=== PATIENT | female | born 1940 | race Caucasian/White ===

== ENCOUNTER 2016-10-31 13:48 | Observation (INO) | payer OTHER ==
--- NOTE | 2016-10-31 14:40 | CPEKG ---
Heart Rate: 101 RR Interval: 594 P-R Interval: 160 QRSD Interval: 84 QT Interval: 296 QTC Interval: 384 P [place]: 60 QRS [place]: 11 T Wave [place]: 106 EKG Severity - OTHERWISE NORMAL ECG - EKG Impression: SINUS TACHYCARDIA Electronically Signed By: Tarsha Tabares 31-Oct-2016 21:37:07
[2016-10-31 14:42] LABS: % IMMATURE GRANULYOCYTES 0.6 % (0.0-1.1); ABSOLUTE IMMATURE GRANULOCYTES 0.09 10^3/uL (0.00-0.10); ADD DIFF? NO; ADD MORPH? NO; ADD SCAN? NO; ATYPICAL LYMPHOCYTE FLAG 0 (0-99); FRAGMENT RBC FLAG 0 (0-99); HEMATOCRIT 33.7 % (38.0-47.0); HEMOGLOBIN 11.8 g/dL (12.6-16.3); LEFT SHIFT FLG 40 (0-99); LIPEMIA HEMOLYSIS FLAG 90 (0-99); MEAN CELL HEMOGLOBIN 32.3 pg (27.9-34.1); MEAN CELL VOLUME 92.3 fL (81.5-99.8); MEAN PLATELET VOLUME 9.8 fL (8.7-11.7); PLATELET CLUMPS FLAG 10 (0-99); PLATELET COUNT 260 10^3/uL (150-400); RED BLOOD CELL COUNT 3.65 10^6/uL (4.18-5.33); RED CELL DISTRIBUTION WIDTH 12.7 % (11.5-15.2)
--- NOTE | 2016-10-31 14:42 | EDPHY ---
H & P Stated Complaint: sob/tachycardic pain at bilat scapular area Time Seen by Provider: 10/31/16 14:16 HPI/ROS: CHIEF COMPLAINT: Shortness of breath, tachycardia, back pain between her scapula HISTORY OF PRESENT ILLNESS: this is a 76-year-old female who presents reporting that yesterday she felt fatigued and achy all over. She denies a fever. She slept quite a bit yesterday and noticed that she was short of breath when she was moving about the house. She woke this morning developed a headache. She also reports developing back pain between the scapula. Patient denies a cough. Denies fever. Denies abdominal pain. Denies rash. Primary complaint at this time is just feeling fatigued pain in her back, shortness of breath, and noticed that her heart rate is elevated. She denies anterior chest pain. No vomiting, or diarrhea. Patient does state that she felt she urinary tract infection last week and was drinking plenty of fluids as well as taking cranberry juice. No dizziness, palpitations , or lightheadedness. REVIEW OF SYSTEMS: Aside from elements discussed in the HPI, a comprehensive 10-point review of systems was reviewed and is negative. PAST MEDICAL HISTORY: Arthritis, chronic back pain. SOCIAL HISTORY: Here with her . Nonsmoker. Does use marijuana occasionally. VITAL SIGNS Reviewed by me. GENERAL: Well-developed, well-nourished, Slightly tachypneic. Pulse ox is noted to be 100% on room air. HEENT: Atraumatic. Eyes: No icterus, no injection. Mouth: moist mucous membranes. No erythema or lesions. Neck: supple with no adenopathy. LUNGS: Clear to auscultation bilaterally, no wheezes, rhonchi or rales. CARDIAC: Mild tachycardia, regular rhythm, no rubs, murmurs or gallops. Patient indicates that area of tenderness is along the infrascapular region on both sides. ABDOMEN: Soft, nontender, nondistended, bowel sounds normal. BACK: No CVA tenderness. EXTREMITIES: No trauma. No edema. Range of motion is normal throughout. NEURO: Alert and oriented, grossly nonfocal. SKIN: Warm and dry, no rash. PSYCHIATRIC: Normal mentation, no agitation. Portions of this note were transcribed by a regional medical director. I, Dr Tarsha Feldhaus , personally performed a history, physical exam, medical decision making, and confirmed the accuracy of the information in the transcribed note. - Personal History Current Tetanus/Diphtheria Vaccine: Yes - Medical/Surgical History Hx Asthma: No Hx Chronic Respiratory Disease: No Hx Diabetes: No Hx Cardiac Disease: No Hx Renal Disease: No Hx Cirrhosis: No Hx Alcoholism: No Hx HIV/AIDS: No Hx Splenectomy or Spleen Trauma: No Other PMH: HTN, herpes, cervial/lumbar spine stenosis - Social History Smoking Status: Never smoked Constitutional: Initial Vital Signs Temperature (C) 37.2 C 10/31/16 13:56 Heart Rate 113 H 10/31/16 13:56 Respiratory Rate 26 H 10/31/16 13:56 Blood Pressure 114/78 10/31/16 13:56 O2 Sat (%) 97 10/31/16 13:56 O2 Delivery Mode Room Air Allergies/Adverse Reactions: diclofenac [From Voltaren] Allergy (Intermediate, Verified 10/31/16 18:47) Other-Enter Comments Home Medications: Medication Instructions Recorded Duloxetine HCl [Cymbalta] 60 mg PO HS 08/02/15 Gabapentin [Neurontin 400 MG (*)] 400 mg PO HS 08/02/15 Losartan Potassium [Cozaar] 100 mg PO DAILY 08/02/15 Multivitamins [Multivitamin (*)] 1 each PO DAILY 08/02/15 Ranitidine HCl [Acid Nursery Laborer] 150 mg PO HS 08/02/15 Valacyclovir HCl [Valtrex] 1,000 mg PO DAILY 08/02/15 Chlorthalidone [Chlorthalidone 25 25 mg PO DAILY 10/31/16 mg (*)] Cyclobenzaprine [Flexeril 10 MG 10 mg PO HS PRN 10/31/16 (*)] LORazepam [Lorazepam] 0.5 mg PO HS PRN 10/31/16 Loratadine [Claritin 10 mg] 10 mg PO HS 10/31/16 Sennosides/Docusate Sodium 1 tab PO HS 10/31/16 [Senna-S Tablet] Triamcinolone Acetonide [Nasacort] 2 sprays EACHNARE HS PRN 10/31/16 amLODIPine BESYLATE [Norvasc 5 mg 5 mg PO DAILY 10/31/16 (*)] Naproxen Sodium [Aleve 220 MG (*)] 220 mg PO HS #30 tab 11/01/16 Sulfamethox/Tmp 800/160 mg 1 tab PO BID #2 tab 11/01/16 [Bactrim Ds] oxyCODONE IR [Oxycodone Ir (*)] 5 - 10 mg PO Q3HRS PRN #20 tab 11/01/16 Medical Decision Making - Diagnostics EKG Interpretation: 12-LEAD EKG: Please see the full report in Trace Master. My interpretation: Sinus tachycardia, borderline ST depression laterally Imaging Results: Xray: Chest x-ray was obtained. I viewed the images myself on the PACS system. My interpretation of the images is: No acute findings. The radiology interpretation is: Pending. I discussed the results with the patient. ED Course/Re-evaluation: The 12 lead EKG was interpreted by myself. See hard copy and/or "tracemaster" electronic copy for interpretation. Sinus tachycardia, rate 101 Chest x-ray normal. D Dimer elevated at 1.79 16:30 Reassessed patient. Discussed lab results. CT scan ordered. 16:[address] Martinez, radiologist. PE study negative. Reported this result to the patient. Plan to admit. - Data Points Laboratory Results: Laboratory Results 10/31/16 14:10 10/31/16 14:10 Medications Given: Discontinued Medications Amlodipine Besylate (Norvasc) 5 mg PO DAILY BUZZ Stop: 04/30/17 08:59 Last Admin: 11/01/16 08:11 Dose: 5 mg Cetirizine HCl (Zyrtec) 10 mg PO HS BUZZ Stop: 04/29/17 20:59 Last Admin: 10/31/16 20:52 Dose: 10 mg Cyclobenzaprine HCl (Flexeril) 10 mg PO HS PRN PRN Reason: muscle spasms Stop: 04/29/17 19:19 Last Admin: 11/01/16 06:01 Dose: 10 mg Duloxetine HCl (Cymbalta) 60 mg PO HS BUZZ Stop: 04/29/17 20:59 Last Admin: 10/31/16 20:51 Dose: 60 mg Enoxaparin Sodium (Lovenox) 40 mg SC DAILY BUZZ Stop: 04/30/17 08:59 Last Admin: 11/01/16 08:14 Dose: 40 mg Famotidine (Pepcid) 20 mg PO HS BUZZ Stop: 04/29/17 20:59 Last Admin: 10/31/16 20:51 Dose: 20 mg Gabapentin (Neurontin) 400 mg PO HS BUZZ Stop: 04/29/17 20:59 Last Admin: 10/31/16 20:51 Dose: 400 mg Sodium Chloride (Ns) 1,000 mls @ 0 mls/hr IV ONCE ONE; Wide Open PRN Reason: Protocol Stop: 10/31/16 16:37 Last Admin: 10/31/16 16:38 Dose: 1,000 mls Sodium Chloride (Ns) 1,000 mls @ 100 mls/hr IV CONT BUZZ Stop: 04/29/17 19:29 Last Admin: 11/01/16 06:55 Dose: 1,000 mls Ceftriaxone Sodium/Dextrose (Rocephin 1 Gm (Premix)) 50 mls @ 100 mls/hr IV DAILY BUZZ PRN Reason: Protocol Stop: 11/30/16 19:59 Last Admin: 11/01/16 08:12 Dose: 50 mls Losartan Potassium (Cozaar) 100 mg PO DAILY BUZZ Stop: 04/30/17 08:59 Last Admin: 11/01/16 11:53 Dose: 100 mg Multivitamins (Tab-A-[place]) 1 each PO DAILY BUZZ Stop: 04/30/17 08:59 Last Admin: 11/01/16 08:11 Dose: 1 each Oxycodone HCl (Oxycodone Ir) 5 - 10 mg PO Q3HRS PRN PRN Reason: Pain, Severe Able to Take PO Stop: 11/10/16 19:17 Last Admin: 11/01/16 11:48 Dose: 5 mg Senna/Docusate Sodium (Senokot-S) 1 tab PO HS BUZZ Stop: 04/29/17 20:59 Last Admin: 10/31/16 20:51 Dose: 1 tab Valacyclovir HCl (Valtrex) 1,000 mg PO DAILY BUZZ Stop: 12/01/16 08:59 Last Admin: 11/01/16 08:10 Dose: 1,000 mg Departure - Departure Disposition: [facility] Acute Condition: Good Report Scribed for: Tarsha Tabares Report Scribed by: Kylee Whiteside Date of Report: 10/31/16 Time of Report: 16:30
[2016-10-31 14:50] LABS: ALANINE AMINOTRANSFERASE 104 IU/L (9-52); ALBUMIN 4.1 g/dL (3.5-5.0); ALKALINE PHOSPHATASE 163 IU/L (38-126); ANION GAP 11 mEq/L (8-16); ASPARTATE AMINOTRANSFERASE 113 IU/L (14-46); BILIRUBIN,TOTAL 1.2 mg/dL (0.1-1.4); BILIRUBIN-CONJUGATED 0.5 mg/dL (0.0-0.5); BILIRUBIN-UNCONJUGATED 0.7 mg/dL (0.0-1.1); CALCIUM 9.9 mg/dL (8.5-10.4); CARBON DIOXIDE 21 mEq/l (22-31); CHLORIDE 91 mEq/L (97-110); CREATININE 1.3 mg/dL (0.6-1.0); GLOMERULAR FILTRATION RATE 40; GLUCOSE 88 mg/dL (70-100); POTASSIUM 3.8 mEq/L (3.5-5.2); SODIUM 123 mEq/L (134-144); TOTAL PROTEIN 7.3 g/dL (6.3-8.2)
[2016-10-31 15:01] LABS: TROPONIN I < 0.012 ng/mL (0-0.034)
[2016-10-31] MEDS ORDERED: IOPAMIDOL (ISOVUE 370) 100 ML BTL IV ONE (15:34)
[2016-10-31] MEDS ORDERED: NS 1,000 ML IV ONE (16:36)
[2016-10-31 17:36] LABS: COLOR YELLOW; LEUKOCYTE ESTERASE,URINE TRACE (NEGATIVE); NITRITE,URINE POSITIVE (NEGATIVE)
[2016-10-31] MEDS ORDERED: ONDANSETRON 4 MG/2 ML VIAL IVP PRN (19:18)
[2016-10-31] MEDS ORDERED: ACETAMINOPHEN 325 MG TAB PO PRN (19:18)
[2016-10-31] MEDS ORDERED: ZOLPIDEM TARTRATE 5 MG TAB PO PRN (19:18)
[2016-10-31] MEDS ORDERED: ONDANSETRON DISINTEGRATING 4 MG TAB PO PRN (19:18)
[2016-10-31] MEDS ORDERED: PROMETHAZINE HCL 25 MG/ML INJ IVP PRN (19:18)
[2016-10-31] MEDS ORDERED: CYCLOBENZAPRINE 10 MG TAB PO PRN (19:20)
[2016-10-31] MEDS ORDERED: NON-FORMULARY NEW DRUG (Acetaminophen [Acetaminophen Er] 1,300 MG) PO PRN (19:20)
[2016-10-31] MEDS ORDERED: TRIAMCINOLONE ACETONIDE EACHNARE PRN (19:20)
[2016-10-31] MEDS ORDERED: LORazepam 1 MG TAB PO PRN (19:20)
--- NOTE | 2016-10-31 19:28 | PDGENHP ---
History and Physical - Chief Complaint fatigue - History of Present Illness 76 yo F with PMH of HTN, chronic pain presenting with several days of generalized fatigue and malaise as well as diffuse aches and pains and touch sensitivity. She note she has felt as if she had a fever, though she has not when she has checked it. She has also had about a week of s/s of urinary infection that have been improving with pushing fluids and time. She has had some mid back pain that has improved since getting IVF in the ER. She has not noted any blood in her urine. She has not had any shortness of breath outside of her usual congestion related to seasonal allergies. She has not had cough, chest pain, palpitations. She has chronic constipation and this is unchanged. She has had no nausea or vomiting. She has not had any abdominal pain. She has had no swelling or pain in her legs. She felt so poorly that yesterday she essentially slept all day and ate and drink very little. Today she has had very little po intake as well. She does note that she has had some increased stress recently around her partner going for back surgery next week. She has some chronic paresthesias related to cervical stenosis but these have not changed. History Information - Allergies/Home Medication List Allergies/Adverse Reactions: diclofenac [From Voltaren] Allergy (Intermediate, Verified 10/31/16 18:47) Other-Enter Comments Home Medications: Duloxetine HCl [Cymbalta] 60 mg PO HS 08/02/15 [Last Taken 10/30/16] Gabapentin [Neurontin 400 MG (*)] 400 mg PO HS 08/02/15 [Last Taken 10/30/16] Losartan Potassium [Cozaar] 100 mg PO DAILY 08/02/15 [Last Taken 10/31/16] Multivitamins [Multivitamin (*)] 1 each PO DAILY 08/02/15 [Last Taken 10/31/16] Naproxen [Naprosyn] 500 mg PO HS 08/02/15 [Last Taken 10/30/16] Ranitidine HCl [Acid Data Lead] 150 mg PO HS 08/02/15 [Last Taken 10/30/16] Valacyclovir HCl [Valtrex] 1,000 mg PO DAILY 08/02/15 [Last Taken 10/31/16] Acetaminophen [Acetaminophen ER] 1,300 mg PO Q8 PRN 10/31/16 [Last Taken ] Chlorthalidone [Chlorthalidone 25 mg (*)] 25 mg PO DAILY 10/31/16 [Last Taken ] Cyclobenzaprine [Flexeril 10 MG (*)] 10 mg PO HS PRN 10/31/16 [Last Taken ] Hydrochlorothiazide Dose Unknown mg PO DAILY 10/31/16 [Last Taken 10/31/16] LORazepam [Lorazepam] 0.5 mg PO HS PRN 10/31/16 [Last Taken 10/30/16] Loratadine [Claritin 10 mg] 10 mg PO HS 10/31/16 [Last Taken 10/30/16] Sennosides/Docusate Sodium [Senna-S Tablet] 1 tab PO HS 10/31/16 [Last Taken ] Triamcinolone Acetonide [Nasacort] 2 sprays EACHNARE HS PRN 10/31/16 [Last Taken 10/30/16] amLODIPine BESYLATE [Norvasc 5 mg (*)] 5 mg PO DAILY 10/31/16 [Last Taken ] oxyCODONE/APAP 5/325 [Percocet 5/325] 1 tab PO Q6 PRN 10/31/16 [Last Taken 10/30 20:00] I have personally reviewed and updated: family history, medical history, social history, surgical history - Past Medical History GERD, hypertension Additional medical history: chronic back and ankle pain. 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 hsv. continuous narcotic use and dependency - Surgical History Reports: hysterectomy (for fibroids) - Family History Positive for: non-pertinent - Social History Smoking Status: Never smoked Alcohol Use: Rarely Drug Use: Marijuana Additional social history: lives with her partner, she was previously and Review of Systems ROS: 10pt was reviewed & negative except for what was stated in HPI & below Physical Exam Temp Pulse Resp BP Pulse Ox 37.6 C 97 20 115/75 100 10/31/16 18:49 10/31/16 18:49 10/31/16 18:49 10/31/16 18:49 10/31/16 18:49 Constitutional: no apparent distress, appears nourished Eyes: PERRL, anicteric sclera Ears, Nose, Mouth, Throat: moist mucous membranes, hearing normal, no oral mucosal ulcers Cardiovascular: regular rate and rhythym, no murmur, rub, or gallop, No edema Respiratory: no respiratory distress, no rales or rhonchi, clear to auscultation Gastrointestinal: normoactive bowel sounds, soft, non-tender abdomen, No tenderness Genitourinary: no bladder tenderness, other (no cva tenderness) Skin: warm, normal color Musculoskeletal: full muscle strength, no muscle tenderness, No asymmetric calves Neurologic: AAOx3 Psychiatric: interacting appropriately, not anxious, not encephalopathic Lab Data & Imaging Review 10/31/16 14:10 10/31/16 14:10 WBC 15.24 10^3/uL (3.80-9.50) H 10/31/16 14:10 RBC 3.65 10^6/uL (4.18-5.33) L 10/31/16 14:10 Hgb 11.8 g/dL (12.6-16.3) L 10/31/16 14:10 Hct 33.7 % (38.0-47.0) L 10/31/16 14:10 MCV 92.3 fL (81.5-99.8) 10/31/16 14:10 MCH 32.3 pg (27.9-34.1) 10/31/16 14:10 MCHC 35.0 g/dL (32.4-36.7) 10/31/16 14:10 RDW 12.7 % (11.5-15.2) 10/31/16 14:10 Plt Count 260 10^3/uL (150-400) 10/31/16 14:10 MPV 9.8 fL (8.7-11.7) 10/31/16 14:10 Neut % (Auto) 81.7 % (39.3-74.2) H 10/31/16 14:10 Lymph % (Auto) 8.3 % (15.0-45.0) L 10/31/16 14:10 [place] % (Auto) 9.2 % (4.5-13.0) 10/31/16 14:10 Eos % (Auto) 0.1 % (0.6-7.6) L 10/31/16 14:10 Baso % (Auto) 0.1 % (0.3-1.7) L 10/31/16 14:10 Nucleat RBC Rel Count 0.0 % (0.0-0.2) 10/31/16 14:10 Absolute Neuts (auto) 12.45 10^3/uL (1.70-6.50) H 10/31/16 14:10 Absolute Lymphs (auto) 1.26 10^3/uL (1.00-3.00) 10/31/16 14:10 Absolute Monos (auto) 1.40 10^3/uL (0.30-0.80) H 10/31/16 14:10 Absolute Eos (auto) 0.02 10^3/uL (0.03-0.40) L 10/31/16 14:10 Absolute Basos (auto) 0.02 10^3/uL (0.02-0.10) 10/31/16 14:10 Absolute Nucleated RBC 0.00 10^3/uL (0-0.01) 10/31/16 14:10 Immature Gran % 0.6 % (0.0-1.1) 10/31/16 14:10 Immature Gran # 0.09 10^3/uL (0.00-0.10) 10/31/16 14:10 D-Dimer 1.79 ug/mLFEU (0.00-0.50) H 10/31/16 14:10 VBG Lactic Acid 1.6 mmol/L (0.7-2.1) 10/31/16 18:35 Sodium 123 mEq/L (134-144) L 10/31/16 14:10 Potassium 3.8 mEq/L (3.5-5.2) 10/31/16 14:10 Chloride 91 mEq/L (97-110) L 10/31/16 14:10 Carbon Dioxide 21 mEq/l (22-31) L 10/31/16 14:10 Anion Gap 11 mEq/L (8-16) 10/31/16 14:10 BUN 23 mg/dL (7-23) 10/31/16 14:10 Creatinine 1.3 mg/dL (0.6-1.0) H 10/31/16 14:10 Estimated GFR 40 10/31/16 14:10 Glucose 88 mg/dL (70-100) 10/31/16 14:10 Calcium 9.9 mg/dL (8.5-10.4) 10/31/16 14:10 Total Bilirubin 1.2 mg/dL (0.1-1.4) 10/31/16 14:10 Conjugated Bilirubin 0.5 mg/dL (0.0-0.5) 10/31/16 14:10 Unconjugated Bilirubin 0.7 mg/dL (0.0-1.1) 10/31/16 14:10 AST 113 IU/L (14-46) H 10/31/16 14:10 ALT 104 IU/L (9-52) H 10/31/16 14:10 Alkaline Phosphatase 163 IU/L (38-126) H 10/31/16 14:10 Creatine Kinase 73 IU/L (0-156) 10/31/16 14:10 Troponin I < 0.012 ng/mL (0-0.034) 10/31/16 14:10 Total Protein 7.3 g/dL (6.3-8.2) 10/31/16 14:10 Albumin 4.1 g/dL (3.5-5.0) 10/31/16 14:10 Lipase 45.0 IU/L (23-300) 10/31/16 14:10 Urine Color YELLOW 10/31/16 17:20 Urine Appearance CLEAR 10/31/16 17:20 Urine pH 7.0 (5.0-7.5) 10/31/16 17:20 Ur Specific [place] 1.025 (1.002-1.030) 10/31/16 17:20 Urine Protein NEGATIVE (NEGATIVE) 10/31/16 17:20 Urine Ketones TRACE (NEGATIVE) H 10/31/16 17:20 Urine Blood NEGATIVE (NEGATIVE) 10/31/16 17:20 Urine Nitrate POSITIVE (NEGATIVE) H 10/31/16 17:20 Urine Bilirubin NEGATIVE (NEGATIVE) 10/31/16 17:20 Urine Urobilinogen NEGATIVE EU (0.2-1.0) 10/31/16 17:20 Ur Leukocyte Esterase TRACE (NEGATIVE) H 10/31/16 17:20 Urine RBC 1-3 /hpf (0-3) 10/31/16 17:20 Urine WBC 5-10 /hpf (0-3) H 10/31/16 17:20 Ur Epithelial Cells TRACE /lpf (NONE-1+) 10/31/16 17:20 Urine Glucose NEGATIVE (NEGATIVE) 10/31/16 17:20 Visualized and Interpreted Chest x-ray results: Yes Chest X-Ray results: normal Visualized and Interpreted imaging results: Yes Interpretation: CTA: no PE, 4mm pulmonary nodule Visualized and Interpreted EKG results: Yes EKG additional interpertation: sinus tachycardia Assessment & Plan Assessment: 76 yo F with PMH of htn, chronic back/ankle pain pw generalized malaise and fatigue, hyponatremia, sunil, transaminitis. # generalized malaise/fatigue: with very few localizing sxs but concerning for occult infectious process ,possibly viral illness vs uti, cholecystitis. Will also check TSH and r/o for ACS with serial trops and ecgs. Non focal neuro exam and does not give hx of focal neuro changes. No med changes. # hyponatremia: in the setting of several days of feeling poorly as above with limited po intake and suspect hypovolemic hyponatremia. Will check urine na/ osms. Will repeat s/p IVF and likely continue gentle IVF overnight. Hold diuretics. # pyuria: with trace leuk esterase and trace nitrates and urinary sxs for several days, will start ctx and obtain urine culture # sunil: in setting of above and again suspect pre renal. Will calculate fena/ feurea. Holding hctz and chlorthalidone and monitoring with fluid resuscitation. # transaminitis: uncertain significance but does have mild ttp on exam in RUQ and will obtain RUQ US to r/o cholecystitis # sirs: patient initially tachycardic (resolved with IVF), tachypneic and with elevated wbc and as above concern for possible infection. HD stable, starting abx for presumed uti and monitoring. # pulmonary nodule: given size and low risk patient without hx of cancer or smoking, no further f/u needed # htn: holding diuretics and losartan given sunil, continue amlodipine, can resume losartan in am if creatinine improving. BP currently on low end # seasonal allergies: continue loratadine # chronic pain/continuous opiate use and dependency: continue her usual op regimen, not an acute issue currently # observation status, will likely need < 48 hours stay for eval/mgmt of above Patient new to my care. old records reviewed and summarized as above. Care plan reviewed with ER doctor including plans for abx.
[2016-10-31] MEDS ORDERED: FLUTICASONE NASAL 120 SPRAYS/16 GM MDI EACHNARE PRN (19:53)
[2016-10-31] MEDS ORDERED: ACETAMINOPHEN 500 MG TAB PO PRN (19:59)
[2016-10-31] MEDS: NS 1,000 ML IV SCH (20:42)
[2016-10-31] MEDS ORDERED: NON-FORMULARY NEW DRUG (Ranitidine Hcl [Acid Reducer] 150 MG) PO SCH (21:00)
[2016-10-31] MEDS ORDERED: NON-FORMULARY NEW DRUG (Loratadine [Claritin 10 Mg] 10 MG) PO SCH (21:00)
[2016-10-31] MEDS ORDERED: FAMOTIDINE 20 MG TAB PO SCH (21:00)
[2016-10-31] MEDS ORDERED: CETIRIZINE 10 MG TAB PO SCH (21:00)
[2016-10-31] MEDS ORDERED: SENNOSIDES/DOCUSATE SODIUM TAB PO SCH (21:00)
[2016-10-31] MEDS ORDERED: DULoxetine 60 MG CAP PO SCH (21:00)
[2016-10-31] MEDS ORDERED: GABAPENTIN 400 MG CAP PO SCH (21:00)
[2016-11-01 04:50] LABS: % IMMATURE GRANULYOCYTES 0.7 % (0.0-1.1); ABSOLUTE IMMATURE GRANULOCYTES 0.13 10^3/uL (0.00-0.10); ADD DIFF? NO; ADD MORPH? NO; ADD SCAN? NO; ATYPICAL LYMPHOCYTE FLAG 0 (0-99); FRAGMENT RBC FLAG 0 (0-99); HEMATOCRIT 29.6 % (38.0-47.0); HEMOGLOBIN 10.2 g/dL (12.6-16.3); LEFT SHIFT FLG 60 (0-99); LIPEMIA HEMOLYSIS FLAG 90 (0-99); MEAN CELL HEMOGLOBIN CONCENTR. 34.5 g/dL (32.4-36.7); MEAN CELL VOLUME 95.8 fL (81.5-99.8); MEAN PLATELET VOLUME 9.4 fL (8.7-11.7); PLATELET CLUMPS FLAG 0 (0-99); PLATELET COUNT 234 10^3/uL (150-400); RED BLOOD CELL COUNT 3.09 10^6/uL (4.18-5.33); RED CELL DISTRIBUTION WIDTH 13.5 % (11.5-15.2)
[2016-11-01 05:00] LABS: ALANINE AMINOTRANSFERASE 81 IU/L (9-52); ALKALINE PHOSPHATASE 138 IU/L (38-126); ANION GAP 9 mEq/L (8-16); ASPARTATE AMINOTRANSFERASE 64 IU/L (14-46); BILIRUBIN,TOTAL 0.7 mg/dL (0.1-1.4); CALCIUM 8.9 mg/dL (8.5-10.4); CARBON DIOXIDE 23 mEq/l (22-31); CHLORIDE 98 mEq/L (97-110); CREATININE 1.3 mg/dL (0.6-1.0); GLOMERULAR FILTRATION RATE 40; GLUCOSE 91 mg/dL (70-100); POTASSIUM 3.7 mEq/L (3.5-5.2); SODIUM 130 mEq/L (134-144); TOTAL PROTEIN 5.9 g/dL (6.3-8.2)
[2016-11-01 05:10] LABS: TROPONIN I < 0.012 ng/mL (0-0.034)
[2016-11-01] MEDS: oxyCODONE IR 5 MG TAB PO PRN ×2 (05:36→11:48)
[2016-11-01] MEDS: NS 1,000 ML IV SCH (06:55)
[2016-11-01 07:33] LABS: SODIUM 128 mEq/L (134-144)
[2016-11-01 07:49] LABS: TROPONIN I < 0.012 ng/mL (0-0.034)
--- NOTE | 2016-11-01 08:39 | CPEKG ---
Heart Rate: 92 RR Interval: 652 P-R Interval: 164 QRSD Interval: 90 QT Interval: 344 QTC Interval: 426 P [place]: 64 QRS [place]: 5 T Wave [place]: 107 EKG Severity - ABNORMAL ECG - EKG Impression: SINUS RHYTHM EKG Impression: NONSPECIFIC T ABNORMALITIES, ANT-LAT LEADS Electronically Signed By: Juan Moore 01-Nov-2016 09:07:08
[2016-11-01] MEDS ORDERED: ENOXAPARIN 40 MG/0.4 ML SYR SC SCH (09:00)
[2016-11-01] MEDS ORDERED: NON-FORMULARY NEW DRUG (Losartan Potassium [Cozaar] 100 MG) PO SCH (09:00)
[2016-11-01] MEDS ORDERED: NON-FORMULARY NEW DRUG (Valacyclovir Hcl [Valtrex] 1,000 MG) PO SCH (09:00)
[2016-11-01] MEDS ORDERED: LOSARTAN POTASSIUM 50 MG TAB PO SCH (09:00)
[2016-11-01] MEDS ORDERED: amLODIPine BESYLATE 5 MG TAB PO SCH (09:00)
[2016-11-01] MEDS ORDERED: valACYclovir 500 MG TAB PO SCH (09:00)
[2016-11-01] MEDS ORDERED: MULTIVITAMINS 1 EACH TAB PO SCH (09:00)
--- NOTE | 2016-11-01 13:50 | HOSPPROG ---
Hospitalist Progress Note Assessment/Plan: 76 yo F admitted w nonspecific sx probable UTI: has sx and weakly pos UA treat as uncomplicated uti 3 days abx liver injury: suspect viral syndrome although may be some chronic tylenol toxicity outpt follow up advised to decrease tylenol ltd script for oxycodone dispo: home see dc summary Subjective: describes urinary symptoms Objective: Vital Signs Temp Pulse Resp BP Pulse Ox 37.0 C 90 18 90/53 L 91 L 11/01/16 12:27 11/01/16 12:27 11/01/16 12:27 11/01/16 12:27 11/01/16 12:27 Laboratory Results 11/01/16 04:25 11/01/16 04:25 10/31/16 11/01/16 11/02/16 05:59 05:59 05:59 Intake Total 2675 120 Output Total 475 Balance 2200 120 - Physical Exam Constitutional: no apparent distress, appears nourished Eyes: PERRL, anicteric sclera Ears, Nose, Mouth, Throat: moist mucous membranes, hearing normal Cardiovascular: regular rate and rhythym, no murmur, rub, or gallop Respiratory: no respiratory distress, no rales or rhonchi Gastrointestinal: normoactive bowel sounds, soft, non-tender abdomen Genitourinary: no bladder fullness, claire in urethra Skin: warm, normal color Musculoskeletal: full muscle strength, no muscle tenderness Neurologic: AAOx3
[2016-11-01 16:01] VITALS: BP 122/59; PULSE 98; RESP 20; TEMP 97.5; O2SAT 89
--- NOTE | 2016-11-01 21:59 | GDS ---
[f rep st] DISCHARGE SUMMARY DISCHARGE DIAGNOSES: 1. Elevated liver function tests trending down. 2. Suspect urinary tract infection. 3. Likely viral syndrome. 4. Hyponatremia, now resolved. 5. Elevated creatinine. 6. Chronic pain, with continuous narcotic use. 7. Leukocytosis. HOSPITAL COURSE: Please see admission history and physical by Dr. Greg Garner. The patient pre sented with complaints yesterday of urinary urgency, as well as new pain that she describes like a m eteor shower over her body, as well as poor p.o. intake. It is a little bit hard to pin down on her Tylenol use, but she does take Percocet and extended-release Tylenol; these per her medication list . Her sodium came up with some IV fluids. Other signs of volume depletion arose. She had transami nases in the low 100s itself. She had an ultrasound showing no fatty infiltration. She denies heav y alcohol use. She has not had the elevated AST to ALT ratio consistent with alcoholic hepatitis. She had negative troponins. No events on telemetry, other than 4 beats of supraventricular tachycar tiff. The patient is discharged home with a prescription for oxycodone, in lieu of Percocet, as well as sh e is advised to take a lower dose of naproxen at night, in addition of antibiotics for card spected UTI. She had pyuria and symptoms, although this is somewhat on the low level of pyuria. Ur ine culture is pending at the time of this dictation. She is advised to follow up with her primary care physician, Dr. Sanjeev Norton, for repeat LFT and cr eatinine check. The patient is euvolemic on exam. /[id number]/MODL
== END 2016-11-01 16:20 | disposition home or self-care (01) ==
LOC: F2W 18:40
PROVIDERS: ADMIT Internal Medicine; ATTEND Internal Medicine
DX: N39.0 Urinary tract infection, site not specified (principal); B34.9 Viral infection, unspecified; R94.5 Abnormal results of liver function studies; G89.29 Other chronic pain; F11.20 Opioid dependence, uncomplicated; K59.00 Constipation, unspecified; I10 Essential (primary) hypertension; K21.9 Gastro-esophageal reflux disease without esophagitis; M48.06 Spinal stenosis, lumbar region
CPT/HCPCS: 71020; 71275; 76705; 93005; 97161; 97165; G0378; G8978; G8979; G8980; G8987; G8988; J0696; J1650; Q9967

== ENCOUNTER → 2017-04-12 | Outpatient (CLI) | payer OTHER | LOC: FIMAGING 10:00 | PROVIDERS: ATTEND Internal Medicine | DX: Z13.820 Encounter for screening for osteoporosis (principal); M85.80 Other specified disorders of bone density and structure, unspecified site ==

== ENCOUNTER 2017-04-18 01:06 | Inpatient (IN) | payer OTHER ==
[2017-04-18] MEDS ORDERED: NS 500 ML IV ONE (01:59)
--- NOTE | 2017-04-18 02:11 | EDPHY ---
H & P Time Seen by Provider: 04/18/17 01:45 HPI/ROS: HPI Neck pain. 76-year-old female by private vehicle with her significant other. This patient has a history of chronic pain involving her neck and her back. She is narcotic dependent. She takes oxycodone. She reports that for the last week her chronic neck and back pain have been worse. She was seen by her physician at [facility]. She had cortisone injections and felt better for a couple of days. She also had MRIs of her lumbar spine and cervical spine this week. She states that her pain started bothering her more tonight. She reports the neck pain is a jolting pain with movement of her head. She also reports that her knees gave out on her twice during the last 6-8 hours when she was going to the bathroom and she collapsed to the ground. Currently she denies any focal loss of sensation or weakness in her extremities. She has not had a fever. When she fell she did not hit her head. There was no loss of consciousness. ROS: Constitutional: No fever, no chills. As above. Eyes: No discharge. No changes in vision. ENT: No sore throat. No nasal congestion or rhinorrhea. Respiratory: No cough. No shortness of breath. Cardiac: No chest pain, no palpitations. Gastrointestinal: No abdominal pain, no vomiting, no diarrhea. Genitourinary: No hematuria. No dysuria or increased frequency with urination. Musculoskeletal: As above. No myalgias or arthralgias. Skin: No rashes. Neurological: No headache. No focal weakness or altered sensation. Past medical history: Hypertension, herpes, chronic lumbar and cervical spinal pain secondary to spinal stenosis. Narcotic dependent for pain control, hysterectomy, uterine fibroids, uses marijuana and takes acid occasionally. Social history: Smokes marijuana and uses acid, drinks alcohol occasionally, here with her boyfriend. Denies alcohol tonight. Nonsmoker. Physical Exam: General Appearance: Alert but her eyes are shut, she opens them spontaneously intermittently. Her eye lids are fluttering. She is shaking but this is not seizure activity. This patient is responding to questions appropriately and in full sentences. This patient appears well-hydrated and well-nourished. Eyes: Pupils equal and round no pallor or injection. No lid edema, erythema or injection. ENT, Mouth: Mucous membranes are moist. The pharyngeal tissues are unremarkable. No edema or swelling. No asymmetry suggestive of abscess. No erythema or exudates. No tongue lacerations or abrasions. Respiratory: There are no retractions, lungs are clear to auscultation with good air movement bilaterally. Cardiovascular: Regular rate and rhythm. No murmur. Gastrointestinal: Abdomen is soft and nontender, no masses, bowel sounds normal. No focal tenderness at McBurney's point. No Lee sign. Neurological: Motor sensory function is grossly intact in all myotomes in dermatomes of the bilateral upper and bilateral lower extremities. Cranial nerves are normal. Cerebellar function is normal. Skin: Warm and dry, no rashes. Musculoskeletal: Neck is supple with vague paraspinal tenderness bilaterally from C2 through C5. No midline cervical, thoracic, lumbar tenderness on palpation. Extremities are symmetrical. All joints range without pain or impingement. Psychiatric: No agitation. No depression. Database: EKG: EKG time is 2:21 a.m.; EKG shows a narrow complex normal sinus rhythm with a ventricular rate of 78. The KS, QRS, QT intervals are within normal limits. There are no ST-T wave changes indicative of ischemic or injury pattern. No evidence of right heart strain. No evidence of Brugada syndrome, WPW, hypertrophic cardiomyopathy. Interpreted by me. Imaging: MRI of the cervical spine: Procedures: Emergency department course: IV was placed. She was placed on a ekg monitor tech. EKG obtained and reviewed by myself. Vital signs reviewed. She is moderately hypertensive. Vital signs otherwise normal. She has CD ROM of her previous MRIs from earlier this week but no reports on them. Plan will be to repeat her MRI of her cervical spine as well as her brain to assess for increased cord compression versus acute disc herniation versus possible TIA. I discussed this patient's case with Dr. Tam House of the Radiology Service. 3:00 a.m., patient given 0.5 mg of IV Ativan. She was sent for her MRIs. 3:45 a.m., the patient was returned to her room. Despite 1 mg of Ativan she would not cooperate see in the MRI suite. She is now talking about elephants since seems to be hallucinating. She does have a history of taking acid. I feel that she is under the influence of a psychotropic drug. Plan at this time will be to admit her to the hospitalist service and then have her reassessed when she is sober. 3:50 a.m., spoke with hospitalist. This patient's case was discussed in detail. Patient accepted for admission to the hospitalist service. She will be reassessed for MR imaging in the morning. I do not feel at this time that this is a emergently needed. However, given her complaint and her past medical history MR imaging of her cervical spine at minimal be obtained later this morning. Differential Diagnosis: The differential diagnosis on this patient includes but is not limited to exacerbation of chronic pain, psychotropic street drug abuse. Epidural compression syndrome, acute cervical spine disc herniation, TIA, cardiac etiology of syncope unlikely. This represents a partial list of diagnoses considered. These considerations are based on history, physical exam, past history, reassessment and diagnostic testing. Smoking Status: Current some day smoker Constitutional: Initial Vital Signs Temperature (C) 36.7 C 04/18/17 01:21 Heart Rate 76 04/18/17 01:21 Respiratory Rate 16 04/18/17 01:21 Blood Pressure 145/76 H 04/18/17 01:21 O2 Sat (%) 97 04/18/17 01:21 O2 Delivery Mode Room Air Allergies/Adverse Reactions: diclofenac [From Voltaren] Allergy (Intermediate, Verified 04/18/17 01:25) Other-Enter Comments Home Medications: Medication Instructions Recorded Duloxetine HCl [Cymbalta] 60 mg PO HS 08/02/15 Gabapentin [Neurontin 400 MG (*)] 400 mg PO HS 08/02/15 Losartan Potassium [Cozaar] 100 mg PO DAILY 08/02/15 Multivitamins [Multivitamin (*)] 1 each PO DAILY 08/02/15 Valacyclovir HCl [Valtrex] 1,000 mg PO DAILY 08/02/15 Chlorthalidone [Chlorthalidone 25 25 mg PO DAILY 10/31/16 mg (*)] Cyclobenzaprine [Flexeril 10 MG 10 mg PO HS PRN 10/31/16 (*)] LORazepam [Lorazepam] 0.5 mg PO HS PRN 10/31/16 Sennosides/Docusate Sodium 1 tab PO HS 10/31/16 [Senna-S Tablet] Naproxen Sodium [Aleve 220 MG (*)] 220 mg PO HS #30 tab 11/01/16 oxyCODONE IR [Oxycodone Ir (*)] 5 - 10 mg PO Q3HRS PRN #20 tab 11/01/16 Amlodipine Besylate 04/18/17 Prednisone 04/18/17 Medical Decision Making - Data Points Laboratory Results: Laboratory Results 04/18/17 02:11 04/18/17 02:11 04/18/17 04/18/17 04/18/17 02:11 02:11 01:01 WBC 17.52 10^3/uL H 10^3/uL (3.80-9.50) RBC 3.70 10^6/uL L 10^6/uL (4.18-5.33) Hgb 12.2 g/dL L g/dL (12.6-16.3) Hct 33.5 % L % (38.0-47.0) MCV 90.5 fL fL (81.5-99.8) MCH 33.0 pg pg (27.9-34.1) MCHC 36.4 g/dL g/dL (32.4-36.7) RDW 13.3 % % (11.5-15.2) Plt Count 361 10^3/uL 10^3/uL (150-400) MPV 8.8 fL fL (8.7-11.7) Neut % (Auto) 86.0 % H % (39.3-74.2) Lymph % (Auto) 8.3 % L % (15.0-45.0) Webb % (Auto) 5.0 % % (4.5-13.0) Eos % (Auto) 0.1 % L % (0.6-7.6) Baso % (Auto) 0.2 % L % (0.3-1.7) Nucleat RBC Rel Count 0.0 % % (0.0-0.2) Absolute Neuts (auto) 15.07 10^3/uL H 10^3/uL (1.70-6.50) Absolute Lymphs (auto) 1.46 10^3/uL 10^3/uL (1.00-3.00) Absolute Monos (auto) 0.87 10^3/uL H 10^3/uL (0.30-0.80) Absolute Eos (auto) 0.02 10^3/uL L 10^3/uL (0.03-0.40) Absolute Basos (auto) 0.03 10^3/uL 10^3/uL (0.02-0.10) Absolute Nucleated RBC 0.00 10^3/uL 10^3/uL (0-0.01) Immature Gran % 0.4 % % (0.0-1.1) Immature Gran # 0.07 10^3/uL 10^3/uL (0.00-0.10) ESR PT 13.6 SEC SEC (12.0-15.0) INR 1.02 (0.83-1.16) APTT 34.6 SEC SEC (23.0-38.0) Sodium 132 mEq/L L mEq/L (134-144) Potassium 4.1 mEq/L mEq/L (3.5-5.2) Chloride 92 mEq/L L mEq/L (97-110) Carbon Dioxide 24 mEq/l mEq/l (22-31) Anion Gap 16 mEq/L mEq/L (8-16) BUN 32 mg/dL H mg/dL (7-23) Creatinine 1.0 mg/dL mg/dL (0.6-1.0) Estimated GFR 54 Glucose 96 mg/dL mg/dL (70-100) Calcium 9.5 mg/dL mg/dL (8.5-10.4) Total Bilirubin Conjugated Bilirubin Unconjugated Bilirubin AST ALT Alkaline Phosphatase Creatine Kinase C-Reactive Protein Total Protein Albumin Procalcitonin Ethyl Alcohol 04/18/17 04/18/17 01:00 01:00 WBC RBC Hgb Hct 33.9 % L % (38.0-47.0) MCV MCH MCHC RDW Plt Count MPV Neut % (Auto) Lymph % (Auto) Webb % (Auto) Eos % (Auto) Baso % (Auto) Nucleat RBC Rel Count Absolute Neuts (auto) Absolute Lymphs (auto) Absolute Monos (auto) Absolute Eos (auto) Absolute Basos (auto) Absolute Nucleated RBC Immature Gran % Immature Gran # ESR 48 MM/HR H MM/HR (0-30) PT INR APTT Sodium Potassium Chloride Carbon Dioxide Anion Gap BUN Creatinine Estimated GFR Glucose Calcium Total Bilirubin 0.8 mg/dL mg/dL (0.1-1.4) Conjugated Bilirubin 0.3 mg/dL mg/dL (0.0-0.5) Unconjugated Bilirubin 0.5 mg/dL mg/dL (0.0-1.1) AST 102 IU/L H IU/L (14-46) ALT 183 IU/L H IU/L (9-52) Alkaline Phosphatase 258 IU/L H IU/L (38-126) Creatine Kinase < 20 IU/L IU/L (0-156) C-Reactive Protein 146.2 mg/L H mg/L (<10.0) Total Protein 7.1 g/dL g/dL (6.3-8.2) Albumin 3.7 g/dL g/dL (3.5-5.0) Procalcitonin 0.24 ng/mL H ng/mL (0.02-0.10) Ethyl Alcohol < 10 mg/dL mg/dL (0-10) Medications Given: Discontinued Medications Sodium Chloride (Ns) 500 mls @ 1,000 mls/hr IV EDNOW ONE PRN Reason: Protocol Stop: 04/18/17 02:28 Last Admin: 04/18/17 02:33 Dose: 500 mls Lorazepam (Ativan Injection) 0.5 mg IVP EDNOW ONE Stop: 04/18/17 03:07 Last Admin: 04/18/17 03:07 Dose: 0.5 mg Departure - Departure Disposition: [facility] Inpatient Acute Clinical Impression: Chronic cervical pain, Altered mental status
--- NOTE | 2017-04-18 02:23 | CPEKG ---
Heart Rate: 78 RR Interval: 769 P-R Interval: 156 QRSD Interval: 84 QT Interval: 360 QTC Interval: 411 P Watson: 70 QRS Watson: 33 T Wave Watson: 84 EKG Severity - BORDERLINE ECG - EKG Impression: SINUS RHYTHM EKG Impression: PROBABLE LEFT ATRIAL ABNORMALITY Electronically Signed By: Kareen Mccrary 20-Apr-2017 23:08:40
[2017-04-18 02:29] LABS: PLATELET COUNT 361 10^3/uL (150-400)
[2017-04-18] MEDS ORDERED: LORazepam 2 MG/ML INJ ONE (02:48)
[2017-04-18] MEDS ORDERED: LORazepam 2 MG/ML INJ IVP ONE (03:06)
[2017-04-18] MEDS ORDERED: oxyCODONE IR 5 MG TAB PO PRN (04:07)
[2017-04-18] MEDS ORDERED: LACTULOSE 20 GM/30 ML UDCUP PO PRN (04:07)
[2017-04-18] MEDS ORDERED: LORazepam 0.5 MG TAB PO PRN (04:07)
[2017-04-18] MEDS ORDERED: SENNOSIDES/DOCUSATE SODIUM TAB PO PRN (04:07)
[2017-04-18] MEDS ORDERED: POLYETHYLENE GLYCOL 3350 17 GM PKT PO PRN (04:07)
[2017-04-18] MEDS ORDERED: ONDANSETRON 4 MG/2 ML VIAL IVP PRN (04:07)
[2017-04-18] MEDS ORDERED: ACETAMINOPHEN 325 MG TAB PO PRN (04:07)
[2017-04-18] MEDS ORDERED: diphenhydrAMINE 25 MG CAP PO PRN (04:07)
[2017-04-18 04:34] LABS: INR 1.02 (0.83-1.16); PROTIME(PATIENT) 13.6 SEC (12.0-15.0)
[2017-04-18 04:42] LABS: CREATINE KINASE < 20 IU/L (0-156)
[2017-04-18] MEDS ORDERED: NS 1,000 ML IV SCH (06:15)
--- NOTE | 2017-04-18 06:17 | PDGENHP ---
History and Physical - Chief Complaint neck and back pain - History of Present Illness Source - patient currently somnolent and confused and question of likely intoxication as she reported use of marijuana and acid to ED provider. history from patient is limited. EMR reviewed and case discussed with ED provider. HPI - This is a 76 yo F with pmhx significant for cervical and lumbar spinal stenosis with chronic pain and chronic narcotic dependency who presents to the ED today with complaints of acute on chronic neck pain. Patient is able to tell me her pain is worse only with movement and has sharp pain. She denies any numnbess/tingling. denies any focal weakness. Patient came to ED after second fall in the last several hours feeling like her knees were giving out. Patient denies any fevers/chills/cough/chest pain/rhinorrhea/diarrhea. she had some notations of dysuria to RN and reported sx resovled several days ago. Patient without reported head injury or LOC. Patient did undergo steroid injection to lumbosacral spine area last week. she had reported some improvement for a few days following but subsequently was having increase in her neck pain. History Information - Allergies/Home Medication List Allergies/Adverse Reactions: diclofenac [From Voltaren] Allergy (Intermediate, Verified 04/18/17 01:25) Other-Enter Comments Home Medications: Duloxetine HCl [Cymbalta] 60 mg PO HS 08/02/15 [Last Taken 10/30/16] Gabapentin [Neurontin 400 MG (*)] 400 mg PO HS 08/02/15 [Last Taken 10/30/16] Losartan Potassium [Cozaar] 100 mg PO DAILY 08/02/15 [Last Taken 10/31/16] Multivitamins [Multivitamin (*)] 1 each PO DAILY 08/02/15 [Last Taken 10/31/16] Valacyclovir HCl [Valtrex] 1,000 mg PO DAILY 08/02/15 [Last Taken 10/31/16] Chlorthalidone [Chlorthalidone 25 mg (*)] 25 mg PO DAILY 10/31/16 [Last Taken ] Cyclobenzaprine [Flexeril 10 MG (*)] 10 mg PO HS PRN 10/31/16 [Last Taken ] LORazepam [Lorazepam] 0.5 mg PO HS PRN 10/31/16 [Last Taken 10/30/16] Sennosides/Docusate Sodium [Senna-S Tablet] 1 tab PO HS 10/31/16 [Last Taken ] Amlodipine Besylate 04/18/17 [Last Taken Unknown] Prednisone 04/18/17 [Last Taken Unknown] I have personally reviewed and updated: family history, medical history, social history, surgical history - Past Medical History GERD, hypertension Additional medical history: chronic back, neck and ankle pain. 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 hsv. continuous narcotic use and dependency. marijuana use and reported acid use. shingles. benign essential HTN - Surgical History Reports: hysterectomy (for fibroids) Additional surgical history: hysterectomy for fibroids. bilateral cataract extraction with lens placement. - Family History Additional family history: unable to obtain 2/2 patient somnolence and confusion - Social History Smoking Status: Current some day smoker Tobacco Use: Cigarettes Alcohol Use: Occasionally (few times weekly) Drug Use: Marijuana, Other (acid/lsd) Additional social history: lives with her partner, she was previously and Review of Systems Review of Systems: Limited 2/2 patient somnolence and confusion. ROS: 10pt was reviewed & negative except for what was stated in HPI & below Physical Exam Physical Exam: Selected Entries 04/18/17 01:21 Blood Pressure Automatic Method Heart Rate 76 Respiratory 16 Rate O2 Sat (%) 97 Temperature (C) 36.7 C Blood Pressure 145/76 H Mean Arterial 99 Pressure (MAP) O2 Delivery Room Air Mode Temperature Oral Source Temp Pulse Resp BP Pulse Ox 36.6 C 90 19 99/77 L 98 04/18/17 05:12 04/18/17 05:12 04/18/17 05:12 04/18/17 05:12 04/18/17 05:12 O2 (L/minute) 2 Constitutional: no apparent distress, chronically ill appearing, other (patient lays quietly in bed. intermittently moves extremities. when awoken she is confused and restless, falls back asleep. ) Eyes: PERRL (slight decresed reactivity to light bilaterally but symmetric. ), anicteric sclera, EOMI, other (bilateral lens reflex appreciated. ) Ears, Nose, Mouth, Throat: no oral mucosal ulcers, dry mucous membranes, other ( no nasal discharge. ), No poor dentition Cardiovascular: regular rate and rhythym, pulses symmetric bilaterally, No systolic murmur, No edema Peripheral Pulses: 1+: dorsalis-pedis (R), dorsalis-pedis (L) Respiratory: no respiratory distress, no rales or rhonchi, clear to auscultation Gastrointestinal: normoactive bowel sounds, soft, non-tender abdomen, no palpable masses, No ascites, No distension Genitourinary: no bladder tenderness, No claire in urethra Skin: warm, normal color, other (patient with two small circular bandages lower lumbar, SI area. healed puncture site without surrounding erythem, edema or drainage. ), No rash Neurologic: CN II-XII Intact, other (moves all extremities. strength 5/5 upper and lower extremities. no facial droop. cranial nerve exam is limited 2/2 patient ability to follow comands but grossly nonfocal. ), No AAOx3, No weakness Psychiatric: other (confused. unable to maintain coherent sentences. ), No thought process linear, No poor insight, No poor judgement, No poor memory Lab Data & Imaging Review 04/18/17 02:11 04/18/17 02:11 WBC 17.52 10^3/uL (3.80-9.50) H 04/18/17 02:11 RBC 3.70 10^6/uL (4.18-5.33) L 04/18/17 02:11 Hgb 12.2 g/dL (12.6-16.3) L 04/18/17 02:11 Hct 33.5 % (38.0-47.0) L 04/18/17 02:11 MCV 90.5 fL (81.5-99.8) 04/18/17 02:11 MCH 33.0 pg (27.9-34.1) 04/18/17 02:11 MCHC 36.4 g/dL (32.4-36.7) 04/18/17 02:11 RDW 13.3 % (11.5-15.2) 04/18/17 02:11 Plt Count 361 10^3/uL (150-400) 04/18/17 02:11 MPV 8.8 fL (8.7-11.7) 04/18/17 02:11 Neut % (Auto) 86.0 % (39.3-74.2) H 04/18/17 02:11 Lymph % (Auto) 8.3 % (15.0-45.0) L 04/18/17 02:11 Amador % (Auto) 5.0 % (4.5-13.0) 04/18/17 02:11 Eos % (Auto) 0.1 % (0.6-7.6) L 04/18/17 02:11 Baso % (Auto) 0.2 % (0.3-1.7) L 04/18/17 02:11 Nucleat RBC Rel Count 0.0 % (0.0-0.2) 04/18/17 02:11 Absolute Neuts (auto) 15.07 10^3/uL (1.70-6.50) H 04/18/17 02:11 Absolute Lymphs (auto) 1.46 10^3/uL (1.00-3.00) 04/18/17 02:11 Absolute Monos (auto) 0.87 10^3/uL (0.30-0.80) H 04/18/17 02:11 Absolute Eos (auto) 0.02 10^3/uL (0.03-0.40) L 04/18/17 02:11 Absolute Basos (auto) 0.03 10^3/uL (0.02-0.10) 04/18/17 02:11 Absolute Nucleated RBC 0.00 10^3/uL (0-0.01) 04/18/17 02:11 Immature Gran % 0.4 % (0.0-1.1) 04/18/17 02:11 Immature Gran # 0.07 10^3/uL (0.00-0.10) 04/18/17 02:11 ESR 48 MM/HR (0-30) H 04/18/17 01:00 PT 13.6 SEC (12.0-15.0) 04/18/17 01:01 INR 1.02 (0.83-1.16) 04/18/17 01:01 APTT 34.6 SEC (23.0-38.0) 04/18/17 01:01 Sodium 132 mEq/L (134-144) L 04/18/17 02:11 Potassium 4.1 mEq/L (3.5-5.2) 04/18/17 02:11 Chloride 92 mEq/L (97-110) L 04/18/17 02:11 Carbon Dioxide 24 mEq/l (22-31) 04/18/17 02:11 Anion Gap 16 mEq/L (8-16) 04/18/17 02:11 BUN 32 mg/dL (7-23) H 04/18/17 02:11 Creatinine 1.0 mg/dL (0.6-1.0) 04/18/17 02:11 Estimated GFR 54 04/18/17 02:11 Glucose 96 mg/dL (70-100) 04/18/17 02:11 Calcium 9.5 mg/dL (8.5-10.4) 04/18/17 02:11 Total Bilirubin 0.8 mg/dL (0.1-1.4) 04/18/17 01:00 Conjugated Bilirubin 0.3 mg/dL (0.0-0.5) 04/18/17 01:00 Unconjugated Bilirubin 0.5 mg/dL (0.0-1.1) 04/18/17 01:00 AST 102 IU/L (14-46) H 04/18/17 01:00 ALT 183 IU/L (9-52) H 04/18/17 01:00 Alkaline Phosphatase 258 IU/L (38-126) H 04/18/17 01:00 Creatine Kinase < 20 IU/L (0-156) 04/18/17 01:00 C-Reactive Protein 146.2 mg/L (<10.0) H 04/18/17 01:00 Total Protein 7.1 g/dL (6.3-8.2) 04/18/17 01:00 Albumin 3.7 g/dL (3.5-5.0) 04/18/17 01:00 Procalcitonin 0.24 ng/mL (0.02-0.10) H 04/18/17 01:00 Urine Color YELLOW 04/18/17 04:30 Urine Appearance HAZY 04/18/17 04:30 Urine pH 6.0 (5.0-7.5) 04/18/17 04:30 Ur Specific Russell 1.017 (1.002-1.030) 04/18/17 04:30 Urine Protein NEGATIVE (NEGATIVE) 04/18/17 04:30 Urine Ketones NEGATIVE (NEGATIVE) 04/18/17 04:30 Urine Blood NEGATIVE (NEGATIVE) 04/18/17 04:30 Urine Nitrate NEGATIVE (NEGATIVE) 04/18/17 04:30 Urine Bilirubin NEGATIVE (NEGATIVE) 04/18/17 04:30 Urine Urobilinogen NEGATIVE EU (0.2-1.0) 04/18/17 04:30 Ur Leukocyte Esterase NEGATIVE (NEGATIVE) 04/18/17 04:30 Urine Glucose NEGATIVE (NEGATIVE) 04/18/17 04:30 Urine Opiates Screen NEGATIVE ng/mL (NEGATIVE) 04/18/17 04:30 Urine Barbiturates NEGATIVE ng/mL (NEGATIVE) 04/18/17 04:30 Ur Phencyclidine Scrn NEGATIVE ng/mL (NEGATIVE) 04/18/17 04:30 Ur Amphetamines Screen NEGATIVE ng/mL (NEGATIVE) 04/18/17 04:30 U Benzodiazepines Scrn NEGATIVE ng/mL (NEGATIVE) 04/18/17 04:30 Urine Cocaine Screen NEGATIVE ng/mL (NEGATIVE) 04/18/17 04:30 U Marijuana (THC) Screen 138 ng/mL (NEGATIVE) 04/18/17 04:30 Ethyl Alcohol < 10 mg/dL (0-10) 04/18/17 01:00 Assessment & Plan Assessment: 76 yo F with hx cervical and lumbar spinal stenosis with hx chronic pain on chronic narcotic therapy who presents to ED following multiple falls and c/o worsened neck pain. 1. intractable neck pain - patient chronically on gabapentin, oxycontin. She received only 0.5mg ativan for MRI and currently somnolent but still restless. She reports that as long as neck is immobilized she has no pain. exam nonfocal and patient denies any paresthesias at this time. pt with leukocytosis and elevated ESR and CRP. she is currently afebrile without any other complaints for infectious source. had some dysuria a few days ago but UA negative however. Patient with previous hx of leukocytosis and normalization on labs from last few months. Will plan to obtain MRI and monitor for any fevers, lower suspicion for epidural abscess but will monitor closely. hold off on antibiotics for now. 2. acute on Chronic cervical pain (Acute) - supportive care. no narcotics at this time in setting of altered mental status. 3. Altered mental status (Acute) - suspicious for intoxication related to drug use. less likely metabolic. lower suspicion for infectious but work up as noted above. 4. fall - per history patient complained of her knees giving out without c/o focal weakness. bed alarm/fall precautions. 5. leukocytosis - etiology unclear. pt also with elevated esr/crp but no comparison studies. patient was admitted 10/2016 for weakness thought 2/2 viral syndrome. since that time repeat cbcs have noted normalized WBC count. planning for MRI as above. cultures if patient develops fever. could be reactive in setting of drug use, dehydration or related to recent steroid injection although less likely. 6. transaminitis - increased from previous labs. not on a statin. will check Hepatitis profile. 7. polysubstance abuse - Utox positive for marijuana with patient report use of acid to ED provider. cessation will be recommended before discharge. 8. hyponatremia - likely multifactorial including dehydration and medications. hold patient chlorthalidone at this time. 9. CKD III - appears baseline based on previous lab studies. patient will be receiving some IVF as she does appear dry. 10. anemia - chronic. o/p iron studies available for review appears to be iron deficiency with low normal iron level, low normal ferritin and low iron sats. pt with normal folic acid level. no evidence of active bleeding. continue to monitor cbc. 11. benign essential HTN - BPs mildly elevated upon arrival in the ED and likely 2/2 pain vs drugs. BPs now improved and will monitor. resume home medications if needed. FEN - IVF to complete 1 liter bag from ED. hopefully patient mentation will improve and can obtain MRI after which will encourage oral hydration. electrolyte replacement prn. diet NPO until after MRI. PPX - SCDs. holding lovenox pending MRI studies. COR - FULL at this time as patient too somnolent for coherence conversation. Dispo - Admit to observation on medical floor pending MRI findings and patient mental status improvement.
[2017-04-18 09:22] LABS: PLATELET COUNT 287 10^3/uL (150-400)
--- NOTE | 2017-04-18 10:42 | ASMTCASEMG ---
Living Arrangements What is your living Answers: With Partner arrangement? Who do you live with? Type Of Residence What kind of residence do Answers: House you live in? Discharge Plan Comments Coordination Status Comments Notes: Pt is a 76 y/o female admitted for neck and back pain. Pt has a hx of marijuana and acid use. Pt has a hx of chronic pain and chronic narcotic dependency. DIRECTOR OF PATIENT CARE, PT, OT have been ordered and awaiting recommendations. Needs are TBD at this time. CM avilable for d/c needs. Plan: TBD Date Signed: 04/18/2017 10:41 AM Electronically Signed By:MULU Hankins
[2017-04-18] MEDS ORDERED: predniSONE 20 MG TAB PO SCH (10:45)
[2017-04-18] MEDS ORDERED: valACYclovir 500 MG TAB PO SCH (10:45)
[2017-04-18] MEDS ORDERED: POTASSIUM Cl (KCl) 20 MEQ in D5W NS 1,000 ML IV SCH (11:00)
[2017-04-18 11:08] LABS: HEPATITIS B SURFACE ANTIGEN NEGATIVE (NEGATIVE)
[2017-04-18 11:14] LABS: HEPATITIS A ANTIBODY IGM (BCH) NEGATIVE (NEGATIVE); HEPATITIS B CORE AB IGM NEGATIVE (NEGATIVE)
[2017-04-18 11:26] LABS: HEPATITIS C ANTIBODY TOTAL NEGATIVE (NEGATIVE)
[2017-04-18] MEDS ORDERED: HALOPERIDOL LACT 5 MG/ML INJ IVP ONE (11:30)
[2017-04-18] MEDS ORDERED: LIDOCAINE 1% 300 MG/30 ML SDV ONE (11:40)
[2017-04-18] MEDS ORDERED: VANCOMYCIN HCL/NORMAL SALINE 250 ML IV SCH (15:00)
[2017-04-18] MEDS: GABAPENTIN 300 MG CAP PO SCH (15:09)
[2017-04-18] MEDS: HYDROmorphONE/DILAUDID 1 MG/ML INJ IVP PRN ×3 (15:47→23:24)
[2017-04-18] MEDS: AMPICILLIN SODIUM 2 GM in NS 100 ML IV SCH ×3 (15:58→23:24)
[2017-04-18] MEDS: ACYCLOVIR 700 MG in D5W 100 ML IV SCH ×2 (16:16→21:54)
--- NOTE | 2017-04-18 18:32 | HOSPPROG ---
Hospitalist Progress Note Assessment/Plan: Prolonged service in addition to the time originally spent on the history and physical conducted by Dr. Linda Cooney on 04/18/2017, direct patient care, face- to-face with patient, at bedside, for 35 min, from 10:15 a.m. until 10:50 a.m., addressing the following: -patient's physical exam demonstrates that she is alert awake oriented x3, concentration 7/7, very scattered speech but directable, with what appeared to be either hallucinations or active delusions comma motor strength 5/5 bilateral upper and lower extremities, has stool symmetry -lungs are clear to auscultation bilaterally without any crackles or wheezes -abdomen is soft nontender nondistended -she has nuchal rigidity on flexion, pain with rotational movement and tenderness in the posterior aspect of the neck -chest x-ray demonstrating no infiltrate, head CT demonstrating no mass -repeat white blood cell count [id number], procalcitonin level elevated, lumbar puncture ordered and is suggestive of either viral or bacterial meningitis -initiated on combination of vancomycin, ceftriaxone, ampicillin, acyclovir while we await Gram stain culture HSV PCR West Nile PCR -get Infectious Disease consultation tomorrow a.m. once further data is available -acute hyponatremia with ongoing IV normal saline -treat acute encephalopathy with direction -treat headache with IV pain medications and IV Toradol Subjective: significant headache, everywhere pain Objective: Vital Signs Temp Pulse Resp BP Pulse Ox 37 C 93 18 148/90 H 97 04/18/17 15:44 04/18/17 15:44 04/18/17 15:44 04/18/17 15:44 04/18/17 15:44 Microbiology 04/18/17 08:28 Gram Stain - Final Cerebral Spinal Fluid 04/18/17 08:50 Respiratory Panel (PCR) - Final Nasal, Sinus - Swab No Organism Detected Laboratory Results 04/18/17 08:50 04/18/17 08:50 04/17/17 04/18/17 04/19/17 05:59 05:59 05:59 Intake Total 760 Output Total 500 Balance 260 PT 13.6 SEC (12.0-15.0) 04/18/17 01:01 INR 1.02 (0.83-1.16) 04/18/17 01:01 ICD10 Worksheet Patient Problems: Problems Problem Status Onset Chronic cervical pain Acute Altered mental status Acute Neuropathy Acute
[2017-04-18] MEDS: HYDROmorphONE/DILAUDID 2 MG TAB PO PRN (20:01)
[2017-04-18] MEDS: DULoxetine 60 MG CAP PO SCH (20:01)
[2017-04-18] MEDS: amLODIPine BESYLATE 5 MG TAB PO SCH (20:02)
[2017-04-18] MEDS ORDERED: NAPROXEN SODIUM 220 MG TAB PO PRN (21:00)
[2017-04-18] MEDS ORDERED: GABAPENTIN 300 MG CAP PO SCH (21:00)
[2017-04-19] MEDS: AMPICILLIN SODIUM 2 GM in NS 100 ML IV SCH ×6 (03:04→23:32)
[2017-04-19] MEDS: HYDROmorphONE/DILAUDID 2 MG TAB PO PRN ×4 (03:05→19:43)
[2017-04-19] MEDS: VANCOMYCIN HCL/NORMAL SALINE 250 ML IV SCH ×2 (04:49→18:38)
[2017-04-19 05:26] LABS: PLATELET COUNT 322 10^3/uL (150-400)
[2017-04-19] MEDS: HYDROmorphONE/DILAUDID 1 MG/ML INJ IVP PRN (05:39)
[2017-04-19] MEDS: ACYCLOVIR 700 MG in D5W 100 ML IV SCH ×3 (05:40→22:15)
[2017-04-19] MEDS: MULTIVITAMINS 1 EACH TAB PO SCH (08:22)
[2017-04-19] MEDS: KETOROLAC 15 MG/1 ML SDV IVP PRN ×3 (08:22→23:32)
[2017-04-19] MEDS: CHLORTHALIDONE 25 MG TAB PO SCH (08:22)
[2017-04-19] MEDS: GABAPENTIN 400 MG CAP PO SCH (08:23)
--- NOTE | 2017-04-19 09:37 | PDMN ---
Medical Necessity Medical necessity: Change to IP, as of 04/18/17, per MD; los >2 mn for ongoing management/tx of viral vs bacterial meningitis w/significant headache, nuchal rigidity, pain & acute encephalopathy; admit for further workup, ID consult & IV abx/pain medications; per progress note & order 04/18/17
[2017-04-19] MEDS: GABAPENTIN 300 MG CAP PO SCH ×2 (12:29→21:21)
[2017-04-19] MEDS ORDERED: ALTEPLASE 2 MG VIAL IVP PRN (14:34)
--- NOTE | 2017-04-19 17:59 | GCON ---
[f rep st] CONSULTATION INFECTIOUS DISEASE CONSULTATION DATE OF CONSULTATION: 04/19/2017 REFERRING PHYSICIAN: Eric Fuentes MD REASON FOR CONSULTATION: Meningitis. HISTORY OF PRESENTING ILLNESS: This is a 76-year-old female with a past medical history significant for chronic pain involving the cervical and lumbar spine/stenosis, HSV, shingles, hypertension, chronic narcotic use, who was admitted yesterday with complaints of acute cervical neck pain and stiffness. She denies any fevers or shaking chills recently. She had been having increasing pain in her neck, shoulders, and low back late last week. She saw her doctor, Dr. Perez, who ordered an MRI of the lumbar and cervical spine on the . She has worsening degenerative disc disease noted. She underwent a lumbar steroid injection on Tuesday and was starting to feel better. She was she was also advised to increase her gabapentin dose from 400 mg a day to 900 mg 3 times a day. She apparently had started that dose Tuesday night , and by Tuesday morning she woke up with acute severe cervical neck pain. She felt weak and intermittently disoriented. She denies any recent sick contacts. She came in yesterday for further workup due to persistent symptoms. She has been afebrile. Her white blood cell count has been elevated. She was attempted to have a brain MRI but was unable to stay still enough for that. She underwent a cervical spine study MRI with limited results due to the patient being unable to stay still. No acute new changes compared to her spine MRI from the . She then underwent a lumbar puncture yesterday, which showed 73 whites in the first tube and 47 in the fourth tube, with elevated RBCs and a neutrophilic predominance. She also had a low glucose and elevated protein. Gram stain has not showed any organisms. She was placed empirically on ampicillin, ceftriaxone , vancomycin, and acyclovir yesterday. She underwent a CT head yesterday to further evaluate, which did not show any ring-enhancing lesions or any acute intracranial abnormality. Her significant other does report tremors that she had over the past couple days. He says that it started after she put an ice pack by head or neck. She is a little bit more oriented today. Infectious Disease is now consulted for further evaluation and opinion. REVIEW OF SYSTEMS: GENERAL: No fevers or shaking chills. HEAD: No real headaches. EYES: No change in vision or photophobia. ENT: Some mild sore throat midweek last week, but none now. No ear pain or drainage. CARDIOVASCULAR: No chest pain or rapid heart beat. RESPIRATORY: No shortness of breath, cough, or sputum production. ABDOMEN: No nausea, vomiting, abdominal pain, diarrhea. : No dysuria or hematuria. MUSCULOSKELETAL: Denies any muscle aches or other joint pains other than listed above. SKIN: No rashes. Rest of 10-point review of systems was negative except for above. 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 SURGICAL HISTORY: Significant for hysterectomy and cataract surgery. SOCIAL HISTORY: She does not smoke tobacco, but uses marijuana. She has also used acid in the past. She drinks alcohol 2-3 times a week. She lives with a partner. She traveled to [place] 1 month ago and a [employer] cruise over the summer. She has 2 cats, both of which have had decreased appetite recently. They are very old, apparently. She has taken them to the vet recently and the etiology of not eating has been deemed to just old age. She does change the cat litter box. She does not drink raw milk, but she has eaten unpasteurized cheeses in the past, but she says the last time she had that was 1 month ago. FAMILY HISTORY: Significant for coronary artery disease. PHYSICAL EXAMINATION: VITAL SIGNS: Temperature current 36.5, pulse is 84, blood pressure 116/62, respiratory rate is 18, saturation of 96% on 2 L O2 via nasal cannula. GENERAL: She is resting in bed. Intermittently confused or disoriented. EYES: Without conjunctival injection or petechiae noted. OROPHARYNX: Clear. There is no posterior pharynx erythema or thrush. NECK: Some neck stiffness noted. CARDIOVASCULAR: S1, S2. Regular rate and rhythm. No murmurs appreciated. RESPIRATORY: Clear to auscultate bilaterally. No rhonchi or rales appreciated. ABDOMEN: Positive bowel sounds in all 4 quadrants. Soft, nontender, nondistended. No obvious organomegaly appreciated. EXTREMITIES: No lower extremity edema. MUSCULOSKELETAL: No obvious joint pain or joint effusions on palpation of the joints. SKIN: No obvious rashes. NEURO: Intermittently disoriented. Cranial nerves intact 2 through 12. Motor strength is 5/5 in the lower extremity and mostly in the upper extremities, as well, except for in the deltoid region where she has some pain with that type of range of motion. Sensation is intact all over. LABS: White blood cell count is 13.0 down from 17.5, hemoglobin 10.4, platelets of 322. Neutrophil count is 85%. ESR 48. Sodium 131, potassium ____ .4, chloride 95, bicarb is 25, BUN is 17, creatinine 0.8. AST 36, ALT 182 , alkaline phosphatase 216. 146, albumin 2.8. Procalcitonin 0.24. Urinalysis is unremarkable. CSF as stated above. Drug screen unremarkable except for positive THC. Hepatitis panel negative. HSV DNA PCR and West Nile antibodies are pending in the spinal fluid. Imaging results have all been reviewed by me and are stated above. Respiratory viral panel was negative. Gram stain with 2+ mononuclear cells, 4+ polys, no organisms. Culture is pending. ASSESSMENT: 1. Meningoencephalitis. 2. Leukocytosis: Plan: Differential diagnosis includes bacterial or viral. Early in viral infection, the CSF profile can appear more neutraphilic. At present, the patient is currently on acyclovir, ceftriaxone, ampicillin, and vancomycin, which we will continue for now. We will check a vancomycin trough prior to the fourth dose. [facility]bro[facility], and hope to get those results soon. Imaging from [facility] from the was reviewed, with primarily degenerative joint disease, no fluid collection or epidural collection noted. Recent Ct Brain without brain lesions noted. We will continue with current therapy for now. Will add enterovirus if not added to the panel and to the cerebrospinal fluid, as well, for further evaluation. Blood cultures were not done on admission; will order them now, given shaking chills, although results may be limited, given she has already received multiple antibiotics. Time spent, 70 min, > 50% of time spent in counseling/education regarding above, discussion with patient, care coordination with nursing staff. Thank you very much for the opportunity to care for your patient in consultation. /[id number]/MODL MTDD
--- NOTE | 2017-04-19 18:19 | HOSPPROG ---
Hospitalist Progress Note Assessment/Plan: Assessment: 76-year-old female presents with acute encephalopathy in the setting of meningoencephalitis Plan: 1. Meningoencephalitis. Acute, new problem this provider, further workup indicated. Evidenced by CSF demonstrating low glucose, high protein, pleocytosis, nuchal rigidity and neck pain plus encephalopathy, unclear whether this is a viral or bacterial precipitant -head CT without any intracranial mass -discussed with Dr. Juana Murphy from Infectious Disease, consultation appreciated , she recommends continuing with current antibiotic therapy including ceftriaxone, vancomycin, ampicillin, acyclovir for antiviral coverage -get blood cultures -send enterovirus PCR -HSV PCR currently pending at [facility], West Nile virus PCR currently pending -Gram stain culture currently pending -Headache to be treated with nonsteroidal anti-inflammatories, as needed Dilaudid 2. Acute encephalopathy. Evidenced by global brain dysfunction characterized as disorganized thought process, hallucinations, confusion, all of which are an acute change from her baseline, most likely secondary to the toxic effects of infection -treat infection as outlined above -condition is improving with infection treatment -continue to redirect, continue cog therapy 3. Acute hyponatremia. Most likely secondary to hypovolemia in the setting of infection, continue IV normal saline and monitor 4. Transaminitis. Acute, potentially secondary to infection, ultrasound demonstrating steatosis 5. Hypokalemia. Replete as needed, monitor daily Diet. Regular as tolerated Prophylaxis. High risk patient, Lovenox 40 Code. Full Disposition. Anticipated discharge uncertain this time, she remains clinically on resolved, high-level medical complexity, high risk of worsening morbidity and /or mortality secondary conditions outlined above. Subjective: Patient reports ongoing photophobia, bilateral shoulder pain Objective: Vital Signs Temp Pulse Resp BP Pulse Ox 36.4 C 79 16 115/72 94 04/19/17 17:06 04/19/17 17:06 04/19/17 17:06 04/19/17 17:06 04/19/17 17:06 Laboratory Results 04/19/17 04:54 04/19/17 04:54 04/18/17 04/19/17 04/20/17 05:59 05:59 05:59 Intake Total 1260 Balance 1260 PT 13.6 SEC (12.0-15.0) 04/18/17 01:01 INR 1.02 (0.83-1.16) 04/18/17 01:01 - Physical Exam Constitutional: no apparent distress, appears nourished, uncomfortable, No not in pain (Moderate in shoulder) Eyes: PERRL, anicteric sclera, EOMI Cardiovascular: regular rate and rhythym, no murmur, rub, or gallop, No edema Respiratory: no respiratory distress, no rales or rhonchi, clear to auscultation Gastrointestinal: normoactive bowel sounds, soft, non-tender abdomen, no palpable masses Musculoskeletal: other (Pain with range of motion of neck, right greater than left, less pain provoked by anterior flexion of neck) Neurologic: AAOx3, sensation intact bilaterally, CN II-XII Intact, No weakness, No facial droop Psychiatric: interacting appropriately, not anxious, thought process linear ( With some ongoing tangential speech, redirectable), other (Cooperative and follows commands), No agitated ICD10 Worksheet Patient Problems: Problems Problem Status Onset Altered mental status Acute Chronic cervical pain Acute Neuropathy Acute
[2017-04-19] MEDS ORDERED: POTASSIUM CL 20 MEQ TAB PO ONE (18:25)
[2017-04-19] MEDS: BISACODYL 10 MG SUPP PR PRN (18:44)
[2017-04-19] MEDS: MAGNESIUM HYDROXIDE 30 ML UDCUP PO PRN (19:43)
[2017-04-19] MEDS: amLODIPine BESYLATE 5 MG TAB PO SCH (21:20)
[2017-04-19] MEDS: DULoxetine 60 MG CAP PO SCH (21:20)
[2017-04-19] MEDS: CYCLOBENZAPRINE 10 MG TAB PO PRN (21:20)
[2017-04-20] MEDS: AMPICILLIN SODIUM 2 GM in NS 100 ML IV SCH ×6 (03:15→23:24)
[2017-04-20 04:11] LABS: PLATELET COUNT 255 10^3/uL (150-400)
[2017-04-20] MEDS: ACYCLOVIR 700 MG in D5W 100 ML IV SCH ×3 (05:08→21:49)
[2017-04-20] MEDS: HYDROmorphONE/DILAUDID 2 MG TAB PO PRN ×3 (05:41→16:00)
[2017-04-20] MEDS: KETOROLAC 15 MG/1 ML SDV IVP PRN ×4 (05:41→22:35)
[2017-04-20] MEDS: VANCOMYCIN HCL/NORMAL SALINE 250 ML IV SCH ×2 (05:42→18:09)
[2017-04-20] MEDS: GABAPENTIN 400 MG CAP PO SCH (09:06)
[2017-04-20] MEDS: CHLORTHALIDONE 25 MG TAB PO SCH (09:06)
[2017-04-20] MEDS: MULTIVITAMINS 1 EACH TAB PO SCH (09:06)
[2017-04-20] MEDS: GABAPENTIN 300 MG CAP PO SCH ×2 (10:56→21:49)
[2017-04-20] MEDS: HYDROmorphONE/DILAUDID 1 MG/ML INJ IVP PRN ×2 (13:47→22:29)
--- NOTE | 2017-04-20 15:15 | ASMTCMCOM ---
CM Note CM Note Notes: Pt. now diagnosed with Meningoencephalitis. On numerous IV antibiotic therapies. Today SWer learned that OT recommending Inpt. Rehab and SALES PERFORMANCE MANAGER recommending HC vs Home. SWer contacted Winifred Fields in Inpatient Rehab [phone] to let her know about OT's recommendations. Winifred asked SWer to ask MD for Inpatient Rehab eval consultation. SWer let hospitalist know today. He planned to comply with request. Pt. appears to have straight Medicare with a supplement should she need SNF care. Pt. lives with her partner, Yogesh who is her MDPOA. [facility] to follow Pt. for d/c plan of care. Date Signed: 04/20/2017 03:15 PM Electronically Signed By:Gabriela Hunt LCSW
--- NOTE | 2017-04-20 15:20 | PCMIDPN ---
Assessment/Plan: Assessment: MSSA bacteremia. Presented with encephalopathy and has abnormal pleocytosis in the CSF. This all transpired approximately 1 week after receiving injections in the cervical and lumbar spine for chronic back pain. Patient did have a non contrasted MRI of her cervical spine that was limited secondary to motion artifact but upon review shows a possible collection in the epidural space around the C7 area. This would correspond to the patient's complaints of bilateral medial forearm discomfort. Will repeat a cervical MRI with and without contrast to better delineate. Patient is much more improved from mental status standpoint today so would likely be able to deliver higher quality test. In the meantime we will continue all empiric antibiotics and antivirals until this is further delineated. Plan: 1. Continue current antibiotic regimen. 2. Repeat MRI of cervical spine with and without contrast. 04/20/17 16:46 Subjective: Patient is alert and oriented and resting in her hospital bed. She states she is under good pain control. She does not recall much of what transpired yesterday. No new complaints. Objective: Vancomycin # 2 Ceftriaxone # 3 Ampicillin # 2 Acyclovir # 2 Vital Signs Temp Pulse Resp BP Pulse Ox 36.6 C 78 16 144/85 H 93 04/20/17 15:09 04/20/17 15:09 04/20/17 15:09 04/20/17 15:09 04/20/17 15:09 Microbiology 04/19/17 17:15 Blood Panel (PCR) - Final Blood S.aureus Methicillin Suscept. Laboratory Results 04/20/17 04:00 04/20/17 04:00 04/19/17 04/20/17 04/21/17 05:59 05:59 05:59 Intake Total 1260 2000 Balance 1260 2000 ESR 48 MM/HR (0-30) H 04/18/17 01:00 C-Reactive Protein 146.2 mg/L (<10.0) H 04/18/17 01:00 - Physical Exam General Appearance: WD/WN, alert, no apparent distress, non-toxic Respiratory: lungs clear, normal breath sounds, No respiratory distress Cardiac/Chest: regular rate, rhythm, No tachycardia Skin: normal color, warm/dry, No rash Neuro/Psych: alert, normal mood/affect, oriented x 3 ICD10 Worksheet Patient Problems: Problems Problem Status Onset Altered mental status Acute Chronic cervical pain Acute Neuropathy Acute
[2017-04-20] MEDS ORDERED: LORazepam 2 MG/ML INJ IVP ONE (16:12)
--- NOTE | 2017-04-20 16:17 | HOSPPROG ---
Hospitalist Progress Note Assessment/Plan: Assessment: 76-year-old female presents with acute encephalopathy in the setting of meningoencephalitis Plan: 1. Meningoencephalitis. POA, Evidenced by CSF demonstrating low glucose, high protein, pleocytosis, nuchal rigidity and neck pain plus encephalopathy, suspect this is 2/2 staph aureus from recent C-spine steroid injection -discussed with Dr. Braydon De Santiago, he recommends stat C-spine MRI w/ contrast to eval for epidural abscess given dermotomal symptoms, possible area of fluid collection on original non-con MRI -reviewed outside records, MRI C-spine from 04/13/17 w/ stenosis and disc bulge , but no fluid collection at that time -continuing with current antibiotic therapy including ceftriaxone, vancomycin, ampicillin, acyclovir for antiviral coverage -HSV Enterovirus and WNV PCR currently pending -Gram stain culture currently w/o growth -Headache to be treated with nonsteroidal anti-inflammatories, as needed Dilaudid 2. Acute encephalopathy. Evidenced by global brain dysfunction characterized as disorganized thought process, hallucinations, confusion, all of which are an acute change from her baseline, most likely secondary to the toxic effects of infection -treat infection as outlined above -condition is improving with infection treatment -appears to be at baseline mentation today, w/ ongoing photophobia 3. Acute hyponatremia. Most likely secondary to hypovolemia in the setting of infection, continue IV normal saline and monitor 4. Transaminitis. Acute, potentially secondary to infection, ultrasound demonstrating steatosis 5. Hypokalemia. Replete as needed, monitor daily Diet. Regular as tolerated Prophylaxis. High risk patient, Lovenox 40 Code. Full Disposition. Anticipated discharge uncertain this time, she remains clinically on resolved, high-level medical complexity, high risk of worsening morbidity and /or mortality secondary conditions outlined above. Subjective: patient w/ bilat inferior arm/shoulder pain Objective: Vital Signs Temp Pulse Resp BP Pulse Ox 36.6 C 78 16 144/85 H 93 04/20/17 15:09 04/20/17 15:09 04/20/17 15:09 04/20/17 15:09 04/20/17 15:09 Microbiology 04/19/17 17:15 Blood Panel (PCR) - Final Blood S.aureus Methicillin Suscept. Laboratory Results 04/20/17 04:00 04/20/17 04:00 04/19/17 04/20/17 04/21/17 05:59 05:59 05:59 Intake Total 1260 1999 Balance 1260 1999 PT 13.6 SEC (12.0-15.0) 04/18/17 01:01 INR 1.02 (0.83-1.16) 04/18/17 01:01 - Physical Exam Constitutional: no apparent distress, appears nourished, uncomfortable, No not in pain (moderate) Cardiovascular: regular rate and rhythym, no murmur, rub, or gallop, No edema Respiratory: no respiratory distress, no rales or rhonchi, clear to auscultation Gastrointestinal: normoactive bowel sounds, soft, non-tender abdomen, no palpable masses, No distension Skin: other (no abrasions bilat arms, no rash) Neurologic: AAOx3, sensation intact bilaterally, No weakness (motor 5/5 bilat UE ), No facial droop Psychiatric: interacting appropriately, not anxious, not encephalopathic, thought process linear Lymph, Heme, Immunologic: other (no axillary LAD) ICD10 Worksheet Patient Problems: Problems Problem Status Onset Altered mental status Acute Chronic cervical pain Acute Neuropathy Acute
[2017-04-20] MEDS: amLODIPine BESYLATE 5 MG TAB PO SCH (21:49)
[2017-04-20] MEDS: DULoxetine 60 MG CAP PO SCH (21:49)
[2017-04-20] MEDS: CYCLOBENZAPRINE 10 MG TAB PO PRN (22:29)
[2017-04-21] MEDS: AMPICILLIN SODIUM 2 GM in NS 100 ML IV SCH ×2 (03:00→07:51)
[2017-04-21] MEDS: HYDROmorphONE/DILAUDID 2 MG TAB PO PRN ×3 (03:00→21:21)
[2017-04-21 03:32] LABS: PLATELET COUNT 274 10^3/uL (150-400)
[2017-04-21 03:43] LABS: CREATINE KINASE 26 IU/L (0-156)
[2017-04-21] MEDS: ACYCLOVIR 700 MG in D5W 100 ML IV SCH (05:51)
[2017-04-21] MEDS: VANCOMYCIN HCL/NORMAL SALINE 250 ML IV SCH (05:51)
[2017-04-21] MEDS: KETOROLAC 15 MG/1 ML SDV IVP PRN ×3 (05:51→22:48)
[2017-04-21] MEDS: HYDROmorphONE/DILAUDID 1 MG/ML INJ IVP PRN ×2 (06:24→13:34)
[2017-04-21] MEDS: CHLORTHALIDONE 25 MG TAB PO SCH (07:51)
[2017-04-21] MEDS: GABAPENTIN 400 MG CAP PO SCH (07:51)
[2017-04-21] MEDS: MULTIVITAMINS 1 EACH TAB PO SCH (07:51)
[2017-04-21] MEDS ORDERED: OLANZapine DISINTEGR 5 MG TAB PO ONE (09:46)
--- NOTE | 2017-04-21 10:54 | PCMIDPN ---
Assessment/Plan: # MSSA bacteremia associated Severe neck pain, UE weakness, AMS (now resolved) and CSF pleocytosis w/ markedly elevated CSF protein highly suggestive of parameningeal focus of the c spine (based on neck pain and UE symptoms). Mental status seems some improved, leukocytosis improved. Interestingly, never had high fever. Persistent intermittent neck pain and UE clumsiness continues --repeat blood cx --dc acyclovir, ceftriaxone, vancomycin, ampicillin --start nafcillin 2gm IV q4h for coverage of MSSA with needed CSF penetration --will need to eventually exchange PICC --another attempt at C spine MRI today # Elevated LFT with fatty liver on US, suspect related to infection. LFTs slowing improving --daily monitoring while initiate nafcillin # Delirium, likely related to infection, based on h/o slowly improving. meds acyclovir ceftriaxone vancomycin ampicillin Micro CSF cx 04/18 : negative blood cx 1 set 04/19: MSSA Subjective: describes having dreams about people, and feeling trapped intermittent neck pain and UE clumsiness abdominal distension Objective: Vital Signs Temp Pulse Resp BP Pulse Ox 36.3 C 78 12 124/69 H 91 L 04/21/17 08:55 04/21/17 08:55 04/21/17 08:55 04/21/17 08:55 04/21/17 08:55 Microbiology 04/19/17 17:15 Blood Panel (PCR) - Final Blood S.aureus Methicillin Suscept. Laboratory Results 04/21/17 03:00 04/21/17 03:00 04/20/17 04/21/17 04/22/17 05:59 05:59 05:59 Intake Total 1999 2642 Output Total 1000 450 Balance 2000 1642 -450 ESR 48 MM/HR (0-30) H 04/18/17 01:00 C-Reactive Protein 146.2 mg/L (<10.0) H 04/18/17 01:00 Laboratory Tests 04/18/17 08:28 CSF Supernatant COLORLESS CSF WBC 47 H CSF RBC 1004 H CSF Neutrophils % 76 H CSF Lymphocytes % 17 CSF Monos/Macrophage % 7 CSF Glucose 36 L CSF Total Protein 572 H - Physical Exam General Appearance: alert, no apparent distress EENT: pale conjunctiva Respiratory: lungs clear, No accessory muscle use Neck: supple Cardiac/Chest: regular rate, rhythm Extremities: No pedal edema Abdomen: non-tender, soft, distended (Mild) Skin: No rash, No embolic lesions Neuro/Psych: alert, cognition abnormalities, other (UE clumsy), No aphasia, No facial droop, No motor weakness - Line/s RUE PICC Lines: other (Some associated ecchymosis), No drainage, No erythema - Time Spent With Patient Time Spent with Patient: greater than 35 minutes Time Spent with Patient: Greater than 35 minutes spent on this patients care, greater than 50% of time spent counseling, educating, and coordinating care regarding the above mentioned plan. ICD10 Worksheet Patient Problems: Problems Problem Status Onset Altered mental status Acute Chronic cervical pain Acute Neuropathy Acute
[2017-04-21] MEDS: GABAPENTIN 300 MG CAP PO SCH ×2 (13:34→21:21)
[2017-04-21] MEDS ORDERED: GADOBUTROL 10 ML VIAL IVP ONE (14:13)
[2017-04-21] MEDS: BISACODYL 10 MG SUPP PR PRN (14:42)
[2017-04-21] MEDS: MAGNESIUM HYDROXIDE 30 ML UDCUP PO PRN (14:50)
[2017-04-21] MEDS: NAFCILLIN SODIUM 2 GM in D5W 100 ML IV SCH ×3 (16:24→21:20)
--- NOTE | 2017-04-21 18:26 | HOSPPROG ---
Hospitalist Progress Note Assessment/Plan: Assessment: 76-year-old female presents with acute encephalopathy in the setting of meningoencephalitis and epidural abscess Plan: 1. Meningoencephalitis. POA, 2/2 MSSA from recent C-spine steroid injection w/ resultant epidural abscess -d/w Dr. Stout, she recommends adjusting to single agent Naficillin, viral studies negative 2. Acute encephalopathy. Worsening today, likely 2/2 combination of benzo plus ongoing infxn -cont to redirect -use PRN zyprexa, given that her symptoms are mostly hallucinations 3. Acute hyponatremia. Most likely secondary to hypovolemia in the setting of infection, stop IVF and place on free water restriction, appears euvolemic now 4. Transaminitis. Acute, potentially secondary to infection, ultrasound demonstrating steatosis 5. Hypokalemia. Replete as needed, monitor daily 6. Epidural abscess w/ C5-C6 diskitis. Acute, new problem, further w/u required. Highly suspicious initial MRI w/o contrast -patient required additional sedation today w/ zyprexa/dilaudid to safely get MRI w/ contrast -d/w Dr. Amaya, MRI reveals small abscess and diskitis, recommends IV Abx mgmt at this time and not proceeding w/ surgery unless neuro compromise becomes evident -q2h neuro checks and transfer to 7. Cervical spinal stenosis. Chronic, MRI revealed 3 levels of tight chord, possibly resulting in patient's dermatomal pain and exacerbated by current infxn -cont gabapentin, uptitrate dose tomorrow if mental status returns to normal Diet. Regular as tolerated Prophylaxis. High risk patient, Lovenox 40 Code. Full Disposition. Anticipated discharge uncertain this time, she remains clinically on resolved, high-level medical complexity, high risk of worsening morbidity and /or mortality secondary conditions outlined above. Subjective: patient speech scattered, reports pain in bilateral palms Objective: Vital Signs Temp Pulse Resp BP Pulse Ox 37.2 C 89 16 136/87 H 94 04/21/17 17:23 04/21/17 17:23 04/21/17 17:23 04/21/17 17:23 04/21/17 17:23 Microbiology 04/19/17 17:15 Blood Panel (PCR) - Final Blood S.aureus Methicillin Suscept. Laboratory Results 04/21/17 03:00 04/21/17 03:00 04/20/17 04/21/17 04/22/17 05:59 05:59 05:59 Intake Total 1999 2642 820 Output Total 1000 2100 Balance 1999 1642 -1280 PT 13.6 SEC (12.0-15.0) 04/18/17 01:01 INR 1.02 (0.83-1.16) 04/18/17 01:01 - Physical Exam Constitutional: no apparent distress, appears nourished, uncomfortable, No not in pain (mild) Cardiovascular: regular rate and rhythym, no murmur, rub, or gallop, No edema Respiratory: no respiratory distress, no rales or rhonchi, clear to auscultation Gastrointestinal: normoactive bowel sounds, soft, non-tender abdomen, no palpable masses, No distension Musculoskeletal: other (mild pain w/ flexion of neck, improved rotational movement) Neurologic: AAOx3, sensation intact bilaterally (mo), weakness (motor 5/5 bilat UE/LE), CN II-XII Intact, No facial droop Psychiatric: other (hallucinating, scattered speech, redirectible, follows commands), No anxious, No agitated ICD10 Worksheet Patient Problems: Problems Problem Status Onset Chronic cervical pain Acute Altered mental status Acute Neuropathy Acute
[2017-04-21] MEDS: amLODIPine BESYLATE 5 MG TAB PO SCH (21:20)
[2017-04-21] MEDS: DULoxetine 60 MG CAP PO SCH (21:22)
--- NOTE | 2017-04-21 21:41 | GCON ---
[f rep st] CONSULTATION NEUROSURGICAL CONSULTATION CHIEF COMPLAINT: Neck pain. HISTORY OF PRESENT ILLNESS: The patient is a 76-year-old female who was admitted to [facility] on 04/18/2017 with confusion and encephalopathy. She has a history of chronic pain with known cervical lumbar stenosis. She apparently had an epidural steroid injection a week prior to her admission. She was found to have a Staph aureus bacteremia. An MRI of the cervical spine was obtained, which shows an epidural abscess, and neurosurgical consultation was requested. She currently complains of neck pain. This is associated with intermittent pain. It is in her arms and hands. She feels like her arms are generally weak, and they have been that way over the last year. She has paresthesias in her arms as well. 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 Her balance has been okay, and she has not had any new bowel and bladder problems. PAST MEDICAL HISTORY: 1. Hypertension. 2. Chronic pain. 3. GERD. MEDICATIONS: Prior to admission: Cymbalta, Neurontin, Cozaar, multivitamin, Valtrex, chlorthalidone, Flexeril, lorazepam, senna, amlodipine, and prednisone. PAST SURGICAL HISTORY: Hysterectomy for fibroids. ALLERGIES: Voltaren, which causes a rash. FAMILY HISTORY: The patient has no family history of spine problems. SOCIAL HISTORY: The patient lives with her current partner. She has grown children. She admits to smoking marijuana and drinking socially, but denies tobacco use. REVIEW OF SYSTEMS: Negative. PHYSICAL EXAM: GENERAL: The patient is a 76-year-old female lying in bed, in no apparent distress. HEAD, EYES, EARS, NOSE, AND THROAT: Negative to drainage. EXTREMITIES: [place], warm and dry. NEUROLOGICAL: The patient is awake , alert, oriented x4. Pupils equal, round, reactive to light. Extraocular motions are intact. There is no evidence of facial droop. Tongue and uvula are midline. Her motor strength is 5/5 in her arms and legs. Her sensation is grossly intact to light touch in arms and legs. Deep tendon reflexes are 2+/4 in the bilateral biceps, triceps, brachioradialis, 3+/4 in the right patellar, 2 +/4 in the left patellar, 2+/4 in the bilateral Achilles. There is a negative Cavanaugh's. No clonus. LABORATORY DATA: MRI of the cervical spine from [facility] PACS 04/21/2017 shows a straight sagittal alignment with multiple severe degenerative joint disease. There is an epidural abscess that extends from approximately C4-C7 anteriorly and causes moderate to severe spinal stenosis. IMPRESSION: This is a 76-year-old female with a methicillin sensitive Staph aureus bacteremia in a medium-sized epidural abscess. She is neurologically stable. PLAN: All the above discussed in detail with the patient. This patient was seen and examined with Dr. Jose Luis jansen. He spoke directly with Dr. Dawson. At this point in time, she is neurologically intact, and she is currently on IV nafcillin. We will continue to follow her on a conservative basis. We will, however, transfer her to the surgical floor with q.4 hour neuro checks. If she experiences neurological decline or persistent bacteremia, then we could consider surgical intervention. At this point in time, we will continue to follow this patient. Please call with any neurological changes. /[id number]/MODL MTDD
[2017-04-21] MEDS: LORazepam 1 MG TAB PO PRN (22:50)
[2017-04-22] MEDS: NAFCILLIN SODIUM 2 GM in D5W 100 ML IV SCH ×5 (02:43→23:23)
[2017-04-22 05:08] LABS: PLATELET COUNT 295 10^3/uL (150-400)
[2017-04-22] MEDS: HYDROmorphONE/DILAUDID 2 MG TAB PO PRN ×3 (07:50→20:01)
[2017-04-22] MEDS: GABAPENTIN 400 MG CAP PO SCH (08:02)
[2017-04-22] MEDS: MULTIVITAMINS 1 EACH TAB PO SCH (08:02)
[2017-04-22] MEDS: CHLORTHALIDONE 25 MG TAB PO SCH (08:02)
--- NOTE | 2017-04-22 10:03 | PCMIDPN ---
Assessment/Plan: 1. Cervical epidural abscess secondary to MSSA with concomitant bacteremia/ probable cerebritis, and CSF mild neutrophilic pleocytosis consistent with parameningeal focus: Repeat blood cultures are pending. Will attempt to place peripheral IV; would prefer this for now, versus PICC line. Continue nafcillin with a close eye on liver function tests as outlined by Dr. Stout. Neurosurgery prefers medical management; she will need 8 weeks of antibiotics, with consideration for oral antibiotics thereafter. She will need ultimately need hardware in the setting of significant stenosis. Continue neuro checks as you are. She also has a sitter, which is appropriate. 2. Abnormal liver function tests: Ultrasound with ? Non alcoholic fatty liver disease versus other. Abnormalities are too precipitous in nature to be caused by Ceftriaxone. Will need to follow closely for now. Acute hepatitis panel negative. 04/22/17 10:06 Subjective: Pulled out her PICC line at 2:30 a.m. in the morning and tells me "apparently I had a tantrum and wanted PICC out." Constipated. No rash, no other complaints. Tells me that she occasionally gets "electric shocks "on her arms bilaterally, lower abdomen and legs. She is not confused presently. Nurse tells me she missed 6:00 a.m. dose of nafcillin, and will also missed her 10:00 a.m. dose as she has not yet had a peripheral IV replaced. Objective: Nafcillin 2 Q 4 day 1 (antibiotics day 3) Afebrile Vital Signs Temp Pulse Resp BP Pulse Ox 36.6 C 92 16 140/82 H 94 04/22/17 07:10 04/22/17 07:10 04/22/17 07:10 04/22/17 08:02 04/22/17 07:10 Microbiology 04/19/17 17:15 Blood Panel (PCR) - Final Blood S.aureus Methicillin Suscept. Laboratory Results 04/22/17 04:40 04/22/17 04:40 04/21/17 04/22/17 04/23/17 05:59 05:59 05:59 Intake Total 2642 820 Output Total 1000 4200 800 Balance 1642 -3380 -800 ESR 48 MM/HR (0-30) H 04/18/17 01:00 C-Reactive Protein 146.2 mg/L (<10.0) H 04/18/17 01:00 Blood cultures April 21 pending Blood cultures April 19 MSSA CSF cultures negative - Physical Exam General Appearance: alert, no apparent distress EENT: pharynx normal, No scleral icterus, No thrush Respiratory: lungs clear Cardiac/Chest: regular rate, rhythm, No systolic murmur Extremities: No pedal edema Abdomen: non-tender, soft Skin: No rash, No embolic lesions Neuro/Psych: oriented x 3, other (she is moving all 4 extremities) ICD10 Worksheet Patient Problems: Problems Problem Status Onset Altered mental status Acute Chronic cervical pain Acute Neuropathy Acute
[2017-04-22] MEDS ORDERED: ALTEPLASE 2 MG VIAL IVP PRN (10:35)
--- NOTE | 2017-04-22 11:30 | NEUSURGPN ---
Assessment/Plan: 76 y/o female with cervical epidural abscess and spinal stenosis -PT/OT -Optimize pain management while minimizing confusion/sedation -Appreciate ID/medcial management. Discussed with patient that would like to maximize antibiotics and medical treatment for now as surgery would entail hardware placement want decompression. -Will continue to follow -Discussed with Dr. Amaya -Please notify NS with any change in neuro/motor exam Subjective: posterior neck pain, hands do not feel as strong as normal, still able to move, grasp and butter toast this am Objective: NAD A&Ox3 MAEx4 5/5 and equal in BUE and BLE, except bilateral asphalt patcher 5-/5 - Physician Discussed Patient with : Jose Luis Neurosurgery Physical Exam - Vitals, I&O, Labs I and O 04/21/17 04/22/17 04/23/17 05:59 05:59 05:59 Intake Total 2642 820 Output Total 1000 4200 800 Balance 1642 -3380 -800 Weight 75.9 kg 73.164 kg Intake: Oral (ml) 400 820 IV Intake (ml) 2242 Output: Urine (ml) 1000 3650 800 Bedside Commode 600 3650 800 Toilet 400 Urine/Stool Mix (ml) 550 Bedside Commode 550 Other: Intake Quantity Yes Yes Sufficient Number of Voids Bedside Commode 1 5 1 Incontinence 1 Toilet 2 1 Number of Stools Bedside Commode 1 Incontinence 1 Microbiology 04/19/17 17:15 Blood Panel (PCR) - Final Blood S.aureus Methicillin Suscept. Vital Signs Temp Pulse Resp BP Pulse Ox 36.6 C 92 16 140/82 H 94 04/22/17 07:10 04/22/17 07:10 04/22/17 07:10 04/22/17 08:02 04/22/17 07:10 Laboratory Results 04/22/17 04:40 04/22/17 04:40 ICD10 Worksheet Patient Problems: Problems Problem Status Onset Altered mental status Acute Chronic cervical pain Acute Neuropathy Acute
--- NOTE | 2017-04-22 12:04 | ASMTCMCOM ---
CM Note CM Note Notes: 04/22/2017 Case Management Note PT note recommending inpatient rehab today. Per note, Inpatient rehab is following but waiting to make decision until pt is closer to d/c. Case Management d/c poc: TBD. Possibly inpatient rehab pending acceptance. Case Management to follow. Date Signed: 04/22/2017 12:03 PM Electronically Signed By:Josephine Russo RN
[2017-04-22] MEDS ORDERED: MAGNESIUM CITRATE 300 ML BOTTLE PO ONE (15:08)
[2017-04-22] MEDS: GABAPENTIN 300 MG CAP PO SCH ×2 (15:13→19:54)
--- NOTE | 2017-04-22 17:52 | HOSPPROG ---
Hospitalist Progress Note Assessment/Plan: Assessment: 76-year-old female presents with acute encephalopathy in the setting of meningoencephalitis and epidural abscess Plan: 1. Meningoencephalitis. POA, 2/2 MSSA from recent C-spine steroid injection w/ resultant epidural abscess -d/w Dr. Sosa, she recommends continuing single agent Naficillin 2. Acute encephalopathy. Intermittent, validated on prior note, likely 2/2 combination of benzo plus ongoing infxn -cont to redirect -use PRN zyprexa, given that her symptoms are mostly hallucinations 3. Acute hyponatremia. Most likely secondary to hypovolemia in the setting of infection, stop IVF and place on free water restriction, appears euvolemic now 4. Transaminitis. Acute, potentially secondary to infection, ultrasound demonstrating steatosis 5. Hypokalemia. Replete as needed, monitor daily 6. Epidural abscess w/ C5-C6 diskitis. POA, on MRI w/ contrast -ongoing neuro checks, if worsening, call NSGY for emergent surg -d/w Dr. Amaya and Dr. Sosa, because the patient also has severe spinal stenosis that will eventually require surgery, and the abscess is small, will attempt to stabilize w/ IV abx and hold on surgery for stenosis for 6-8 weeks 7. Cervical spinal stenosis. Chronic, MRI revealed 3 levels of tight chord, possibly resulting in patient's dermatomal pain and exacerbated by current infxn -cont gabapentin, uptitrate dose tomorrow if mental status returns to normal 8. Constipation. More aggressive bowel regimen today Diet. Regular as tolerated Prophylaxis. High risk patient, Lovenox 40 Code. Full Disposition. Anticipated discharge uncertain this time, she remains clinically on resolved, high-level medical complexity, high risk of worsening morbidity and /or mortality secondary conditions outlined above. Subjective: patient reports poor short term memory of recent events Objective: Vital Signs Temp Pulse Resp BP Pulse Ox 37.2 C 120 H 18 141/93 H 97 04/22/17 15:47 04/22/17 15:47 04/22/17 15:47 04/22/17 15:47 04/22/17 15:47 Microbiology 04/19/17 17:15 Blood Panel (PCR) - Final Blood S.aureus Methicillin Suscept. Laboratory Results 04/22/17 04:40 04/22/17 04:40 1204/22/17 04/23/17 05:59 05:59 05:59 Intake Total 2642 820 500 Output Total 1000 4200 800 Balance 1642 -3380 -300 PT 13.6 SEC (12.0-15.0) 04/18/17 01:01 INR 1.02 (0.83-1.16) 04/18/17 01:01 - Physical Exam Constitutional: no apparent distress, appears nourished, not in pain, uncomfortable Cardiovascular: regular rate and rhythym, no murmur, rub, or gallop, No edema Respiratory: no respiratory distress, no rales or rhonchi, clear to auscultation Gastrointestinal: normoactive bowel sounds, soft, non-tender abdomen, no palpable masses, distension (mild) Neurologic: AAOx3, sensation intact bilaterally, CN II-XII Intact, No weakness ( motor 5/5 bilat), No facial droop Psychiatric: interacting appropriately, not anxious, not encephalopathic, thought process linear, poor memory ICD10 Worksheet Patient Problems: Problems Problem Status Onset Chronic cervical pain Acute Altered mental status Acute Neuropathy Acute
[2017-04-22] MEDS: amLODIPine BESYLATE 5 MG TAB PO SCH (19:55)
[2017-04-22] MEDS: KETOROLAC 15 MG/1 ML SDV IVP PRN (19:58)
[2017-04-22] MEDS: DULoxetine 60 MG CAP PO SCH (20:00)
[2017-04-23] MEDS: NAFCILLIN SODIUM 2 GM in D5W 100 ML IV SCH ×6 (02:34→21:16)
[2017-04-23 04:06] LABS: PLATELET COUNT 266 10^3/uL (150-400)
[2017-04-23] MEDS: KETOROLAC 15 MG/1 ML SDV IVP PRN (06:04)
--- NOTE | 2017-04-23 07:29 | NEUSURGPN ---
Assessment/Plan: Assessment: 76 y/o female with cervical epidural abscess and spinal stenosis Plan: -PT/OT-CPM -neuro stable -Optimize pain management while minimizing confusion/sedation-pt states that she is better this am -pt is weak in BUE and we will continue to watch for now -Appreciate ID/medcial management. Discussed with patient that would like to maximize antibiotics and medical treatment for now as surgery would entail hardware placement with decompression -will continue to follow for now and no surgery recommended at this time -Discussed with Dr. Amaya -Please notify NS with any change in neuro/motor exam Subjective: Awake and alert. Pt states that she is better overall. No naranjo/cp/sob/abd or gu complaints. No f/c/n//d. Objective: NAD A&Ox3 CRANDALL x 4 5/5 and equal in BUE and BLE, except bilateral wireline supervisor 5-/5 as well as WE and triceps at 4+/5 PERRLA/EOMI no droop CN 2-12 grossly intact +lt touch Neuro Check Frequency: per routine Urinary Catheter in Place: No - Physician Discussed Patient with : Jose Luis Neurosurgery Physical Exam - Vitals, I&O, Labs I and O 04/22/17 04/23/17 04/24/17 05:59 05:59 05:59 Intake Total 820 1520 Output Total 4200 800 Balance -3380 720 Weight 71.9 kg Intake: Oral (ml) 820 1320 IV Infused (ml) 200 Nafcillin Sodium 2 gm In 200 D5w 100 ml @ 100 mls/hr IV Q4HRS [facility] Rx#: [id number] Output: Urine (ml) 3650 800 Bedside Commode 3650 800 Urine/Stool Mix (ml) 550 Bedside Commode 550 Other: Intake Quantity Yes Yes Sufficient Number of Voids Bedside Commode 5 1 1 Incontinence 1 Toilet 1 Number of Stools Bedside Commode 1 Incontinence 1 Microbiology 04/19/17 17:15 Blood Panel (PCR) - Final Blood S.aureus Methicillin Suscept. Vital Signs Temp Pulse Resp BP Pulse Ox 36.6 C 71 17 136/79 H 95 04/23/17 04:00 04/23/17 04:00 04/22/17 22:17 04/23/17 04:00 04/23/17 04:00 Laboratory Results 04/23/17 03:55 04/23/17 03:55 ICD10 Worksheet Patient Problems: Problems Problem Status Onset Altered mental status Acute Chronic cervical pain Acute Neuropathy Acute
[2017-04-23] MEDS: CHLORTHALIDONE 25 MG TAB PO SCH (10:13)
[2017-04-23] MEDS: GABAPENTIN 400 MG CAP PO SCH (10:13)
[2017-04-23] MEDS: MULTIVITAMINS 1 EACH TAB PO SCH (10:13)
[2017-04-23] MEDS ORDERED: POTASSIUM CL 20 MEQ TAB PO ONE ×2 (10:20→13:30)
--- NOTE | 2017-04-23 10:23 | HOSPPROG ---
Hospitalist Progress Note Assessment/Plan: # epidural abscess with associated meningitis and saray-meningeal focus s/p recent cervical OSBALDO - cont nafcillin per ID - needs minimum 8 week course - needs hardware for cervical stenosis, nsg would like to complete IV abx prior to surgery - cont neuro checks # MSSA bacteremia - nafcillin # elevated LFTs - US without clear etiology though likely hepatic steatosis - follow on abx # encephalopathy - much improved; likely d/t infection, worse with bzd # hypoK - replete # hypoNa - follow # anemia - slightly lower, follow # start lovenox Subjective: ongoing BUE weakness Objective: Vital Signs Temp Pulse Resp BP Pulse Ox 36.8 C 79 2 L 129/88 H 96 04/23/17 07:43 04/23/17 07:43 04/23/17 07:43 04/23/17 07:43 04/23/17 07:43 Microbiology 04/19/17 17:15 Blood Panel (PCR) - Final Blood S.aureus Methicillin Suscept. Laboratory Results 04/23/17 03:55 04/23/17 03:55 04/22/17 04/23/17 04/24/17 05:59 05:59 05:59 Intake Total 820 1520 Output Total 4200 800 Balance -3380 720 PT 13.6 SEC (12.0-15.0) 04/18/17 01:01 INR 1.02 (0.83-1.16) 04/18/17 01:01 chart reviewed MRIs reviewed US reviewed - Physical Exam Constitutional: no apparent distress, appears nourished Cardiovascular: regular rate and rhythym, no murmur, rub, or gallop Respiratory: no respiratory distress, no rales or rhonchi, clear to auscultation Gastrointestinal: normoactive bowel sounds, soft, non-tender abdomen ICD10 Worksheet Patient Problems: Problems Problem Status Onset Chronic cervical pain Acute Altered mental status Acute Neuropathy Acute
--- NOTE | 2017-04-23 12:43 | PCMIDPN ---
Assessment/Plan: 1. Cervical epidural abscess secondary to MSSA with concomitant bacteremia/ probable cerebritis, and CSF mild neutrophilic pleocytosis consistent with parameningeal focus: Continue medical management for now with nafcillin. She seems to be tolerating this well with stable liver function tests. Slight bump in creatinine today, which will need to be repeated tomorrow. Repeat blood cultures are sterile. PICC line inserted yesterday. 2. Abnormal liver function tests: Stable on nafcillin. [place] secondary to non alcoholic fatty liver disease versus other infiltrative process. Subjective: Sitting up, talking to speech therapist. Neck pain under control. No new complaints. 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 Objective: Nafcillin 2 g IV q.4 hours day 2 (antibiotics day 3) Afebrile Vital Signs Temp Pulse Resp BP Pulse Ox 37.8 C 87 16 158/94 H 97 04/23/17 11:57 04/23/17 11:57 04/23/17 11:57 04/23/17 11:57 04/23/17 11:57 Microbiology 04/19/17 17:15 Blood Panel (PCR) - Final Blood S.aureus Methicillin Suscept. Laboratory Results 04/23/17 03:55 04/23/17 03:55 04/22/17 04/23/17 04/24/17 05:59 05:59 05:59 Intake Total 820 1520 Output Total 4200 800 Balance -3380 720 ESR 48 MM/HR (0-30) H 04/18/17 01:00 C-Reactive Protein 146.2 mg/L (<10.0) H 04/18/17 01:00 Repeat blood culture April 21 are negative Blood cultures April 19 MSSA - Physical Exam General Appearance: alert, no apparent distress EENT: pharynx normal, No scleral icterus, No thrush Respiratory: lungs clear Extremities: other (PICC line upper extremity looks fine) Abdomen: non-tender, soft Skin: No rash, No embolic lesions Neuro/Psych: oriented x 3 ICD10 Worksheet Patient Problems: Problems Problem Status Onset Altered mental status Acute Chronic cervical pain Acute Neuropathy Acute
[2017-04-23] MEDS: GABAPENTIN 300 MG CAP PO SCH ×2 (13:22→21:15)
--- NOTE | 2017-04-23 15:03 | ASMTCMCOM ---
CM Note CM Note Notes: Spoke w pt about d/c planning: informed pt [facility] inpatient rehab is assessing and will continue assessment Tuesday. Informed pt SNF choice would be needed if pt medically stable for d/c before Tuesday and/or pt does not qualify for [facility] inpatient rehab, pt understand. Pt chooses [facility], referral sent to in [employer]. CM to follow. Date Signed: 04/23/2017 03:01 PM Electronically Signed By:ADOLFO Hernandez
[2017-04-23] MEDS: BISACODYL 10 MG SUPP PR PRN (16:34)
[2017-04-23] MEDS: DULoxetine 60 MG CAP PO SCH (21:15)
[2017-04-23] MEDS: CYCLOBENZAPRINE 10 MG TAB PO PRN (21:15)
[2017-04-23] MEDS: amLODIPine BESYLATE 5 MG TAB PO SCH (21:16)
[2017-04-24] MEDS: HYDROmorphONE/DILAUDID 2 MG TAB PO PRN ×3 (01:14→16:40)
[2017-04-24] MEDS: NAFCILLIN SODIUM 2 GM in D5W 100 ML IV SCH ×6 (02:46→22:20)
[2017-04-24 03:19] LABS: PLATELET COUNT 327 10^3/uL (150-400)
[2017-04-24] MEDS ORDERED: POTASSIUM CL 20 MEQ TAB PO ONE (07:24)
[2017-04-24] MEDS ORDERED: 1/2 NS 1,000 ML IV SCH ×2 (07:30→16:00)
--- NOTE | 2017-04-24 08:10 | NEUSURGPN ---
Assessment/Plan: Assessment: 76 y/o female with cervical epidural abscess and spinal stenosis Plan: -PT/OT-CPM -neuro stable with regards to strength exam c/w yesterday -Optimize pain management while minimizing confusion/sedation-pt states that she is better this am -pt is weak in BUE and we will continue to watch for now -Appreciate ID/medical management. Discussed with patient that would like to maximize antibiotics and medical treatment for now as surgery would entail hardware placement with decompression -will continue to follow for now and no surgery recommended at this time -Discussed with Dr. Amaya -Please notify NS with any change in neuro/motor exam Subjective: No new complaints or concerns. No f/c/n/v/d. No naranjo/neck/chest/abd or gu complaints. Per pt she states that he strength is the same as yesterday Objective: NAD A&Ox3 CRANDALL x 4 5/5 and equal in BUE and BLE, except bilateral truck bench mechanic 5-/5 as well as WE and triceps at 4+/5 on left c/w prior exam PERRLA/EOMI no droop CN 2-12 grossly intact +lt touch Neuro Check Frequency: per routine Urinary Catheter in Place: No - Physician Discussed Patient with : Jose Luis Neurosurgery Physical Exam - Vitals, I&O, Labs I and O 04/23/17 04/24/17 04/25/17 05:59 05:59 05:59 Intake Total 1520 1450 Output Total 800 Balance 720 1450 Weight 71.9 kg 72.1 kg Intake: Oral (ml) 1320 1450 IV Infused (ml) 200 Nafcillin Sodium 2 gm In 200 D5w 100 ml @ 100 mls/hr IV Q4HRS [facility] Rx#: [id number] Output: Urine (ml) 800 Bedside Commode 800 Other: Intake Quantity Yes Yes Sufficient Number of Voids Bedside Commode 1 1 Incontinence 1 Toilet 1 Number of Stools Incontinence 1 Vital Signs Temp Pulse Resp BP Pulse Ox 36.6 C 81 16 119/55 L 94 04/24/17 07:34 04/24/17 07:34 04/24/17 07:34 04/24/17 07:34 04/24/17 07:34 Laboratory Results 04/24/17 03:05 04/24/17 03:05 ICD10 Worksheet Patient Problems: Problems Problem Status Onset Altered mental status Acute Chronic cervical pain Acute Neuropathy Acute
[2017-04-24] MEDS: GABAPENTIN 400 MG CAP PO SCH (08:19)
[2017-04-24] MEDS: MULTIVITAMINS 1 EACH TAB PO SCH (08:19)
[2017-04-24] MEDS ORDERED: ENOXAPARIN 40 MG/0.4 ML SYR SC SCH (09:00)
--- NOTE | 2017-04-24 11:26 | PCMIDPN ---
Assessment/Plan: 1. Cervical epidural abscess secondary to MSSA with concomitant bacteremia/ probable cerebritis, and CSF mild neutrophilic pleocytosis consistent with parameningeal focus: Continue medical management for now with nafcillin. Rise in creatinine seems to precipitous to be acute interstitial nephritis secondary to nafcillin. Please see below. Appreciate neurosurgery recommendations. Suspect she will need another MRI in the next 24-48 hours. Neurologic exam is stable. Of note, 2nd PICC line was put in her blood cultures were sterile. 2. Abnormal liver function tests: Stable on nafcillin. [place] secondary to non alcoholic fatty liver disease versus other infiltrative process. 3. Elevated creatinine: ? Secondary to Toradol, which has been discontinued. Renal ultrasound shows no evidence of obstruction. Will repeat tomorrow and continue nafcillin for now. Urine eosinophils pending. No evidence of rash or peripheral blood eosinophilia. 04/24/17 11:23 Subjective: About the same today. Very loquacious. Had a large bowel movement yesterday. Neck pain about the same, with no new neurologic deficits. Creatinine elevated today. Toradol has been stopped. Objective: Nafcillin 2 g IV q.4 hours day 3 (antibiotics day 4) T-max 37.8degrees Vital Signs Temp Pulse Resp BP Pulse Ox 36.6 C 81 16 119/55 L 94 04/24/17 07:34 04/24/17 07:34 04/24/17 07:34 04/24/17 07:34 04/24/17 07:34 Laboratory Results 04/24/17 03:05 04/24/17 03:05 04/23/17 04/24/17 04/25/17 05:59 05:59 05:59 Intake Total 1520 1450 Output Total 800 Balance 720 1450 ESR 48 MM/HR (0-30) H 04/18/17 01:00 C-Reactive Protein 146.2 mg/L (<10.0) H 04/18/17 01:00 April 21 blood cultures remain sterile - Physical Exam General Appearance: alert, no apparent distress EENT: pharynx normal, No scleral icterus, No thrush Respiratory: lungs clear Neck: other (Discomfort at C7, with no obvious abnormality or fluctuance or erythema.) Cardiac/Chest: regular rate, rhythm Abdomen: non-tender, soft Skin: other (PICC line left upper extremity looks okay.), No rash ICD10 Worksheet Patient Problems: Problems Problem Status Onset Altered mental status Acute Chronic cervical pain Acute Neuropathy Acute
[2017-04-24] MEDS: GABAPENTIN 300 MG CAP PO SCH (11:33)
--- NOTE | 2017-04-24 14:41 | HOSPPROG ---
Hospitalist Progress Note Assessment/Plan: # epidural abscess with associated meningitis and saray-meningeal focus s/p recent cervical OSBALDO - cont nafcillin per ID - needs minimum 8 week course - needs hardware for cervical stenosis, nsg would like to complete IV abx prior to surgery - ongoing UE weakness followed closely by NSG - cont neuro checks # MSSA bacteremia - nafcillin # MARICRUZ - nsaids vs AIN - Toan, UCr, Ueos pending; no hydro on US - given a bolus, rechecking BMP now # elevated LFTs - US without clear etiology though likely hepatic steatosis - follow on abx # encephalopathy - much improved; likely d/t infection, worse with bzd # hypoK - replete # hypoNa - follow # anemia - slightly lower, follow # lovenox Subjective: ongoing weakness. RUE>LUE Objective: Vital Signs Temp Pulse Resp BP Pulse Ox 36.6 C 81 16 119/55 L 94 04/24/17 07:34 04/24/17 07:34 04/24/17 07:34 04/24/17 07:34 04/24/17 07:34 Laboratory Results 04/24/17 03:05 04/24/17 03:05 04/23/17 04/24/17 04/25/17 05:59 05:59 05:59 Intake Total 1520 1450 Output Total 800 Balance 720 1450 PT 13.6 SEC (12.0-15.0) 04/18/17 01:01 INR 1.02 (0.83-1.16) 04/18/17 01:[address] Sosa US reviewed - Physical Exam Constitutional: no apparent distress, appears nourished Cardiovascular: regular rate and rhythym, no murmur, rub, or gallop Respiratory: no respiratory distress, no rales or rhonchi, clear to auscultation Gastrointestinal: normoactive bowel sounds, soft, non-tender abdomen, no palpable masses ICD10 Worksheet Patient Problems: Problems Problem Status Onset Chronic cervical pain Acute Altered mental status Acute Neuropathy Acute
[2017-04-24] MEDS ORDERED: GABAPENTIN 300 MG CAP PO SCH (21:00)
[2017-04-24] MEDS: DULoxetine 60 MG CAP PO SCH (22:21)
[2017-04-24] MEDS: amLODIPine BESYLATE 5 MG TAB PO SCH (22:21)
[2017-04-24] MEDS: CYCLOBENZAPRINE 10 MG TAB PO PRN (23:30)
[2017-04-25] MEDS: HYDROmorphONE/DILAUDID 2 MG TAB PO PRN ×3 (00:57→20:58)
[2017-04-25] MEDS: NAFCILLIN SODIUM 2 GM in D5W 100 ML IV SCH ×4 (01:50→18:58)
[2017-04-25 04:36] LABS: PLATELET COUNT 344 10^3/uL (150-400)
[2017-04-25] MEDS ORDERED: POTASSIUM CL 20 MEQ TAB PO ONE ×2 (05:26→05:35)
--- NOTE | 2017-04-25 07:57 | NEUSURGPN ---
Assessment/Plan: Assessment: 76 y/o female with cervical epidural abscess and spinal stenosis Plan: -PT/OT-CPM -Patient with progressive weakness this am in bilateral triceps, wrist extensors and physician advisor -Will get STAT MRI cervical with/without contrast to eval -Appreciate ID/medical management. Patient would like to maximize antibiotics and medical treatment but with new onset of weakness today, surgery may be necessary-will await MRI results -Discussed with Dr. Amaya -Please call Neurosurgery with any questions/concerns Subjective: Patient resting in bed, progressive weakness in bilateral upper extremities Objective: AxO x3 PERRLA/EOMI no droop Bilateral triceps, wrist extensors, satellite instruction facilitator 2-3/5 Bilateral biceps 5/5 Neuro Check Frequency: per routine Urinary Catheter in Place: No - Physician Discussed Patient with Dr.: Amaya Neurosurgery Physical Exam - Vitals, I&O, Labs I and O 04/24/17 04/25/17 04/26/17 05:59 05:59 05:59 Intake Total 1450 3230 Output Total 1500 Balance 1450 1730 Weight 72.1 kg 71.5 kg Intake: Oral (ml) 1450 2730 IV Infused (ml) 500 1/2 Ns 1,000 ml @ 100 mls 300 /hr IV CONT BUZZ Rx#: [id number] Nafcillin Sodium 2 gm In 200 D5w 100 ml @ 100 mls/hr IV Q4HRS BUZZ Rx#: [id number] Output: Urine (ml) 1500 Bedside Commode 1200 Toilet 300 Other: Intake Quantity Yes Yes Sufficient Number of Voids Bedside Commode 1 1 Incontinence 1 Toilet 1 Number of Stools Bedside Commode 1 Incontinence 1 Microbiology 04/19/17 17:10 Blood Culture - Final Blood Staphylococcus Aureus 04/19/17 17:15 Blood Culture - Final Blood Staphylococcus Aureus Blood Panel (PCR) - Final S.aureus Methicillin Suscept. Vital Signs Temp Pulse Resp BP Pulse Ox 37.8 C 106 H 18 139/74 H 96 04/24/17 23:04 04/24/17 23:04 04/24/17 23:04 04/24/17 23:04 04/24/17 23:04 Laboratory Results 04/25/17 04:26 04/25/17 04:26 ICD10 Worksheet Patient Problems: Problems Problem Status Onset Altered mental status Acute Chronic cervical pain Acute Neuropathy Acute
[2017-04-25] MEDS ORDERED: ENOXAPARIN 30 MG/0.3 ML SYR SC SCH (09:00)
[2017-04-25] MEDS: MULTIVITAMINS 1 EACH TAB PO SCH (09:26)
[2017-04-25] MEDS ORDERED: GADOBUTROL 10 ML VIAL IVP ONE (09:48)
[2017-04-25] MEDS ORDERED: THROMBIN (BOVINE) 20,000 UNIT VIAL TP ONE ×2 (11:32→15:09)
[2017-04-25] MEDS ORDERED: BACITRACIN 50,000 UNITS/10 ML SYR IRR ONE ×2 (11:33→14:29)
[2017-04-25] MEDS ORDERED: SURGIFLO MATRIX KIT WITH THROMBIN 8ml TP ONE ×2 (11:33→15:13)
[2017-04-25] MEDS ORDERED: CHLORHEXIDINE GLUC HIBICLENS 118 ML BTL TP ONE (11:34)
--- NOTE | 2017-04-25 12:30 | PDANEPAE ---
ANE History of Present Illness 76 yo for emergent acdf ANE Past Medical History - Cardiovascular History Hx Hypertension: Yes - Pulmonary History Hx Oxygen in Use at Home: No Hx Sleep Apnea: No Sleep Apnea Screening Result - Last Documented: Negative - Endocrine History Hx Diabetes: No - Chronic Pain History Chronic Pain: No ANE Review of Systems Review of Systems: ANE Patient History - Allergies Allergies/Adverse Reactions: diclofenac [From Voltaren] Allergy (Intermediate, Verified 04/18/17 18:41) Other-Enter Comments - Home Medications Home medications: home medication list seen and reviewed Home Medications: Duloxetine HCl [Cymbalta] 60 mg PO HS 08/02/15 [Last Taken 10/30/16] Multivitamins [Multivitamin (*)] 1 each PO DAILY 08/02/15 [Last Taken 10/31/16] Valacyclovir HCl [Valtrex] 1,000 mg PO DAILY 08/02/15 [Last Taken 10/31/16] Chlorthalidone [Chlorthalidone 25 mg (*)] 25 mg PO DAILY 10/31/16 [Last Taken ] Cyclobenzaprine [Flexeril 10 MG (*)] 10 mg PO HS PRN 10/31/16 [Last Taken ] LORazepam [Lorazepam] 0.5 mg PO HS PRN 10/31/16 [Last Taken 10/30/16] Amlodipine Besylate [Norvasc] 5 mg PO HS 04/18/17 [Last Taken 04/17/17] Gabapentin [Neurontin 300 MG (*)] 300 mg PO DAILY@12 04/18/17 [Last Taken ] Gabapentin [Neurontin 300 MG (*)] 900 mg PO HS 04/18/17 [Last Taken 04/17/17] Gabapentin [Neurontin 400 MG (*)] 400 mg PO DAILY 04/18/17 [Last Taken Unknown] predniSONE 10 mg PO .[id number] 04/18/17 [Last Taken Unknown] - NPO status NPO Since - Liquids (Date): 04/25/17 NPO Since - Liquids (Time): 07:30 NPO Since - Solids (Date): 04/25/17 NPO Since - Solids (Time): 07:30 - Smoking Hx Smoking Status: Current some day smoker - Alcohol Use Alcohol Use: Occasionally (few times weekly) ANE Labs/Vital Signs - Labs Result Diagrams: 04/25/17 04:26 04/25/17 04:26 - Vital Signs Blood Pressure: 162/75 Heart Rate: 76 Respiratory Rate: 16 O2 Sat (%): 95 Height: 5 ft 1 in Weight: 71.5 kg ANE Physical Exam - Airway Neck exam: decreased ROM Mallampati Score: Class 2 Mouth exam: normal dental/mouth exam - Pulmonary Pulmonary: no respiratory distress - Cardiovascular Cardiovascular: regular rate and rhythym - ASA Status ASA Status: III ANE Anesthesia Plan Anesthesia Plan: general endotracheal anesthesia Lines/Monitors: arterial line
[2017-04-25] MEDS ORDERED: REMIFENTANIL HCL 1 MG VIAL ONE ×2 (12:38→14:48)
[2017-04-25] MEDS ORDERED: fentaNYL 250 MCG/5 ML INJ ONE (12:38)
[2017-04-25] MEDS ORDERED: PROPOFOL/EMULSION 500 MG/50 ML BOTTLE IV ONE ×2 (12:38→14:48)
--- NOTE | 2017-04-25 12:47 | ASMTCMCOM ---
CM Note CM Note Notes: Patient with profound weakness upon neurosurgical evaluation today and taken to OR at 1200 for spinal surgery. Her discharge needs are TBD; [facility] inpatient rehab will continue to follow. I spoke with Cheikh at [facility] who does not have a bed available for patient at this time. Current Case Management Discharge plan: TBD pending post-surgical needs Date Signed: 04/25/2017 12:46 PM Electronically Signed By:Alice Thompson RN
[2017-04-25] MEDS ORDERED: ALBUMIN 5% 250 ML BOTTLE IV ONE (13:42)
[2017-04-25] MEDS ORDERED: DEXAMETHASONE 4 MG/ML VIAL ONE (14:34)
[2017-04-25] MEDS ORDERED: PHENYLEPHRINE HCL 100 MCG/ML SYR ONE (14:34)
[2017-04-25] MEDS ORDERED: SUGAMMADEX SODIUM 200 MG/2 ML VIAL IVP ONE (14:34)
[2017-04-25] MEDS ORDERED: ROCURONIUM 50 MG/5 ML VIAL ONE (14:34)
[2017-04-25] MEDS ORDERED: BUPIVACAINE 0.25% 30 ML SDV ONE (15:08)
[2017-04-25] MEDS ORDERED: BUPIVACAINE/EPI 0.5% 30 ML SDV ONE (15:09)
[2017-04-25 15:51] LABS: INR 1.28 (0.83-1.16); PROTIME(PATIENT) 16.2 SEC (12.0-15.0)
[2017-04-25] MEDS ORDERED: NALOXONE HCL 0.4 MG/ML INJ IVP PRN (16:03)
--- NOTE | 2017-04-25 16:06 | POSTANESTH ---
Post Anesthetic Evaluation Cardiovascular Status: Normal, Stable Respiratory Status: Similar to Pre-op Cond. Level of Consciousness/Mental Status: Can Participate in Eval Pain Control: Adequate, Prn Tx Ordered Nausea/Vomiting Control: Adequate, Prn Tx Ordered Complications Possibly Related to Anesthesia: None Noted
[2017-04-25] MEDS ORDERED: NS IV ONE ×2 (16:18→18:30)
[2017-04-25] MEDS ORDERED: HYDROmorphONE/DILAUDID 1 MG/ML INJ ONE (16:18)
[2017-04-25] MEDS ORDERED: DESMOPRESSIN ACETATE 20 MCG in NS 50 ML IV ONE ×2 (16:18→18:30)
[2017-04-25] MEDS ORDERED: DESMOPRESSIN ACETATE IV ONE ×2 (16:18→18:30)
[2017-04-25] MEDS ORDERED: fentaNYL 100 MCG/2 ML INJ ONE (16:18)
[2017-04-25] MEDS: HYDROmorphONE/DILAUDID 1 MG/ML INJ IVP PRN ×2 (16:19→16:37)
[2017-04-25] MEDS: fentaNYL 100 MCG/2 ML INJ IVP PRN ×3 (16:20→16:39)
--- NOTE | 2017-04-25 16:29 | HOSPPROG ---
Hospitalist Progress Note Assessment/Plan: # epidural abscess with associated meningitis and saray-meningeal focus s/p recent cervical OSBALDO - s/p emergent surgery for worsening neurologic status today - significant intra-op bleeding; unclear reason? s/p 2U PRBC in OR - slightly elevated coags; mild elevation in BUN; will give a dose of DDAVP given the high risk of bleeding; trend Na overnight - trend H/H - cont nafcillin per ID - needs minimum 8 week course - needs hardware for cervical stenosis, nsg would like to complete IV abx prior to surgery - cont neuro checks and icu monitoring # MSSA bacteremia - nafcillin # MARICRUZ - nsaids vs AIN - Toan, UCr, Ueos pending - unclear why this has not yet been send; no hydro on US - cont IVF, avoid hypotension # elevated LFTs - US without clear etiology though likely hepatic steatosis - follow on abx # encephalopathy - much improved; likely d/t infection, worse with bzd # hypoK - replete # hypoNa - follow # anemia - s/p transfusion # lovenox - on hold Subjective: very weak UE today; s/p emergent surgery for decompression by Dr Briceño; had significant bleeding inter-op; seen in pacu Objective: Vital Signs Temp Pulse Resp BP Pulse Ox 36.0 C 89 18 162/68 H 98 04/25/17 16:03 04/25/17 12:47 04/25/17 16:05 04/25/17 16:05 04/25/17 16:05 Microbiology 04/25/17 14:08 Gram Stain - Final Other - Eswab 04/25/17 14:07 Gram Stain - Final Other - Eswab 04/19/17 17:10 Blood Culture - Final Blood Staphylococcus Aureus 04/19/17 17:15 Blood Culture - Final Blood Staphylococcus Aureus Blood Panel (PCR) - Final S.aureus Methicillin Suscept. Laboratory Results 04/25/17 04:26 04/25/17 04:26 04/24/17 04/25/17 04/26/17 05:59 05:59 05:59 Intake Total 1450 3230 Output Total 1500 Balance 1450 1730 PT 16.2 SEC (12.0-15.0) H 04/25/17 15:32 INR 1.28 (0.83-1.16) H 04/25/17 15:32 - Physical Exam Constitutional: uncomfortable Ears, Nose, Mouth, Throat: other (neck brace) Cardiovascular: regular rate and rhythym, no murmur, rub, or gallop Respiratory: no respiratory distress, no rales or rhonchi, clear to auscultation Gastrointestinal: normoactive bowel sounds, soft, non-tender abdomen, no palpable masses ICD10 Worksheet Patient Problems: Problems Problem Status Onset Chronic cervical pain Acute Altered mental status Acute Neuropathy Acute
--- NOTE | 2017-04-25 16:58 | POSTOPPROG ---
Post Op Note Date of Operation: 04/25/17 Surgeon: Karen Torres Banquet Chef: KELLY Torres Anesthesia: GET(General Endotracheal) Pre-op Diagnosis: arm weakness, epidural abscess Post-op Diagnosis: epidural abscess/hematoma, cervical stenosis Indication: arm weakness, epidural abscess, cervical stenosis Procedure: C6 and partial C7 corepectomy Inf/Abcess present in the surg proc area at time of surgery?: Yes Depth: Deep Incisional (Fascial) EBL: 500-1000 Drains: Luisa Hand Addendum - Addendum .: S: Denies any neck pain O: NAD A&Ox3 MAEx4 Del 5-/5 biceps 5-/5 Triceps 3-/5 right computing consultant 4-/4 Left computing consultant 5-/5 Incision c/d/i, neck soft,flat CHANDLER drain serosanguineous. Denies any pain A: 76y/o female s/p C6 and partial C7 corpectomy Plan: -hard cervical collar at all times -Appreciate medical work up for increased bleeding during surgery and other -Abx per ID and medicine -CHANDLER x1 -Post op xrays and MRI pending -DVT prophx: TEDs, SCDs, hold Lovenox at this time -Please notify NS with any change in neuro/motor exam.
--- NOTE | 2017-04-25 18:02 | PCMIDPN ---
Assessment/Plan: Assessment/Plan: * Cervical epidural abscess with MSSA bacteremia and associated probable cerebritis/parameningeal focus status post incision and drainage of epidural abscess earlier today: Patient with significant intraoperative bleeding without clear etiology which required transfusion. Nafcillin has been associated rarely with bleeding diathesis associated with platelet dysfunction. Therefore, will discontinue nafcillin in event contributing. Will begin ceftriaxone 2 g IV q.12 hours as this will provide activity against MSSA and achieve ABE TEACHER penetration. Follow-up operative cultures as available. * Renal insufficiency: Creatinine improved today. May have some relationship to previous Toradol. Nafcillin can be associated with AIN although time course rapid for this etiology and no peripheral blood eosinophilia present. See above regarding discontinuation of nafcillin. * Abnormal liver function tests: Gradually improving. 04/25/17 17:57 Subjective: Patient require drainage of cervical epidural abscess on emergent basis today for worsening neurologic status. Significant intraoperative bleeding noted of unclear etiology which required transfusion of 2 units of packed red blood cells. Patient given DDAVP. Objective: Vital Signs Temp Pulse Resp BP Pulse Ox 36.2 C 89 16 151/66 H 93 04/25/17 16:40 04/25/17 12:47 04/25/17 17:10 04/25/17 16:29 04/25/17 17:10 Microbiology 04/25/17 14:08 Gram Stain - Final Other - Eswab 04/25/17 14:07 Gram Stain - Final Other - Eswab 04/19/17 17:10 Blood Culture - Final Blood Staphylococcus Aureus 04/19/17 17:15 Blood Culture - Final Blood Staphylococcus Aureus Blood Panel (PCR) - Final S.aureus Methicillin Suscept. Laboratory Results 04/25/17 04:26 04/25/17 04:26 04/24/17 04/25/17 04/26/17 05:59 05:59 05:59 Intake Total 1450 3230 800 Output Total 1500 1060 Balance 1450 1730 -260 ESR 48 MM/HR (0-30) H 04/18/17 01:00 C-Reactive Protein 146.2 mg/L (<10.0) H 04/18/17 01:00 Nafcillin # 4 Blood cultures 04/21/2017 no growth Operative Gram stain with white blood cells but no organisms seen - Physical Exam General Appearance: non-toxic, other (Confused postoperatively) EENT: No scleral icterus, No conjunctival petechiae Respiratory: lungs clear (Anterolaterally) Neck: other (In C-collar postoperatively) Cardiac/Chest: regular rate, rhythm Extremities: No inflammation Abdomen: non-tender, No distended Skin: No embolic lesions ICD10 Worksheet Patient Problems: Problems Problem Status Onset Altered mental status Acute Chronic cervical pain Acute Neuropathy Acute
[2017-04-25] MEDS: cefTRIAXone 2 GM in D5W 50 ML IV SCH (18:24)
[2017-04-25] MEDS: DULoxetine 60 MG CAP PO SCH (20:58)
[2017-04-25] MEDS: GABAPENTIN 300 MG CAP PO SCH (20:58)
[2017-04-25] MEDS: GABAPENTIN 400 MG CAP PO SCH (20:58)
[2017-04-25] MEDS: HYDROmorphone HCL/NS/PF 0.4 MG/2 ML SYR IVP PRN (22:40)
[2017-04-26] MEDS: HYDROmorphone HCL/NS/PF 0.4 MG/2 ML SYR IVP PRN ×3 (02:40→18:58)
--- NOTE | 2017-04-26 04:59 | GOP ---
[f rep st] OPERATIVE REPORT DATE OF OPERATION: 04/25/2017 SURGEON: Navarro Amaya MD ASSEMBLER PIANO: Karen Torres PA-C PREOPERATIVE DIAGNOSIS: 1. Ventral epidural abscess at C5, C6, and C7 with rapidly progressive neurological deficit. 2. Cervicalgia. 3. Radiculopathy. POSTOPERATIVE DIAGNOSIS: Ventral epidural abscess, compressive with subacute appearing epidural hematoma. PROCEDURE PERFORMED: 1. Anterior arthrodesis with approach to C5, C6, and C7. 2. C5-C6 diskectomy. 3. C6-C7 diskectomy. 4. C6 corpectomy with epidural mass reduction, including small hematoma evacuation, and spinal cord decompression. 5. C7 partial corpectomy with epidural mass reduction, including small hematoma evacuation, and spinal cord decompression. 6. Interbody fusion with a strut graft filled with morselized autograft and allograft between the endplates of C5-C6 and C7 vertebral body. 7. Anterior cervical fusion with a 23 mm Medtronic Lookingglass translational plate with screws into the C5 and C7 and 1 screw into the interbody cage. 8. Use of intraoperative fluoroscopy, less than 1 hour physician time. 9. Use of neuromonitoring. 10. Use of operative microscope. FINDINGS: ventral compressive epidural abscess, organized, and subacute appearing hematoma SPECIMENS: The ventral lesion was sent to Microbiology and Pathology for both micro analysis and permanent analysis. INDICATIONS: Ms. Norman is a 76-year-old woman who underwent a lumbar injection several weeks ago. The patient presented with worsening neck pain and had evidence of what appeared to be a ventral compressive epidural abscess. The patient was neurologically intact upon the initial consultation and was treated with antibiotics. She then had a change in her neurological examination with a rapid decline and progressive upper extremity weakness. Imaging demonstrated that the epidural abscess had grown ventrally behind the vertebral body of C5, C6, and C7. After discussion of risks, benefits, and treatment alternatives, we decided to proceed forth with an emergent surgical evacuation and decompression. The surgical plan was to complete this as a 2-stage surgical procedure with an anterior decompression with corpectomy at C6 and C7 as well as a second-stage procedure to decompress and stabilize between C4 and T1. Unfortunately, the patient became unstable intraoperatively from excessive bleeding and we therefore had to abort after completion of the first-stage of the surgery with plans for the second-stage after she is medically stabilized. DESCRIPTION OF PROCEDURE: The patient was brought to the operating theater and underwent general endotracheal anesthesia without complications. She had Venodynes, KEENAN hose, and appropriate lines placed by Anesthesia. Her MAPS were maintained above 85 per Anesthesia. Upon placement of the arterial line and the leads for neuro monitoring, she was noted to have excessive bleeding emitting from these sites. We obtained baseline neuro monitoring. Her head was placed in slight extension on the operating room table and all bony processes were inspected and padded. Using lateral fluoroscopy and spinal needle, we picked our entry point to the C5 through C7 levels. This was marked as a transverse incision on the right side of the neck. This area was prepped and draped in the usual sterile surgical fashion. A time-out was completed per protocol and the patient received antibiotics within 1 hour of incision. The incision was taken down with a scalpel blade and using the monopolar, the incision was taken down through the subcutaneous tissue to the level of the platysma. The platysma was over-mined in the cranial and caudal directions. A Weitlaner was placed to maintain our exposure. We opened the fibers of the platysma cranially and caudally. Using both blunt and sharp dissection, we traveled in a plane medial to the carotid sheath and lateral to the esophagus and trachea to reach the prevertebral fascia. She had inflammatory tissues noted in the prevertebral fascia and within the bilateral aspects of the longus colli muscle. We placed a bayonetted needle into the disk space of C6-C7 and confirmed our level using lateral fluoroscopy. We elevated the longus coli muscle from the anterior vertebral bodies of C5, C6, and C7. Deep retractors were placed to maintain exposure and the microscope was brought into the field to assist with microscopic dissection and to maintain illumination and magnification. We placed a [place] pin into the vertebral body of C5 and inferior aspect of C7 and placed the C5-C6 and C6-C7 disk spaces under mild distraction. At this point, using an 11-blade and curettes, we completed a C5- C6 diskectomy and C6-C7 diskectomy. We then used the bur tip on the drill bit and Kerrison punches to create a trough and a corpectomy of the C6 vertebral body. We also continued down inferiorly and did a partial C7 corpectomy. Posterior to the bone within the ligament there was noted to be inflammatory tissues, which were extremely compressive and adherent. The planes between the ligaments, inflammatory tissue, and dura were not well visualized by myself. Using angled nerve hooks and micro curettes to clean out much of this lesion, we then sent part of the lesion off to Microbiology for microbiology analysis. She also had evidence of a subacute appearing hematoma and clot, which we then removed with angled nerve hooks beyond the vertebral body of C7. This was sent to Pathology for permanent analysis. I reached up behind the vertebral body of C5 and felt some extra inflammatory infectious material, which we then removed with micro pituitaries and angled nerve hooks. I also reached behind the C7 vertebral body and completed the same decompression as well. The patient was noted to have excessive bleeding once the epidural space was decompressed. We prepared the cartilaginous endplates of C5-C6 and the partial vertebral body of C7. We then measured the interbody space and placed a 23 mm PEEK cage filled with morselized autograft and allograft between the endplates of C5-C6 and into the C7 vertebral body. We secured a 23 mm Medtronic Lookingglass translational plate with screws into the C5 and C7 vertebral bodies as well as 1 screw into the cage itself. AP and lateral x-rays demonstrated good placement of the hardware. The patient was noted to have continued excessive oozing from the epidural space. At this point, a drain was left in the subfascial space. We then waited an additional 45 minutes with placement of both thrombin gel and Surgiflo into the subcutaneous tissues to assist with hemostasis. At that point , we lost approximately 700 mL of blood and the patient's blood pressure was dropping. She was given 2 units of packed red blood cells. Given the fact the patient's blood pressure was so labile and that she was oozy from this stage of the surgical procedure, I opted not to proceed forth, after conferring with the anesthesiologist, with stage 2 (posterior decompression and stabilization). The concern was that she was going to lose twice as much blood with the posterior aspect of her surgery and I was not comfortable keeping the patient in a prone position with this much bleeding into her anterior cervical spine. We therefore decided to abort the second stage. We then closed the wound in multiple layers using Vicryl sutures in the deep layers and Dermabond for the skin. The patient's wounds were dressed sterilely. There was a noticed improvement in her neuro monitoring both motor and sensory in the upper and lower extremities. She was awakened, extubated, and taken to the recovery room in a slightly improved neurological condition from her preoperative state. /[id number]/MODL MTDD
[2017-04-26 06:20] LABS: PLATELET COUNT 284 10^3/uL (150-400)
[2017-04-26] MEDS: cefTRIAXone 2 GM in D5W 50 ML IV SCH ×2 (06:39→18:11)
--- NOTE | 2017-04-26 08:25 | PCMIDPN ---
Assessment/Plan: Assessment/Plan: 1. 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 Surgery couldn't be completed due to bleeding. Second stage of surgery to be completed possibly later this week, -Was previously on Nafcillin, now on ceftriaxone - f/u blood cx from 04/21 ngtd - creatinine improving, down to 1.3 LFt improved - Will need 8 weeks IV antibiotics post surgery. -care coordinated with hospitalist team. 2. MSSa bacteremia: - secondary to #1. see above. Meds ceftriaxone 2g q12- s/p nafcillin, vanco. Subjective: afebrile. in icu. awake, alert. denies sob, abd pain or recent diarrhea. neck pain about the same. Objective: Vital Signs Temp Pulse Resp BP Pulse Ox 36.6 C 84 20 122/66 H 98 04/25/17 23:44 04/25/17 23:44 04/25/17 23:44 04/25/17 23:44 04/25/17 23:44 Microbiology 04/25/17 14:08 Gram Stain - Final Other - Eswab 04/25/17 14:07 Gram Stain - Final Other - Eswab Laboratory Results 04/26/17 04:35 04/26/17 05:20 04/25/17 04/26/17 04/27/17 05:59 05:59 05:59 Intake Total 3230 1177 Output Total 1500 2340 Balance 1730 -1163 ESR 48 MM/HR (0-30) H 04/18/17 01:00 C-Reactive Protein 146.2 mg/L (<10.0) H 04/18/17 01:00 - Physical Exam General Appearance: alert, no apparent distress EENT: other (limited exam) Respiratory: lungs clear (anteriorly) Neck: other (hard cervical collar) Cardiac/Chest: regular rate, rhythm Extremities: No swelling Abdomen: normal bowel sounds, non-tender, soft, No distended Skin: No rash ICD10 Worksheet Patient Problems: Problems Problem Status Onset Altered mental status Acute Chronic cervical pain Acute Neuropathy Acute
[2017-04-26] MEDS ORDERED: DIAZEPAM 5 MG TAB PO ONE ×2 (08:54→12:45)
--- NOTE | 2017-04-26 08:57 | NEUSURGPN ---
Assessment/Plan: A: 76y/o female s/p C6 and partial C7 corpectomy Plan: -hard cervical collar at all times -Appreciate medical work up for increased bleeding during surgery and other -Abx per ID and medicine -New post op cultures pending -CHANDLER x1 -Post op xrays and MRI pending -DVT prophx: TEDs, SCDs, hold Lovenox at this time -To surgery likely morning for posterior stabilization and decompression (formal planning pending post MRI today) -Please notify NS with any change in neuro/motor exam. Subjective: neck pain. Feels like arms are stronger then prior to surgery. Objective: O: NAD A&Ox3 MAEx4 Del 5-/5 biceps 5-/5 Triceps 4-/5 right city engineer 4+/4 Left city engineer 5/5 Incision c/d/i, neck soft, flat CHANDLER drain serosanguineous. - Physician Patient Seen by : Jose Luis Neurosurgery Physical Exam - Vitals, I&O, Labs I and O 04/25/17 04/26/17 04/27/17 05:59 05:59 05:59 Intake Total 3230 1177 Output Total 1500 2340 Balance 1730 -1163 Weight 71.5 kg 77.9 kg Intake: Oral (ml) 2730 100 IV Intake (ml) 1077 IV Infused (ml) 500 1/2 Ns 1,000 ml @ 100 mls 300 /hr IV CONT BUZZ Rx#: [id number] Nafcillin Sodium 2 gm In 200 D5w 100 ml @ 100 mls/hr IV Q4HRS BUZZ Rx#: [id number] Output: Urine (ml) 1500 1600 Bedside Commode 1200 Catheter 1600 Toilet 300 Estimated Blood Loss (ml) 700 CHANDLER Drain Output (ml) 40 Anterior Neck Shar 40 Louie Other: Intake Quantity Yes Sufficient Number of Voids Bedside Commode 1 Toilet 1 1 Number of Stools Bedside Commode 1 Microbiology 04/25/17 14:08 Gram Stain - Final Other - Eswab 04/25/17 14:07 Gram Stain - Final Other - Eswab Vital Signs Temp Pulse Resp BP Pulse Ox 36.6 C 84 20 122/66 H 98 04/25/17 23:44 04/25/17 23:44 04/25/17 23:44 04/25/17 23:44 04/25/17 23:44 Laboratory Results 04/26/17 04:35 04/26/17 05:20 ICD10 Worksheet Patient Problems: Problems Problem Status Onset Altered mental status Acute Chronic cervical pain Acute Neuropathy Acute
--- NOTE | 2017-04-26 09:19 | HOSPPROG ---
Hospitalist Progress Note Assessment/Plan: # epidural abscess with associated meningitis and saray-meningeal focus s/p recent cervical OSBALDO - s/p emergent surgery (I&D abscess, ant approach, fusion C5-C7 fusion) for worsening neurologic status 04/25 - repeat MRI today, posterior stabilization planned Thurs - MAP >85, may need pressors - rocephin per ID - cont neuro checks and ICU care # excessive intraoperative bleeding - patient was on asa and fish oil prior to admission; had also been receiving NSAIDs - will transfuse platelets # MSSA bacteremia - rocephin # MARICRUZ - suspect d/t NSAIDs - improving # elevated LFTs - US without clear etiology though likely hepatic steatosis - follow on abx # encephalopathy - much improved; likely d/t infection, worse with bzd # hypoK - better # hypoNa - better # anemia - s/p transfusion # lovenox - on hold Subjective: did well overnight; strength better in bilat UE, but still weak Objective: Vital Signs Temp Pulse Resp BP Pulse Ox 36.6 C 84 20 122/66 H 98 04/25/17 23:44 04/25/17 23:44 04/25/17 23:44 04/25/17 23:44 04/25/17 23:44 Microbiology 04/25/17 14:08 Gram Stain - Final Other - Eswab 04/25/17 14:07 Gram Stain - Final Other - Eswab Laboratory Results 04/26/17 04:35 04/26/17 05:20 04/25/17 04/26/17 04/27/17 05:59 05:59 05:59 Intake Total 3230 1177 Output Total 1500 2340 Balance 1730 -1163 PT 16.2 SEC (12.0-15.0) H 04/25/17 15:32 INR 1.28 (0.83-1.16) H 04/25/17 15:32 critically ill d/t acute neurologic compromise, epidural abscess 40 mins cc time - Physical Exam Constitutional: no apparent distress, not in pain Ears, Nose, Mouth, Throat: other (hard neck collar, clean gauze) Cardiovascular: regular rate and rhythym, no murmur, rub, or gallop Respiratory: no respiratory distress, no rales or rhonchi, clear to auscultation Gastrointestinal: normoactive bowel sounds, soft, non-tender abdomen, no palpable masses ICD10 Worksheet Patient Problems: Problems Problem Status Onset Chronic cervical pain Acute Altered mental status Acute Neuropathy Acute
[2017-04-26] MEDS: MULTIVITAMINS 1 EACH TAB PO SCH (12:46)
[2017-04-26] MEDS ORDERED: PHENOL 177 ML THROAT SPRAY PO PRN (14:57)
[2017-04-26] MEDS: NS 1,000 ML IV SCH ×2 (15:10→15:15)
--- NOTE | 2017-04-26 19:23 | GCON ---
[f rep st] CONSULTATION DATE OF CONSULTATION: 04/26/2017 REASON FOR CONSULTATION: Intensive care unit evaluation and medical management of a patient with cer vical spine epidural abscess and cervical surgery. HISTORY: The patient is a very pleasant 76-year-old , who was admitted on 04/18 with cervical neck p ain. Evaluation revealed a cervical epidural abscess. She has grown MSSA. Infectious Disease is fo llowing the patient. Neurosurgery consultation was obtained. She was taken to the operating room ye sterday for abscess drainage. She had multilevel diskectomy performed from C5 through C7. She was r eturned to the intensive care unit in stable condition in a hard collar. Further surgery is planned. Her epidural abscess was drained. PAST MEDICAL HISTORY: Remarkable for cervical and lumbar spinal disease, essential hypertension, chr onic pain with narcotic use, and a history of herpes simplex, for which she takes Valtrex. OUTPATIENT MEDICATIONS: As listed. 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 She did not smoke cigarettes significantly. She does smoke marijuana. Alcohol is denied. She has a signif icant other who was also a professor at the [employer]. A son who lives in [place]. FAMILY HISTORY: Noncontributory. REVIEW OF SYSTEMS: Negative except as mentioned above. There is no history of heart disease, thromb oembolic disease, kidney problems, GI issues, etc. PHYSICAL EXAMINATION: GENERAL: Reveals a pleasant woman, who is lying comfortably in bed. She is a wake and alert, very appropriate. A hard collar is in place. Oxygen is in place at 2 L. HEENT: Re markable for the nasal cannula oxygen and the hard collar. Pupils are equal. A dressing over the an terior throat from her cervical surgery is dry. CHEST: Clear bilaterally. Excursions are good. HE ART: Regular in rate and rhythm with a soft systolic murmur, no gallop. ABDOMEN: Soft, nontender. Bowel sounds are present, but diminished. A Stroud catheter is in place. Urine output is excellent. NEUROLOGIC: Appears grossly nonfocal. ASSESSMENT: 1. Cervical epidural abscess: She has grown methicillin-sensitive Staphylococcus aureus. She is dr biggs of the abscess with C5-C7 fusion. Further surgery is planned in 2 days. MRI was done today f or surgical planning. Neurosurgery has not yet commented on the results. 2. Acute blood-loss anemia: The patient had about 700 cc bleeding estimated during her surgery. Sh e required 2 units of packed red blood cells. She also has received platelets for platelet dysfuncti on secondary to nonsteroidals and vitamin E. 3. Hypertension: The patient has underlying systemic hypertension. Blood pressures remain high pos toperatively with mean arterial pressures ordered to be greater than 85 for cord perfusion. She is m eeting those goals without problems. 4. Metabolic: Hypokalemia, on replacement. Creatinine was increased to as high as 1.6, now at 1.3. I's and O's are being followed. Nonsteroidal antiinflammatories may have played a role prehospital ization. PLAN AND RECOMMENDATIONS: The patient will be kept in the intensive care unit awaiting surgery in 2 days. Hematocrit and laboratory will be followed. Antibiotics will be continued. With Rocephin per recommendations of Infectious Disease. Adequate pain control will be maintained. Further plans and recommendations will be made based on her progress over the next 12-24 hours. /[id number]/MODL
[2017-04-26] MEDS: GABAPENTIN 400 MG CAP PO SCH (20:06)
[2017-04-26] MEDS: GABAPENTIN 300 MG CAP PO SCH (20:06)
[2017-04-26] MEDS: DULoxetine 60 MG CAP PO SCH (20:09)
[2017-04-26] MEDS: LORazepam 1 MG TAB PO PRN (20:55)
[2017-04-26] MEDS: HYDROmorphONE/DILAUDID 2 MG TAB PO PRN (20:55)
[2017-04-26] MEDS ORDERED: METOPROLOL TARTRATE 5 MG/5 ML INJ IVP ONE (23:19)
[2017-04-26] MEDS ORDERED: NS 500 ML IV ONE (23:23)
--- NOTE | 2017-04-26 23:23 | CPEKG ---
Heart Rate: 148 RR Interval: 405 QRSD Interval: 136 QT Interval: 328 QTC Interval: 515 QRS [place]: 21 T Wave [place]: -43 EKG Severity - ABNORMAL ECG - EKG Impression: ATRIAL TACHYCARDIA EKG Impression: RIGHT BUNDLE BRANCH BLOCK Electronically Signed By: Jenny Moore 27-Apr-2017 08:27:44
[2017-04-26] MEDS ORDERED: AMIODARONE HCL 100 ML IV ONE (23:52)
--- NOTE | 2017-04-26 23:59 | HOSPPROG ---
Hospitalist Progress Note Assessment/Plan: Hospitalist Night Float Note Paged by RN. noted new onset afib with RVR rates in 160-170s with decline in BPs to 80s/90s. Patient denies any chest pain or shortness of breath. hx of palpitations previously but no dx of afib in the past. Patient POD #2 s/p I&D, diskectomy for epidural abscess. denies any focal weakness. per RN patient was doing well postoperatively. had gotten up to go to bathroom with minimal assistance. IVF and stat hh ordered. patient is not on any anticoagulation post- operatively. Shortly after patient developed some acute confusion but no focal decifits. SBP variable during bolus 90s-100s associated with rate. VS reviewed at bedside with RN. Gen - NAD. patient lays in bed. restless and moving extremities. she is not agitated but confused. CV - tachy, distant heart sounds. Resp - Decreased inspiratory effort. GI - hypoactive BS. soft. NTTP. obese abdomen. - claire in place. no suprapubic ttp. Neuro - grossly nonfocal. limited CN testing with patient in collar. no facial drooping. no focal deficits in extremities. strength 5/5 upper and lower extremities. HEENT - patient in collar. PERRLA. EOMI. Psych - patient confused. oriented to person and thinks she is in a rehab facility. knows she is on the second floor. repeat H/H pending. labs reviewed. mild sunil improving. ekg atrial fib rate 140s. new RBBB. Plan: IVF. stat HH. considering patient BPs low and recently had pressors d/c'd will try to avoid use of metoprolol/cardizem. consider digoxin as alternate however patient with sunil so will hold off for now. clinically patient resting comfortably denies any chest pain. echo in AM cardiology consult in AM unless patient becomes unstable overnight. continue IVF support. amio as above. not anticoagulation candidate at this time postoperatively. once stable from cardiac standpoint will need CT to eval for CVA in setting of afib. no focal changes on exam currently and could be related to hypotension, acute encephalopathy related to acute illness with epidural abscess, postop, meds etc. Critical care time 25 minutes Objective: Vital Signs Temp Pulse Resp BP Pulse Ox 36.6 C 86 16 128/68 H 96 04/25/17 23:44 04/26/17 22:00 04/26/17 22:00 04/26/17 22:00 04/26/17 22:00 Microbiology 04/21/17 13:48 Blood Culture - Final Blood 04/21/17 12:58 Blood Culture - Final Blood 04/25/17 14:07 Gram Stain - Final Other - Eswab 04/25/17 14:08 Gram Stain - Final Other - Eswab Laboratory Results 04/26/17 05:20 04/25/17 04/26/17 04/27/17 05:59 05:59 05:59 Intake Total 3230 1177 208 Output Total 1500 2340 1050 Balance 1730 -1163 -842 PT 16.2 SEC (12.0-15.0) H 04/25/17 15:32 INR 1.28 (0.83-1.16) H 04/25/17 15:32 ICD10 Worksheet Patient Problems: Problems Problem Status Onset Chronic cervical pain Acute Altered mental status Acute Neuropathy Acute
[2017-04-27] MEDS ORDERED: AMIODARONE HCL 200 ML IV ONE (00:38)
[2017-04-27] MEDS: NOREPINEPHRINE/NS 500 ML IV SCH ×2 (00:44→00:51)
[2017-04-27] MEDS: HYDROmorphone HCL/NS/PF 0.4 MG/2 ML SYR IVP PRN (01:06)
[2017-04-27 04:57] LABS: PLATELET COUNT 337 10^3/uL (150-400)
[2017-04-27] MEDS ORDERED: PROTOCOL MAGNESIUM 1 DOSE IV PRN (05:29)
[2017-04-27] MEDS ORDERED: PROTOCOL POTASSIUM 1 DOSE MISC PRN (05:29)
[2017-04-27] MEDS: cefTRIAXone 2 GM in D5W 50 ML IV SCH (06:10)
[2017-04-27] MEDS: NS 1,000 ML IV SCH ×2 (06:12→20:05)
[2017-04-27] MEDS ORDERED: POTASSIUM CL 10 MEQ TAB PO ONE ×3 (06:34→21:15)
[2017-04-27] MEDS: AMIODARONE HCL 200 ML IV SCH (07:10)
[2017-04-27] MEDS ORDERED: POTASSIUM CL 20 MEQ TAB ONE (07:21)
[2017-04-27] MEDS: MULTIVITAMINS 1 EACH TAB PO SCH (07:23)
[2017-04-27] MEDS: HYDROmorphONE/DILAUDID 2 MG TAB PO PRN ×4 (08:32→23:56)
--- NOTE | 2017-04-27 08:40 | SOAPPROG ---
SOAP Progress Note Assessment/Plan: Assessment: 76 yo F POD #2 C6, partial C7 corpectomy with C5-7 plating for epidural abscess Plan: neuro: weakness improved post op, patient will still need posterior decopmression and fusion tomorrow MSSA on blood cultures, on ceftriaxone per ID continue to keep MAP > 85 PT/OT afib, converted to sinus rhythm last night, per cards/IM scd/harjinder for dvt prophylaxis NPO after midnight tonight please call with neuro changes discussed with Dr Amaya 04/27/17 08:37 04/27/17 08:39 Subjective: neck pain improving, some arm pain, continued weakness. Objective: Vital Signs Temp Pulse Resp BP Pulse Ox 36.7 C 80 17 140/62 H 98 04/27/17 07:24 04/27/17 07:24 04/27/17 07:24 04/27/17 07:24 04/27/17 07:24 Microbiology 04/21/17 13:48 Blood Culture - Final Blood 04/21/17 12:58 Blood Culture - Final Blood 04/25/17 14:07 Gram Stain - Final Other - Eswab 04/25/17 14:08 Gram Stain - Final Other - Eswab Laboratory Results 04/27/17 04:30 04/27/17 04:30 04/26/17 04/27/17 04/28/17 05:59 05:59 05:59 Intake Total 1177 2268 Output Total 2340 1710 Balance -1163 558 PT 16.2 SEC (12.0-15.0) H 04/25/17 15:32 INR 1.28 (0.83-1.16) H 04/25/17 15:32 awake, alert PERRL, no facial droop 4/5 bilateral upper extremities 5/5 lower extremities C/D/I ICD10 Worksheet Patient Problems: Problems Problem Status Onset Altered mental status Acute Chronic cervical pain Acute Neuropathy Acute
--- NOTE | 2017-04-27 10:48 | PCMIDPN ---
Assessment/Plan: Assessment: MSSA bacteremia. Now with known cervical epidural abscess. Status post surgical drainage from an anterior approach. Complicated surgery requiring multiple levels of revision of vertebral bodies. Patient currently is resting in her hospital bed. Second-stage completion of surgery is planned for tomorrow. She continues on ceftriaxone secondary to change in antibiotics due to bleeding during the 1st surgery and low likelihood of nafcillin contributing to this bleeding. We will continue ceftriaxone for now. Probable return to nafcillin once surgeries are concluded and patient is stable. Plan: 1. Continue IV ceftriaxone at current dosing level. 2. Follow surgical results tomorrow. 3. Likely 8 weeks of IV antibiotics directed toward Staph aureus then transition to oral suppressive therapy due to hardware present. 04/27/17 12:57 Subjective: Patient is in significant pain after surgery. Otherwise doing okay. No fevers or chills. Objective: Ceftriaxone #1 Vital Signs Temp Pulse Resp BP Pulse Ox 36.7 C 85 22 H 103/82 H 100 04/27/17 07:24 04/27/17 10:00 04/27/17 10:00 04/27/17 10:00 04/27/17 10:00 Microbiology 04/21/17 13:48 Blood Culture - Final Blood 04/21/17 12:58 Blood Culture - Final Blood 04/25/17 14:07 Gram Stain - Final Other - Eswab 04/25/17 14:08 Gram Stain - Final Other - Eswab Laboratory Results 04/27/17 04:30 04/27/17 04:30 04/26/17 04/27/17 04/28/17 05:59 05:59 05:59 Intake Total 1177 2268 Output Total 2340 1710 Balance -1163 558 ESR 48 MM/HR (0-30) H 04/18/17 01:00 C-Reactive Protein 146.2 mg/L (<10.0) H 04/18/17 01:00 - Physical Exam General Appearance: WD/WN, alert, no apparent distress, non-toxic Respiratory: lungs clear, normal breath sounds, No respiratory distress Neck: supple, other (Hard collar in place. Anterior incision stable.), No non- tender Cardiac/Chest: regular rate, rhythm, No tachycardia Skin: normal color, warm/dry, No rash Neuro/Psych: alert, normal mood/affect, oriented x 3 ICD10 Worksheet Patient Problems: Problems Problem Status Onset Altered mental status Acute Chronic cervical pain Acute Neuropathy Acute
--- NOTE | 2017-04-27 11:42 | HOSPPROG ---
Hospitalist Progress Note Assessment/Plan: # epidural abscess with associated meningitis and saray-meningeal focus s/p recent cervical OSBALDO - s/p emergent surgery (I&D abscess, ant approach, fusion C5-C7 fusion) for worsening neurologic status 04/25 - repeat surgery tomorrow for posterior stabilization - post-op MRI shows inferior abscess, possibly extending to t-spine - MAP >85, may need pressors - rocephin per ID - cont neuro checks and ICU care # excessive intraoperative bleeding - patient was on asa and fish oil prior to admission; had also been receiving NSAIDs - s/p platelet transfusion # MSSA bacteremia - rocephin # MARICRUZ - suspect d/t NSAIDs - improving # elevated LFTs - US without clear etiology though likely hepatic steatosis - follow on abx # encephalopathy - much improved; likely d/t infection, worse with bzd # hypoK - better # hypoNa - better # anemia - s/p transfusion # lovenox - on hold Subjective: reports ongoing weakness in arms; ongoing neck pain Objective: Vital Signs Temp Pulse Resp BP Pulse Ox 36.7 C 85 22 H 103/82 H 100 04/27/17 07:24 04/27/17 10:00 04/27/17 10:00 04/27/17 10:00 04/27/17 10:00 Microbiology 04/21/17 13:48 Blood Culture - Final Blood 04/21/17 12:58 Blood Culture - Final Blood 04/25/17 14:07 Gram Stain - Final Other - Eswab 04/25/17 14:08 Gram Stain - Final Other - Eswab Laboratory Results 04/27/17 04:30 04/27/17 04:30 04/26/17 04/27/17 04/28/17 05:59 05:59 05:59 Intake Total 1177 2268 Output Total 2340 1710 Balance -1163 558 PT 16.2 SEC (12.0-15.0) H 04/25/17 15:32 INR 1.28 (0.83-1.16) H 04/25/17 15:[address] De Santiago high risk - Physical Exam Constitutional: unkempt Ears, Nose, Mouth, Throat: other (hard c-collar) Cardiovascular: regular rate and rhythym, no murmur, rub, or gallop Respiratory: no respiratory distress, no rales or rhonchi, clear to auscultation Gastrointestinal: normoactive bowel sounds, soft, non-tender abdomen, no palpable masses Neurologic: other (arms 4/5 strength) ICD10 Worksheet Patient Problems: Problems Problem Status Onset Chronic cervical pain Acute Altered mental status Acute Neuropathy Acute
[2017-04-27] MEDS: GABAPENTIN 300 MG CAP PO SCH ×3 (13:12→22:07)
--- NOTE | 2017-04-27 15:10 | ASMTCMCOM ---
CM Note CM Note Notes: Pt will most likely have surgery tomorrow. Pt has developed a new infection. Pt will most likely need IV antibiotics for the next 8 weeks. NIRANJAN spoke w/ Winifred [facility] inpatient rehab and she reports that she will continue to monitor and evaluate once pt is more medically stable. CM to follow. Plan: Inpatient rehab Date Signed: 04/27/2017 03:09 PM Electronically Signed By:MULU Hankins
[2017-04-27] MEDS: DULoxetine 60 MG CAP PO SCH (22:07)
[2017-04-27] MEDS: CYCLOBENZAPRINE 10 MG TAB PO PRN (23:57)
[2017-04-28 04:22] LABS: PLATELET COUNT 301 10^3/uL (150-400)
[2017-04-28] MEDS: HYDROmorphone HCL/NS/PF 0.4 MG/2 ML SYR IVP PRN ×5 (04:46→21:00)
[2017-04-28] MEDS: POTASSIUM Cl (KCl) 50 ML IV SCH ×2 (05:04→06:02)
[2017-04-28] MEDS ORDERED: MAGNESIUM SULF 1 GM/DEXTROSE 100 ML IV ONE (05:59)
[2017-04-28] MEDS: AMIODARONE HCL 200 ML IV SCH (06:40)
--- NOTE | 2017-04-28 08:34 | NEUSURGPN ---
Assessment/Plan: Assessment: 76 yo F POD #3 C6, partial C7 corpectomy with C5-7 plating for epidural abscess Plan: neuro: weakness improved post op, patient will still need posterior decopmression and fusion today MSSA on blood cultures, on ceftriaxone per ID continue to keep MAP > 85 PT/OT/PRESSER AUTOMATIC afib, per cards/IM scd/harjinder for dvt prophylaxis NPO CHANDLER drain - continue for now, likely pull later today Recheck PT/INR To OR this afternoon for C4-T1 PSF with C4/5 laminectomy. please call with neuro changes discussed with Dr Amaya Subjective: Pt resting in bedside chair, wishes to proceed with 2nd surgery today. Objective: AAOx3 NAD VSS MAEx4 Motor: 5-/5 R delt, 4/5 tri/bi, 5/5 handgrip. 5-/5 L delt/tri/bi, 5/5 handgrip 5/5 BLE +LT C collar on JPx1 Urinary Catheter in Place: Yes Urinary Catheter Indication: Surgical Requirement - Physician Discussed Patient with : Jose Luis Neurosurgery Physical Exam - Vitals, I&O, Labs I and O 04/27/17 04/28/17 04/29/17 05:59 05:59 05:59 Intake Total 2268 2827 Output Total 1710 1252 Balance 558 1575 Weight 77.9 kg 78.6 kg 75.3 kg Intake: Oral (ml) 400 680 IV Intake (ml) 1538 IV Infused (ml) 330 2147 Amiodarone HCl 200 ml @ 187 16.667 mls/hr IV CONT BUZZ Rx#:[id number] Amiodarone HCl 200 ml @ 260 200 33.333 mls/hr IV ONCE ONE Rx#:[id number] Norepinephrine/Ns 500 ml 70 @ Titrate IV CONT BUZZ Rx# :[id number] Ns 1,000 ml @ 75 mls/hr 1760 IV CONT BUZZ Rx#: [id number] Output: Urine (ml) 1700 1250 Catheter 1700 1250 CHANDLER Drain Output (ml) 10 2 Anterior Neck Sahr 10 2 Louie Other: Number of Stools Catheter 1 Toilet 3 Microbiology 04/25/17 14:08 Gram Stain - Final Other - Eswab 04/25/17 14:07 Gram Stain - Final Other - Eswab Vital Signs Temp Pulse Resp BP Pulse Ox 36.8 C 87 24 H 148/71 H 92 04/28/17 04:00 04/28/17 06:00 04/28/17 06:00 04/28/17 06:00 04/28/17 06:00 Laboratory Results 04/28/17 04:10 04/28/17 04:10 ICD10 Worksheet Patient Problems: Problems Problem Status Onset Altered mental status Acute Chronic cervical pain Acute Neuropathy Acute
[2017-04-28] MEDS ORDERED: GABAPENTIN 400 MG CAP PO SCH (09:00)
[2017-04-28 09:13] LABS: INR 1.11 (0.83-1.16); PROTIME(PATIENT) 14.5 SEC (12.0-15.0)
--- NOTE | 2017-04-28 09:28 | PCMIDPN ---
Assessment/Plan: # MSSA bacteremia and epidural abscess s/p debridement 04/25 with back to OR today. Cx from OR negative. 04/21/17 blood cx demonstrate clearance. Minimal neuro deficits, stable. --on high dose ceftriaxone for MSSA + FISCAL ASSISTANT penetration, Off nafcillin for now for concern exacerbating surgical bleeding --will need 8 weeks of IV therapy # Elevated LFTs : US on admit without focal abn, Hep serologies negative, degree of elevation generally stable meds ceftriaxone 2gm IV q12h Micro CSF cx 04/18 : negative blood cx 1 set 04/19: MSSA blood cx 04/21: (@) Neg OR cx 04/25: NGTD Subjective: Doing well, wanting to get home as soon as possible Objective: Vital Signs Temp Pulse Resp BP Pulse Ox 36.8 C 87 24 H 148/71 H 92 04/28/17 04:00 04/28/17 06:00 04/28/17 06:00 04/28/17 06:00 04/28/17 06:00 Microbiology 04/25/17 14:08 Gram Stain - Final Other - Eswab 04/25/17 14:07 Gram Stain - Final Other - Eswab Laboratory Results 04/28/17 04:10 04/28/17 04:10 04/27/17 04/28/17 04/29/17 05:59 05:59 05:59 Intake Total 2268 2827 Output Total 1710 1252 Balance 558 1575 ESR 48 MM/HR (0-30) H 04/18/17 01:00 C-Reactive Protein 146.2 mg/L (<10.0) H 04/18/17 01:00 - Physical Exam General Appearance: alert, no apparent distress EENT: pale conjunctiva, No scleral icterus, No thrush Respiratory: lungs clear, No accessory muscle use Neck: other (cervical collar in place; CHANDLER drain serosang fluid) Cardiac/Chest: regular rate, rhythm Extremities: No pedal edema Abdomen: non-tender, soft Skin: pallor, No rash Neuro/Psych: alert, normal mood/affect, No motor weakness - Line/s LUE PICC Lines: No drainage, No erythema other Lines: other (a line), No drainage, No erythema - Time Spent With Patient Time Spent with Patient: greater than 35 minutes Time Spent with Patient: Greater than 35 minutes spent on this patients care, greater than 50% of time spent counseling, educating, and coordinating care regarding the above mentioned plan. ICD10 Worksheet Patient Problems: Problems Problem Status Onset Altered mental status Acute Chronic cervical pain Acute Neuropathy Acute
[2017-04-28] MEDS: MULTIVITAMINS 1 EACH TAB PO SCH (10:22)
[2017-04-28] MEDS ORDERED: BUPIVACAINE 0.25% 30 ML SDV ONE (12:11)
[2017-04-28] MEDS ORDERED: BACITRACIN 50,000 UNITS/10 ML SYR IRR ONE (12:12)
[2017-04-28] MEDS ORDERED: CHLORHEXIDINE GLUC HIBICLENS 118 ML BTL TP ONE (12:12)
[2017-04-28] MEDS ORDERED: THROMBIN (BOVINE) 20,000 UNIT VIAL TP ONE ×2 (12:13→14:07)
[2017-04-28] MEDS ORDERED: POVIDONE-IODINE 30 GM OINTTUBE TP ONE (12:13)
--- NOTE | 2017-04-28 12:16 | ECHO ---
[email or web address] [address] [address] Main: [phone] Fax: Transthoracic Echocardiogram Name: YUE SINGH MR#: [id number] Study Date: 04/27/2017 Study Time: 07:53 AM Date of : 1940 Age: 76 year(s) Height: 154.9 cm (61 in.) Weight: 77.57 kg (171 lb.) BSA: 1.77 m2 Gender: Female Examination: Echo Indication: A Fib/ new RBBB Image Quality: Contrast: Requested by: Linda Cooney BP: 103 mmHg/64 mmHg Heart Rate: Rhythm: Indication: A Fib/ new RBBB Procedure Staff Wheel Tuner: Rossi Quintana Physician: Eric Gonzalez Requesting Provider: Conclusions: Normal size left ventricle. Normal global systolic LV function. EF is 72 %. MIld posterior mitral annular calcification.. Left side pleural effusion. Measurements: Chambers Valvular Assessment AV/MV Valvular Assessment TV/PV Normal Normal Normal Name Value Range Name Value Range Name Value Range Ao Freya (MM): 3.2 cm (2.2 cm-3.7 AV meanP mmHg ( - ) TR Vmax: 2.44 mm/s ( - ) cm) MV E Vmax: 0.90 m/s ( - ) TR PGmax: 24 mmHg ( - ) IVSd (2D): 1.0 cm (0.6 cm-1.1 MV A Vmax: 0.67 m/s ( - ) syst. PAP: 29 mmHg ( - ) cm) MV E/A: 1.34 ( - ) LVDd (2D): 4.7 cm (3.9 cm-5.3 cm) LVDs (2D): 3.4 cm (2.1 cm-4 cm) LVPWd (2D): 0.6 cm ( - ) LVEF (MOD4): 72 % (>=55 %) Continued Measurements: Chambers Valvular Assessment AV/MV Valvular Assessment TV/PV Name Value Name Value Name Value LADs: 3.2 cm MV E/E' Septal: 7.20 CVP (est.): 5 mmHg LADs Lon.9 cm MV E/E' Lateral: 9.00 LA Area: 15.5 cm2 Patient: YUE SINGH Study Date: 04/27/2017 Page 1 of 2 07:53 AM Additional Vessels Name Value Ao Ascendin.2 cm Findings: Left Ventricle: Normal size left ventricle. Normal global systolic LV function. EF is 72 %. Right Ventricle: Normal size right ventricle. Left Atrium: The left atrium is normal in size. Right Atrium: The right atrium is normal in size. Mitral Valve: Mild mitral valve regurgitation is present. MIld posterior mitral annular calcification.. Aortic Valve: The aortic valve is normal in appearance. Tricuspid Valve: Mild tricuspid regurgitation is present. The pulmonary artery pressure is normal. Pulmonic Valve: Pulmonary valve not well visualized. Pericardium: Left side pleural effusion. (No Signature Object) Patient: YUE SINGH Study Date: 04/27/2017 Page 2 of 2 07:53 AM [id number]
--- NOTE | 2017-04-28 12:48 | PDINTPN ---
[place] Progress Note Assessment/Plan: Assessment: Epidural abscess. On ceftriaxone, status post drainage. Infectious Disease following. Cervical spine surgery, status post stage I. For stage II/posterior fusion today Systemic hypertension. Blood pressures appropriately high for cord perfusion. Acute renal insufficiency: Resolving. Creatinine down to 1 today. DVT prophylaxis: SCDs. GI prophylaxis: None, eating. Anemia: Acute blood loss, now equilibrating. Hematocrit 24, slightly down. Will follow. Metabolic: Hypokalemia, on replacement protocols. Plan: For phase 2 of cervical spine surgery today. Per neuro surgery. Will re -evaluate postoperatively. Continue to follow laboratory on a daily basis, follow blood pressure closely with adjustments in medications as needed but continued to keep blood pressure high to maintain cord perfusion. 25 min of critical care time spent directly with the patient. Discussed with Neurosurgery, nursing, the ICU multi disciplinary team. Subjective: Doing okay. Denies significant pain. No breathing difficulties, significant neck discomfort. Awaiting surgery. Objective: Vital Signs Temp Pulse Resp BP Pulse Ox 36.9 C 73 12 159/72 H 92 04/28/17 08:00 04/28/17 12:00 04/28/17 12:00 04/28/17 12:00 04/28/17 12:00 Microbiology 04/25/17 14:08 Gram Stain - Final Other - Eswab 04/25/17 14:07 Gram Stain - Final Other - Eswab Laboratory Results 04/28/17 04:10 04/28/17 04:10 04/27/17 04/28/17 04/29/17 05:59 05:59 05:59 Intake Total 2268 2827 Output Total 1710 1252 Balance 558 1575 PT 14.5 SEC (12.0-15.0) 04/28/17 08:40 INR 1.11 (0.83-1.16) 04/28/17 08:40 Laboratory Tests 04/28/17 04/28/17 04:10 08:40 PT 14.5 INR 1.11 Calcium 8.2 L Magnesium 1.8 Total Bilirubin 0.4 AST 49 H ALT 71 H Albumin 2.6 L Physical Exam - Physical Exam General Appearance: no apparent distress EENT: PERRL/EOMI, other (Nasal cannula 1 L) Neck: other (Hard collar in place) Respiratory: lungs clear (Anteriorly), decreased breath sounds (At bases), No rales, No rhonchi Cardiac/Chest: regular rate, rhythm Abdomen: normal bowel sounds, non-tender, soft Pelvic Exam: other (Stroud catheter in place, good urine output) Skin: normal color, warm/dry Extremities: No pedal edema Neuro/Psych: no motor/sensory deficits, No cognition abnormalities ICD10 Worksheet Patient Problems: Problems Problem Status Onset Chronic cervical pain Acute Altered mental status Acute Neuropathy Acute
[2017-04-28] MEDS: GABAPENTIN 300 MG CAP PO SCH ×3 (12:56→20:03)
[2017-04-28] MEDS ORDERED: ROCURONIUM 50 MG/5 ML VIAL ONE (12:56)
[2017-04-28] MEDS ORDERED: HYDROmorphONE/DILAUDID 2 MG/ML INJ ONE (12:56)
[2017-04-28] MEDS ORDERED: fentaNYL 100 MCG/2 ML INJ ONE ×2 (12:56→12:57)
[2017-04-28] MEDS ORDERED: PROPOFOL 200 MG/20 ML VIAL ONE (12:57)
[2017-04-28] MEDS ORDERED: PROPOFOL/EMULSION 500 MG/50 ML BOTTLE IV ONE (12:57)
[2017-04-28] MEDS ORDERED: KETAMINE 100 MG/10 ML SYR ONE (13:01)
--- NOTE | 2017-04-28 13:05 | PDANEPAE ---
ANE History of Present Illness cervical spine stenosis ANE Past Medical History - Cardiovascular History Hx Hypertension: Yes - Pulmonary History Hx Oxygen in Use at Home: No Hx Sleep Apnea: No Sleep Apnea Screening Result - Last Documented: Negative - Endocrine History Hx Diabetes: No - Chronic Pain History Chronic Pain: No ANE Review of Systems Review of Systems: ANE Patient History - Allergies Allergies/Adverse Reactions: diclofenac [From Voltaren] Allergy (Intermediate, Verified 04/18/17 18:41) Other-Enter Comments - Home Medications Home Medications: Duloxetine HCl [Cymbalta] 60 mg PO HS 08/02/15 [Last Taken 10/30/16] Multivitamins [Multivitamin (*)] 1 each PO DAILY 08/02/15 [Last Taken 10/31/16] Valacyclovir HCl [Valtrex] 1,000 mg PO DAILY 08/02/15 [Last Taken 10/31/16] Chlorthalidone [Chlorthalidone 25 mg (*)] 25 mg PO DAILY 10/31/16 [Last Taken ] Cyclobenzaprine [Flexeril 10 MG (*)] 10 mg PO HS PRN 10/31/16 [Last Taken ] LORazepam [Lorazepam] 0.5 mg PO HS PRN 10/31/16 [Last Taken 10/30/16] Amlodipine Besylate [Norvasc] 5 mg PO HS 04/18/17 [Last Taken 04/17/17] Gabapentin [Neurontin 300 MG (*)] 300 mg PO DAILY@12 04/18/17 [Last Taken ] Gabapentin [Neurontin 300 MG (*)] 900 mg PO HS 04/18/17 [Last Taken 04/17/17] Gabapentin [Neurontin 400 MG (*)] 400 mg PO DAILY 04/18/17 [Last Taken Unknown] predniSONE 10 mg PO .[id number] 04/18/17 [Last Taken Unknown] - NPO status NPO Since - Liquids (Date): 04/25/17 NPO Since - Liquids (Time): 07:30 NPO Since - Solids (Date): 04/25/17 NPO Since - Solids (Time): 07:30 - Smoking Hx Smoking Status: Current some day smoker - Alcohol Use Alcohol Use: Occasionally (few times weekly) ANE Labs/Vital Signs - Labs Result Diagrams: 04/28/17 04:10 04/28/17 04:10 - Vital Signs Blood Pressure: 159/72 Heart Rate: 73 Respiratory Rate: 12 O2 Sat (%): 92 Height: 154.94 cm Weight: 75.3 kg ANE Physical Exam - Airway Neck exam: FROM Mallampati Score: Class 3 Mouth exam: normal dental/mouth exam - Pulmonary Pulmonary: no respiratory distress - Cardiovascular Cardiovascular: regular rate and rhythym - ASA Status ASA Status: III ANE Anesthesia Plan Anesthesia Plan: general endotracheal anesthesia
[2017-04-28] MEDS ORDERED: MIDAZOLAM 2 MG/2 ML VIAL ONE (13:14)
--- NOTE | 2017-04-28 15:01 | HOSPPROG ---
Hospitalist Progress Note Assessment/Plan: Original Note: Hospitalist Progress Note Assessment/Plan: # MSSA bacteremia w/ epidural abscess - s/p recent cervical Epidural Steroid Injection S/p emergent surgery (I&D abscess, ant approach, fusion C5-C7 fusion) for worsening neurologic status 04/25 post-op MRI (personally reviewed and interpreted) shows inferior abscess, possibly extending to t-spine - to OR today for posterior stabilization - cont rocephin per ID - cont neuro checks and ICU care # a-fib with RVR- telemetry- NSR - suspect secondary to physiologic stress- oxygen saturations 92% on RA Started on amio IV - now sinus rhythm - ECHO (reviewed) normal LV size and function - stop amiodarone and follow # hypoK - repleting per protocol # excessive intraoperative bleeding - patient was on asa and fish oil prior to admission; had also been receiving NSAIDs - s/p platelet transfusion # MARICRUZ - suspect d/t NSAIDs- creatinine 1.6 -> 1.0 - improving continue to follow # Elevated LFTs - US without clear etiology though likely hepatic steatosis - follow on abx # encephalopathy - much improved; likely d/t infection, worse with bzd # anemia - s/p transfusion # lovenox - on hold # dispo-> 2MN as remains acutely ill requiring surgical care and ICU support I have discussed the case with Dr. Luevano - we will dc amiodarone and follow the patient on telemetry Subjective: pain improved since first surgery Objective: Vital Signs Temp Pulse Resp BP Pulse Ox 36.9 C 73 12 159/72 H 92 04/28/17 08:00 04/28/17 13:05 04/28/17 13:05 04/28/17 13:05 04/28/17 13:05 Microbiology 04/25/17 14:08 Gram Stain - Final Other - Eswab 04/25/17 14:07 Gram Stain - Final Other - Eswab Laboratory Results 04/28/17 04:10 04/28/17 04:10 04/27/17 04/28/17 04/29/17 05:59 05:59 05:59 Intake Total 2268 2827 Output Total 1710 1252 Balance 558 1575 PT 14.5 SEC (12.0-15.0) 04/28/17 08:40 INR 1.11 (0.83-1.16) 04/28/17 08:40 - Physical Exam Constitutional: appears nourished Eyes: anicteric sclera Ears, Nose, Mouth, Throat: moist mucous membranes Cardiovascular: regular rate and rhythym Respiratory: no respiratory distress Gastrointestinal: normoactive bowel sounds Genitourinary: no bladder fullness Skin: warm Musculoskeletal: No asymmetric calves Neurologic: AAOx3 Psychiatric: interacting appropriately Lymph, Heme, Immunologic: no cervical LAD ICD10 Worksheet Patient Problems: Problems Problem Status Onset Altered mental status Acute Chronic cervical pain Acute Neuropathy Acute
[2017-04-28] MEDS ORDERED: PROMETHAZINE HCL 25 MG/ML INJ IVP PRN (15:06)
[2017-04-28] MEDS ORDERED: fentaNYL 100 MCG/2 ML INJ IVP PRN (15:06)
[2017-04-28] MEDS ORDERED: NALOXONE HCL 0.4 MG/ML INJ IVP PRN (15:06)
[2017-04-28] MEDS ORDERED: ONDANSETRON 4 MG/2 ML VIAL IVP PRN (15:06)
[2017-04-28] MEDS ORDERED: MAGNESIUM HYDROXIDE 30 ML UDCUP PO PRN (15:49)
[2017-04-28] MEDS ORDERED: diphenhydrAMINE 25 MG CAP PO PRN (15:49)
[2017-04-28] MEDS ORDERED: ONDANSETRON DISINTEGRATING 4 MG TAB PO PRN (15:49)
--- NOTE | 2017-04-28 15:57 | POSTANESTH ---
Post Anesthetic Evaluation Cardiovascular Status: Normal, Stable Respiratory Status: Normal, Stable Level of Consciousness/Mental Status: Can Participate in Eval Pain Control: Adequate, Prn Tx Ordered Nausea/Vomiting Control: Adequate, Prn Tx Ordered Complications Possibly Related to Anesthesia: None Noted
--- NOTE | 2017-04-28 15:59 | POSTOPPROG ---
Post Op Note Date of Operation: 04/28/17 Surgeon: Francisca Grider Director Software: Stevenson Grider Anesthesiologist: Bobby Anesthesia: GET(General Endotracheal) Pre-op Diagnosis: cervical stenosis Post-op Diagnosis: same Indication: cord compression Procedure: C4-T1 posterior fusion with C5 laminectomy Findings: Please see dictation Inf/Abcess present in the surg proc area at time of surgery?: No Depth: Organ Space EBL: 50-100 Complications: none Drains: Shar SINGH Addendum - Addendum .: S: Pt awake in PACU, c/o neck pain O: AAOx3 NAD VSS MAEx4 Motor 5/5 BUE/BLE with exception of R triceps 4/5 +LT Incision dressed cdi JPx1 C collar on A: 76 yo F s/p C4-T1 posterior fusion with C5 laminectomy 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
[2017-04-28] MEDS ORDERED: NS W/ 20 KCl/L 1,000 ML IV SCH (16:00)
[2017-04-28] MEDS ORDERED: HYDROmorphONE/DILAUDID 1 MG/ML INJ ONE (16:06)
[2017-04-28] MEDS: HYDROmorphONE/DILAUDID 1 MG/ML INJ IVP PRN ×2 (16:07→16:29)
[2017-04-28] MEDS ORDERED: METHOCARBAMOL 1,000 MG in NS 50 ML IVP ONE (16:08)
[2017-04-28] MEDS ORDERED: DIAZEPAM 10 MG/2 ML SYR IVP PRN (16:08)
[2017-04-28] MEDS: hydrALAZINE 20 MG/ML VIAL IVP PRN ×2 (17:58→19:40)
[2017-04-28] MEDS: FAMOTIDINE 20 MG TAB PO SCH (20:03)
[2017-04-28] MEDS: DULoxetine 60 MG CAP PO SCH (20:03)
[2017-04-28] MEDS ORDERED: POTASSIUM Cl (KCl) 100 ML IV ONE (20:15)
[2017-04-28] MEDS ORDERED: METOPROLOL TARTRATE 5 MG/5 ML INJ ONE (20:26)
--- NOTE | 2017-04-28 20:33 | GOP ---
[f rep st] OPERATIVE REPORT DATE OF OPERATION: 04/28/2017 SURGEON: Navarro Amaya MD SOLAR FABRICATION TECHNICIAN: AG Watson ANESTHESIA: General. PREOPERATIVE DIAGNOSIS: 1. Cervical epidural abscess with spinal cord compression. 2. Cervical kyphosis. 3. Progressive neurological deficit. 4. Status post C6 and partial C7 corpectomy with spinal cord decompression and anterior cervical fusion C5 through C7 on April 25, 2017. POSTOPERATIVE DIAGNOSIS: 1. Cervical epidural abscess with spinal cord compression. 2. Cervical kyphosis. 3. Progressive neurological deficit. 4. Status post C6 and partial C7 corpectomy with spinal cord decompression and anterior cervical fusion C5 through C7 on April 25, 2017. PROCEDURE PERFORMED: 1. Posterior arthrodesis with approach to C4, C5, C6, C7, T1. 2. Posterolateral fusion with bilateral lateral mass screw placement into C4 and C5 and bilateral pedicle screw placement into C7 and T1 from the [employer] Vertex system. 3. Posterolateral fusion bilaterally between C4 and T1 with morselized autograft and allograft. 4. Decompressive laminectomy, C5, with spinal cord decompression. 5. Use of intraoperative fluoroscopy, less than 1 hour physician time. 6. Use of neuromonitoring. 7. Use of operative microscope. 8. Use of intraoperative 3D navigation. FINDINGS: per imaging SPECIMENS: None. ESTIMATED BLOOD LOSS: 100 mL. INDICATIONS: The patient is a 76-year-old woman who presented to the hospital after a cervical spinal injection with an epidural abscess. The patient presented with cervicalgia and was followed closely in the hospital. She developed acute onset of acute progressive neurological deficit secondary to worsening of the cervical epidural abscess. She was taken emergently for an anterior approach with a C6 and partial C7 anterior corpectomy and spinal stabilization of C5 through C7. The patient improved neurologically but could not have her 2nd stage of surgery completed secondary to excessive bleeding and intraoperative instability. She presents now for stage 2 of that planned 2- stage surgical procedure. DESCRIPTION OF PROCEDURE: Patient was brought to the operating theater, and underwent general endotracheal anesthesia without complications. She had Venodynes, KEENAN hose, and the appropriate lines placed by Anesthesia. The patient's head was placed in the Blaek lema device and she was flipped prone onto the Shar table, at which point the patient was affixed to the table in a tuck position but otherwise neutral. All bony prominences were inspected and padded. The occipital-cervical area was prepped and draped in the usual sterile surgical fashion. A time-out was completed per protocol and the patient received antibiotics within 1 hour of incision. Using lateral fluoroscopy and a spinal needle, we picked our entry point to the C4 through T1 levels. This was marked in the midline. The incision was infiltrated with Marcaine with epinephrine. The incision was taken down with the scalpel blade and then using the monopolar, taken down the midline through the avascular nuchal plane. A subperiosteal dissection carried out to the lateral edges of the lateral masses of C4, C5, C6, C7, and T1, bilaterally. Deep retractors were placed to maintain our exposure. We confirmed our level using lateral fluoroscopy. At this point, I used the bur tip on the drill bit to create a trough at the junction of lamina and lateral mass at C5 bilaterally. The bone was then peeled off and morselized to be used as posterolateral fusion later in the case. We used the bur tip on the drill bit to place the highway patrol pilot holes for the bilateral lateral mass screws at C4 and C5. All holes were then drilled to 14 mm, tapped and palpated with no evidence of any cortical breaches. We then placed 3.5 x 12 mm screws bilaterally into C4 and C5 from the [employer] Vertex system. We then attached the 3D Stealth navigation clamp to the spinous process of T1 and completed a 3D Stealth navigation spin. Using 3D Stealth navigation, we placed the highway patrol pilot holes for the bilateral pedicle screws in C7 and T1. All holes were manually palpated with no evidence of any cortical breaches. We then tapped and placed 3.5 x 24 mm screws bilaterally into C7, a 4.0 x 26 mm screw on the left at T1, and a 4.0 x 24 mm screw on the right T1 from the [employer] Vertex system. Another 3D Stealth navigation spin demonstrated good placement of the hardware. At this point, we irrigated copiously with bacitracin irrigation. We decorticated the bone bilaterally between C4 and T1 and placed morselized autograft and allograft bilaterally for the posterolateral fusion. We placed 2 lordotic rods into the heads of screws between C4 and T1 and secured them down with cap screws which were then tightened to the ham stringer's setting. A drain was left in the subfascial space and the wound was then closed in multiple layers using Vicryl sutures for the deep layers and Dermabond for the skin. The patient's wounds were dressed sterilely. She was then flipped supine onto the transfer cart, where she was awakened, extubated, and taken out of the [place] fish header device. She was taken to recovery room in stable condition. There were no complications and no noted changes on neuromonitoring throughout the procedure. COMPLICATIONS: None. /[id number]/MODL MTDD
[2017-04-28] MEDS: METOPROLOL TARTRATE 5 MG/5 ML INJ IVP SCH (20:37)
[2017-04-28] MEDS: ACETAMINOPHEN 500 MG TAB PO SCH (22:31)
[2017-04-29] MEDS: METHOCARBAMOL 750 MG TAB PO PRN (02:55)
[2017-04-29] MEDS: ACETAMINOPHEN 500 MG TAB PO SCH ×3 (02:55→21:43)
[2017-04-29] MEDS: HYDROmorphone HCL/NS/PF 0.4 MG/2 ML SYR IVP PRN ×3 (03:15→23:26)
[2017-04-29 03:21] LABS: PLATELET COUNT 475 10^3/uL (150-400)
[2017-04-29] MEDS: HYDROmorphONE/DILAUDID 2 MG TAB PO PRN ×3 (05:17→23:18)
[2017-04-29] MEDS: METOPROLOL TARTRATE 5 MG/5 ML INJ IVP SCH ×4 (05:35→23:52)
[2017-04-29] MEDS: NOREPINEPHRINE/NS 500 ML IV SCH (05:48)
--- NOTE | 2017-04-29 08:31 | NEUSURGPN ---
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 Continue to monitor. Pain management C collar at all times Keep MAP > 75 TEDs, SCDs, lovenox POD#3 Post op xrays pending Continue CHANDLER drain D/w Dr Amaya Call NS with any questions or concerns Subjective: Pt resting in bed, c/o burning pins sensation in hands Objective: AAOx3 NAD VSS MAEx4 Motor 5/5 BUE/BLE with exception of L triceps 4/5 C collar on JPx1 posterior Stroud in Urinary Catheter in Place: Yes Urinary Catheter Indication: Other (Use Comment) (to be removed today) - Physician Discussed Patient with : Jose Luis Neurosurgery Physical Exam - Vitals, I&O, Labs I and O 04/28/17 04/29/17 04/30/17 05:59 05:59 05:59 Intake Total 2827 4121 Output Total 1252 1370 Balance 1575 2751 Weight 78.6 kg 76 kg Intake: Oral (ml) 680 600 IV Intake (ml) 2328 IV Infused (ml) 2147 1193 Amiodarone HCl 200 ml @ 187 216 16.667 mls/hr IV CONT BUZZ Rx#:[id number] Amiodarone HCl 200 ml @ 200 33.333 mls/hr IV ONCE ONE Rx#:[id number] NS W/ 20 KCl/L 1,000 ml @ 977 100 mls/hr IV CONT BUZZ Rx#:[id number] Ns 1,000 ml @ 75 mls/hr 1760 IV CONT BUZZ Rx#: [id number] Output: Urine (ml) 1250 1300 Catheter 1250 1300 CHANDLER Drain Output (ml) 2 70 Anterior Neck Shar 2 Louie Posterior Neck Shar 70 Louie Other: Number of Stools Toilet 3 Microbiology 04/25/17 14:08 Gram Stain - Final Other - Eswab 04/25/17 14:07 Gram Stain - Final Other - Eswab Vital Signs Temp Pulse Resp BP Pulse Ox 37.2 C 74 14 125/59 H 97 04/29/17 04:00 04/29/17 06:46 04/29/17 06:00 04/29/17 06:46 04/29/17 06:00 Laboratory Results 04/29/17 03:15 04/29/17 03:15 ICD10 Worksheet Patient Problems: Problems Problem Status Onset Altered mental status Acute Chronic cervical pain Acute Neuropathy Acute
[2017-04-29] MEDS: GABAPENTIN 300 MG CAP PO SCH ×3 (09:03→21:43)
[2017-04-29] MEDS: MULTIVITAMINS 1 EACH TAB PO SCH (09:04)
[2017-04-29] MEDS: FAMOTIDINE 20 MG TAB PO SCH ×2 (09:04→21:43)
--- NOTE | 2017-04-29 10:28 | PCMIDPN ---
Assessment/Plan: 1. Cervical epidural abscess secondary to MSSA with concomitant bacteremia status post C4-T1 posterior fusion and L5 laminectomy: Clinically stable. Blood cultures are sterile. The issue moving forward will be when to attempt change back to Nafcillin, which is likely a better drug for cervical epidural abscess/bacteremia secondary to Staph aureus as compared to Ceftriaxone. For now, will continue ceftriaxone as is and not make any immediate changes postoperatively. The patient also had a creatinine rise while on nafcillin, which could have been secondary to Toradol (bleeding could also have been secondary to Toradol). Urine eosinophils were never obtained, unfortunately, although the rise in creatinine seemed to precipitous to be from AIN. That being said, when she is ultimately changed back to nafcillin will need to keep a close eye on her kidney function. 2. Abnormal liver function tests: Improving. No evidence of new abnormality on high-dose ceftriaxone. Subjective: In good spirits status post C4-T1 posterior fusion with L5 laminectomy. Pain is under control. No diarrhea. Objective: Ceftriaxone 2 g IV q.12 hours T-max 37.3degrees Vital Signs Temp Pulse Resp BP Pulse Ox 37.3 C 75 20 122/66 H 96 04/29/17 08:00 04/29/17 08:00 04/29/17 08:00 04/29/17 08:00 04/29/17 08:00 Microbiology 04/25/17 14:08 Gram Stain - Final Other - Eswab 04/25/17 14:07 Gram Stain - Final Other - Eswab Laboratory Results 04/29/17 03:15 04/29/17 03:15 04/28/17 04/29/17 04/30/17 05:59 05:59 05:59 Intake Total 2827 4121 Output Total 1252 1370 Balance 1575 2751 ESR 48 MM/HR (0-30) H 04/18/17 01:00 C-Reactive Protein 146.2 mg/L (<10.0) H 04/18/17 01:00 No new microbiology - Physical Exam General Appearance: alert, no apparent distress, other (C-collar in place, which I did not take down.) EENT: pharynx normal, No thrush Respiratory: lungs clear Cardiac/Chest: No systolic murmur Extremities: other (Some anasarca mildly, with edema noted in her arms and legs. PICC line left upper extremity looks fine.) Skin: No rash Neuro/Psych: oriented x 3 ICD10 Worksheet Patient Problems: Problems Problem Status Onset Altered mental status Acute Chronic cervical pain Acute Neuropathy Acute
--- NOTE | 2017-04-29 12:01 | PDINTPN ---
Diversional Therapist'S Assistant Progress Note Assessment/Plan: Assessment: Epidural abscess. On ceftriaxone, status post drainage. Infectious Disease following. Cervical spine surgery, status post anterior and posterior fusions. Doing well. Systemic hypertension. Blood pressures being kept high for cord perfusion. Has been back on norepinephrine at low dose. Acute renal insufficiency: Resolved. Creatinine down to 1. A Fib: Off amiodarone. On IV metoprolol for rate control and arrhythmic stabilization. DVT prophylaxis: SCDs, subcu lovenox starting today. GI prophylaxis: None, eating. Anemia: Acute blood loss, now equilibrating. Hematocrit 27.7, better. Will follow. Metabolic: Hypokalemia, on replacement protocols. Plan: Continue care in the intensive care unit. Continue pain management postoperatively, Neuro checks. Continue antibiotics. Continue to keep blood pressure high to maintain cord perfusion with Levophed as needed. Continue metoprolol. Follow CBC and chemistries intermittently. 25 min of critical care time spent directly with the patient. Discussed with ID , nursing, the ICU multi disciplinary team. Subjective: Doing well following posterior cervical surgery. Neck pain present as expected , not severe. Otherwise stable. Objective: Vital Signs Temp Pulse Resp BP Pulse Ox 37.3 C 75 20 122/66 H 96 04/29/17 08:00 04/29/17 08:00 04/29/17 08:00 04/29/17 08:00 04/29/17 08:00 Microbiology 04/25/17 14:08 Gram Stain - Final Other - Eswab 04/25/17 14:07 Gram Stain - Final Other - Eswab Laboratory Results 04/29/17 03:15 04/29/17 03:15 04/28/17 04/29/17 04/30/17 05:59 05:59 05:59 Intake Total 2827 4121 Output Total 1252 1370 Balance 1575 2751 PT 14.5 SEC (12.0-15.0) 04/28/17 08:40 INR 1.11 (0.83-1.16) 04/28/17 08:40 Physical Exam - Physical Exam General Appearance: no apparent distress, other (Up in the chair) EENT: PERRL/EOMI, other (Nasal cannula at 1 L) Neck: other (Hard collar in place) Respiratory: lungs clear Cardiac/Chest: regular rate, rhythm, extra beats (Ectopy present) Abdomen: normal bowel sounds, non-tender, soft Pelvic Exam: other (Stroud catheter in place, adequate urine output) Skin: warm/dry, pallor Extremities: No pedal edema Neuro/Psych: no motor/sensory deficits (Some residual hand weakness bilaterally , tingling. Appears to be improving), No cognition abnormalities ICD10 Worksheet Patient Problems: Problems Problem Status Onset Altered mental status Acute Chronic cervical pain Acute Neuropathy Acute
[2017-04-29] MEDS ORDERED: ALBUMIN 5% 500 ML IV ONE (12:10)
--- NOTE | 2017-04-29 16:49 | ASMTCMCOM ---
CM Note CM Note Notes: Patient continues to need ICU care for infection, blood pressure, and pain managment. Winifred Najera confirms patient is a candidate for [facility] inpatient rehab which is the current d/c plan. Patient will most likely be ready end of next week. CM following. Date Signed: 04/29/2017 04:49 PM Electronically Signed By:Olinda Valdovinos LCSW
--- NOTE | 2017-04-29 16:58 | HOSPPROG ---
Hospitalist Progress Note Assessment/Plan: * MSSA sepsis with epidural abscess due to OSBALDO -s/p I&D + Cervical fusion -IV rocephin * Afib -IV Metoprolol * ARF - due to Nafcillin vs. Toradol * Metabolic encephalopathy - improved * Chronic pain -gabapentin, Cymbalta Subjective: No new compalints Objective: Vital Signs Temp Pulse Resp BP Pulse Ox 37.3 C 92 20 130/71 H 98 04/29/17 08:00 04/29/17 14:00 04/29/17 14:00 04/29/17 14:00 04/29/17 14:00 Microbiology 04/25/17 14:08 Gram Stain - Final Other - Eswab 04/25/17 14:07 Gram Stain - Final Other - Eswab Laboratory Results 04/29/17 03:15 04/29/17 03:15 04/28/17 04/29/17 04/30/17 05:59 05:59 05:59 Intake Total 2827 4121 660 Output Total 1252 1370 330 Balance 1575 2751 330 PT 14.5 SEC (12.0-15.0) 04/28/17 08:40 INR 1.11 (0.83-1.16) 04/28/17 08:40 d/w Dr. Luevano - improving - continues on IV levophed per neurosurgery to keep MAP > 75 Still getting IV dilaudid - Physical Exam Constitutional: no apparent distress, appears nourished, not in pain Cardiovascular: regular rate and rhythym, no murmur, rub, or gallop Respiratory: no respiratory distress, no rales or rhonchi, clear to auscultation Gastrointestinal: normoactive bowel sounds, soft, non-tender abdomen, no palpable masses Skin: no rashes or abrasions, no fluctuance, no induration Neurologic: AAOx3, sensation intact bilaterally Psychiatric: interacting appropriately, not anxious, not encephalopathic, thought process linear ICD10 Worksheet Patient Problems: Problems Problem Status Onset Altered mental status Acute Chronic cervical pain Acute Neuropathy Acute
[2017-04-29] MEDS: DULoxetine 60 MG CAP PO SCH (21:43)
[2017-04-29] MEDS ORDERED: POTASSIUM CL 10 MEQ TAB PO ONE (22:57)
[2017-04-30] MEDS: HYDROmorphONE/DILAUDID 2 MG TAB PO PRN ×5 (05:27→23:28)
[2017-04-30] MEDS: ACETAMINOPHEN 500 MG TAB PO SCH ×3 (05:27→21:04)
[2017-04-30] MEDS: HYDROmorphone HCL/NS/PF 0.4 MG/2 ML SYR IVP PRN ×2 (06:33→12:26)
[2017-04-30] MEDS: METOPROLOL TARTRATE 5 MG/5 ML INJ IVP SCH ×2 (06:35→12:11)
[2017-04-30 08:53] LABS: PLATELET COUNT 464 10^3/uL (150-400)
[2017-04-30] MEDS: MULTIVITAMINS 1 EACH TAB PO SCH (10:22)
[2017-04-30] MEDS: GABAPENTIN 300 MG CAP PO SCH ×3 (10:22→21:05)
[2017-04-30] MEDS: FAMOTIDINE 20 MG TAB PO SCH ×2 (10:23→21:04)
--- NOTE | 2017-04-30 10:48 | PCMIDPN ---
Assessment/Plan: Assessment: MSSA bacteremia secondary to cervical epidural abscess. Status post surgical drainage both from an anterior and posterior approach. Complicated surgery requiring multiple levels of revision of vertebral bodies. Patient currently is resting in her chair in her ICU room. Clinically she is doing very well. Agree with Dr. Sosa's note from yesterday about timing for transition of ceftriaxone back to nafcillin. Anticipate tomorrow or Tuesday being the 1st point to make the switch back to nafcillin. Plan: 1. Continue IV ceftriaxone at current dosing level. 2. Plan 8 weeks of IV antibiotics directed toward MSSA then transition to oral suppressive therapy due to hardware present. Subjective: Patient is resting in her hospital chair. She has no new complaint. Pain is under decent control. No fevers or chills. Tolerating the ceftriaxone without issue. No rash. Objective: Ceftriaxone # 4 Vital Signs Temp Pulse Resp BP Pulse Ox 37.3 C 71 14 117/60 97 04/29/17 08:00 04/30/17 04:00 04/30/17 04:00 04/30/17 04:00 04/30/17 04:00 Microbiology 04/25/17 14:08 Gram Stain - Final Other - Eswab 04/25/17 14:07 Gram Stain - Final Other - Eswab Laboratory Results 04/30/17 08:45 04/30/17 05:40 04/29/17 04/30/17 05/01/17 05:59 05:59 05:59 Intake Total 4121 1464 Output Total 1370 630 Balance 2751 834 ESR 48 MM/HR (0-30) H 04/18/17 01:00 C-Reactive Protein 146.2 mg/L (<10.0) H 04/18/17 01:00 - Physical Exam General Appearance: WD/WN, alert, no apparent distress, non-toxic Respiratory: lungs clear, normal breath sounds, No respiratory distress Neck: No non-tender, No full range of motion (Restricted by a neck brace), No normal inspection (CHANDLER drains with serosanguineous fluid.) Cardiac/Chest: regular rate, rhythm, No tachycardia Skin: normal color, warm/dry, No rash Neuro/Psych: alert, normal mood/affect, oriented x 3 ICD10 Worksheet Patient Problems: Problems Problem Status Onset Altered mental status Acute Chronic cervical pain Acute Neuropathy Acute
--- NOTE | 2017-04-30 10:57 | NEUSURGPN ---
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 -Wear collar at all times -Ok to normalize BP and MAP -Patient may transfer to med surg with telemetry monitoring -DC CHANDLER today -TEDs, SCDs, lovenox POD#3 -Post op xrays still pending -Discussed patient with Dr Amaya -Please call neurosurgery with any questions/concerns Subjective: Patient feels some improvement in arm/hand strength Objective: AAOx3 MAEx4 Motor 5/5 BUE/BLE with exception of bilateral triceps 4/5 and bilateral hand separator operator shellfish meats 3-4/5 Sensation intact to light touch BLE Dressings x2 CDI Collar in place Neuro Check Frequency: per routine Urinary Catheter in Place: No - Physician Discussed Patient with : Jose Luis Neurosurgery Physical Exam - Vitals, I&O, Labs I and O 04/29/17 04/30/17 05/01/17 05:59 05:59 05:59 Intake Total 4121 1464 Output Total 1370 630 Balance 2751 834 Weight 76 kg Intake: Oral (ml) 600 300 IV Intake (ml) 2328 477 IV Infused (ml) 1193 687 Albumin 5% 500 ml @ As 500 Directed IV ONCE ONE Rx#: [id number] Amiodarone HCl 200 ml @ 216 16.667 mls/hr IV CONT BUZZ Rx#:[id number] NS W/ 20 KCl/L 1,000 ml @ 977 100 mls/hr IV CONT BUZZ Rx#:[id number] Norepinephrine/Ns 500 ml 187 @ Titrate IV CONT BUZZ Rx# :[id number] Output: Urine (ml) 1300 600 Catheter 1300 300 Toilet 300 CHANDLER Drain Output (ml) 70 30 Posterior Neck Shar 70 30 Louie Other: Number of Voids Incontinence 1 Number of Stools Bedside Commode 1 Toilet 3 Microbiology 04/25/17 14:08 Gram Stain - Final Other - Eswab 04/25/17 14:07 Gram Stain - Final Other - Eswab Vital Signs Temp Pulse Resp BP Pulse Ox 37.3 C 71 14 117/60 97 04/29/17 08:00 04/30/17 04:00 04/30/17 04:00 04/30/17 04:00 04/30/17 04:00 Laboratory Results 04/30/17 08:45 04/30/17 05:40 ICD10 Worksheet Patient Problems: Problems Problem Status Onset Altered mental status Acute Chronic cervical pain Acute Neuropathy Acute
[2017-04-30] MEDS: METHOCARBAMOL 750 MG TAB PO PRN (12:26)
[2017-04-30] MEDS ORDERED: ALTEPLASE 2 MG VIAL IVP PRN (16:42)
--- NOTE | 2017-04-30 17:04 | HOSPPROG ---
Hospitalist Progress Note Assessment/Plan: * MSSA sepsis with epidural abscess due to OSBALDO -s/p I&D + Cervical fusion -IV rocephin -change back to nafcillin per ID - 8 weeks therapy IV -hardware in place - will need chronic suppressive PO abx after IV complete * Afib -PO metoprolol -? anticoagulation * ARF - due to Nafcillin vs. Toradol * Metabolic encephalopathy - improved * Chronic pain -gabapentin, Cymbalta Subjective: Feeling better Objective: Vital Signs Temp Pulse Resp BP Pulse Ox 36.8 C 75 16 133/83 H 99 04/30/17 15:34 04/30/17 15:34 04/30/17 13:05 04/30/17 15:34 04/30/17 15:34 Microbiology 04/25/17 14:08 Gram Stain - Final Other - Eswab 04/25/17 14:07 Gram Stain - Final Other - Eswab Laboratory Results 04/30/17 08:45 04/30/17 05:40 04/29/17 04/30/17 05/01/17 05:59 05:59 05:59 Intake Total 4121 1464 Output Total 1370 630 10 Balance 2751 834 -10 PT 14.5 SEC (12.0-15.0) 04/28/17 08:40 INR 1.11 (0.83-1.16) 04/28/17 08:40 Patient still getting IV metoprolol - Physical Exam Constitutional: no apparent distress, appears nourished, not in pain Cardiovascular: regular rate and rhythym, no murmur, rub, or gallop Respiratory: no respiratory distress, no rales or rhonchi, clear to auscultation Gastrointestinal: normoactive bowel sounds, soft, non-tender abdomen, no palpable masses Skin: no rashes or abrasions, no fluctuance, no induration Neurologic: AAOx3, sensation intact bilaterally Psychiatric: interacting appropriately, not anxious, not encephalopathic, thought process linear ICD10 Worksheet Patient Problems: Problems Problem Status Onset Altered mental status Acute Chronic cervical pain Acute Neuropathy Acute
[2017-04-30] MEDS: METOPROLOL TARTRATE 50 MG TAB PO SCH (21:04)
[2017-04-30] MEDS: DULoxetine 60 MG CAP PO SCH (21:05)
[2017-04-30] MEDS: LORazepam 1 MG TAB PO PRN (23:28)
[2017-04-30] MEDS: CYCLOBENZAPRINE 10 MG TAB PO PRN (23:28)
[2017-05-01] MEDS: oxyCODONE IR 5 MG TAB PO PRN ×4 (05:09→19:58)
[2017-05-01] MEDS: ACETAMINOPHEN 500 MG TAB PO SCH ×3 (05:09→20:08)
[2017-05-01 05:31] LABS: PLATELET COUNT 612 10^3/uL (150-400)
--- NOTE | 2017-05-01 07:27 | NEUSURGPN ---
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 -Wear collar at all times -Ok to normalize BP and MAP -TEDs, SCDs, lovenox POD#3 -Post op xrays demonstrate stable hardware placement, PICC line malpositioned, plan for IR to reposition today -Case management to work on dispo options per therapies recommendations -Discussed patient with Dr Amaya -Please call neurosurgery with any questions/concerns Subjective: Strength continues to improve Objective: AAOx3 MAEx4 Motor 5/5 BUE/BLE with exception of bilateral triceps 4/5 and bilateral hand customs and border protection inspector 4/5 Sensation intact to light touch BLE Dressings x2 CDI Collar in place Neuro Check Frequency: per routine Urinary Catheter in Place: No - Physician Discussed Patient with Dr.: Amaya Neurosurgery Physical Exam - Vitals, I&O, Labs I and O 04/30/17 05/01/17 05/02/17 05:59 05:59 05:59 Intake Total 1464 400 Output Total 630 10 Balance 834 390 Weight 78.2 kg Intake: Oral (ml) 300 400 IV Intake (ml) 477 IV Infused (ml) 687 Albumin 5% 500 ml @ As 500 Directed IV ONCE ONE Rx#: [id number] Norepinephrine/Ns 500 ml 187 @ Titrate IV CONT BUZZ Rx# :[id number] Output: Urine (ml) 600 Catheter 300 Toilet 300 CHANDLER Drain Output (ml) 30 10 Posterior Neck Shar 30 10 Louie Other: Intake Quantity Yes Sufficient Number of Voids Incontinence 1 1 Toilet 1 Number of Stools Bedside Commode 1 Incontinence 1 Vital Signs Temp Pulse Resp BP Pulse Ox 37.1 C 74 16 135/74 H 94 05/01/17 04:00 05/01/17 04:00 05/01/17 04:00 05/01/17 04:00 05/01/17 04:00 Laboratory Results 05/01/17 05:15 05/01/17 05:15 ICD10 Worksheet Patient Problems: Problems Problem Status Onset Altered mental status Acute Chronic cervical pain Acute Neuropathy Acute
[2017-05-01] MEDS: ENOXAPARIN 40 MG/0.4 ML SYR SC SCH (08:20)
[2017-05-01] MEDS: GABAPENTIN 300 MG CAP PO SCH ×3 (08:20→20:08)
[2017-05-01] MEDS: METOPROLOL TARTRATE 50 MG TAB PO SCH ×2 (08:21→19:55)
[2017-05-01] MEDS: FAMOTIDINE 20 MG TAB PO SCH ×2 (08:21→19:54)
[2017-05-01] MEDS: METHOCARBAMOL 750 MG TAB PO PRN ×3 (08:21→23:45)
[2017-05-01] MEDS: MULTIVITAMINS 1 EACH TAB PO SCH (08:21)
[2017-05-01] MEDS ORDERED: MAGNESIUM SULF 1 GM/DEXTROSE 100 ML IV ONE (08:39)
--- NOTE | 2017-05-01 12:27 | PCMIDPN ---
Assessment/Plan: Assessment: MSSA bacteremia secondary to cervical epidural abscess. Status post surgical drainage both from an anterior and posterior approach. Complicated surgery requiring multiple levels of revision of vertebral bodies. Patient currently is resting in her chair in her ICU room. Clinically she is doing very well. Agree with Dr. Sosa's note from yesterday about timing for transition of ceftriaxone back to nafcillin. Anticipate tomorrow being the point to make the switch back to nafcillin. Plan: 1. Continue IV ceftriaxone at current dosing level. 2. Plan 8 weeks of IV antibiotics directed toward MSSA then transition to oral suppressive therapy due to hardware present. 05/01/17 16:35 Subjective: Patient is resting comfortably in her bed. No specific new complaint. Still feels operative pain in the neck. No fevers or chills. Tolerating ceftriaxone. Objective: Ceftriaxone # 5 Vital Signs Temp Pulse Resp BP Pulse Ox 36.4 C 66 16 135/63 H 97 05/01/17 11:29 05/01/17 11:29 05/01/17 11:29 05/01/17 11:29 05/01/17 11:29 Laboratory Results 05/01/17 05:15 05/01/17 05:15 04/30/17 05/01/17 05/02/17 05:59 05:59 05:59 Intake Total 1464 400 Output Total 630 10 Balance 834 390 ESR 48 MM/HR (0-30) H 04/18/17 01:00 C-Reactive Protein 146.2 mg/L (<10.0) H 04/18/17 01:00 - Physical Exam General Appearance: WD/WN, alert, no apparent distress, non-toxic Respiratory: lungs clear, normal breath sounds, No respiratory distress Neck: No full range of motion, No normal inspection (Cervical brace in place) Cardiac/Chest: regular rate, rhythm, No tachycardia Skin: normal color, warm/dry, No rash Neuro/Psych: alert, normal mood/affect, oriented x 3 ICD10 Worksheet Patient Problems: Problems Problem Status Onset Altered mental status Acute Chronic cervical pain Acute Neuropathy Acute
[2017-05-01] MEDS: HYDROmorphONE/DILAUDID 2 MG TAB PO PRN (14:24)
--- NOTE | 2017-05-01 16:56 | HOSPPROG ---
Hospitalist Progress Note Assessment/Plan: * MSSA sepsis with epidural abscess due to OSBALDO -s/p I&D + Cervical fusion -IV rocephin -change back to nafcillin tomorrow per ID - 8 weeks therapy IV -hardware in place - will need chronic suppressive PO abx after IV complete * Afib -PO metoprolol -? anticoagulation * ARF - due to Nafcillin vs. Toradol -watch closely with re-initiation of nafcillin * Metabolic encephalopathy - improved * Chronic pain -gabapentin, Cymbalta Subjective: Pain okay on current meds. Sleeping poorly Objective: Vital Signs Temp Pulse Resp BP Pulse Ox 36.9 C 70 18 175/66 H 99 05/01/17 15:27 05/01/17 15:27 05/01/17 15:27 05/01/17 15:27 05/01/17 15:27 Laboratory Results 05/01/17 05:15 05/01/17 05:15 04/30/17 05/01/17 05/02/17 05:59 05:59 05:59 Intake Total 1464 400 120 Output Total 630 10 Balance 834 390 120 PT 14.5 SEC (12.0-15.0) 04/28/17 08:40 INR 1.11 (0.83-1.16) 04/28/17 08:40 - Physical Exam Constitutional: no apparent distress, appears nourished, not in pain Cardiovascular: regular rate and rhythym, no murmur, rub, or gallop Respiratory: no respiratory distress, no rales or rhonchi, clear to auscultation Gastrointestinal: normoactive bowel sounds, soft, non-tender abdomen, no palpable masses Skin: no rashes or abrasions, no fluctuance, no induration Neurologic: AAOx3, sensation intact bilaterally Psychiatric: interacting appropriately, not anxious, not encephalopathic, thought process linear ICD10 Worksheet Patient Problems: Problems Problem Status Onset Altered mental status Acute Chronic cervical pain Acute Neuropathy Acute
[2017-05-01] MEDS: traZODone 50 MG TAB PO SCH (19:55)
[2017-05-01] MEDS: MELATONIN 3 MG TAB PO SCH (19:55)
[2017-05-01] MEDS: DULoxetine 60 MG CAP PO SCH (19:55)
[2017-05-01] MEDS: HYDROmorphone HCL/NS/PF 0.4 MG/2 ML SYR IVP PRN ×2 (20:09→21:07)
[2017-05-01] MEDS: LORazepam 1 MG TAB PO PRN (23:45)
[2017-05-02] MEDS: METHOCARBAMOL 750 MG TAB PO PRN (04:46)
[2017-05-02] MEDS: ACETAMINOPHEN 500 MG TAB PO SCH ×3 (04:46→22:25)
[2017-05-02] MEDS: HYDROmorphONE/DILAUDID 2 MG TAB PO PRN (04:47)
[2017-05-02 05:04] LABS: PLATELET COUNT 708 10^3/uL (150-400)
--- NOTE | 2017-05-02 08:02 | NEUSURGPN ---
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 MAEx4 5/5 in biceps, environmental technical officer, deltoids 5-/5 and triceps 4 /5. Incisions are c/d/i - Physician Patient Seen by : Jose Luis Neurosurgery Physical Exam - Vitals, I&O, Labs I and O 05/01/17 05/02/17 05/03/17 05:59 05:59 05:59 Intake Total 400 420 Output Total 10 Balance 390 420 Weight 78.2 kg Intake: Oral (ml) 400 420 Output: CHANDLER Drain Output (ml) 10 Posterior Neck Shar 10 Louie Other: Intake Quantity Yes Yes Sufficient Number of Voids Incontinence 1 Toilet 1 2 Number of Stools Incontinence 1 Vital Signs Temp Pulse Resp BP Pulse Ox 36.6 C 76 18 176/74 H 90 L 05/02/17 07:30 05/02/17 07:30 05/02/17 07:30 05/02/17 07:30 05/02/17 07:30 Laboratory Results 05/02/17 04:30 05/01/17 05:15 ICD10 Worksheet Patient Problems: Problems Problem Status Onset Altered mental status Acute Chronic cervical pain Acute Neuropathy Acute
--- NOTE | 2017-05-02 10:32 | PCMIDPN ---
Assessment/Plan: Assessment: MSSA bacteremia secondary to cervical epidural abscess. Status post surgical drainage both from an anterior and posterior approach. Complicated surgery requiring multiple levels of revision of vertebral bodies. Patient currently is resting in her chair in her floor room. Clinically she is doing very well. will change patient back to IV Nafcillin today and closely monitor her creatinine. Plan: 1. Switch back to IV nafcillin. Follow daily creatinine. 2. Plan 8 weeks of IV antibiotics directed toward MSSA then transition to oral suppressive therapy due to hardware present. Subjective: Patient restin gin her chair in her hospital room. No new complaints. Still with significant postoperative neck pain. Objective: ceftriaxone # 6 Vital Signs Temp Pulse Resp BP Pulse Ox 36.6 C 76 18 176/74 H 90 L 05/02/17 07:30 05/02/17 07:30 05/02/17 07:30 05/02/17 07:30 05/02/17 07:30 Laboratory Results 05/02/17 04:30 05/01/17 05:15 05/01/17 05/02/17 05/03/17 05:59 05:59 05:59 Intake Total 400 420 Output Total 10 Balance 390 420 ESR 48 MM/HR (0-30) H 04/18/17 01:00 C-Reactive Protein 146.2 mg/L (<10.0) H 04/18/17 01:00 - Physical Exam General Appearance: WD/WN, alert, no apparent distress, non-toxic Respiratory: lungs clear, normal breath sounds, No respiratory distress Neck: No full range of motion, No supple, No normal inspection (postoperative brace) Cardiac/Chest: regular rate, rhythm, No tachycardia Skin: normal color, warm/dry, No rash Neuro/Psych: alert, normal mood/affect, oriented x 3 ICD10 Worksheet Patient Problems: Problems Problem Status Onset Altered mental status Acute Chronic cervical pain Acute Neuropathy Acute
[2017-05-02] MEDS: oxyCODONE IR 5 MG TAB PO PRN ×4 (10:39→23:34)
[2017-05-02] MEDS ORDERED: HYDROmorphone HCL/NS/PF 0.4 MG/2 ML SYR IVP PRN (11:13)
[2017-05-02] MEDS: METOPROLOL TARTRATE 50 MG TAB PO SCH ×2 (11:37→22:28)
[2017-05-02] MEDS: FAMOTIDINE 20 MG TAB PO SCH ×2 (11:37→22:27)
[2017-05-02] MEDS: MULTIVITAMINS 1 EACH TAB PO SCH (11:37)
[2017-05-02] MEDS: ENOXAPARIN 40 MG/0.4 ML SYR SC SCH (11:38)
[2017-05-02] MEDS: GABAPENTIN 300 MG CAP PO SCH ×3 (11:38→22:27)
[2017-05-02] MEDS ORDERED: OLANZapine 2.5 MG TAB PO PRN (12:25)
[2017-05-02] MEDS: NAFCILLIN SODIUM 2 GM in D5W 100 ML IV SCH ×4 (12:32→23:29)
--- NOTE | 2017-05-02 15:15 | ASMTCMCOM ---
CM Note CM Note Notes: Per MD patient not ready for discharge today. Did work with therapy. CM to follow. Date Signed: 05/02/2017 03:15 PM Electronically Signed By:Laurie Flynn RN
--- NOTE | 2017-05-02 15:52 | HOSPPROG ---
Hospitalist Progress Note Assessment/Plan: * MSSA sepsis with epidural abscess due to OSBALDO -s/p I&D + Cervical fusion -change back to nafcillin - monitor renal function closely -8 weeks therapy IV -hardware in place - will need chronic suppressive PO abx after IV complete * Afib -PO metoprolol -? anticoagulation - will d/w neurosurgery * ARF - due to Nafcillin vs. Toradol -watch closely with re-initiation of nafcillin * Metabolic encephalopathy - improved -still with significant hallucinations - try zyprexa * Chronic pain -gabapentin, Cymbalta Subjective: Hallucinating still Objective: Vital Signs Temp Pulse Resp BP Pulse Ox 37.3 C 74 12 148/71 H 97 05/02/17 12:00 05/02/17 12:00 05/02/17 12:00 05/02/17 12:00 05/02/17 12:00 Microbiology 04/25/17 14:08 Gram Stain - Final Other - Eswab 04/25/17 14:07 Gram Stain - Final Other - Eswab Laboratory Results 05/02/17 04:30 05/01/17 05:15 05/01/17 05/02/17 05/03/17 05:59 05:59 05:59 Intake Total 400 420 Output Total 10 Balance 390 420 PT 14.5 SEC (12.0-15.0) 04/28/17 08:40 INR 1.11 (0.83-1.16) 04/28/17 08:40 - Physical Exam Constitutional: no apparent distress, appears nourished, not in pain Cardiovascular: regular rate and rhythym, no murmur, rub, or gallop Respiratory: no respiratory distress, no rales or rhonchi, clear to auscultation Gastrointestinal: normoactive bowel sounds, soft, non-tender abdomen, no palpable masses Skin: no rashes or abrasions, no fluctuance, no induration Neurologic: AAOx3, sensation intact bilaterally Psychiatric: interacting appropriately, not anxious, not encephalopathic, thought process linear ICD10 Worksheet Patient Problems: Problems Problem Status Onset Altered mental status Acute Chronic cervical pain Acute Neuropathy Acute
[2017-05-02] MEDS: amLODIPine BESYLATE 5 MG TAB PO SCH (22:26)
[2017-05-02] MEDS: DULoxetine 60 MG CAP PO SCH (22:27)
[2017-05-02] MEDS: MELATONIN 3 MG TAB PO SCH (22:28)
[2017-05-02] MEDS: traZODone 50 MG TAB PO SCH (22:29)
[2017-05-03] MEDS: NAFCILLIN SODIUM 2 GM in D5W 100 ML IV SCH ×6 (02:49→23:35)
[2017-05-03] MEDS: ACETAMINOPHEN 500 MG TAB PO SCH ×3 (05:18→22:15)
[2017-05-03 05:42] LABS: PLATELET COUNT 472 10^3/uL (150-400)
--- NOTE | 2017-05-03 07:20 | NEUSURGPN ---
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 -Pain Management -Wear collar at all times -TEDs, SCDs, lovenox -Post op xrays demonstrate stable hardware placement, reviewed images with patient this AM -Case management to work on dispo options per therapies recommendations, okay to work toward dispo once cleared by medicine and ID -Seen with Dr Amaya -Please call neurosurgery with any questions/concerns Subjective: Pt resting in bed, c/o muscular pain with movement Objective: AAOx3 NAD VSS MAEx4 Motor 5/5 BUE with exception of bilat deltoids 5-/5, right triceps 4/5 Motor 5/[address] +LT Urinary Catheter in Place: No - Physician Discussed Patient with Dr.: Amaya Neurosurgery Physical Exam - Vitals, I&O, Labs I and O 05/02/17 05/03/17 05/04/17 05:59 05:59 05:59 Intake Total 420 1550 300 Balance 420 1550 300 Weight 78.2 kg 78.6 kg Intake: Oral (ml) 420 1250 IV Infused (ml) 300 300 Nafcillin Sodium 2 gm In 200 300 D5w 100 ml @ 100 mls/hr IV Q4H BUZZ Rx#:[id number] cefTRIAXone 2 gm In Ns 50 100 ml @ 100 mls/hr IV Q12H BUZZ Rx#:[id number] Other: Intake Quantity Yes Yes Sufficient Number of Voids Incontinence 3 Toilet 2 1 Number of Stools Toilet 1 Microbiology 04/25/17 14:08 Gram Stain - Final Other - Eswab 04/25/17 14:07 Gram Stain - Final Other - Eswab Vital Signs Temp Pulse Resp BP Pulse Ox 36.7 C 71 16 131/70 H 95 05/03/17 04:00 05/03/17 04:00 05/03/17 04:00 05/03/17 04:00 05/03/17 04:00 Laboratory Results 05/03/17 05:20 05/03/17 05:20 ICD10 Worksheet Patient Problems: Problems Problem Status Onset Altered mental status Acute Chronic cervical pain Acute Neuropathy Acute
[2017-05-03] MEDS: GABAPENTIN 300 MG CAP PO SCH ×3 (08:04→22:17)
[2017-05-03] MEDS: FAMOTIDINE 20 MG TAB PO SCH ×2 (08:07→22:17)
[2017-05-03] MEDS: METOPROLOL TARTRATE 50 MG TAB PO SCH ×2 (08:07→22:17)
[2017-05-03] MEDS: MULTIVITAMINS 1 EACH TAB PO SCH (08:08)
[2017-05-03] MEDS: ENOXAPARIN 40 MG/0.4 ML SYR SC SCH (08:08)
[2017-05-03] MEDS: oxyCODONE IR 5 MG TAB PO PRN ×4 (08:11→22:27)
--- NOTE | 2017-05-03 09:12 | PCMIDPN ---
Assessment/Plan: Assessment/Plan: 1. Cervical spine Epidural abscess due to MSSA with MSSa bacteremia- s/p Surgery - s/p C6 and partial C7 corpectomy on 04/25 - s/p C4-T1 posterior fusion with C5 laminectomy on 04/28 -BAck on Nafcillin. - f/u blood cx from 04/21 ngtd. Cultures from ngtd - creatinine at 1.1. Close clinically monitoring of renal function. IF continues to rise, check urine eosinophils and will consider change of therapy. - Will need 8 weeks IV antibiotics post surgery. 2. MSSa bacteremia: - secondary to #1. see above. Meds Nafcillin 2g q4 -04/15/17 Subjective: afebrile. sleepy. no complaints with neck as such. c/o some coordination issues with fingers right >left. denies abd pain or diarrhea. Objective: Vital Signs Temp Pulse Resp BP Pulse Ox 36.3 C 67 17 128/65 H 94 05/03/17 07:42 05/03/17 08:07 05/03/17 07:42 05/03/17 08:07 05/03/17 07:42 Microbiology 04/25/17 14:08 Gram Stain - Final Other - Eswab 04/25/17 14:07 Gram Stain - Final Other - Eswab Laboratory Results 05/03/17 05:20 05/03/17 05:20 05/02/17 05/03/17 05/04/17 05:59 05:59 05:59 Intake Total 420 1550 300 Balance 420 1550 300 ESR 48 MM/HR (0-30) H 04/18/17 01:00 C-Reactive Protein 146.2 mg/L (<10.0) H 04/18/17 01:00 - Physical Exam General Appearance: no apparent distress Respiratory: lungs clear Neck: other (cervical collar) Cardiac/Chest: regular rate, rhythm Extremities: No swelling Abdomen: normal bowel sounds, non-tender, soft, No distended ICD10 Worksheet Patient Problems: Problems Problem Status Onset Altered mental status Acute Chronic cervical pain Acute Neuropathy Acute
--- NOTE | 2017-05-03 19:08 | HOSPPROG ---
Hospitalist Progress Note Assessment/Plan: * MSSA sepsis with epidural abscess due to OSBALDO -s/p I&D + Cervical fusion -change back to nafcillin - monitor renal function closely -8 weeks therapy IV -hardware in place - will need chronic suppressive PO abx after IV complete * Afib - brief in ICU -PO metoprolol -suspect due to sepsis - hold off on chronic anticoagulation unless recurrence * ARF - due to Nafcillin vs. Toradol -watch closely with re-initiation of nafcillin * Metabolic encephalopathy - improved -still with significant hallucinations - try zyprexa * Chronic pain -gabapentin, Cymbalta * Insomnia -trazodone/melatonin -hallucinates worse with ativan Subjective: No complaints. Objective: Vital Signs Temp Pulse Resp BP Pulse Ox 36.3 C 70 19 147/67 H 94 05/03/17 16:00 05/03/17 16:00 05/03/17 16:00 05/03/17 16:00 05/03/17 16:00 Microbiology 04/25/17 14:08 Gram Stain - Final Other - Eswab 04/25/17 14:07 Gram Stain - Final Other - Eswab Laboratory Results 05/03/17 05:20 05/03/17 05:20 05/02/17 05/03/17 05/04/17 05:59 05:59 05:59 Intake Total 420 1550 680 Balance 420 1550 680 PT 14.5 SEC (12.0-15.0) 04/28/17 08:40 INR 1.11 (0.83-1.16) 04/28/17 08:40 - Physical Exam Constitutional: no apparent distress, appears nourished, not in pain Cardiovascular: regular rate and rhythym, no murmur, rub, or gallop Respiratory: no respiratory distress, no rales or rhonchi, clear to auscultation Gastrointestinal: normoactive bowel sounds, soft, non-tender abdomen, no palpable masses Skin: no rashes or abrasions, no fluctuance, no induration Neurologic: AAOx3, sensation intact bilaterally Psychiatric: interacting appropriately, not anxious, not encephalopathic, thought process linear ICD10 Worksheet Patient Problems: Problems Problem Status Onset Altered mental status Acute Chronic cervical pain Acute Neuropathy Acute
[2017-05-03] MEDS: amLODIPine BESYLATE 5 MG TAB PO SCH (22:15)
[2017-05-03] MEDS: DULoxetine 60 MG CAP PO SCH (22:16)
[2017-05-03] MEDS: MELATONIN 3 MG TAB PO SCH (22:17)
[2017-05-03] MEDS: traZODone 50 MG TAB PO SCH (22:18)
[2017-05-03] MEDS: METHOCARBAMOL 750 MG TAB PO PRN (23:43)
[2017-05-04] MEDS: NAFCILLIN SODIUM 2 GM in D5W 100 ML IV SCH ×4 (03:26→16:00)
[2017-05-04] MEDS: oxyCODONE IR 5 MG TAB PO PRN ×4 (03:30→19:57)
[2017-05-04 05:04] LABS: PLATELET COUNT 465 10^3/uL (150-400)
[2017-05-04] MEDS: ACETAMINOPHEN 500 MG TAB PO SCH ×3 (05:57→22:44)
[2017-05-04] MEDS: GABAPENTIN 300 MG CAP PO SCH ×3 (07:44→22:43)
[2017-05-04] MEDS: ENOXAPARIN 40 MG/0.4 ML SYR SC SCH (07:44)
[2017-05-04] MEDS: ASPIRIN EC 81 MG TAB PO SCH (07:44)
[2017-05-04] MEDS: MULTIVITAMINS 1 EACH TAB PO SCH (07:44)
[2017-05-04] MEDS: FAMOTIDINE 20 MG TAB PO SCH ×2 (07:44→19:57)
[2017-05-04] MEDS: METOPROLOL TARTRATE 50 MG TAB PO SCH ×2 (07:45→19:56)
--- NOTE | 2017-05-04 11:38 | NEUSURGPN ---
Assessment/Plan: A: 76y/o female s/p C6 and partial C7 corpectomy on 04/25 s/p C4-T1 posterior fusion with C5 laminectomy on 04/28 Plan: -Overall doing well this morning with some pain issues but being managed well. 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 Amaya -Please call neurosurgery with any questions/concerns Subjective: Patient states pain is somewhat better this morning. Hungry and getting up to chair with aide to have breakfast. Objective: AAOx3 NAD VSS MAEx4 Motor 5/5 BUE with exception of bilat deltoids 5-/5, right triceps 4/5 Motor 5/[address] +LT - Physician Discussed Patient with Dr.: Amaya Neurosurgery Physical Exam - Vitals, I&O, Labs I and O 05/03/17 05/04/17 05/05/17 05:59 05:59 05:59 Intake Total 1550 1080 Balance 1550 1080 Weight 78.6 kg 75.5 kg Intake: Oral (ml) 1250 480 IV Infused (ml) 300 600 Nafcillin Sodium 2 gm In 200 600 D5w 100 ml @ 100 mls/hr IV Q4H [facility] Rx#:[id number] cefTRIAXone 2 gm In Ns 50 100 ml @ 100 mls/hr IV Q12H [facility] Rx#:[id number] Other: Intake Quantity Yes Yes Sufficient Number of Voids Bedpan 1 Incontinence 3 Toilet 1 1 1 Number of Stools Toilet 1 Microbiology 04/25/17 14:08 Gram Stain - Final Other - Eswab 04/25/17 14:07 Gram Stain - Final Other - Eswab Vital Signs Temp Pulse Resp BP Pulse Ox 36.2 C 63 16 153/86 H 94 05/04/17 08:00 05/04/17 08:00 05/04/17 08:00 05/04/17 08:00 05/04/17 08:00 Laboratory Results 05/04/17 04:59 05/04/17 04:59 ICD10 Worksheet Patient Problems: Problems Problem Status Onset Altered mental status Acute Chronic cervical pain Acute Neuropathy Acute
--- NOTE | 2017-05-04 12:28 | HOSPPROG ---
Hospitalist Progress Note Assessment/Plan: Patient was admitted on April 18 for worsening neck pain. Today is my first encounter w the patient, chart reviewed. * MSSA sepsis (bacteremia) with cervical spine epidural abscess due to OSBALDO -s/p C6 and partial C7 corpectomy on 04/25 -s/p I&D -nafcillin - monitor renal function closely -8 weeks therapy IV -hardware in place - will need chronic suppressive PO abx after IV complete * Afib - brief in ICU -PO metoprolol -suspect due to sepsis - hold off on chronic anticoagulation unless recurrence * ARF - due to Nafcillin vs. Toradol -watch closely with re-initiation of nafcillin -creat 1.1 * Metabolic encephalopathy - improved -she is alert and oriented today * Chronic pain -gabapentin, Cymbalta *anemia hgb/hct 01/06 * Insomnia -trazodone/melatonin -hallucinates worse with Ativan *DVT prophylaxis: LMWH *Plan: will discuss w ID and with neurosurgical team when ok to go to SNF, repeat labs in a.m. Subjective: Darshana is tired this afternoon, has no c/o pain. Objective: Vital Signs Temp Pulse Resp BP Pulse Ox 36.3 C 57 L 16 140/76 H 93 05/04/17 11:46 05/04/17 11:46 05/04/17 11:46 05/04/17 11:46 05/04/17 11:46 Microbiology 04/25/17 14:08 Gram Stain - Final Other - Eswab 04/25/17 14:07 Gram Stain - Final Other - Eswab Laboratory Results 05/04/17 04:59 05/04/17 04:59 05/03/17 05/04/17 05/05/17 05:59 05:59 05:59 Intake Total 1550 1080 360 Balance 1550 1080 360 PT 14.5 SEC (12.0-15.0) 04/28/17 08:40 INR 1.11 (0.83-1.16) 04/28/17 08:40 - Physical Exam Constitutional: not in pain, obese Eyes: PERRL Ears, Nose, Mouth, Throat: other (hard collar in place) Cardiovascular: regular rate and rhythym Respiratory: no respiratory distress Gastrointestinal: normoactive bowel sounds Skin: warm Musculoskeletal: generalized weakness Neurologic: AAOx3 Psychiatric: interacting appropriately, not anxious ICD10 Worksheet Patient Problems: Problems Problem Status Onset Altered mental status Acute Chronic cervical pain Acute Neuropathy Acute
--- NOTE | 2017-05-04 18:38 | PCMIDPN ---
Assessment/Plan: Assessment/Plan: * Cervical epidural abscess with MSSA bacteremia status post incision and drainage and subsequent fusion: Clinically improved with clearance of bacteremia. Resumed on nafcillin after being on ceftriaxone with concerns about bleeding at time of surgical intervention prompting use of ceftriaxone in interim given rare association of nafcillin with bleeding. Plan to continue nafcillin for 8 weeks post drainage on 04/25/2017. Follow creatinine carefully on nafcillin. Time spent, 25 min, of which half was spent in education/counseling regarding cervical epidural abscess, antibiotic therapy, and plan of care. 05/04/17 18:35 Subjective: Patient feels better overall with neck pain upon movement. Objective: Vital Signs Temp Pulse Resp BP Pulse Ox 36.4 C 64 18 140/65 H 92 05/04/17 16:23 05/04/17 16:23 05/04/17 16:23 05/04/17 16:23 05/04/17 16:23 Microbiology 04/25/17 14:08 Gram Stain - Final Other - Eswab 04/25/17 14:07 Gram Stain - Final Other - Eswab Laboratory Results 05/04/17 04:59 05/04/17 04:59 05/03/17 05/04/17 05/05/17 05:59 05:59 05:59 Intake Total 1550 1080 1570 Balance 1550 1080 1570 ESR 48 MM/HR (0-30) H 04/18/17 01:00 C-Reactive Protein 146.2 mg/L (<10.0) H 04/18/17 01:00 Nafcillin # 2 (stop date equals 06/20/2017) Operative cultures from 04/25/2017 no growth Blood cultures 04/21/2017 no growth - Physical Exam General Appearance: alert, no apparent distress EENT: No scleral icterus, No thrush, No conjunctival petechiae Respiratory: lungs clear, No respiratory distress Neck: other (C-collar in place) Cardiac/Chest: regular rate, rhythm Abdomen: non-tender, No distended Skin: No embolic lesions ICD10 Worksheet Patient Problems: Problems Problem Status Onset Altered mental status Acute Chronic cervical pain Acute Neuropathy Acute
[2017-05-04] MEDS: NAFCILLIN SODIUM 2 GM in NS 100 ML IV SCH (19:56)
[2017-05-04] MEDS: DULoxetine 60 MG CAP PO SCH (19:56)
[2017-05-04] MEDS: METHOCARBAMOL 750 MG TAB PO PRN (19:57)
[2017-05-04] MEDS: traZODone 50 MG TAB PO SCH (19:57)
[2017-05-04] MEDS: amLODIPine BESYLATE 5 MG TAB PO SCH (19:58)
[2017-05-04] MEDS: MELATONIN 3 MG TAB PO SCH (19:58)
[2017-05-05] MEDS: NAFCILLIN SODIUM 2 GM in NS 100 ML IV SCH ×3 (00:05→08:38)
[2017-05-05 05:02] LABS: PLATELET COUNT 599 10^3/uL (150-400)
[2017-05-05] MEDS: ACETAMINOPHEN 500 MG TAB PO SCH ×3 (05:07→21:12)
[2017-05-05] MEDS: METOPROLOL TARTRATE 50 MG TAB PO SCH ×2 (08:29→21:12)
[2017-05-05] MEDS: FAMOTIDINE 20 MG TAB PO SCH (08:29)
[2017-05-05] MEDS: GABAPENTIN 300 MG CAP PO SCH ×3 (08:29→21:12)
[2017-05-05] MEDS: ASPIRIN EC 81 MG TAB PO SCH (08:29)
[2017-05-05] MEDS: MULTIVITAMINS 1 EACH TAB PO SCH (08:30)
--- NOTE | 2017-05-05 08:32 | HOSPPROG ---
Hospitalist Progress Note Assessment/Plan: Patient was admitted on April 18 for worsening neck pain. Reviewed her care w Dr De Santiago. * MSSA sepsis (bacteremia) with cervical spine epidural abscess due to OSBALDO -s/p C6 and partial C7 corpectomy on 04/25 -s/p I&D -nafcillin dc to kidney function, now on Ceftriaxone -8 weeks therapy IV -hardware in place - will need chronic suppressive PO abx after IV complete * Afib - brief in ICU -PO metoprolol -suspect due to sepsis - hold off on chronic anticoagulation unless recurrence * ARF - -creat 1.3 -will avoid all nephrotoxins medications if possible. Decreased Pepcid to daily. DC Lovenox and placed on heparin three times daily -Nafcillin dc by ID -recheck labs in a.m. * Metabolic encephalopathy - improved -she is alert and oriented today * Chronic pain -gabapentin, Cymbalta *anemia hgb/hct 01/06 * Insomnia -trazodone/melatonin -hallucinates worse with Ativan *DVT prophylaxis: Heparin three times daily *Plan: should be ready for rehab soon/ will recheck labs in a.m. Subjective: Darshana is having pain more in the trapezius area. Was concerned about using her arms due to weakness, but realizes she is strong enough to use them. Objective: Vital Signs Temp Pulse Resp BP Pulse Ox 36.4 C 62 16 142/74 H 95 05/05/17 07:23 05/05/17 08:29 05/05/17 07:23 05/05/17 08:29 05/05/17 07:23 Microbiology 04/25/17 14:08 Gram Stain - Final Other - Eswab 04/25/17 14:07 Gram Stain - Final Other - Eswab Laboratory Results 05/05/17 04:05 05/05/17 04:05 05/04/17 05/05/17 05/06/17 05:59 05:59 05:59 Intake Total 1080 1570 Balance 1080 1570 PT 14.5 SEC (12.0-15.0) 04/28/17 08:40 INR 1.11 (0.83-1.16) 04/28/17 08:40 - Physical Exam Constitutional: appears nourished, uncomfortable Eyes: PERRL Ears, Nose, Mouth, Throat: hearing normal, other (hard collar in place) Cardiovascular: regular rate and rhythym Respiratory: no respiratory distress Gastrointestinal: normoactive bowel sounds Skin: warm Musculoskeletal: generalized weakness Neurologic: AAOx3 Psychiatric: interacting appropriately, not anxious ICD10 Worksheet Patient Problems: Problems Problem Status Onset Altered mental status Acute Chronic cervical pain Acute Neuropathy Acute
--- NOTE | 2017-05-05 08:51 | NEUSURGPN ---
Assessment/Plan: A: 76y/o female s/p C6 and partial C7 corpectomy on 04/25 s/p C4-T1 posterior fusion with C5 laminectomy on 04/28 Plan: -Overall doing well this morning -Reviewed the operation with patient again this morning. Patient expressed understanding and was happy with explanation. 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 Amaya -Needs outpatient follow up in 2 weeks -NS will sign off and follow peripherally -Please call neurosurgery with any questions/concerns Subjective: Pt resting in bed, c/o posterior neck pain and difficulty getting comfortable in bed. Objective: AAOx3 NAD VSS MAEx4 Motor 5/5 BUE with exception of L triceps 4/5 Motor 5/5 BLE Anterior and posterior incisions cdi C collar on +LT Urinary Catheter in Place: No - Physician Discussed Patient with Dr.: Amaya Neurosurgery Physical Exam - Vitals, I&O, Labs I and O 05/04/17 05/05/17 05/06/17 05:59 05:59 05:59 Intake Total 1080 1570 Balance 1080 1570 Weight 75.5 kg Intake: Oral (ml) 480 1110 IV Intake (ml) 60 IV Infused (ml) 600 400 Nafcillin Sodium 2 gm In 600 400 D5w 100 ml @ 100 mls/hr IV Q4H [facility] Rx#:[id number] Other: Intake Quantity Yes Yes Sufficient Number of Voids Bedpan 1 Toilet 1 1 Number of Stools Toilet 1 Microbiology 04/25/17 14:08 Gram Stain - Final Other - Eswab 04/25/17 14:07 Gram Stain - Final Other - Eswab Vital Signs Temp Pulse Resp BP Pulse Ox 36.4 C 62 16 142/74 H 95 05/05/17 07:23 05/05/17 08:29 05/05/17 07:23 05/05/17 08:29 05/05/17 07:23 Laboratory Results 05/05/17 04:05 05/05/17 04:05 ICD10 Worksheet Patient Problems: Problems Problem Status Onset Altered mental status Acute Chronic cervical pain Acute Neuropathy Acute
[2017-05-05] MEDS: oxyCODONE IR 5 MG TAB PO PRN (09:28)
--- NOTE | 2017-05-05 11:11 | PCMIDPN ---
Assessment/Plan: Assessment: MSSA bacteremia secondary to cervical epidural abscess. Status post surgical drainage both from an anterior and posterior approach. Complicated surgery requiring multiple levels of revision of vertebral bodies. Patient currently is resting in her chair in her floor room. Clinically she is doing much better. Noticing from her labs at her creatinine is now increased to 1.3 today. This is most certainly secondary to the switch back to nafcillin. Will change her back to ceftriaxone 2 g IV twice daily. Anticipate this will be her treatment regimen for total of 8 weeks. Plan: 1. Switch back again to IV ceftriaxone secondary to increased creatinine. 2. Plan 8 weeks of IV antibiotics directed toward MSSA then transition to oral suppressive therapy due to hardware present. 05/05/17 14:49 Subjective: Patient resting in her hospital chair. She appears more spirit it and states that her pain is under a little better control. Complains of shoulder tightness. Wants a massage. Objective: Nafcillin # 3 Vital Signs Temp Pulse Resp BP Pulse Ox 36.4 C 62 16 142/74 H 95 05/05/17 07:23 05/05/17 08:29 05/05/17 07:23 05/05/17 08:29 05/05/17 07:23 Microbiology 04/25/17 14:08 Gram Stain - Final Other - Eswab 04/25/17 14:07 Gram Stain - Final Other - Eswab Laboratory Results 05/05/17 04:05 05/05/17 04:05 05/04/17 05/05/17 05/06/17 05:59 05:59 05:59 Intake Total 1080 1570 Balance 1080 1570 ESR 48 MM/HR (0-30) H 04/18/17 01:00 C-Reactive Protein 146.2 mg/L (<10.0) H 04/18/17 01:00 - Physical Exam General Appearance: WD/WN, alert, no apparent distress, non-toxic Respiratory: lungs clear, normal breath sounds, No respiratory distress Cardiac/Chest: regular rate, rhythm, No tachycardia Skin: normal color, warm/dry, No rash Neuro/Psych: alert, normal mood/affect, oriented x 3 ICD10 Worksheet Patient Problems: Problems Problem Status Onset Altered mental status Acute Chronic cervical pain Acute Neuropathy Acute
--- NOTE | 2017-05-05 12:21 | ASMTCMCOM ---
CM Note CM Note Notes: Pt will d/c to [facility] inpatient rehabilitation when medically stable. Date Signed: 05/05/2017 12:21 PM Electronically Signed By:ADOLFO Hernandez
[2017-05-05] MEDS: HEPARIN 5,000 UNIT/0.5 ML SYR SC SCH ×2 (14:32→21:11)
[2017-05-05] MEDS: traZODone 50 MG TAB PO SCH (21:12)
[2017-05-05] MEDS: MELATONIN 3 MG TAB PO SCH (21:12)
[2017-05-05] MEDS: DULoxetine 60 MG CAP PO SCH (21:12)
[2017-05-05] MEDS: amLODIPine BESYLATE 5 MG TAB PO SCH (21:12)
[2017-05-06] MEDS: oxyCODONE IR 5 MG TAB PO PRN ×3 (02:46→13:13)
[2017-05-06 04:07] LABS: PLATELET COUNT 509 10^3/uL (150-400)
[2017-05-06] MEDS: ACETAMINOPHEN 500 MG TAB PO SCH ×2 (04:56→13:13)
[2017-05-06] MEDS: METHOCARBAMOL 750 MG TAB PO PRN (04:56)
[2017-05-06] MEDS: HEPARIN 5,000 UNIT/0.5 ML SYR SC SCH ×2 (04:57→13:18)
[2017-05-06 07:36] VITALS: RESP 14; TEMP 98.1
--- NOTE | 2017-05-06 07:54 | HOSPPROG ---
Hospitalist Progress Note Assessment/Plan: Patient was admitted on April 18 for worsening neck pain. * MSSA sepsis (bacteremia) with cervical spine epidural abscess due to OSBALDO -s/p C6 and partial C7 corpectomy on 04/25 -s/p I&D -nafcillin dc to kidney function, now on Ceftriaxone -8 weeks therapy IV -hardware in place - will need chronic suppressive PO abx after IV complete * Afib - brief in ICU -PO metoprolol -suspect due to sepsis - hold off on chronic anticoagulation unless recurrence * ARF - -creat 1.2 -will avoid all nephrotoxins medications if possible. Decreased Pepcid to daily. DC Lovenox and placed on heparin three times daily -Nafcillin dc by ID * Metabolic encephalopathy - improved -she is alert and oriented today * Chronic pain -gabapentin, Cymbalta -added Lidoderm patches for neck area -sees a massage therapist in the OP setting for pain *anemia hgb/hct 01/06 * Insomnia -trazodone/melatonin -hallucinates worse with Ativan *DVT prophylaxis: Heparin three times daily *Plan: should be ready for rehab soon, will await input from ID and neurosurgery Subjective: Tiarra is c/o trapezius pain. Objective: Vital Signs Temp Pulse Resp BP Pulse Ox 36.7 C 68 14 151/68 H 97 05/06/17 07:31 05/06/17 07:31 05/06/17 07:31 05/06/17 07:31 05/06/17 02:50 Microbiology 04/25/17 14:08 Gram Stain - Final Other - Eswab 04/25/17 14:07 Gram Stain - Final Other - Eswab Laboratory Results 05/06/17 03:05 05/06/17 03:05 05/05/17 05/06/17 05/07/17 05:59 05:59 05:59 Intake Total 1570 2340 Output Total 2 Balance 1570 2338 PT 14.5 SEC (12.0-15.0) 04/28/17 08:40 INR 1.11 (0.83-1.16) 04/28/17 08:40 - Physical Exam Constitutional: appears nourished, uncomfortable Eyes: PERRL Ears, Nose, Mouth, Throat: hearing normal, other (hard collar) Cardiovascular: regular rate and rhythym Respiratory: no respiratory distress Gastrointestinal: normoactive bowel sounds Skin: warm Musculoskeletal: generalized weakness Neurologic: AAOx3 Psychiatric: interacting appropriately ICD10 Worksheet Patient Problems: Problems Problem Status Onset Altered mental status Acute Chronic cervical pain Acute Neuropathy Acute
[2017-05-06] MEDS: GABAPENTIN 300 MG CAP PO SCH (08:50)
[2017-05-06] MEDS: MULTIVITAMINS 1 EACH TAB PO SCH (08:51)
[2017-05-06] MEDS: ASPIRIN EC 81 MG TAB PO SCH (08:53)
[2017-05-06] MEDS: METOPROLOL TARTRATE 50 MG TAB PO SCH (08:54)
[2017-05-06] MEDS: FAMOTIDINE 20 MG TAB PO SCH (08:54)
[2017-05-06] MEDS ORDERED: LIDOCAINE 5% 1 EA PATCH TD SCH (09:30)
--- NOTE | 2017-05-06 11:08 | PCMIDPN ---
Assessment/Plan: # MSSA bacteremia and epidural abscess s/p debridement 04/25 with back to OR today. Cx from OR negative. 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 --dc to rehab okay --will add on CRP with next lab draw # Mild renal insufficiency: currently attributed to nafcillin, Cr slightly improved today 1.2 from 1.3 --recheck Cr in couple days --changed to ceftriaxone # Elevated LFTs : US on admit without focal abn, Hep serologies negative, intermittent elevations --recheck LFTs 05/09 meds ceftriaxone 2gm IV q12h Micro CSF cx 04/18 : negative blood cx 1 set 04/19: MSSA blood cx 04/21: (2) Neg OR cx 04/25: NGTD Subjective: still with neck pain worried about R hand weakness Objective: Vital Signs Temp Pulse Resp BP Pulse Ox 36.7 C 68 14 151/68 H 97 05/06/17 07:31 05/06/17 08:54 05/06/17 07:31 05/06/17 08:54 05/06/17 02:50 Microbiology 04/25/17 14:08 Gram Stain - Final Other - Eswab 04/25/17 14:07 Gram Stain - Final Other - Eswab Laboratory Results 05/06/17 03:05 05/06/17 03:05 05/05/17 05/06/17 05/07/17 05:59 05:59 05:59 Intake Total 1570 2340 Output Total 2 Balance 1570 2338 ESR 48 MM/HR (0-30) H 04/18/17 01:00 C-Reactive Protein 146.2 mg/L (<10.0) H 04/18/17 01:00 - Physical Exam General Appearance: alert, no apparent distress Respiratory: No accessory muscle use Neck: other (posterior neck incision healing, without erythema; on cervical precautions) Neuro/Psych: alert, normal mood/affect, oriented x 3 - Line/s LUE PICC Lines: No drainage, No erythema - Time Spent With Patient Time Spent with Patient: greater than 35 minutes (Reviewed course of antibiotics and reasons for changes, reviewed lab results. Discussed with patient & her partner. Care coordinated with hospitalist service) Time Spent with Patient: Greater than 35 minutes spent on this patients care, greater than 50% of time spent counseling, educating, and coordinating care regarding the above mentioned plan. ICD10 Worksheet Patient Problems: Problems Problem Status Onset Altered mental status Acute Chronic cervical pain Acute Neuropathy Acute
--- NOTE | 2017-05-06 11:08 | PDIAF ---
- Diagnosis Diagnosis: MSSA bacteremia and epidural abscess c-spine Code Status: Full Code - Medication Management Discharge Medications: Medications to Continue on Transfer Duloxetine HCl [Cymbalta] 60 mg PO HS 08/02/15 [Last Taken 10/30/16] Multivitamins [Multivitamin (*)] 1 each PO DAILY 08/02/15 [Last Taken 10/31/16] Valacyclovir HCl [Valtrex] 1,000 mg PO DAILY 08/02/15 [Last Taken 10/31/16] Chlorthalidone [Chlorthalidone 25 mg (*)] 25 mg PO DAILY 10/31/16 [Last Taken ] Cyclobenzaprine [Flexeril 10 MG (*)] 10 mg PO HS PRN 10/31/16 [Last Taken ] LORazepam [Lorazepam] 0.5 mg PO HS PRN 10/31/16 [Last Taken 10/30/16] Naproxen Sodium [Aleve 220 MG (*)] 220 mg PO HS #30 tab 11/01/16 [Last Taken ] Amlodipine Besylate [Norvasc] 5 mg PO HS 04/18/17 [Last Taken 04/17/17] Gabapentin [Neurontin 300 MG (*)] 300 mg PO DAILY@12 04/18/17 [Last Taken ] Gabapentin [Neurontin 300 MG (*)] 900 mg PO HS 04/18/17 [Last Taken 04/17/17] Gabapentin [Neurontin 400 MG (*)] 400 mg PO DAILY 04/18/17 [Last Taken Unknown] predniSONE 10 mg PO .[id number] 04/18/17 [Last Taken Unknown] Detention Antibiotics: ceftriaxone 2gm IV [id number] 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 PICC Care - Routine: Yes - Orders Isolation Type: None Diet Texture: Regular Texture Diet, Thin Liquids, Meds Whole w/Liquids - Labs/Radiology CBC w/diff Date: 05/09/17 (weekly, tuesday) CMP Date: 05/09/17 (weekly Tuesday) Call or Fax Lab and Imaging Results to: Mendoza Stout MD infectious diseases [phone] - Follow Up Care Current Providers and Referrals: Sanjeev Norton MD [Primary Care Provider] - As per Instructions
--- NOTE | 2017-05-06 11:54 | PDIAF ---
- Diagnosis Diagnosis: MSSA bacteremia and epidural abscess c-spine Code Status: Full Code - Medication Management Discharge Medications: Medications to Continue on Transfer Duloxetine HCl [Cymbalta] 60 mg PO HS 08/02/15 [Last Taken 10/30/16] Multivitamins [Multivitamin (*)] 1 each PO DAILY 08/02/15 [Last Taken 10/31/16] Cyclobenzaprine [Flexeril 10 MG (*)] 10 mg PO HS PRN 10/31/16 [Last Taken ] Amlodipine Besylate [Norvasc] 5 mg PO HS 04/18/17 [Last Taken 04/17/17] Acetaminophen [Tylenol ES 500 mg (*)] 1,000 mg PO Q8HRS tab 05/06/17 [Last Taken Unknown] Aspirin EC [Aspirin EC 81 mg (*)] 81 mg PO DAILY tab 05/06/17 [Last Taken Unknown] Famotidine [Pepcid 20 MG (*)] 20 mg PO DAILY tab 05/06/17 [Last Taken Unknown] Gabapentin [Neurontin 300 MG (*)] 900 mg PO TID cap 05/06/17 [Last Taken Unknown] Lidocaine 5% [Lidoderm 5% Patch (*)] 2 ea TD DAILY patch 05/06/17 [Last Taken Unknown] Melatonin [Melatonin 3 MG (*)] 3 mg PO HS tab 05/06/17 [Last Taken Unknown] Methocarbamol [Robaxin 750 mg (*)] 750 mg PO QID PRN tab 05/06/17 [Last Taken Unknown] Metoprolol Tartrate [Lopressor 50 mg (*)] 50 mg PO BID tab 05/06/17 [Last Taken Unknown] Patch Removal 1 ea TD DAILY21 patch 05/06/17 [Last Taken Unknown] Polyethylene Glycol 3350 [Miralax 17 gm (*)] 17 gm PO DAILY PRN pkt 05/06/17 [ Last Taken Unknown] Sennosides/Docusate Sodium [Senokot-S] 1 - 2 tab PO BID PRN tab 05/06/17 [Last Taken Unknown] oxyCODONE IR [Oxycodone Ir (*)] 5 - 10 mg PO Q4HRS PRN tab 05/06/17 [Last Taken Unknown] traZODone [traZODONE 50MG (*)] 50 mg PO HS tab 05/06/17 [Last Taken Unknown] Residential Antibiotics: ceftriaxone 2gm IV [id number] Residential Antibiotic Stop Date: 06/20/17 Discharge Medications: Refer to the Discharge Home Medication list for PRN reason. PICC Care - Routine: Yes - Orders Isolation Type: None Diet Texture: Regular Texture Diet, Thin Liquids, Meds Whole w/Liquids Activity/Weight Bearing Restrictions: wear hard collar at all times. Needs f/u with neurosurgery in 2 weeks. Make an appointment. Additional: Metoprolol is a new medication for you. Chlorthalidone has not been resumed, talk with your PCP as to when to restart. Valtrex has been dc during your hospital stay. - Labs/Radiology CBC w/diff Date: 05/09/17 (weekly, tuesday) CMP Date: 05/09/17 (weekly Tuesday) Call or Fax Lab and Imaging Results to: Mendoza Stout MD infectious diseases [phone] - Follow Up Care Current Providers and Referrals: Sanjeev Norton MD [Primary Care Provider] - As per Instructions Navarro Amaya MD [Medical Doctor] -
[2017-05-06 12:11] VITALS: BP 137/97; PULSE 67; O2SAT 94
--- NOTE | 2017-05-06 13:34 | GDS ---
[f rep st] DISCHARGE SUMMARY DISCHARGE DIAGNOSES: 1. Methicillin sensitive Staphylococcus aureus sepsis, bacteremia with cervical spine epidural abscess. 2. Atrial fibrillation, episodic. 3. Acute renal failure. 4. Metabolic encephalopathy. 5. Chronic pain. 6. Anemia. 7. Insomnia. CONSULTATION: 1. Dr. Juana Murphy. 2. Samy Rodriguez, physician insurance administrative assistant with [facility]surgical [facility]. HISTORY OF PRESENT ILLNESS: Briefly, the patient is a 76-year-old woman with a past medical history significant for chronic pain involving the cervical and lumbar spine, HSV, shingles, hypertension, and chronic narcotic use. She was admitted for acute cervical neck pain and stiffness. She was seen and evaluated by the Infectious team as well as the Neurosurgical Services team. It was noted that she had an MSSA bacteremia with acute encephalopathy. This occurred after receiving an injection in the cervical and lumbar spine for chronic back pain. Her cultures grew out MSSA. She was treated with nafcillin. She started having some renal insufficiency throughout her stay. This was subsequently discontinued and she was placed on ceftriaxone. The plan is for her to go to inpatient rehabilitation and have her labs monitored closely. She will further follow up with Dr. Amaya as well as Dr. Stout in the outpatient setting. HOSPITAL COURSE PER PROBLEM: 1. MSSA sepsis, bacteremia of the cervical spine, epidural abscess. This is due likely to an epidural steroid injection. She is status post I and D and status post C6 and partial C7 corpectomy on April 25. She will need 8 weeks of IV therapy. Her hardware is in place. She will need chronic suppression with p.o. antibiotics after IV antibiotics are completed. She has a PICC line in place. 2. Atrial fibrillation. This was briefly noted in ICU, none further. Will continue metoprolol. 3. Acute renal failure. Her creatinine is 1.2. Avoid nephrotoxins as much as possible. She will have this monitored at the inpatient rehabilitation. 4. Metabolic encephalopathy, improved. 5. Chronic pain. She is on gabapentin and Cymbalta. I have added Lidoderm patches to her neck area to see if this helps. 6. Anemia. Hemoglobin is 8, hematocrit is 24. 7. Insomnia. This is better with trazodone and melatonin. She hallucinates, worse with Ativan. DISCHARGE CONDITION: Stable. Blood pressure is 137/97, heart rate 67, respiratory rate is 14, O2 sats on room air 94%, temperature 36.7 Celsius. MEDICATIONS AT DISCHARGE: Please see the EMR. DISCHARGE INSTRUCTIONS: 1. Further followup with Dr. Stout in the outpatient setting. 2. Further followup with Dr. Amaya. 3. If she has any type of worsening neuro deficits, to return to the ER. Greater than 30 minutes discharging and coordinating the patient's care. /[id number]/MODL MTDD
--- NOTE | 2017-05-06 13:57 | ASMTCMCOM ---
CM Note CM Note Notes: Pt medically stable for d/c to [facility] inpatient rehab. Pt agrees to be billed by [employer] for transport which is at 13:30. This CM updated pt dghtr and partner w pt permission. Orders to be obtained via [employer]. Date Signed: 05/06/2017 01:57 PM Electronically Signed By:ADOLFO Hernandez
--- NOTE | 2017-05-06 14:02 | ASDISCHSUM ---
Discharge Information Plan Status:Inpatient Rehab Medically Cleared to Leave: Discharge Date:05/06/2017 01:35 PM CM D/C Disposition:[facility]T D/C Disposition:[facility] IP Projected Discharge Date:04/25/2017 11:00 AM Transportation at D/C:Wheelchair Van Discharge Delay Reason: Follow-Up Date:04/25/2017 11:00 AM Discharge Slot: Final Diagnosis: Placement Information Referral Type:*Snf/SNF Referral ID:[id number] Provider Name:Gina Engel [facility] Address 1:[address] Address 2: City:[place] Selection Factors: State:[place] Patient Contact Information Contact Name:RONN Relationship:Life Partner Address:[address] Work Phone: [facility]:[place] Alternate Phone: State/Zip Code:[place] [address] Email: Financial Information Financial Class: Primary Plan Desc:MEDICARE INPATIENT Primary Plan Number:[id number] Secondary Plan Desc:HUMANA Secondary Plan Number:[id number] Assessment Information [facility] Initial CM Assessment Living Arrangements What is your living Answers: With Partner arrangement? Who do you live with? Type Of Residence What kind of residence do Answers: House you live in? Discharge Plan Comments Coordination Status Comments Notes: Pt is a 76 y/o female admitted for neck and back pain. Pt has a hx of marijuana and acid use. Pt has a hx of chronic pain and chronic narcotic dependency. [facility], PT, OT have been ordered and awaiting recommendations. Needs are TBD at this time. CM avilable for d/c needs. Plan: TBD Date Signed: 04/18/2017 10:41 AM Electronically Signed By:MULU Hankins [facility] CM Progress Note CM Note CM Note Notes: Pt. now diagnosed with Meningoencephalitis. On numerous IV antibiotic therapies. Today SWer learned that OT recommending Inpt. Rehab and [facility] recommending HC vs Home. Marjorie contacted Winifred Fields in Inpatient Rehab [phone] to let her know about OT's recommendations. Winifred asked Marjorie to ask MD for Inpatient Rehab eval consultation. Chitor let hospitalist know today. He planned to comply with request. Pt. appears to have straight Medicare with a supplement should she need SNF care. Pt. lives with her partner, Yogesh who is her MDPOA. [facility] to follow Pt. for d/c plan of care. Date Signed: 04/20/2017 03:15 PM Electronically Signed By:Gabriela Hunt LCSW [facility] CM Progress Note CM Note CM Note Notes: 04/22/2017 Case Management Note PT note recommending inpatient rehab today. Per note, Inpatient rehab is following but waiting to make decision until pt is closer to d/c. Case Management d/c poc: TBD. Possibly inpatient rehab pending acceptance. Case Management to follow. Date Signed: 04/22/2017 12:03 PM Electronically Signed By:Josephine Russo RN [facility] CM Progress Note CM Note CM Note Notes: Spoke w pt about d/c planning: informed pt [facility] inpatient rehab is assessing and will continue assessment Tuesday. Informed pt SNF choice would be needed if pt medically stable for d/c before Tuesday and/or pt does not qualify for [facility] inpatient rehab, pt understand. Pt chooses [facility], referral sent to in [employer]. CM to follow. Date Signed: 04/23/2017 03:01 PM Electronically Signed By:ADOLFO Hernandez [facility] Progress Note CM Note CM Note Notes: Patient with profound weakness upon neurosurgical evaluation today and taken to OR at 1200 for spinal surgery. Her discharge needs are TBD; [facility] inpatient rehab will continue to follow. I spoke with Cheikh at [facility] who does not have a bed available for patient at this time. Current Case Management Discharge plan: TBD pending post-surgical needs Date Signed: 04/25/2017 12:46 PM Electronically Signed By:Alice Thompson RN [facility] NIRANJAN Progress Note CM Note CM Note Notes: Pt will most likely have surgery tomorrow. Pt has developed a new infection. Pt will most likely need IV antibiotics for the next 8 weeks. NIRANJAN spoke w/ Winifred Fields, [facility] inpatient rehab and she reports that she will continue to monitor and evaluate once pt is more medically stable. CM to follow. Plan: Inpatient rehab Date Signed: 04/27/2017 03:09 PM Electronically Signed By:MULU Hankins [facility] CM Progress Note CM Note CM Note Notes: Patient continues to need ICU care for infection, blood pressure, and pain managment. Winifred Najera confirms patient is a candidate for [facility] inpatient rehab which is the current d/c plan. Patient will most likely be ready end of next week. CM following. Date Signed: 04/29/2017 04:49 PM Electronically Signed By:Olinda Valdovinos LCSW [facility] CM Progress Note CM Note CM Note Notes: Per MD patient not ready for discharge today. Did work with therapy. CM to follow. Date Signed: 05/02/2017 03:15 PM Electronically Signed By:Laurie Flynn RN [facility] CM Progress Note CM Note CM Note Notes: Pt will d/c to [facility] inpatient rehabilitation when medically stable. Date Signed: 05/05/2017 12:21 PM Electronically Signed By:ADOLFO Hernandez [facility] CM Progress Note CM Note CM Note Notes: Pt medically stable for d/c to [facility] inpatient rehab. Pt agrees to be billed by [email or web address] for transport which is at 13:30. This CM updated pt dghtr and partner w pt permission. Orders to be obtained via [employer]. Date Signed: 05/06/2017 01:57 PM Electronically Signed By:ADOLFO Hernandez Intervention Information
[2017-05-06] MEDS ORDERED: PATCH REMOVAL 1 EA PATCH TD SCH (21:00)
== END 2017-05-06 13:35 | DRG 853 ==
LOC: EDUNIT# → F3E 04:53 → OBSVTOIN 14:40 → F3E 04-21 17:08 → F3N 04-21 17:17 → F2N 04-25 15:56 → F3N 04-30 12:49
PROVIDERS: ADMIT Family Medicine; ATTEND Hospitalist
PROC: 02HV33Z Insertion of Infusion Device into Superior Vena Cava, Percutaneous Approach (ICD-10-PCS; 2017-04-19)
PROC: 02HV33Z Insertion of Infusion Device into Superior Vena Cava, Percutaneous Approach (ICD-10-PCS; 2017-04-22)
PROC: 00CT0ZZ Extirpation of Matter from Spinal Meninges, Open Approach (ICD-10-PCS; principal; 2017-04-25 14:00)
PROC: 0RG20A0 Fusion of 2 or more Cervical Vertebral Joints with Interbody Fusion Device, Anterior Approach, Anterior Column, Open Approach (ICD-10-PCS; principal; 2017-04-25 14:00)
PROC: 00BT0ZZ Excision of Spinal Meninges, Open Approach (ICD-10-PCS; principal; 2017-04-25 14:00)
PROC: 0RB30ZZ Excision of Cervical Vertebral Disc, Open Approach (ICD-10-PCS; principal; 2017-04-25 14:00)
PROC: 00NW0ZZ Release Cervical Spinal Cord, Open Approach (ICD-10-PCS; principal; 2017-04-25 14:00)
PROC: 30233N1 Transfusion of Nonautologous Red Blood Cells into Peripheral Vein, Percutaneous Approach (ICD-10-PCS; principal; 2017-04-25 14:00)
PROC: 0RG20AJ Fusion of 2 or more Cervical Vertebral Joints with Interbody Fusion Device, Posterior Approach, Anterior Column, Open Approach (ICD-10-PCS; 2017-04-28 13:00)
PROC: 0RG40AJ Fusion of Cervicothoracic Vertebral Joint with Interbody Fusion Device, Posterior Approach, Anterior Column, Open Approach (ICD-10-PCS; 2017-04-28 13:00)
PROC: 00NW0ZZ Release Cervical Spinal Cord, Open Approach (ICD-10-PCS; 2017-04-28 13:00)
PROC: 02HV33Z Insertion of Infusion Device into Superior Vena Cava, Percutaneous Approach (ICD-10-PCS; 2017-04-30)
DX: A41.01 Sepsis due to Methicillin susceptible Staphylococcus aureus (principal); G06.1 Intraspinal abscess and granuloma; G93.41 Metabolic encephalopathy; G95.29 Other cord compression; D62 Acute posthemorrhagic anemia; M96.810 Intraoperative hemorrhage and hematoma of a musculoskeletal structure complicating a musculoskeletal system procedure; N17.9 Acute kidney failure, unspecified; T39.8X5A Adverse effect of other nonopioid analgesics and antipyretics, not elsewhere classified, initial encounter; M50.121 Cervical disc disorder at C4-C5 level with radiculopathy; M50.122 Cervical disc disorder at C5-C6 level with radiculopathy; M50.123 Cervical disc disorder at C6-C7 level with radiculopathy; M50.13 Cervical disc disorder with radiculopathy, cervicothoracic region; I48.91 Unspecified atrial fibrillation; E87.1 Hypo-osmolality and hyponatremia; E87.6 Hypokalemia; K59.00 Constipation, unspecified; G47.00 Insomnia, unspecified; R74.0 Nonspecific elevation of levels of transaminase and lactic acid dehydrogenase [LDH]; B02.9 Zoster without complications; I12.9 Hypertensive chronic kidney disease with stage 1 through stage 4 chronic kidney disease, or unspecified chronic kidney disease; N18.3 Chronic kidney disease, stage 3 (moderate); G89.29 Other chronic pain; F11.20 Opioid dependence, uncomplicated; K21.9 Gastro-esophageal reflux disease without esophagitis; F12.90 Cannabis use, unspecified, uncomplicated; F16.90 Hallucinogen use, unspecified, uncomplicated; F17.210 Nicotine dependence, cigarettes, uncomplicated
CPT/HCPCS: 80307; 92507-GN; 92523-GN; 92526-GN; 92610-GN; 96374; 97110-GP; 97116-GP; 97162-GP; 97164-GP; 97166-GO; 97530-GO; 97530-GP; 97535-GO; A9585; C1713; C1751; G0378; G0472; G0480; G8978-GP-CK; G8978-GP-CL; G8979-GP-CI; G8979-GP-CJ; G8987-GO-CJ; G8988-GO-CI; G8996-GN-CI; G8997-GN-CI; G8998-GN-CI; G9165-GN-CI; G9166-GN-CH; J0133; J0171; J0282; J0290; J0360; J0696; J1100; J1170; J1630; J1650; J1885; J2060; J2250; J2370; J2597; J2704; J2800; J3010; J3370; J3475; P9016; P9035; P9041

== ENCOUNTER 2017-05-06 14:10 | Inpatient (IN) | payer OTHER ==
[2017-05-06] MEDS ORDERED: SENNOSIDES/DOCUSATE SODIUM TAB PO PRN (14:51)
[2017-05-06] MEDS ORDERED: POLYETHYLENE GLYCOL 3350 17 GM PKT PO PRN (14:51)
[2017-05-06] MEDS ORDERED: BISACODYL 10 MG SUPP PR PRN (14:54)
[2017-05-06] MEDS: GABAPENTIN 300 MG CAP PO SCH ×2 (15:39→21:01)
--- NOTE | 2017-05-06 16:10 | PDOREHIP ---
Admission IRF-[facility] - Admission - 3 Day Assessment Period Admission Date/Day 1: 05/06/17 Day 2: 05/07/17 Day 3: 05/08/17 - Active Diagnoses Comorbidities and Co-existing Conditions at Admission: 11791. None of the Above - Skin Conditions Unhealed Pressure Ulcer (1 or more/Stage 1 or >)-Admission: 0. No
--- NOTE | 2017-05-06 17:10 | GHP ---
[f rep st] HISTORY AND PHYSICAL POST ADMISSION PHYSICIAN EVALUATION AND REHABILITATION TREATMENT PLAN DATE OF ADMISSION: 05/06/2017 DATE OF EVALUATION: 05/06/2017 TIME OF EVALUATION: 1510 REFERRING FACILITY: [facility]. REFERRING PHYSICIAN: Navarro Amaya MD IMPAIRMENT GROUP: 2.1 DATE OF ONSET: 04/18/2017 CONSULTING PHYSICIANS: She was seen in consultation by the Infectious Disease service, Dr. Murphy, and by the hospitalist service, Dr. Cooney. REHABLITATION DIAGNOSIS: Debility status post epidural abscess I and D, C6 corpectomy, and C7 partial corpectomy. ETIOLOGIC DIAGNOSIS: Non-traumatic brain dysfunction. DATE OF SURGERY: 04/25/2017 HISTORY OF PRESENT ILLNESS: This patient was admitted to [facility] on 04/18/2017 with exexq-sa-pwmquny neck pain and 2 falls within 2 hours due to lower extremity weakness. She had a headache, elevated white blood cell count, acute encephalopathy, and hyponatremia. Lumbar puncture was consistent with possible meningitis. MRI of the cervical spine was positive for a C5-6 diskitis and epidural abscess C5 through T2-T3. There was severe central canal narrowing at C4-5, C5-6, and C6-7, and cord edema and myelomalacia at C4-5. She had received cervical and lumbar epidural injections sometime prior to onset of her symptoms. She had methicillin-sensitive Staph aureus bacteremia and acute encephalopathy. She was treated initially with nafcillin, but due to renal insufficiency, this was discontinued and replaced with ceftriaxone. She had surgery on 04/25/2017, with a C6 and partial C7 corpectomy, as well as I and D of the epidural abscess. She had interbody fusion from C5 to C7 and anterior cervical fusion from C5 to C7. She had a 2nd phase of the surgery done on 04/28/2017 with posterior fusion C4 - T1 and laminectomy C5. Postoperatively, she had a metabolic encephalopathy, anemia, abnormal liver function tests, atrial fibrillation, and maintained systemic hypertension with IV norepinephrine to ensure cord perfusion. STUDIES AND LABORATORY DURING STAY: She has had anemia, which has been improving. Her most recent CBC (on 05/06/2017) showed a hemoglobin of 8.8 and a hematocrit of 26.1. Most recent serum chemistry value showed a slightly elevated carbon dioxide of 34 and renal insufficiency with a creatinine of 1.2 and an estimated GFR of 44. Renal function and electrolytes otherwise were within normal limits. On 05/05/2017, liver functions showed a slightly high conjugated bilirubin at 1.2. AST and ALT were slightly high at 79 and 81, alkaline phosphatase was elevated at 225, and her albumin was somewhat low at 2.6. C-reactive protein was 41.2. Urinalysis was not consistent with infection ; she had trace ketones on April 26. Serology was negative for hepatitis A , B, and C and HSV DNA in the CSF, and was also negative for enterovirus in the CSF. Most recent imaging: C-spine x-ray on 04/30/2017 showed excellent postoperative alignment, perhaps improvement in the prevertebral soft-tissue swelling, and an abnormal position of a PICC line. A subsequent x-ray regarding the PICC line insertion (on 04/30/2017) showed appropriate positioning of the tip of the catheter in the superior vena cava and right atrium. Echocardiogram on 04/27/2017 showed normal global systolic left ventricular function, and an ejection fraction of 72; normal size right ventricle; normal left and right atrium; mild mitral valve regurgitation; normal aortic valve; mild tricuspid regurgitation; and a left-sided pleural effusion. Renal ultrasound done to evaluate her renal insufficiency ruled out hydronephrosis and other renal abnormalities. She had a large postvoid residual. Head CT on 04/18/2017 was normal. It was repeated on 04/27/2017, probably because of her encephalopathy, and was again read as normal. PRECAUTIONS: She is a fall risk and she has orthopedic C-spine precautions. ACTIVE COMORBIDITIES: She had the tier 3 comorbidity of septicemia, but this is resolved; otherwise, she has no active tier 1, tier 2, or tier 3 comorbidities. PAST MEDICAL HISTORY: 1. Hypertension. 2. Chronic cervical and lumbar pain with diagnosis of spinal stenosis. 3. Gastroesophageal reflux disorder. 4. Chronic paresthesias in the hands. 5. HSV. 6. History of opiate dependency. 7. Shingles. 8. Fibroids. 9. Left ankle sprain, recurrent. 10. Fibroids. PAST SURGICAL HISTORY: 1. Hysterectomy for fibroids. 2. Bilateral cataract extraction with lens replacements. PRE-HOSPITAL MEDICATIONS: 1. Duloxetine 60 mg p.o. q.h.s. 2. Gabapentin 400 mg p.o. q.h.s. 3. Losartan 100 mg p.o. daily. 4. Multivitamin daily. 5. Valacyclovir 1000 mg p.o. daily. 6. Chlorthalidone 25 mg p.o. daily. 7. Cyclobenzaprine 10 mg p.o. q.h.s. p.r.n. 8. Lorazepam 0.5 mg p.o. q.h.s. p.r.n. 9. Senna/docusate 1 p.o. q.h.s. 10. Amlodipine. 11. Prednisone. ADMISSION MEDICATIONS: 1. Acetaminophen 1000 mg p.o. q.8 hours. 2. Amlodipine 5 mg p.o. q.h.s. 3. Aspirin 81 mg p.o. daily. 4. Cyclobenzaprine 10 mg p.o. q.h.s. p.r.n. 5. Duloxetine 60 mg p.o. q.h.s. 6. Famotidine 20 mg p.o. daily. 7. Gabapentin 900 mg p.o. t.i.d. 8. Lidocaine patch transdermal to her upper shoulders and lower neck daily. 9. Melatonin 3 mg p.o. q.h.s. 10. Methocarbamol 750 mg p.o. q.i.d. p.r.n. muscle spasms. 11. Metoprolol 50 mg p.o. b.i.d. 12. Multivitamin p.o. daily. 13. Oxycodone 5-10 mg p.o. q.4 hours p.r.n. 14. Polyethylene glycol 17 g p.o. daily p.r.n. 15. Senna/docusate 1-2 tabs p.o. b.i.d. p.r.n. 16. Trazodone 50 mg p.o. q.h.s. ALLERGIES: Listed to diclofenac. FAMILY HISTORY: Noncontributory. 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 She has a long-term partner. They each have their own homes in different parts of [place], but they spend every night together. He has had back problems and she has been involved as a caregiver for him. She has 2 sons : 1 in [place] and 1 in [place]. [place] son is visiting currently, and the [place] son will be visiting soon. She has a stepdaughter (whom she refers to as her daughter) also from out of town, who is in town currently and helping with her significant other and available to assist her. She has a large network of friends, as well, and she has 2 tenants in her home who are currently taking care of her cats. She is a nonsmoker. She uses occasional marijuana. REVIEW OF SYSTEMS: She reports weakness bilaterally to the upper extremities. She has pain in the trapezius area. The oxycodone works, but it wears off too soon. She has difficulty maintaining sleep. She gets to sleep well. For some time before her current illness, she was experiencing difficulty re-attaining sleep after getting up to urinate during the night, which she has done every night for many years. She denies vision changes, sore throat, and difficulty swallowing. She denies headache. She does note some memory loss. She denies cough and dyspnea. She denies chest pain and palpitations. She denies nausea, vomiting, constipation, and diarrhea. She denies dysuria or urinary frequency. She denies skin rash and skin breakdown. Otherwise, a 10-point review of systems is negative. PHYSICAL EXAMINATION: VITAL SIGNS: Not yet available in the chart. At noon today in the hospital, blood pressure was 137/97, heart rate was 67, respiratory rate was 14, oxygen saturation was 94% on 2 L, temperature was 36.7 degrees centigrade. Her weight in the hospital was 78.6 kg for a body mass index of 32.7. GENERAL: This is an obese woman who appears her chronologic age , is cooperative, and in no acute distress. HEENT: Extraocular movements are intact. Pupils are equal, round, and reactive to light. Mucous membranes are moist, and dentition is in good condition. Presence of cervical collar precluded more detailed oropharyngeal exam, and neck exam was not done. HEART: Regular rate and rhythm with no murmurs, rubs, or gallops. LUNGS: Clear to auscultation bilaterally. ABDOMEN: Soft, nontender, and nondistended with normoactive bowel sounds and no hepatosplenomegaly. EXTREMITIES: No cyanosis, clubbing, or edema. Radial and dorsalis pedis pulses are 2+ bilaterally. NEUROLOGIC: Alert and oriented x3. Cranial nerves 2 through 12 are grossly intact. She has bilateral upper extremity weakness with the triceps being approximately 2/5 to 3/5, and the biceps about 4/5. The deltoids have antigravity strength, but no more than a 3/5, and hand surgical first assistant is 4/5 on the left and 3/5 on the right. There is no lower extremity weakness. Sensation is intact to light touch. Deep tendon reflexes are 2+ bilaterally at the biceps, patellar, and Achilles tendons. CURRENT LEVEL OF FUNCTION: Regarding diet, feeding, and swallowing, she was on a regular diet with thin liquids. She was also noted to have mild dysphagia and modified independence for feeding herself. Grooming required contact guard assist. Dressing was done with assistance. Toileting was done with assistance. She was continent of bladder and bowel. For bed mobility, she required minimal assistance with voice cues. For transfers, she required contact rstos-bw-ufckkoi assist with voice cues. She used a front-wheeled walker. Seated balance required standby assist, and standing balance required contact qosxg-xj-pzmflqj assist. Endurance was fair. She was able to ambulate 120 feet with a front-wheeled walker and contact soand-ko-rlxiaes assist and voice cues to limit shuffling. Regarding communication, she was considered to have mild deficits. For cognition, she had mild deficits in attention and executive function. IMPRESSION: This is a 76-year-old woman who had an unfortunate complication of an epidural abscess along the cervical spine causing cord compression after having an epidural steroid injection. This required surgery for incision and drainage, corpectomy of C6, and partial corpectomy of C7, and anterior and posterior cervical spinal fusion. She had multiple hospital complications, including atrial fibrillation, encephalopathy, acute renal insufficiency, hypoxia, anemia, encephalopathy, and insomnia. She is on 8 weeks of antibiotics by IV and will likely have suppressive antibiotics orally subsequently, as her C-spine is instrumented, and there was infection. She has deconditioning as well as upper extremity weakness. She is otherwise medically stabilized and appropriate for inpatient rehabilitation. Her goal is to complete a rehabilitation stay and then return home with the support of her significant other, as well as family and friends and home health services. For a safe discharge, it is anticipated that she will achieve independence with grooming, modified independence for bed mobility, dressing, and transfers, and ambulation for household distances with the least restrictive device. She will need to negotiate stairs. She will likely require assistance for bathing, household management, shopping, and meal preparation. It is anticipated she will be able to manage household finances independently. She will have therapy with physical therapy, occupational therapy, and speech and language pathology for 60 minutes per day for each discipline on 5-7 days of the week. Her expected duration of stay of 10-14 days. It is anticipated that upon discharge she will continue to benefit from home health services including nursing, social work, occupational therapy, and physical therapy. PLAN: 1. Debility with prominent upper extremity weakness, and deconditioning and reduced endurance, status post prolonged complicated hospitalization. PT and OT to optimize mobility and activities of daily living. 2. Encephalopathy in the hospital and possible cognitive impairment to be assessed and treated per Speech and Language Pathology. 3. Epidural abscess, status post I and D, C6 corpectomy, C7 partial corpectomy , and anterior and posterior spinal fusion. Continue IV antibiotics for a total of 8 weeks. Pain control with oxycodone, acetaminophen, and muscle relaxants. Hard cervical collar at all times except a soft collar is permitted for showering. Follow up with Neurosurgery in approximately 2 weeks. 4. Hypertension. Continue amlodipine and metoprolol. Monitor blood pressures and adjust or add medications as needed. 5. Insomnia. Likely contributes to encephalopathy. Per review of systems today, is refractory to trazodone as well as melatonin. Will increase trazodone dose tonight. 6. Neuropathic pain symptoms. Continue gabapentin and duloxetine. The dose of gabapentin has been increased considerably from prior to admission. 7. Acute renal insufficiency with some improvement. Elevated postvoid residual was noted, as well. Renal insufficiency improved after switch from nafcillin to ceftriaxone. Renal function and electrolytes will be monitored with the next lab draw due on 05/09/2017. 8. Anemia. Continue to monitor with the next lab draw done due on 05/09/2017. 9. Hypoxia of unclear etiology. There was no congestive heart failure on her echocardiogram. She has no signs or symptoms of pneumonia. She will have incentive spirometry and oxygen as needed, and she will be monitored for improvement. If she remains hypoxic, further evaluation can be done. 10. Bowel program. Continue polyethylene glycol and senna/docusate on a p.r.n. basis. I have added a bisacodyl suppository p.r.n. as well as a Fleet saline enema. She has been moving her bowels regularly in the hospital. 11. Prophylaxis. Yesterday she was able to ambulate 200 feet with 2 standing breaks and a seated rest break, and then an additional 100 feet. Will observe for mobility. Today she had neck pain and fatigue after a brief period of sitting up. If her mobility is significantly reduced, will continue anticoagulation; she was receiving subcutaneous heparin in the hospital. /[id number]/MODL MTDD
[2017-05-06] MEDS ORDERED: traZODone 50 MG TAB PO SCH (21:00)
[2017-05-06] MEDS: ACETAMINOPHEN 500 MG TAB PO SCH (21:01)
[2017-05-06] MEDS: MELATONIN 3 MG TAB PO SCH (21:02)
[2017-05-06] MEDS: amLODIPine BESYLATE 5 MG TAB PO SCH (21:02)
[2017-05-06] MEDS: DULoxetine 60 MG CAP PO SCH (21:02)
[2017-05-06] MEDS: METOPROLOL TARTRATE 50 MG TAB PO SCH (21:03)
[2017-05-06] MEDS: traZODone 50 MG TAB PO SCH (21:17)
[2017-05-06] MEDS: PATCH REMOVAL 1 EA PATCH TD SCH (21:19)
[2017-05-07] MEDS: oxyCODONE IR 5 MG TAB PO PRN ×4 (03:19→15:52)
[2017-05-07] MEDS: METHOCARBAMOL 750 MG TAB PO PRN ×2 (05:12→13:50)
[2017-05-07] MEDS: ACETAMINOPHEN 500 MG TAB PO SCH ×3 (05:13→21:11)
[2017-05-07] MEDS: LIDOCAINE 5% 1 EA PATCH TD SCH (08:16)
[2017-05-07] MEDS: METOPROLOL TARTRATE 50 MG TAB PO SCH ×2 (09:51→21:10)
[2017-05-07] MEDS: ASPIRIN EC 81 MG TAB PO SCH (09:51)
[2017-05-07] MEDS: MULTIVITAMINS 1 EACH TAB PO SCH (09:51)
[2017-05-07] MEDS: GABAPENTIN 300 MG CAP PO SCH ×3 (09:51→21:09)
[2017-05-07] MEDS: FAMOTIDINE 20 MG TAB PO SCH (09:52)
--- NOTE | 2017-05-07 11:52 | SOAPPROG ---
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 This required surgery for incision and drainage, corpectomy of C6, and partial corpectomy of C7, C4 laminectomy, and anterior and posterior cervical spinal fusion. She had multiple hospital complications, including atrial fibrillation, encephalopathy, acute renal insufficiency, hypoxia, anemia, encephalopathy, and insomnia. She has deconditioning as well as upper extremity weakness. * Debility with prominent upper extremity weakness, deconditioning and reduced endurance, status post prolonged complicated hospitalization. * PT and OT to optimize mobility and activities of daily living. * Encephalopathy in the hospital and possible cognitive impairment. * To be assessed and treated per Speech and Language Pathology. * Epidural abscess, status post I and D, C6 corpectomy, C7 partial corpectomy, and anterior and posterior spinal fusion. * Continue IV antibiotics for a total of 8 weeks. * Pain control with oxycodone, acetaminophen, and muscle relaxants. * Hard cervical collar at all times except a soft collar is permitted for showering. Follow up with Neurosurgery in approximately 2 weeks. * Hypoxia of unclear etiology. There was no congestive heart failure on her echocardiogram. She has no signs or symptoms of pneumonia. Anemia may contribute. * Continue incentive spirometry and oxygen as needed, * Consider CXR. * Edema, unclear etiology. * Gabapentin and amlodipine may contribute. * Was on chlorthalidone prior to hospitalization and no B-anibal. * COnsider initiation of diuretic and tapering other antihypertensives. * Hypertension. * Continue amlodipine and metoprolol. Monitor blood pressures and adjust or add medications as needed. * Insomnia. Likely contributes to encephalopathy. * Improved with increased trazodone from 50 to 100 mg at 05/06/2017. * Neuropathic pain symptoms. Continue gabapentin and duloxetine. The dose of gabapentin has been increased considerably from prior to admission. * Acute renal insufficiency with some improvement. Elevated postvoid residual was noted, as well. Renal insufficiency improved after switch from nafcillin to ceftriaxone. * Renal function and electrolytes will be monitored with the next lab draw due on 05/09/2017. *Anemia. Continue to monitor with the next lab draw done due on 05/09/2017. * Bowel program. Continue polyethylene glycol and senna/docusate on a p.r.n. basis. I have added a bisacodyl suppository p.r.n. as well as a Fleet saline enema. She has been moving her bowels regularly in the hospital. Prophylaxis. Ambulating > 150'. No hemniparesis, no lower extremity injury. Will not initiate pharmacologic anticoagulation. 05/07/17 12:24 Subjective: Slept better. Awaken x1 to urinate. Notes pain and what feels like muscle tightness when sitting up or standing up in the shoulders especially. No cough. No fevers or chills. Objective: Vital Signs Temp Pulse Resp BP Pulse Ox 37.0 C 68 16 158/90 H 94 05/07/17 05:38 05/07/17 09:51 05/07/17 05:38 05/07/17 09:51 05/07/17 05:38 05/06/17 05/07/17 05/08/17 05:59 05:59 05:59 Intake Total 250 Output Total 1300 Balance -1050 Physical Exam - Physical Exam General Appearance: WD/WN, alert, no apparent distress Respiratory: normal breath sounds, crackles (Few left lower lobe.), No rhonchi, No wheezing Cardiac/Chest: regular rate, rhythm, edema (2+ bilateral pretibial.), No diastolic murmur, No systolic murmur Skin: normal color, warm/dry Neuro/Psych: alert, normal mood/affect, oriented x 3, abnormal gait (Ambulates slowly with front wheeled walker, step through pattern, mildly widened base of support. LOB x1 when distracted.), motor weakness (Bilateral upper extremities. ) ICD10 Worksheet Patient Problems: Problems Problem Status Onset Altered mental status Acute Chronic cervical pain Acute Neuropathy Acute
[2017-05-07] MEDS: POLYETHYLENE GLYCOL 3350 17 GM PKT PO SCH (13:47)
[2017-05-07] MEDS: amLODIPine BESYLATE 5 MG TAB PO SCH (21:09)
[2017-05-07] MEDS: DULoxetine 60 MG CAP PO SCH (21:09)
[2017-05-07] MEDS: traZODone 50 MG TAB PO SCH (21:10)
[2017-05-07] MEDS: MELATONIN 3 MG TAB PO SCH (21:10)
[2017-05-07] MEDS: PATCH REMOVAL 1 EA PATCH TD SCH (21:17)
[2017-05-08] MEDS: oxyCODONE IR 5 MG TAB PO PRN ×5 (00:16→20:45)
[2017-05-08] MEDS: ACETAMINOPHEN 500 MG TAB PO SCH ×3 (05:42→20:44)
[2017-05-08] MEDS: GABAPENTIN 300 MG CAP PO SCH ×3 (08:40→20:44)
[2017-05-08] MEDS: MULTIVITAMINS 1 EACH TAB PO SCH (08:41)
[2017-05-08] MEDS: ASPIRIN EC 81 MG TAB PO SCH (08:41)
[2017-05-08] MEDS: METOPROLOL TARTRATE 50 MG TAB PO SCH ×2 (08:41→20:46)
[2017-05-08] MEDS: FAMOTIDINE 20 MG TAB PO SCH (08:41)
[2017-05-08] MEDS: POLYETHYLENE GLYCOL 3350 17 GM PKT PO SCH (08:42)
[2017-05-08] MEDS: LIDOCAINE 5% 1 EA PATCH TD SCH (08:43)
--- NOTE | 2017-05-08 13:25 | SOAPPROG ---
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 This required surgery for incision and drainage, corpectomy of C6, and partial corpectomy of C7, C4 laminectomy, and anterior and posterior cervical spinal fusion. She had multiple hospital complications, including atrial fibrillation, encephalopathy, acute renal insufficiency, hypoxia, anemia, encephalopathy, and insomnia. She has deconditioning as well as upper extremity weakness. * Debility with prominent upper extremity weakness, deconditioning and reduced endurance, status post prolonged complicated hospitalization. * Contact guard assist for bed mobility. Ambulated 110 ft yesterday 05/07/2017 with front wheeled walker and contact guard assist. Maximal assist for dressing and bathing, total assist for toileting. Needs more assistance when pain level is higher. * Continue PT and OT to optimize mobility and activities of daily living. * Encephalopathy in the hospital and possible cognitive impairment. * To be assessed and treated per Speech and Language Pathology. * Epidural abscess, status post I and D, C6 corpectomy, C7 partial corpectomy, and anterior and posterior spinal fusion. * Continue IV antibiotics for a total of 8 weeks. * Pain control with oxycodone, acetaminophen, and muscle relaxants. * Hard cervical collar at all times except a soft collar is permitted for showering. Follow up with Neurosurgery in approximately 2 weeks. * Hypoxia of unclear etiology. There was no congestive heart failure on her echocardiogram. She has no signs or symptoms of pneumonia. Anemia may contribute. * Continue incentive spirometry and oxygen as needed, * Consider CXR. * Edema, unclear etiology. * Gabapentin and amlodipine may contribute. * Was on chlorthalidone prior to hospitalization and no B-anibal. * Consider initiation of diuretic and tapering other antihypertensives. * Hypertension. * Continue amlodipine and metoprolol. Monitor blood pressures and adjust or add medications as needed. * Insomnia. Likely contributes to encephalopathy. * Improved with increased trazodone from 50 to 100 mg at HS 05/06/2017. * Neuropathic pain symptoms. Continue gabapentin and duloxetine. The dose of gabapentin has been increased considerably from prior to admission. * Acute renal insufficiency with some improvement. Elevated postvoid residual was noted, as well. Renal insufficiency improved after switch from nafcillin to ceftriaxone. * Renal function and electrolytes will be monitored with the next lab draw due on 05/09/2017. *Anemia. Continue to monitor with the next lab draw done due on 05/09/2017. * Bowel program. Continue polyethylene glycol and senna/docusate on a p.r.n. basis. I have added a bisacodyl suppository p.r.n. as well as a Fleet saline enema. She has been moving her bowels regularly in the hospital. Prophylaxis. Ambulating > 150'. No hemiparesis, no lower extremity injury. Will not initiate pharmacologic anticoagulation. 05/08/17 13:19 Subjective: No complaints this morning. Not in pain. Slept very well last night. Notes that she is ambulating better. Still with weakness in the upper extremities. Objective: Vital Signs Temp Pulse Resp BP Pulse Ox 36.8 C 88 16 140/93 H 92 05/08/17 06:36 05/08/17 08:41 05/08/17 06:36 05/08/17 08:41 05/08/17 06:36 05/07/17 05/08/17 05/09/17 05:59 05:59 05:59 Intake Total 250 700 410 Output Total 1300 1500 500 Balance -1050 -800 -90 Physical Exam - Physical Exam General Appearance: WD/WN, alert, no apparent distress Respiratory: No respiratory distress, No accessory muscle use Cardiac/Chest: edema (1+ bilateral lower extremities; also with puffy hands.) Skin: normal color, warm/dry Neuro/Psych: alert, normal mood/affect, oriented x 3, motor weakness (Bilateral upper extremities, but able to feed herself using utensils with buildup and goals.) ICD10 Worksheet Patient Problems: Problems Problem Status Onset Altered mental status Acute Chronic cervical pain Acute Neuropathy Acute
[2017-05-08] MEDS: MELATONIN 3 MG TAB PO SCH (20:45)
[2017-05-08] MEDS: amLODIPine BESYLATE 5 MG TAB PO SCH (20:45)
[2017-05-08] MEDS: DULoxetine 60 MG CAP PO SCH (20:45)
[2017-05-08] MEDS: traZODone 50 MG TAB PO SCH (20:45)
[2017-05-08] MEDS: PATCH REMOVAL 1 EA PATCH TD SCH (21:00)
[2017-05-09] MEDS: ACETAMINOPHEN 500 MG TAB PO SCH ×3 (05:55→21:07)
[2017-05-09] MEDS: oxyCODONE IR 5 MG TAB PO PRN ×4 (07:12→21:31)
[2017-05-09 08:39] LABS: PLATELET COUNT 476 10^3/uL (150-400)
[2017-05-09] MEDS: POLYETHYLENE GLYCOL 3350 17 GM PKT PO SCH (08:50)
[2017-05-09] MEDS: FAMOTIDINE 20 MG TAB PO SCH (08:51)
[2017-05-09] MEDS: ASPIRIN EC 81 MG TAB PO SCH (08:51)
[2017-05-09] MEDS: METOPROLOL TARTRATE 50 MG TAB PO SCH ×2 (08:51→21:07)
[2017-05-09] MEDS: MULTIVITAMINS 1 EACH TAB PO SCH (08:51)
[2017-05-09] MEDS: GABAPENTIN 300 MG CAP PO SCH ×3 (08:51→21:08)
[2017-05-09] MEDS: LIDOCAINE 5% 1 EA PATCH TD SCH (08:52)
--- NOTE | 2017-05-09 09:40 | PCMIDPN ---
Assessment/Plan: # MSSA bacteremia and epidural abscess s/p debridement 04/25 & 04/28 Cx from OR negative. stable exam, still with R hand weakness --continue high dose ceftriaxone for G[employer] penetration. On ceftriaxone due to concern for toxicity from nafcillin --ID service will see patient weekly while in rehab or more frequent if problems arise # Mild renal insufficiency: attributed to nafcillin, now off for 4 days, Cr stable 1.2 # Elevated LFTs : continuing to improve, AST now normal. Likely related to infection meds ceftriaxone 2gm IV q12h, stop 06/20/17 Micro CSF cx 04/18 : negative blood cx 1 set 04/19: MSSA blood cx 04/21: (2) Neg OR cx 04/25: NGTD Subjective: patient feels stable denies diarrhea, increased neck pain, rash Objective: Vital Signs Temp Pulse Resp BP Pulse Ox 37.0 C 73 16 136/79 H 91 L 05/09/17 06:50 05/09/17 08:51 05/09/17 06:50 05/09/17 08:51 05/09/17 06:50 Laboratory Results 05/09/17 06:00 05/09/17 06:00 05/08/17 05/09/17 05/10/17 05:59 05:59 05:59 Intake Total 700 950 Output Total 1500 500 Balance -800 450 Laboratory Tests 05/05/17 05/09/17 04:05 06:00 AST 79 H 36 ALT 81 H 75 H Alkaline Phosphatase 225 H 240 H Tm 37 F General Appearance: alert, no apparent distress Respiratory: No accessory muscle use CV: RRR Chest: clear B, breathing easy, on O2 1-2 L Neuro/Psych: alert, normal mood/affect, oriented x 3 R hand mild swelling, stable Lines: No drainage, No erythema ICD10 Worksheet Patient Problems: Problems Problem Status Onset Altered mental status Acute Chronic cervical pain Acute Neuropathy Acute
--- NOTE | 2017-05-09 13:32 | SOAPPROG ---
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 This required surgery for incision and drainage, corpectomy of C6, and partial corpectomy of C7, C4 laminectomy, and anterior and posterior cervical spinal fusion. She had multiple hospital complications, including atrial fibrillation, acute renal insufficiency, hypoxia, anemia, encephalopathy, and insomnia. She has deconditioning as well as upper extremity weakness R > L.. * Debility with prominent upper extremity weakness, deconditioning and reduced endurance, status post prolonged complicated hospitalization. * Contact guard assist for bed mobility. Ambulated 110 ft yesterday 05/07/2017 with front wheeled walker and contact guard assist. Maximal assist for dressing and bathing, total assist for toileting. Needs more assistance when pain level is higher. * Continue PT and OT to optimize mobility and activities of daily living. * Encephalopathy in the hospital and possible cognitive impairment. * To be assessed and treated per Speech and Language Pathology. * Epidural abscess, status post I and D, C6 corpectomy, C7 partial corpectomy, and anterior and posterior spinal fusion. * Continue IV antibiotics for a total of 8 weeks. * Pain control with oxycodone, acetaminophen, and muscle relaxants. * Hard cervical collar at all times except a soft collar is permitted for showering. Follow up with Neurosurgery in approximately 2 weeks. *Anemia. * Worse on labs 05/09/2017. * Retics appropriate. Very iron deficient. B12 normal. * Replete iron PO starting 05/09/2017 for 1 mo. * Check hemoccult X 3. * Hypoxia of unclear etiology. There was no congestive heart failure on her echocardiogram. She has no signs or symptoms of pneumonia. Anemia may contribute. * Continue incentive spirometry and oxygen as needed, * Get CXR in AM 05/10/2017. * Atrial fibrillation in the hospital. * Regular rhythm on serial exams. * On ASA. If she were in atrial fibrillation, CHADS2-Vasc score of 4 would correspond to 4.8% CVA risk per year and anticoagulation would be indicated. * Had normal echocardiogram in the hospital except mild MR & TR.. * Monitor for S/Sx irregular heartbeat. * Edema, unclear etiology. * Gabapentin and amlodipine may contribute. * Was on chlorthalidone prior to hospitalization and no B-anibal. * Consider initiation of diuretic and tapering other antihypertensives. * Hypertension. * Continue amlodipine and metoprolol. Monitor blood pressures and adjust or add medications as needed. * Insomnia. Likely contributes to encephalopathy. * Improved with increased trazodone from 50 to 100 mg at HS 05/06/2017. * Neuropathic pain symptoms. Continue gabapentin and duloxetine. The dose of gabapentin has been increased considerably from prior to admission. * Acute renal insufficiency with some improvement. Elevated postvoid residual was noted, as well. Renal insufficiency improved after switch from nafcillin to ceftriaxone. * Renal function and electrolytes stable with stage III chronic renal insufficiency on labs 05/09/2017. * Bowel program. Continue polyethylene glycol and senna/docusate on a p.r.n. basis. I have added a bisacodyl suppository p.r.n. as well as a Fleet saline enema. She has been moving her bowels regularly in the hospital. Prophylaxis. Ambulating > 150'. No hemiparesis, no lower extremity injury. Will not initiate pharmacologic anticoagulation. 05/09/17 15:09 Subjective: Has fatigue with brief ambulation this afternoon. Did better this morning. Denies fevers, chills, cough, dyspnea. Has bilateral pain over trapezius muscles after sitting or standing unsupported for appeared of time or after working with therapies. Pain does not radiate. She has some tenderness in the trapezius muscles. Sleeping okay but is awake for some periods during the night. Objective: Vital Signs Temp Pulse Resp BP Pulse Ox 37.0 C 73 16 136/79 H 91 L 05/09/17 06:50 05/09/17 08:51 05/09/17 06:50 05/09/17 08:51 05/09/17 06:50 Laboratory Results 05/09/17 06:00 05/09/17 06:00 05/08/17 05/09/17 05/10/17 05:59 05:59 05:59 Intake Total 700 950 600 Output Total 1500 500 Balance -800 450 600 Physical Exam - Physical Exam General Appearance: WD/WN, alert, no apparent distress Respiratory: normal breath sounds, wheezing (Expiratory wheezes right lower lung field), No crackles, No rhonchi Cardiac/Chest: regular rate, rhythm, edema (1 to 2+ bilateral pretibial), No diastolic murmur, No systolic murmur Neuro/Psych: alert, normal mood/affect, oriented x 3 ICD10 Worksheet Patient Problems: Problems Problem Status Onset Altered mental status Acute Chronic cervical pain Acute Neuropathy Acute
[2017-05-09] MEDS: FERROUS SULFATE 325 MG TAB PO SCH (15:21)
[2017-05-09] MEDS: amLODIPine BESYLATE 5 MG TAB PO SCH (21:08)
[2017-05-09] MEDS: DULoxetine 60 MG CAP PO SCH (21:08)
[2017-05-09] MEDS: traZODone 50 MG TAB PO SCH (21:08)
[2017-05-09] MEDS: MELATONIN 3 MG TAB PO SCH (21:08)
[2017-05-09] MEDS: PATCH REMOVAL 1 EA PATCH TD SCH (23:11)
[2017-05-10] MEDS: ACETAMINOPHEN 500 MG TAB PO SCH ×3 (05:54→21:02)
[2017-05-10] MEDS: ASPIRIN EC 81 MG TAB PO SCH (08:53)
[2017-05-10] MEDS: GABAPENTIN 300 MG CAP PO SCH ×3 (08:54→21:06)
[2017-05-10] MEDS: FAMOTIDINE 20 MG TAB PO SCH (08:54)
[2017-05-10] MEDS: FERROUS SULFATE 325 MG TAB PO SCH (08:54)
[2017-05-10] MEDS: LIDOCAINE 5% 1 EA PATCH TD SCH (08:54)
[2017-05-10] MEDS: MULTIVITAMINS 1 EACH TAB PO SCH (08:58)
[2017-05-10] MEDS: POLYETHYLENE GLYCOL 3350 17 GM PKT PO SCH (08:59)
[2017-05-10] MEDS: METOPROLOL TARTRATE 50 MG TAB PO SCH ×2 (09:04→21:06)
[2017-05-10] MEDS: oxyCODONE IR 5 MG TAB PO PRN ×3 (10:34→21:05)
--- NOTE | 2017-05-10 15:26 | SOAPPROG ---
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 This required surgery for incision and drainage, corpectomy of C6, and partial corpectomy of C7, C4 laminectomy, and anterior and posterior cervical spinal fusion. She had multiple hospital complications, including atrial fibrillation, acute renal insufficiency, hypoxia, anemia, encephalopathy, and insomnia. She has deconditioning as well as upper extremity weakness R > L.. * Debility with prominent upper extremity weakness, deconditioning and reduced endurance, status post prolonged complicated hospitalization. * Contact guard assist for bed mobility. Ambulated 150 with front wheeled walker and contact guard assist. Moderate assist for dressing and bathing, contact guard assist for toileting. Needs more assistance when pain level is higher. * Continue PT and OT to optimize mobility and activities of daily living. * Encephalopathy in the hospital and possible cognitive impairment. * To be assessed and treated per Speech and Language Pathology. * Epidural abscess, status post I and D, C6 corpectomy, C7 partial corpectomy, and anterior and posterior spinal fusion. * Continue IV antibiotics for a total of 8 weeks. * Pain control with oxycodone, acetaminophen, and muscle relaxants. * Hard cervical collar at all times except a soft collar is permitted for showering. Follow up with Neurosurgery in approximately 2 weeks. *Anemia. * Worse on labs 05/09/2017. * Retics appropriate. Very iron deficient. B12 normal. * Replete iron PO starting 05/09/2017 for 1 mo. * Check hemoccult X 3. * Hypoxia of unclear etiology. There was no congestive heart failure on her echocardiogram. She has no signs or symptoms of pneumonia. Anemia may contribute. * Continue incentive spirometry and oxygen as needed, * CXR 05/10/2017 with pleural effusion. * No PE on CT angiogram. Has small pleural effusions, atelectasis, and infiltrates upper lobes. D/W Dr. Miles, pulmonology. Consider aspiration pneumonitis. Advises checking procalcitonin. Ceftriaxone may not cover gram (- ) rods. Will also repeat CBC in AM and will discuss with ID. * Atrial fibrillation in the hospital. * Regular rhythm on serial exams. * On ASA. If she were in atrial fibrillation, CHADS2-Vasc score of 4 would correspond to 4.8% CVA risk per year and anticoagulation would be indicated. * Had normal echocardiogram in the hospital except mild MR & TR.. * Monitor for S/Sx irregular heartbeat. * Edema, unclear etiology. * Gabapentin and amlodipine may contribute. * Was on chlorthalidone prior to hospitalization and no B-anibal. * Consider initiation of diuretic and tapering other antihypertensives. * Hypertension. * Continue amlodipine and metoprolol. Monitor blood pressures and adjust or add medications as needed. * Insomnia. Likely contributes to encephalopathy. * Improved with increased trazodone from 50 to 100 mg at HS 05/06/2017. * Neuropathic pain symptoms. Continue gabapentin and duloxetine. The dose of gabapentin has been increased considerably from prior to admission. * Acute renal insufficiency with some improvement. Elevated postvoid residual was noted, as well. Renal insufficiency improved after switch from nafcillin to ceftriaxone. * Renal function and electrolytes stable with stage III chronic renal insufficiency on labs 05/09/2017. * Bowel program. Continue polyethylene glycol and senna/docusate on a p.r.n. basis. I have added a bisacodyl suppository p.r.n. as well as a Fleet saline enema. She has been moving her bowels regularly in the hospital. Prophylaxis. Ambulating > 150'. No hemiparesis, no lower extremity injury. Will not initiate pharmacologic anticoagulation. 05/10/17 21:16 Subjective: Has a sore neck after working with physical therapy today. Using ice which helps. No cough or dyspnea. No fevers, chills. Objective: Vital Signs Temp Pulse Resp BP Pulse Ox 36.6 C 62 17 111/60 90 L 05/10/17 06:39 05/10/17 09:04 05/10/17 06:39 05/10/17 09:04 05/10/17 06:39 Laboratory Results 05/10/17 06:00 05/09/17 06:00 05/09/17 05/10/17 05/11/17 05:59 05:59 05:59 Intake Total 950 1510 Output Total 500 600 100 Balance 450 910 -100 Physical Exam - Physical Exam General Appearance: WD/WN, alert, no apparent distress Respiratory: normal breath sounds, wheezing (Upper airway wheeze?), No crackles , No rhonchi Cardiac/Chest: regular rate, rhythm, edema (2+ bilateral lower extremities), No diastolic murmur, No systolic murmur Skin: normal color, warm/dry Neuro/Psych: no motor/sensory deficits, alert, normal mood/affect, oriented x 3 ICD10 Worksheet Patient Problems: Problems Problem Status Onset Altered mental status Acute Chronic cervical pain Acute Neuropathy Acute
[2017-05-10] MEDS ORDERED: IOPAMIDOL (ISOVUE 370) 100 ML BTL IV ONE (16:38)
[2017-05-10] MEDS: amLODIPine BESYLATE 5 MG TAB PO SCH (21:05)
[2017-05-10] MEDS: DULoxetine 60 MG CAP PO SCH (21:05)
[2017-05-10] MEDS: traZODone 50 MG TAB PO SCH (21:05)
[2017-05-10] MEDS: MELATONIN 3 MG TAB PO SCH (21:06)
[2017-05-10] MEDS: PATCH REMOVAL 1 EA PATCH TD SCH (21:06)
[2017-05-11] MEDS: ACETAMINOPHEN 500 MG TAB PO SCH ×3 (06:01→20:22)
[2017-05-11 08:13] LABS: PLATELET COUNT 526 10^3/uL (150-400)
[2017-05-11] MEDS: LIDOCAINE 5% 1 EA PATCH TD SCH (09:07)
[2017-05-11] MEDS: METOPROLOL TARTRATE 50 MG TAB PO SCH ×2 (09:09→20:21)
[2017-05-11] MEDS: MULTIVITAMINS 1 EACH TAB PO SCH (09:09)
[2017-05-11] MEDS: GABAPENTIN 300 MG CAP PO SCH ×3 (09:09→20:21)
[2017-05-11] MEDS: FERROUS SULFATE 325 MG TAB PO SCH (09:09)
[2017-05-11] MEDS: POLYETHYLENE GLYCOL 3350 17 GM PKT PO SCH (09:09)
[2017-05-11] MEDS: ASPIRIN EC 81 MG TAB PO SCH (09:09)
[2017-05-11] MEDS: FAMOTIDINE 20 MG TAB PO SCH (09:09)
--- NOTE | 2017-05-11 09:49 | SOAPPROG ---
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 This required surgery for incision and drainage, corpectomy of C6, and partial corpectomy of C7, C4 laminectomy, and anterior and posterior cervical spinal fusion. She had multiple hospital complications, including atrial fibrillation, acute renal insufficiency, hypoxia, anemia, encephalopathy, and insomnia. She has deconditioning as well as upper extremity weakness R > L.. * Debility with prominent upper extremity weakness, deconditioning and reduced endurance, status post prolonged complicated hospitalization. * Initial FIM 79 on 05/11/2017. Transfers CGA with FWW. I lionel mobility. Walked 150' x 2. Decreased coordination lower extremities and eccentric weakness noted descending stairs; did 4 steps CGA - min A B rails. Mod A for dressing, max A for bathing, mod - max A toilet hygiene. Upper extremity fatigue. Needs more assistance when fatigued in evening. * Continue PT and OT to optimize mobility and activities of daily living. * Encephalopathy in the hospital and possible cognitive impairment. * Largely recovered. Mild decrease in attention and memory. MOCA 29/30. * Continue Speech and Language Pathology but reduce to 30 min/day. * Epidural abscess, status post I and D, C6 corpectomy, C7 partial corpectomy, and anterior and posterior spinal fusion. * Continue IV antibiotics for a total of 8 weeks. * Pain control with oxycodone, acetaminophen,. Not using muscle relaxants; D/C 05/11/2017.. * Hard cervical collar at all times except a soft collar is permitted for showering. Follow up with Neurosurgery in approximately 2 weeks. *Anemia. * Worse on labs 05/09/2017. Much improved 05/11/2017. * Retics appropriate. Very iron deficient. B12 normal. * Replete iron PO starting 05/09/2017 for 1 mo. * Check hemoccult X 3. * Hypoxia of unclear etiology. There was no congestive heart failure on her echocardiogram. She has no signs or symptoms of pneumonia. Anemia may contribute. * Continue incentive spirometry and oxygen as needed, * CXR 05/10/2017 with pleural effusion. * No PE on CT angiogram. Has small pleural effusions, atelectasis, and infiltrates upper lobes. D/W Dr. Miles, pulmonology. Consider aspiration pneumonitis. Advises checking procalcitonin. Ceftriaxone may not cover gram (- ) rods. Continues to have no elevated white count and procalcitonin is very slightly elevated and not consistent with uncontrolled infection. No cough, sputum, fever. Will not purse infectious etiology further. * Atrial fibrillation in the hospital. * Regular rhythm on serial exams. * On ASA. If she were in atrial fibrillation, CHADS2-Vasc score of 4 would correspond to 4.8% CVA risk per year and anticoagulation would be indicated. * Had normal echocardiogram in the hospital except mild MR & TR.. * Monitor for S/Sx irregular heartbeat. * Edema, unclear etiology. * Gabapentin and amlodipine may contribute. Will decrease gabapentin from 900 mg three times daily to 600 mg three times daily starting 05/11/2017. Will change from amlodipine to lisinopril. Daily weights and continue to monitor. * Was on chlorthalidone prior to hospitalization and no B-anibal. * Consider initiation of diuretic and tapering other antihypertensives. * Hypertension. * Continue metoprolol. Changed from amlodipine to lisinopril 05/11/2017. Monitor blood pressures and adjust or add medications as needed. * Insomnia. Likely contributes to encephalopathy. * Improved with increased trazodone from 50 to 100 mg at HS 05/06/2017. * Neuropathic pain symptoms. Continue gabapentin and duloxetine. The dose of gabapentin has been increased considerably from prior to admission. * Monitor with reduction of gabapentin dose. * Acute renal insufficiency with some improvement. Elevated postvoid residual was noted, as well. Renal insufficiency improved after switch from nafcillin to ceftriaxone. * Renal function and electrolytes stable with stage III chronic renal insufficiency on labs 05/09/2017. * Bowel program. Continue polyethylene glycol and senna/docusate on a p.r.n. basis. I have added a bisacodyl suppository p.r.n. as well as a Fleet saline enema. She has been moving her bowels regularly in the hospital. Prophylaxis. Ambulating > 150'. No hemiparesis, no lower extremity injury. Will not initiate pharmacologic anticoagulation. Attended staffing, 15 min. D/W case mgmt, nursing, multimedia technician, pharmacy, PT, OT , ADVERTISING ACCOUNT REPRESENTATIVE. Plans to discharge to her home with assistance from partner. 2 CHRISTAL (4 CHRISTAL at his house). Tentative D/C 05/20/17. 05/11/17 11:36 Subjective: No complaints this morning. Slept well. Not in pain. No cough or dyspnea. Has CPAP from home but reports she has never used it; received the day that she became sick and was hospitalized. Objective: Vital Signs Temp Pulse Resp BP Pulse Ox 36.3 C 70 12 127/80 H 91 L 05/11/17 07:03 05/11/17 09:09 05/11/17 07:03 05/11/17 09:09 05/11/17 07:03 Laboratory Results 05/11/17 06:00 05/09/17 06:00 05/10/17 05/11/17 05/12/17 05:59 05:59 05:59 Intake Total 1510 450 Output Total 600 1200 Balance 910 -750 - Time Spent With Patient Time Spent With Patient: Greater than 35 minutes floor time today, including more than 50% of time in coordination of care during staffing meeting, and counseling patient. Physical Exam - Physical Exam General Appearance: WD/WN, alert, no apparent distress Respiratory: normal breath sounds, wheezing (Few expiratory, upper lobes), No crackles, No rhonchi Cardiac/Chest: regular rate, rhythm, edema (2+ bilateral lower extremities all) , No diastolic murmur, No systolic murmur Skin: normal color, warm/dry Neuro/Psych: alert, normal mood/affect, oriented x 3 ICD10 Worksheet Patient Problems: Problems Problem Status Onset Altered mental status Acute Chronic cervical pain Acute Neuropathy Acute
[2017-05-11] MEDS: oxyCODONE IR 5 MG TAB PO PRN ×2 (15:41→20:21)
[2017-05-11] MEDS: DULoxetine 60 MG CAP PO SCH (20:21)
[2017-05-11] MEDS: LISINOPRIL 10 MG TAB PO SCH (20:21)
[2017-05-11] MEDS: traZODone 50 MG TAB PO SCH (20:21)
[2017-05-11] MEDS: MELATONIN 3 MG TAB PO SCH (20:21)
[2017-05-11] MEDS: PATCH REMOVAL 1 EA PATCH TD SCH (21:30)
[2017-05-12] MEDS: oxyCODONE IR 5 MG TAB PO PRN ×4 (02:17→19:49)
[2017-05-12] MEDS: ACETAMINOPHEN 500 MG TAB PO SCH ×3 (06:40→21:42)
[2017-05-12] MEDS: FAMOTIDINE 20 MG TAB PO SCH (09:33)
[2017-05-12] MEDS: LIDOCAINE 5% 1 EA PATCH TD SCH (09:33)
[2017-05-12] MEDS: POLYETHYLENE GLYCOL 3350 17 GM PKT PO SCH (09:33)
[2017-05-12] MEDS: GABAPENTIN 300 MG CAP PO SCH ×3 (09:33→21:41)
[2017-05-12] MEDS: METOPROLOL TARTRATE 50 MG TAB PO SCH ×2 (09:33→20:03)
[2017-05-12] MEDS: ASPIRIN EC 81 MG TAB PO SCH (09:34)
[2017-05-12] MEDS: MULTIVITAMINS 1 EACH TAB PO SCH (09:34)
[2017-05-12] MEDS: FERROUS SULFATE 325 MG TAB PO SCH (09:34)
--- NOTE | 2017-05-12 13:51 | SOAPPROG ---
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 This required surgery for incision and drainage, corpectomy of C6, and partial corpectomy of C7, C4 laminectomy, and anterior and posterior cervical spinal fusion. She had multiple hospital complications, including atrial fibrillation, acute renal insufficiency, hypoxia, anemia, encephalopathy, and insomnia. She has deconditioning as well as upper extremity weakness R > L.. * Debility with prominent upper extremity weakness, deconditioning and reduced endurance, status post prolonged complicated hospitalization. * Initial FIM 79 on 05/11/2017. Transfers CGA with FWW. I lionel mobility. Walked 150' x 2. Decreased coordination lower extremities and eccentric weakness noted descending stairs; did 4 steps CGA - min A B rails. Mod A for dressing, max A for bathing, mod - max A toilet hygiene. Upper extremity fatigue. Needs more assistance when fatigued in evening. * Continue PT and OT to optimize mobility and activities of daily living. * Encephalopathy in the hospital and possible cognitive impairment. * Largely recovered. Mild decrease in attention and memory. MOCA 29/30. * Continue Speech and Language Pathology but reduce to 30 min/day. * Epidural abscess, status post I and D, C6 corpectomy, C7 partial corpectomy, and anterior and posterior spinal fusion. * Continue IV antibiotics for a total of 8 weeks. * Pain control with oxycodone, acetaminophen,. Not using muscle relaxants; D/C 05/11/2017.. * Hard cervical collar at all times except a soft collar is permitted for showering. Follow up with Neurosurgery in approximately 2 weeks. *Anemia. * Worse on labs 05/09/2017. Much improved 05/11/2017. * Retics appropriate. Very iron deficient. B12 normal. * Replete iron PO starting 05/09/2017 for 1 mo. * Check hemoccult X 3. * Hypoxia of unclear etiology. There was no congestive heart failure on her echocardiogram. She has no signs or symptoms of pneumonia. Anemia may contribute. * Continue incentive spirometry and oxygen as needed, * CXR 05/10/2017 with pleural effusion. * No PE on CT angiogram. Has small pleural effusions, atelectasis, and infiltrates upper lobes. D/W Dr. Miles, pulmonology. Consider aspiration pneumonitis. Advises checking procalcitonin. Ceftriaxone may not cover gram (- ) rods. Continues to have no elevated white count and procalcitonin is very slightly elevated and not consistent with uncontrolled infection. No cough, sputum, fever. Will not pursue infectious etiology further. * Atrial fibrillation in the hospital. * Regular rhythm on serial exams. * On ASA. If she were in atrial fibrillation, CHADS2-Vasc score of 4 would correspond to 4.8% CVA risk per year and anticoagulation would be indicated. * Had normal echocardiogram in the hospital except mild MR & TR.. * Monitor for S/Sx irregular heartbeat. * Edema, unclear etiology. * Gabapentin and amlodipine may contribute. Will decrease gabapentin from 900 mg three times daily to 600 mg three times daily starting 05/11/2017. Will change from amlodipine to lisinopril. Daily weights and continue to monitor. * Was on chlorthalidone prior to hospitalization and no B-anibal. * Consider initiation of diuretic and tapering other antihypertensives. * Hypertension. * Continue metoprolol. Changed from amlodipine to lisinopril 05/11/2017. Monitor blood pressures and adjust or add medications as needed. * Insomnia. Likely contributes to encephalopathy. * Improved with increased trazodone from 50 to 100 mg at HS 05/06/2017. * Neuropathic pain symptoms. Continue gabapentin and duloxetine. The dose of gabapentin had been increased considerably from prior to admission. * Not worse with reduction of gabapentin dose. * Acute renal insufficiency with some improvement. Elevated postvoid residual was noted, as well. Renal insufficiency improved after switch from nafcillin to ceftriaxone. * Renal function and electrolytes stable with stage III chronic renal insufficiency on labs 05/09/2017. * Bowel program. Continue polyethylene glycol and senna/docusate on a p.r.n. basis. I have added a bisacodyl suppository p.r.n. as well as a Fleet saline enema. She has been moving her bowels regularly in the hospital. Prophylaxis. Ambulating > 150'. No hemiparesis, no lower extremity injury. Will not initiate pharmacologic anticoagulation. Plans to discharge to her home with assistance from partner. 2 CHRISTAL (4 CHRISTAL at his house). Tentative D/C 05/20/17. 05/12/17 13:38 Subjective: No complaints. Use of her hands is improving and sensation may be improving. Pain is adequately controlled with no significant flare after taper of gabapentin. Has not noticed any effect of change of antihypertensive from amlodipine to lisinopril I Objective: Vital Signs Temp Pulse Resp BP Pulse Ox 36.6 C 59 L 16 137/78 H 92 05/12/17 08:00 05/12/17 08:00 05/12/17 08:00 05/12/17 08:00 05/12/17 08:00 Laboratory Results 05/11/17 06:00 05/09/17 06:00 05/11/17 05/12/17 05/13/17 05:59 05:59 05:59 Intake Total 450 990 Output Total 1200 2100 Balance -750 -1110 Physical Exam - Physical Exam General Appearance: WD/WN, alert, no apparent distress Respiratory: No respiratory distress, No accessory muscle use Cardiac/Chest: regular rate, rhythm, edema (2+ B LE) Skin: normal color, warm/dry Neuro/Psych: alert, normal mood/affect, oriented x 3, aphasia (Mildly wide-based , step through pattern, with front wheeled walker accompanied by PT.) ICD10 Worksheet Patient Problems: Problems Problem Status Onset Altered mental status Acute Chronic cervical pain Acute Neuropathy Acute
[2017-05-12] MEDS: traZODone 50 MG TAB PO SCH (20:02)
[2017-05-12] MEDS: DULoxetine 60 MG CAP PO SCH (20:02)
[2017-05-12] MEDS: MELATONIN 3 MG TAB PO SCH (20:03)
[2017-05-12] MEDS: LISINOPRIL 10 MG TAB PO SCH (21:58)
[2017-05-12] MEDS: PATCH REMOVAL 1 EA PATCH TD SCH ×2 (21:59→22:07)
[2017-05-13] MEDS: ACETAMINOPHEN 500 MG TAB PO SCH ×3 (06:07→20:28)
[2017-05-13] MEDS ORDERED: ALBUTEROL 3 ML DEYVIAL IH ONE (07:30)
[2017-05-13] MEDS: POLYETHYLENE GLYCOL 3350 17 GM PKT PO SCH (08:53)
[2017-05-13] MEDS: GABAPENTIN 300 MG CAP PO SCH ×3 (08:54→20:29)
[2017-05-13] MEDS: FERROUS SULFATE 325 MG TAB PO SCH (08:54)
[2017-05-13] MEDS: FAMOTIDINE 20 MG TAB PO SCH (08:54)
[2017-05-13] MEDS: oxyCODONE IR 5 MG TAB PO PRN ×3 (08:54→20:29)
[2017-05-13] MEDS: MULTIVITAMINS 1 EACH TAB PO SCH (08:54)
[2017-05-13] MEDS: ASPIRIN EC 81 MG TAB PO SCH (08:54)
[2017-05-13] MEDS: METOPROLOL TARTRATE 50 MG TAB PO SCH ×2 (08:54→20:29)
[2017-05-13] MEDS: LIDOCAINE 5% 1 EA PATCH TD SCH (08:55)
--- NOTE | 2017-05-13 09:46 | SOAPPROG ---
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 This required surgery for incision and drainage, corpectomy of C6, and partial corpectomy of C7, C4 laminectomy, and anterior and posterior cervical spinal fusion. She had multiple hospital complications, including atrial fibrillation, acute renal insufficiency, hypoxia, anemia, encephalopathy, and insomnia. She has deconditioning as well as upper extremity weakness R > L.. * Debility with prominent upper extremity weakness, deconditioning and reduced endurance, status post prolonged complicated hospitalization. * Initial FIM 79 on 05/11/2017. Transfers CGA with FWW. I lionel mobility. Walked 150' x 2. Decreased coordination lower extremities and eccentric weakness noted descending stairs; did 4 steps CGA - min A B rails. Mod A for dressing, max A for bathing, mod - max A toilet hygiene. Upper extremity fatigue. Needs more assistance when fatigued in evening. * Continue PT and OT to optimize mobility and activities of daily living. * Encephalopathy in the hospital and possible cognitive impairment. * Largely recovered. Mild decrease in attention and memory. MOCA 29/30. * Continue Speech and Language Pathology but reduced to 30 min/day starting . * Epidural abscess, status post I and D, C6 corpectomy, C7 partial corpectomy, and anterior and posterior spinal fusion. * Continue IV antibiotics for a total of 8 weeks. * Pain control with oxycodone, acetaminophen,. Not using muscle relaxants; D/C 05/11/2017.. * Hard cervical collar at all times except a soft collar is permitted for showering. Follow up with Neurosurgery in approximately 2 weeks. * Episode of chest tightness this morning 05/13/2017. * +/- improved with bronchodilator * Check stat troponin and get EKG. *Anemia. * Worse on labs 05/09/2017. Much improved 05/11/2017. * Retics appropriate. Very iron deficient. B12 normal. * Replete iron PO starting 05/09/2017 for 1 mo. * Hemoccult negative X 3. * Hypoxia of unclear etiology. There was no congestive heart failure on her echocardiogram. She has no signs or symptoms of pneumonia. Anemia may contribute. * Continue incentive spirometry and oxygen as needed, * CXR 05/10/2017 with pleural effusion. * No PE on CT angiogram. Has small pleural effusions, atelectasis, and infiltrates upper lobes. D/W Dr. Miles, pulmonology. Consider aspiration pneumonitis. Advises checking procalcitonin. Ceftriaxone may not cover gram (- ) rods. * Continues to have no elevated white count and procalcitonin is very slightly elevated and not consistent with uncontrolled infection. No cough, sputum, fever. Will not pursue infectious etiology further. * Atrial fibrillation in the hospital. * Regular rhythm on serial exams. * EKG showed new RBBB in the hospital. * On ASA. If she were in atrial fibrillation, CHADS2-Vasc score of 4 would correspond to 4.8% CVA risk per year and anticoagulation would be indicated. * Had normal echocardiogram in the hospital except mild MR & TR.. * Monitor for S/Sx irregular heartbeat. * Edema, unclear etiology. * Gabapentin and amlodipine may contribute. Will decrease gabapentin from 900 mg three times daily to 600 mg three times daily starting 05/11/2017. Will change from amlodipine to lisinopril. Daily weights and continue to monitor. * Was on chlorthalidone prior to hospitalization and no B-anibal. * Consider initiation of diuretic and tapering other antihypertensives. * Hypertension. * Continue metoprolol. Changed from amlodipine to lisinopril 05/11/2017. Monitor blood pressures and adjust or add medications as needed. * Insomnia. Likely contributes to encephalopathy. * Improved with increased trazodone from 50 to 100 mg at HS 05/06/2017. * Neuropathic pain symptoms. Continue gabapentin and duloxetine. The dose of gabapentin had been increased considerably from prior to admission. * Not worse with reduction of gabapentin dose. * Acute renal insufficiency with some improvement. Elevated postvoid residual was noted, as well. Renal insufficiency improved after switch from nafcillin to ceftriaxone. * Renal function and electrolytes stable with stage III chronic renal insufficiency on labs 05/09/2017. * Bowel program. Continue polyethylene glycol and senna/docusate on a p.r.n. basis. I have added a bisacodyl suppository p.r.n. as well as a Fleet saline enema. She has been moving her bowels regularly in the hospital. * Prophylaxis. Ambulating > 150'. No hemiparesis, no lower extremity injury. Will not initiate pharmacologic anticoagulation. Plans to discharge to her home with assistance from partner. 2 CHRISTAL (4 CHRISTAL at his house). Tentative D/C 05/20/17. 05/13/17 09:40 Subjective: Episode of chest tightness this morning, and O2 saturation 85%. Ordered albuterol nebulizer. Denies CP, palpitations. Has sensation of tightness "as if I'm wearing a tight bra" across lower chest bilateral. No cough or dyspnea, though somewhat winded from PT. No n/v/c/d, good appetite. Objective: Vital Signs Temp Pulse Resp BP Pulse Ox 36.6 C 68 16 144/71 H 94 05/12/17 19:47 05/13/17 08:54 05/12/17 19:47 05/13/17 08:54 05/12/17 19:47 Laboratory Results 05/11/17 06:00 05/09/17 06:00 05/12/17 05/13/17 05/14/17 05:59 05:59 05:59 Intake Total 990 600 80 Output Total 2100 900 Balance -1110 -300 80 Physical Exam - Physical Exam General Appearance: WD/WN, alert, no apparent distress Respiratory: normal breath sounds, wheezing (JEY expiratory), No crackles, No rhonchi Cardiac/Chest: regular rate, rhythm, edema (1 - 2 + B pretibial) Skin: normal color, warm/dry Neuro/Psych: alert, normal mood/affect, oriented x 3 ICD10 Worksheet Patient Problems: Problems Problem Status Onset Altered mental status Acute Chronic cervical pain Acute Neuropathy Acute
--- NOTE | 2017-05-13 12:14 | CPEKG ---
Heart Rate: 63 RR Interval: 952 P-R Interval: 168 QRSD Interval: 84 QT Interval: 448 QTC Interval: 459 P [place]: 75 QRS [place]: 26 T Wave [place]: 65 EKG Severity - NORMAL ECG - EKG Impression: SINUS RHYTHM Electronically Signed By: Amor Noble 13-May-2017 13:50:19
[2017-05-13] MEDS: LISINOPRIL 10 MG TAB PO SCH (20:28)
[2017-05-13] MEDS: CYCLOBENZAPRINE 10 MG TAB PO PRN (20:29)
[2017-05-13] MEDS: MELATONIN 3 MG TAB PO SCH (20:29)
[2017-05-13] MEDS: DULoxetine 60 MG CAP PO SCH (20:29)
[2017-05-13] MEDS: traZODone 50 MG TAB PO SCH (20:29)
[2017-05-13] MEDS: PATCH REMOVAL 1 EA PATCH TD SCH (20:30)
[2017-05-14] MEDS: oxyCODONE IR 5 MG TAB PO PRN ×3 (06:27→19:59)
[2017-05-14] MEDS: ACETAMINOPHEN 500 MG TAB PO SCH ×3 (06:28→19:59)
[2017-05-14] MEDS: FERROUS SULFATE 325 MG TAB PO SCH (08:44)
[2017-05-14] MEDS: FAMOTIDINE 20 MG TAB PO SCH (08:44)
[2017-05-14] MEDS: GABAPENTIN 300 MG CAP PO SCH ×3 (08:44→19:59)
[2017-05-14] MEDS: POLYETHYLENE GLYCOL 3350 17 GM PKT PO SCH (08:45)
[2017-05-14] MEDS: LIDOCAINE 5% 1 EA PATCH TD SCH ×2 (08:45→08:53)
[2017-05-14] MEDS: METOPROLOL TARTRATE 50 MG TAB PO SCH ×2 (08:45→19:59)
[2017-05-14] MEDS: MULTIVITAMINS 1 EACH TAB PO SCH (08:45)
[2017-05-14] MEDS: ASPIRIN EC 81 MG TAB PO SCH (08:50)
--- NOTE | 2017-05-14 10:38 | SOAPPROG ---
SOAP Progress Note Assessment/Plan: Assessment: 76-year-old woman w/ epidural abscess along the cervical spine causing cord compression, s/p epidural steroid injection. S/P surgery for incision and drainage, corpectomy of C6, and partial corpectomy of C7, C4 laminectomy, and anterior and posterior cervical spinal fusion. Multiple hospital complications , including atrial fibrillation, acute renal insufficiency, hypoxia, anemia, encephalopathy, insomnia, deconditioning as well as upper extremity weakness R > L.. * Debility with prominent upper extremity weakness, deconditioning and reduced endurance, status post prolonged complicated hospitalization. * Initial FIM 79 on 05/11/2017. Transfers CGA with FWW. I lionel mobility. Walked 150' x 2. Decreased coordination lower extremities and eccentric weakness noted descending stairs; did 4 steps CGA - min A B rails. Mod A for dressing, max A for bathing, mod - max A toilet hygiene. Upper extremity fatigue. * Continue PT and OT to optimize mobility and activities of daily living. * Encephalopathy in the hospital and possible cognitive impairment. * Largely recovered. Mild decrease in attention and memory. MOCA 29/30. * Continue Speech and Language Pathology but reduced to 30 min/day starting . * Epidural abscess, status post I and D, C6 corpectomy, C7 partial corpectomy, and anterior and posterior spinal fusion. * Continue IV antibiotics for a total of 8 weeks. * Pain control with oxycodone, acetaminophen,. Muscle relaxants D/C'd 2016.. * Hard cervical collar at all times x soft collar is permitted for showering. Follow up with Neurosurgery in approximately 2 weeks. * Episode of chest tightness 05/13/2017, currently denies SOB. Using IS at bedside. Cont O2, IS, Bronchodilators * +/- improved with bronchodilator * EKG WNL on 05/13. *Anemia. * Worse on labs 05/09/2017. Much improved 05/11/2017. * Retics appropriate. Very iron deficient. B12 normal. * Replete iron PO starting 05/09/2017 for 1 mo. * Hemoccult negative X 3. * Hypoxia of unclear etiology. There was no congestive heart failure on her echocardiogram. She has no signs or symptoms of pneumonia. Anemia may contribute. * Continue incentive spirometry and oxygen as needed, * CXR 05/10/2017 with pleural effusion. * No PE on CT angiogram. Has small pleural effusions, atelectasis, and infiltrates upper lobes. D/W Dr. Miles, pulmonology. Consider aspiration pneumonitis. Procalcitonin slightly elevated at 0.11 c/w low likelyhood of sepsis.. Ceftriaxone may not cover gram (-) rods. * Continues to have no elevated white count and procalcitonin is very slightly elevated and not consistent with uncontrolled infection. No cough, sputum, fever. Will not pursue infectious etiology further. * Atrial fibrillation in the hospital. * Regular rhythm on serial exams. * EKG showed new RBBB in the hospital. * On ASA. If she were in atrial fibrillation, CHADS2-Vasc score of 4 would correspond to 4.8% CVA risk per year and anticoagulation would be indicated. * Had normal echocardiogram in the hospital except mild MR & TR.. * Monitor for S/Sx irregular heartbeat. * Edema, unclear etiology. * Gabapentin and amlodipine may contribute. Will decrease gabapentin from 900 mg three times daily to 600 mg three times daily starting 05/11/2017. Will change from amlodipine to lisinopril. Daily weights and continue to monitor. * Was on chlorthalidone prior to hospitalization and no B-anibal. * Consider initiation of diuretic and tapering other antihypertensives. * Hypertension. * Continue metoprolol. Changed from amlodipine to lisinopril 05/11/2017. Monitor blood pressures and adjust or add medications as needed. * Insomnia. Likely contributes to encephalopathy. * Improved with increased trazodone from 50 to 100 mg at HS 05/06/2017. * Neuropathic pain symptoms. Continue gabapentin and duloxetine. The dose of gabapentin had been increased considerably from prior to admission. * Not worse with reduction of gabapentin dose. * Acute renal insufficiency with some improvement. Elevated postvoid residual was noted, as well. Renal insufficiency improved after switch from nafcillin to ceftriaxone. * Renal function and electrolytes stable with stage III chronic renal insufficiency on labs 05/09/2017. * Bowel program. Continue polyethylene glycol and senna/docusate on a p.r.n. basis. I have added a bisacodyl suppository p.r.n. as well as a Fleet saline enema. She has been moving her bowels regularly in the hospital. * Prophylaxis. Ambulating > 150'. No hemiparesis, no lower extremity injury. Will not initiate pharmacologic anticoagulation. Plans to discharge to her home with assistance from partner. 2 CHRISTAL (4 CHRISTAL at his house). Tentative D/C 05/20/17. 05/14/17 10:41 Subjective: No new problems or C/O's Resting comfortably, participating in therapies 100% No F/C/CP/SOB/N/V/D/C Objective: Vital Signs Temp Pulse Resp BP Pulse Ox 36.7 C 64 16 125/69 H 90 L 05/14/17 07:41 05/14/17 08:45 05/14/17 07:41 05/14/17 08:45 05/14/17 07:41 Laboratory Results 05/11/17 06:00 05/09/17 06:00 05/13/17 05/14/17 05/15/17 05:59 05:59 05:59 Intake Total 600 970 236 Output Total 900 200 Balance -300 770 236 Physical Exam - Physical Exam General Appearance: no apparent distress Respiratory: decreased breath sounds (Bilateral upper segments), crackles ( Bilateral bases), No respiratory distress, No accessory muscle use Cardiac/Chest: regular rate, rhythm Abdomen: normal bowel sounds Skin: normal color, warm/dry Extremities: pedal edema, No calf tenderness Neuro/Psych: alert, normal mood/affect, oriented x 3, other (no acute changes) ICD10 Worksheet Patient Problems: Problems Problem Status Onset Altered mental status Acute Chronic cervical pain Acute Neuropathy Acute
[2017-05-14] MEDS: DULoxetine 60 MG CAP PO SCH (19:59)
[2017-05-14] MEDS: CYCLOBENZAPRINE 10 MG TAB PO PRN (19:59)
[2017-05-14] MEDS: traZODone 50 MG TAB PO SCH (19:59)
[2017-05-14] MEDS: LISINOPRIL 10 MG TAB PO SCH (19:59)
[2017-05-14] MEDS: MELATONIN 3 MG TAB PO SCH (19:59)
[2017-05-14] MEDS: PATCH REMOVAL 1 EA PATCH TD SCH (20:00)
[2017-05-15] MEDS: ACETAMINOPHEN 500 MG TAB PO SCH ×3 (06:14→21:59)
[2017-05-15] MEDS: oxyCODONE IR 5 MG TAB PO PRN ×4 (06:14→22:00)
[2017-05-15] MEDS: CYCLOBENZAPRINE 10 MG TAB PO PRN ×2 (06:16→21:59)
[2017-05-15] MEDS: ASPIRIN EC 81 MG TAB PO SCH (08:19)
[2017-05-15] MEDS: FAMOTIDINE 20 MG TAB PO SCH (08:19)
[2017-05-15] MEDS: FERROUS SULFATE 325 MG TAB PO SCH (08:19)
[2017-05-15] MEDS: GABAPENTIN 300 MG CAP PO SCH ×3 (08:19→21:59)
[2017-05-15] MEDS: MULTIVITAMINS 1 EACH TAB PO SCH (08:19)
[2017-05-15] MEDS: POLYETHYLENE GLYCOL 3350 17 GM PKT PO SCH (08:28)
[2017-05-15] MEDS: METOPROLOL TARTRATE 50 MG TAB PO SCH ×2 (08:28→21:59)
[2017-05-15] MEDS: LIDOCAINE 5% 1 EA PATCH TD SCH (10:23)
[2017-05-15] MEDS ORDERED: LIDOCAINE 5% 1 EA PATCH TD STA (13:25)
--- NOTE | 2017-05-15 13:25 | SOAPPROG ---
SOAP Progress Note Assessment/Plan: Assessment: 76-year-old woman w/ epidural abscess along the cervical spine causing cord compression, s/p epidural steroid injection. 2.5 weeks S/P surgery for incision and drainage, corpectomy of C6, and partial corpectomy of C7, C4 laminectomy, and anterior and posterior cervical spinal fusion. Multiple hospital complications, including atrial fibrillation, acute renal insufficiency , hypoxia, anemia, encephalopathy, insomnia, deconditioning as well as upper extremity weakness R > L.. * Debility with prominent upper extremity weakness, deconditioning and reduced endurance, status post prolonged complicated hospitalization. * Initial FIM 79 on 05/11/2017. Transfers CGA with FWW. I lionel mobility. Walked 150' x 2. Decreased coordination lower extremities and eccentric weakness noted descending stairs; did 4 steps CGA - min A B rails. Mod A for dressing, max A for bathing, mod - max A toilet hygiene. Upper extremity fatigue. * Continue PT and OT to optimize mobility and activities of daily living. * Encephalopathy in the hospital and possible cognitive impairment. * Largely recovered. Mild decrease in attention and memory. MOCA 29/30. * Continue Speech and Language Pathology but reduced to 30 min/day starting . * Epidural abscess, status post I and D, C6 corpectomy, C7 partial corpectomy, and anterior and posterior spinal fusion. * Continue IV antibiotics for a total of 8 weeks. * Pain control with oxycodone, acetaminophen,. Muscle relaxants D/C'd 2016.. * Hard cervical collar at all times x soft collar is permitted for showering. Follow up with Neurosurgery in approximately 2 weeks. * Pain: increased Bilateral, L>R, posterolateral cervical and upper Trap pain overnight. Better with meds. No pain, numbness or tingling in UE's. Strength and endurance improving on exam and subjective report. Incision healing well. Trial local modalities, oral and topical pain meds, massage. Monitor, * Episode of chest tightness 05/13/2017, currently denies SOB. Using IS at bedside. Cont O2, IS, Bronchodilators * +/- improved with bronchodilator * EKG WNL on 05/13. *Anemia. * Worse on labs 05/09/2017. Much improved 05/11/2017. * Retics appropriate. Very iron deficient. B12 normal. * Replete iron PO starting 05/09/2017 for 1 mo. * Hemoccult negative X 3. * Hypoxia of unclear etiology. Stable now for 2 days. There was no congestive heart failure on her echocardiogram. She has no signs or symptoms of pneumonia. Anemia may contribute. * Continue incentive spirometry and oxygen as needed, * CXR 05/10/2017 with pleural effusion. * No PE on CT angiogram. Has small pleural effusions, atelectasis, and infiltrates upper lobes. D/W Dr. Miles, pulmonology. Consider aspiration pneumonitis. Procalcitonin slightly elevated at 0.11 c/w low likelyhood of sepsis.. Ceftriaxone may not cover gram (-) rods. * Continues to have no elevated white count and procalcitonin is very slightly elevated and not consistent with uncontrolled infection. No cough, sputum, fever. Will not pursue infectious etiology further. * Atrial fibrillation in the hospital. * Regular rhythm on serial exams. * EKG showed new RBBB in the hospital. * On ASA. If she were in atrial fibrillation, CHADS2-Vasc score of 4 would correspond to 4.8% CVA risk per year and anticoagulation would be indicated. * Had normal echocardiogram in the hospital except mild MR & TR.. * Monitor for S/Sx irregular heartbeat. * Edema, unclear etiology. * Gabapentin and amlodipine may contribute. Will decrease gabapentin from 900 mg three times daily to 600 mg three times daily starting 05/11/2017. Will change from amlodipine to lisinopril. Daily weights and continue to monitor. * Was on chlorthalidone prior to hospitalization and no B-anibal. * Consider initiation of diuretic and tapering other antihypertensives. * Hypertension. * Continue metoprolol. Changed from amlodipine to lisinopril 05/11/2017. Monitor blood pressures and adjust or add medications as needed. * Insomnia. Likely contributes to encephalopathy. * Improved with increased trazodone from 50 to 100 mg at HS 05/06/2017. * Neuropathic pain symptoms. Continue gabapentin and duloxetine. The dose of gabapentin had been increased considerably from prior to admission. * Not worse with reduction of gabapentin dose. * Acute renal insufficiency with some improvement. Elevated postvoid residual was noted, as well. Renal insufficiency improved after switch from nafcillin to ceftriaxone. * Renal function and electrolytes stable with stage III chronic renal insufficiency on labs 05/09/2017. * Bowel program. Continue polyethylene glycol and senna/docusate on a p.r.n. basis. I have added a bisacodyl suppository p.r.n. as well as a Fleet saline enema. She has been moving her bowels regularly in the hospital. * Prophylaxis. Ambulating > 150'. No hemiparesis, no lower extremity injury. Will not initiate pharmacologic anticoagulation. Plan: Continue Dr Elder's rehab treatment plan. Anticipate discharge to her home with assistance from partner. 2 CHRISTAL (4 CHRISTAL at his house). Tentative D/C . 05/15/17 13:20 Subjective: Increased L Cervical and UQ pain last night. slept well untill 4 am. No P/N/T/W changes in LUE No F/C/CP/SOB Breathing and O2 needs stable since tuesday Objective: Vital Signs Temp Pulse Resp BP Pulse Ox 36.8 C 64 16 114/65 98 05/15/17 08:00 05/15/17 08:28 05/15/17 08:00 05/15/17 08:28 05/15/17 08:00 Laboratory Results 05/11/17 06:00 05/09/17 06:00 05/14/17 05/15/17 05/16/17 05:59 05:59 05:59 Intake Total 970 1096 Output Total 200 800 Balance 770 296 Physical Exam - Physical Exam General Appearance: alert, no apparent distress Neck: No full range of motion (In cervical collar), No normal inspection ( Incision CD&I) Respiratory: decreased breath sounds (Bilateral upper segments), crackles (L>R base) Cardiac/Chest: regular rate, rhythm Abdomen: normal bowel sounds Skin: normal color, warm/dry Extremities: pedal edema, No calf tenderness Neuro/Psych: alert, normal mood/affect, oriented x 3, motor weakness (B UE, with additioanl giveway 2/2 pain), other (No actue changes) ICD10 Worksheet Patient Problems: Problems Problem Status Onset Altered mental status Acute Chronic cervical pain Acute Neuropathy Acute
[2017-05-15] MEDS ORDERED: SODIUM CL NASAL 45 ML BTL EACHNARE PRN (14:22)
[2017-05-15] MEDS ORDERED: SODIUM CL NASAL GEL 14.1 GM TUBE TP PRN (14:22)
[2017-05-15] MEDS: MELATONIN 3 MG TAB PO SCH (21:59)
[2017-05-15] MEDS: traZODone 50 MG TAB PO SCH (21:59)
[2017-05-15] MEDS: DULoxetine 60 MG CAP PO SCH (21:59)
[2017-05-15] MEDS: LISINOPRIL 10 MG TAB PO SCH (21:59)
[2017-05-15] MEDS: PATCH REMOVAL 1 EA PATCH TD SCH (22:00)
[2017-05-16] MEDS: ACETAMINOPHEN 500 MG TAB PO SCH ×3 (06:06→21:03)
[2017-05-16] MEDS: oxyCODONE IR 5 MG TAB PO PRN ×4 (06:18→21:03)
[2017-05-16 08:37] LABS: PLATELET COUNT 396 10^3/uL (150-400)
[2017-05-16] MEDS: POLYETHYLENE GLYCOL 3350 17 GM PKT PO SCH (09:09)
[2017-05-16] MEDS: GABAPENTIN 300 MG CAP PO SCH ×3 (09:09→21:03)
[2017-05-16] MEDS: FERROUS SULFATE 325 MG TAB PO SCH (09:10)
[2017-05-16] MEDS: FAMOTIDINE 20 MG TAB PO SCH (09:10)
[2017-05-16] MEDS: LIDOCAINE 5% 1 EA PATCH TD SCH (09:10)
[2017-05-16] MEDS: ASPIRIN EC 81 MG TAB PO SCH (09:10)
[2017-05-16] MEDS: MULTIVITAMINS 1 EACH TAB PO SCH (09:10)
[2017-05-16] MEDS: METOPROLOL TARTRATE 50 MG TAB PO SCH ×2 (10:05→21:03)
--- NOTE | 2017-05-16 14:36 | SOAPPROG ---
SOAP Progress Note Assessment/Plan: Assessment: 76-year-old woman w/ epidural abscess along the cervical spine causing cord compression, s/p epidural steroid injection. 2.5 weeks S/P surgery for incision and drainage, corpectomy of C6, and partial corpectomy of C7, C4 laminectomy, and anterior and posterior cervical spinal fusion. Multiple hospital complications, including atrial fibrillation, acute renal insufficiency , hypoxia, anemia, encephalopathy, insomnia, deconditioning as well as upper extremity weakness R > L.. * Debility with prominent upper extremity weakness, deconditioning and reduced endurance, status post prolonged complicated hospitalization. * Initial FIM 79 on 05/11/2017. Transfers CGA with FWW. I lionel mobility. Walked 150' x 2. Decreased coordination lower extremities and eccentric weakness noted descending stairs; did 4 steps CGA - min A B rails. Mod A for dressing, max A for bathing, mod - max A toilet hygiene. Upper extremity fatigue. * Continue PT and OT to optimize mobility and activities of daily living. * Encephalopathy in the hospital and possible cognitive impairment. * Largely recovered. Mild decrease in attention and memory. MOCA . * Continue Speech and Language Pathology but reduced to 30 min/day starting . * Epidural abscess, status post I and D, C6 corpectomy, C7 partial corpectomy, and anterior and posterior spinal fusion. * Continue IV antibiotics for a total of 8 weeks. * Pain control with oxycodone, acetaminophen,. Muscle relaxants D/C'd 2016.. * Hard cervical collar at all times x soft collar is permitted for showering. Follow up with Neurosurgery in approximately 2 weeks. * Pain: increased Bilateral, L>R, posterolateral cervical and upper Trap pain overnight 05/15, improved with meds. No pain, numbness or tingling in UE's. Strength and endurance improving on exam and subjective report. Incision healing well. Cont local modalities, oral and topical pain meds, massage. Monitor, * Episode of chest tightness 05/13/2017, currently denies SOB. Using IS at bedside. Cont O2, IS, Bronchodilators * +/- improved with bronchodilator * EKG WNL on 05/13. *Anemia. * Worse on labs 05/09/2017. Much improved 05/11/2017. Back down to 7.9 on . * Retics appropriate. Very iron deficient. B12 normal. * Replete iron PO starting 05/09/2017 for 1 mo. * Hemoccult negative X 3. * Hypoxia of unclear etiology. Stable now for 3 days, and slightly improved today 05/16/17. * No congestive heart failure on echocardiogram. No signs or symptoms of pneumonia. Anemia may contribute. * Continue incentive spirometry and oxygen as needed, * CXR 05/10/2017 with pleural effusion. * No PE on CT angiogram. Has small pleural effusions, atelectasis, and infiltrates upper lobes. D/W Dr. Mlies, pulmonology. Consider aspiration pneumonitis. Procalcitonin slightly elevated at 0.11 c/w low likelyhood of sepsis.. Ceftriaxone may not cover gram (-) rods. * Continues to have no elevated white count and procalcitonin is very slightly elevated and not consistent with uncontrolled infection. No cough, sputum, fever. Will not pursue infectious etiology further. * Atrial fibrillation in the hospital. * Regular rhythm on serial exams. * EKG showed new RBBB in the hospital. * On ASA. If she were in atrial fibrillation, CHADS2-Vasc score of 4 would correspond to 4.8% CVA risk per year and anticoagulation would be indicated. * Had normal echocardiogram in the hospital except mild MR & TR.. * Monitor for S/Sx irregular heartbeat. * Edema, unclear etiology. * Gabapentin and amlodipine may contribute. Will decrease gabapentin from 900 mg three times daily to 600 mg three times daily starting 05/11/2017. Will change from amlodipine to lisinopril. Daily weights and continue to monitor. * Was on chlorthalidone prior to hospitalization and no B-anibal. * Consider initiation of diuretic and tapering other antihypertensives. * Hypertension. * Continue metoprolol. Changed from amlodipine to lisinopril 05/11/2017. Monitor blood pressures and adjust or add medications as needed. * Insomnia. Likely contributes to encephalopathy. * Improved with increased trazodone from 50 to 100 mg at HS 05/06/2017. * Neuropathic pain symptoms. Continue gabapentin and duloxetine. The dose of gabapentin had been increased considerably from prior to admission. * Not worse with reduction of gabapentin dose. * Acute renal insufficiency with some improvement. Elevated postvoid residual was noted, as well. Renal insufficiency improved after switch from nafcillin to ceftriaxone. * Renal function and electrolytes stable with stage III chronic renal insufficiency on labs 05/09/2017. * Bowel program. Continue polyethylene glycol and senna/docusate on a p.r.n. basis. I have added a bisacodyl suppository p.r.n. as well as a Fleet saline enema. She has been moving her bowels regularly in the hospital. * Prophylaxis. Ambulating > 150'. No hemiparesis, no lower extremity injury. Will not initiate pharmacologic anticoagulation. Plan: Continue Dr Elder's rehab treatment plan. Anticipate discharge to her home with assistance from partner. 2 CHRISTAL (4 CHRISTAL at his house). Tentative D/C . 05/16/17 14:32 Objective: Vital Signs Temp Pulse Resp BP Pulse Ox 36.6 C 62 16 121/65 H 91 L 05/16/17 08:00 05/16/17 10:05 05/16/17 11:00 05/16/17 10:05 05/16/17 11:00 Laboratory Results 05/16/17 06:15 05/16/17 06:15 05/15/17 05/16/17 05/17/17 05:59 05:59 05:59 Intake Total 1096 500 Output Total 800 200 Balance 296 300 Physical Exam - Physical Exam General Appearance: alert, no apparent distress Neck: limited range of motion (c-collar) Respiratory: decreased breath sounds (B Upper grant), crackles (diminished) Cardiac/Chest: regular rate, rhythm Abdomen: normal bowel sounds Skin: normal color, warm/dry Neuro/Psych: alert, normal mood/affect, oriented x 3, motor weakness, other (no gross changes) ICD10 Worksheet Patient Problems: Problems Problem Status Onset Altered mental status Acute Chronic cervical pain Acute Neuropathy Acute
[2017-05-16] MEDS: LISINOPRIL 10 MG TAB PO SCH (21:02)
[2017-05-16] MEDS: DULoxetine 60 MG CAP PO SCH (21:02)
[2017-05-16] MEDS: traZODone 50 MG TAB PO SCH (21:03)
[2017-05-16] MEDS: MELATONIN 3 MG TAB PO SCH (21:03)
[2017-05-16] MEDS: PATCH REMOVAL 1 EA PATCH TD SCH (21:32)
[2017-05-17] MEDS: ACETAMINOPHEN 500 MG TAB PO SCH ×3 (05:59→20:38)
[2017-05-17] MEDS: oxyCODONE IR 5 MG TAB PO PRN ×3 (05:59→20:39)
[2017-05-17] MEDS: POLYETHYLENE GLYCOL 3350 17 GM PKT PO SCH (08:50)
[2017-05-17] MEDS: LIDOCAINE 5% 1 EA PATCH TD SCH (08:50)
[2017-05-17] MEDS: FERROUS SULFATE 325 MG TAB PO SCH (08:51)
[2017-05-17] MEDS: ASPIRIN EC 81 MG TAB PO SCH (08:51)
[2017-05-17] MEDS: MULTIVITAMINS 1 EACH TAB PO SCH (08:51)
[2017-05-17] MEDS: GABAPENTIN 300 MG CAP PO SCH ×3 (08:51→20:39)
[2017-05-17] MEDS: METOPROLOL TARTRATE 50 MG TAB PO SCH ×2 (08:52→20:39)
[2017-05-17] MEDS: FAMOTIDINE 20 MG TAB PO SCH (08:56)
--- NOTE | 2017-05-17 09:59 | SOAPPROG ---
SOAP Progress Note Assessment/Plan: 76-year-old woman w/ epidural abscess along the cervical spine causing cord compression, s/p epidural steroid injection. 2.5 weeks S/P surgery for incision and drainage, corpectomy of C6, and partial corpectomy of C7, C4 laminectomy, and anterior and posterior cervical spinal fusion. Multiple hospital complications, including atrial fibrillation, acute renal insufficiency , hypoxia, anemia, encephalopathy, insomnia, deconditioning as well as upper extremity weakness R > L. Today's update: Patient continues to have some left-sided trapezius pain, appears to be better with lidocaine patches as opposed to taping. She will continue to monitor and pay attention. Continues to have some lower extremity edema and is interested in trying below the knee compression stockings. Also, she endorsed some premorbid memory problems and is not sure if she is yet at her baseline. Otherwise, continue rehab and medical plan, all medical issues are new to this provider. A total of 25 min was spent on the floor in the care of the patient, the majority of which was spent in counseling and coordination of care regarding shoulder pain * Impaired mobility and self care with prominent upper extremity weakness, deconditioning and reduced endurance, status post prolonged complicated hospitalization. Initial FIM 79 on 05/11/2017. Transfers CGA with FWW. I lionel mobility. Walked 150' x 2. Decreased coordination lower extremities and eccentric weakness noted descending stairs; did 4 steps CGA - min A B rails. Mod A for dressing, max A for bathing, mod - max A toilet hygiene. Upper extremity fatigue. * Continue PT and OT to optimize mobility and activities of daily living. * Encephalopathy in the hospital and possible premorbid cognitive impairment. Therapists have noted some cognitive impairment during functional rehabilitation. Mild decrease in attention and memory. MOCA 29/30. * Continue Speech and Language Pathology but reduced to 30 min/day starting . * Epidural abscess, status post I and D, C6 corpectomy, C7 partial corpectomy, and anterior and posterior spinal fusion. Muscle relaxants D/C'd 05/11/2017. * Continue IV antibiotics for a total of 8 weeks. * Pain control with oxycodone, acetaminophen * Hard cervical collar at all times x soft collar is permitted for showering. * Follow up with Neurosurgery in approximately 2 weeks. * Pain: increased Bilateral, L>R, posterolateral cervical and upper Trap pain overnight 05/15, improved with meds. No pain, numbness or tingling in UE's. Strength and endurance improving on exam and subjective report. Incision healing well. * Cont local modalities, oral and topical pain meds, massage. Monitor, * Episode of chest tightness 05/13/2017, currently denies SOB. EKG WNL on . * Using IS at bedside. * Cont O2, IS, Bronchodilators * +/- improved with bronchodilator *Anemia. Worse on labs 05/09/2017. Much improved 05/11/2017. Back down to 7.9 on 05/16/17. Retics appropriate. Very iron deficient. B12 normal. Hemoccult negative X 3. * Replete iron PO starting 05/09/2017 for 1 mo. * Hypoxia of unclear etiology. Stable now for 3 days, and slightly improved today 05/16/17. No congestive heart failure on echocardiogram. No signs or symptoms of pneumonia. Anemia may contribute. CXR 05/10/2017 with pleural effusion. No PE on CT angiogram. Has small pleural effusions, atelectasis, and infiltrates upper lobes. D/W Dr. Miles, pulmonology. Consider aspiration pneumonitis. Procalcitonin slightly elevated at 0.11 c/w low likelyhood of sepsis.. Ceftriaxone may not cover gram (-) rods. Continues to have no elevated white count and procalcitonin is very slightly elevated and not consistent with uncontrolled infection. No cough, sputum, fever. * Continue incentive spirometry and oxygen as needed, * Will not pursue infectious etiology further. * Atrial fibrillation in the hospital. Regular rhythm on serial exams.EKG showed new RBBB in the hospital. Had normal echocardiogram in the hospital except mild MR & TR. * On ASA. If she were in atrial fibrillation, CHADS2-Vasc score of 4 would correspond to 4.8% CVA risk per year and anticoagulation would be indicated. * Monitor for S/Sx irregular heartbeat. * Edema, unclear etiology. Gabapentin and amlodipine may contribute. Was on chlorthalidone prior to hospitalization and no B-anibal. * Decreased gabapentin from 900 mg three times daily to 600 mg three times daily starting 05/11/2017. * changed from amlodipine to lisinopril. * Daily weights and continue to monitor. * Consider initiation of diuretic and tapering other antihypertensives. * Trial of below the knee pressure stockings * Hypertension. Essential * Continue metoprolol. * Changed from amlodipine to lisinopril 05/11/2017. * Monitor blood pressures and adjust or add medications as needed. * Insomnia. Likely contributes to encephalopathy. Improved with increased trazodone from 50 to 100 mg at HS 05/06/2017. * Continue trazodone 100 mg po qhs * Neuropathic pain symptoms. The dose of gabapentin had been increased considerably from prior to admission. Not worse with reduction of gabapentin dose. * Continue gabapentin and duloxetine. * Acute renal insufficiency with some improvement. Elevated postvoid residual was noted, as well. Renal insufficiency improved after switch from nafcillin to ceftriaxone. * Renal function and electrolytes stable with stage III chronic renal insufficiency on labs 05/09/2017. * Bowel program. Continue polyethylene glycol and senna/docusate on a p.r.n. basis. She has been moving her bowels regularly in the hospital. * bisacodyl suppository p.r.n. as well as a Fleet saline enema. * Prophylaxis. Ambulating > 150'. No hemiparesis, no lower extremity injury. * Will not initiate pharmacologic anticoagulation. Anticipate discharge to her home with assistance from partner. 2 CHRISTAL (4 CHRISTAL at his house). Tentative D/C 05/20/17. 05/17/17 09:45 Subjective: Chief complaint: Neurological status and lower limb swelling No acute events overnight. Patient endorsed some premorbid memory problems, is not sure if she is back at her baseline function. She also endorses lower limb edema that is relatively unchanged. She has not tried compression stockings but is open to that. Also, she endorses that her strength in her upper limbs continually improves, no additional concerns and denies any new shortness of breath or chest pain, no new numbness, tingling, or weakness. On questioning, she endorses that her left shoulder pain is better with the addition of lidocaine patches and is okay with the substitution of lidocaine patches over Kinesio taping at this time. Objective: Vital Signs Temp Pulse Resp BP Pulse Ox 37 C 61 16 137/77 H 96 05/16/17 20:00 05/17/17 08:52 05/17/17 08:46 05/17/17 08:52 05/17/17 08:46 Laboratory Results 05/16/17 06:15 05/16/17 06:15 05/16/17 05/17/17 05/18/17 05:59 05:59 05:59 Intake Total 500 720 Output Total 200 1200 Balance 300 -480 Physical Exam - Physical Exam General Appearance: WD/WN, alert, no apparent distress EENT: other (Cervical collar in place), No scleral icterus (R), No scleral icterus (L) Neck: other (As noted above, cervical collar in place) Respiratory: No respiratory distress, No accessory muscle use Cardiac/Chest: regular rate, rhythm, edema (Bilateral lower limb, 2+) Abdomen: non-tender, soft Skin: normal color, warm/dry, No cyanosis, No diaphoresis Extremities: non-tender, pedal edema (2+), No calf tenderness, No Lauryn's sign Neuro/Psych: alert, normal mood/affect, motor weakness (Bilateral upper limbs, decreased rapid alternating movements on the right, not tested on the left), No depressed affect ICD10 Worksheet Patient Problems: Problems Problem Status Onset Altered mental status Acute Chronic cervical pain Acute Neuropathy Acute
[2017-05-17] MEDS: traZODone 50 MG TAB PO SCH (20:39)
[2017-05-17] MEDS: DULoxetine 60 MG CAP PO SCH (20:39)
[2017-05-17] MEDS: LISINOPRIL 10 MG TAB PO SCH (20:39)
[2017-05-17] MEDS: MELATONIN 3 MG TAB PO SCH (22:10)
[2017-05-17] MEDS: PATCH REMOVAL 1 EA PATCH TD SCH (22:10)
[2017-05-18] MEDS: ACETAMINOPHEN 500 MG TAB PO SCH ×3 (05:33→20:31)
[2017-05-18] MEDS: oxyCODONE IR 5 MG TAB PO PRN (07:05)
[2017-05-18] MEDS: GABAPENTIN 300 MG CAP PO SCH ×3 (08:41→20:32)
[2017-05-18] MEDS: POLYETHYLENE GLYCOL 3350 17 GM PKT PO SCH (08:42)
[2017-05-18] MEDS: METOPROLOL TARTRATE 50 MG TAB PO SCH ×2 (08:44→20:32)
[2017-05-18] MEDS: MULTIVITAMINS 1 EACH TAB PO SCH (08:44)
[2017-05-18] MEDS: FAMOTIDINE 20 MG TAB PO SCH (08:45)
[2017-05-18] MEDS: ASPIRIN EC 81 MG TAB PO SCH (08:45)
[2017-05-18] MEDS: FERROUS SULFATE 325 MG TAB PO SCH (08:45)
--- NOTE | 2017-05-18 09:48 | SOAPPROG ---
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 This required surgery for incision and drainage, corpectomy of C6, and partial corpectomy of C7, C4 laminectomy, and anterior and posterior cervical spinal fusion. She had multiple hospital complications, including atrial fibrillation, acute renal insufficiency, hypoxia, anemia, encephalopathy, and insomnia. She has deconditioning as well as upper extremity weakness R > L.. * Debility with prominent upper extremity weakness, deconditioning and reduced endurance, status post prolonged complicated hospitalization. * Initial FIM 79 on 05/11/2017, improved to 93 as of 05/18/2017 . Independent with bed mobility, walked 3 - 400' FWW. Tranasfers SBA. Needs cues for O2 management, and assistance at night. Has delayed balance reactions and fall risk. Needs repetitive cueing for safety. Otherwise at supervision level for ADLs and mobility. * Continue PT and OT to optimize mobility and activities of daily living. * Encephalopathy in the hospital and possible cognitive impairment. * Largely recovered. Mild decrease in attention and memory. MOCA 29/30. * Continue Speech and Language Pathology but reduced to 30 min/day starting . * Epidural abscess, status post I and D, C6 corpectomy, C7 partial corpectomy, and anterior and posterior spinal fusion. * Continue IV ceftriaxone BID for a total of 8 weeks through 06/20/2017. CBC, CMP Q Tuesday. * Pain control with oxycodone, acetaminophen,. Not using muscle relaxants; D/C 05/11/2017.. * Hard cervical collar at all times except a soft collar is permitted for showering. Follow up with Neurosurgery after discharge. * Episode of chest tightness this morning 05/13/2017. * +/- improved with bronchodilator * Normal troponin and EKG. *Anemia. * Worse on labs 05/09/2017. Much improved 05/11/2017. Decreased 05/16/2017 but overall trend has been increasing. * Retics appropriate. Very iron deficient. B12 normal. * Replete iron PO starting 05/09/2017 for 1 mo. * Hemoccult negative X 3. * Continue weekly CBC. * Hypoxia of unclear etiology. There was no congestive heart failure on her echocardiogram. She has no signs or symptoms of pneumonia. Anemia may contribute. * Continue incentive spirometry and oxygen as needed, * CXR 05/10/2017 with pleural effusion. * No PE on CT angiogram. Has small pleural effusions, atelectasis, and infiltrates upper lobes. D/W Dr. Miles, pulmonology. Consider aspiration pneumonitis. Advises checking procalcitonin: mildly elevated. * Leukocytosis resolved 05/11/2017 and 05/16/2017 all. No cough, sputum, fever. Will not pursue infectious etiology further. * Pulmonology evaluation after discharge. * Atrial fibrillation in the hospital. * Regular rhythm on serial exams. * EKG showed new RBBB in the hospital. * On ASA. If she were in atrial fibrillation, CHADS2-Vasc score of 4 would correspond to 4.8% CVA risk per year and anticoagulation would be indicated. * Had normal echocardiogram in the hospital except mild MR & TR.. * Monitor for S/Sx irregular heartbeat. * Edema, unclear etiology. * Gabapentin and amlodipine may contribute. Will decrease gabapentin from 900 mg three times daily to 600 mg three times daily starting 05/11/2017. Will change from amlodipine to lisinopril. Improving edema and has diuresed 4 kg since 05/10/2017. * Was on chlorthalidone prior to hospitalization and no B-anibal. * Hypertension. * Continue metoprolol. Changed from amlodipine to lisinopril 05/11/2017. Monitor blood pressures and adjust or add medications as needed. * Insomnia. Likely contributes to encephalopathy. * Improved with increased trazodone from 50 to 100 mg at HS 05/06/2017. * D/C melatonin 05/18/2017 as it is unlikely to be adding any benefit at this point. * Neuropathic pain symptoms. Continue gabapentin and duloxetine. The dose of gabapentin had been increased considerably from prior to admission. * Not worse with reduction of gabapentin dose. * Acute renal insufficiency with some improvement. Elevated postvoid residual was noted, as well. Renal insufficiency improved after switch from nafcillin to ceftriaxone. * Renal function and electrolytes stable with stage III chronic renal insufficiency on labs 05/09/2017; stable on labs 05/16/2017. Continue weekly CMP on Mondays. * Bowel program. Continue polyethylene glycol and senna/docusate on a p.r.n. basis. I have added a bisacodyl suppository p.r.n. as well as a Fleet saline enema. She has been moving her bowels regularly in the hospital. * Prophylaxis. Ambulating > 150'. No hemiparesis, no lower extremity injury. Will not initiate pharmacologic anticoagulation. Attended staffing, 15 min. D/W case mgmt, practice support specialist, nurse, PT, OT, ROTARY ADJUSTER. Patient desires to stay for another week, or discharge to SNF. Tentative D/C 05/20. 05/18/17 16:58 Subjective: Reports discomfort on her left posterior neck. It feels like her hair is being pulled. She wonders if it is neurologic. Otherwise without complaints. No cough, dyspnea, fevers, chills. Sleeping very well. Objective: Vital Signs Temp Pulse Resp BP Pulse Ox 36.6 C 65 14 142/78 H 93 05/18/17 07:34 05/18/17 07:34 05/18/17 07:34 05/18/17 07:34 05/18/17 07:34 Laboratory Results 05/16/17 06:15 05/16/17 06:15 05/17/17 05/18/17 05/19/17 05:59 05:59 05:59 Intake Total 720 860 Output Total 1200 800 Balance -480 60 - Time Spent With Patient Time Spent With Patient: Greater than 35 minutes floor time today, including more than 50% of time in coordination of care during staffing meeting, and counseling patient. Physical Exam - Physical Exam General Appearance: WD/WN, alert, no apparent distress Neck: non-tender Respiratory: normal breath sounds, No crackles, No rhonchi, No wheezing Cardiac/Chest: regular rate, rhythm, edema (1+ bilateral ankles. ) Skin: other (No rash or erythema posterior neck) Neuro/Psych: no motor/sensory deficits, alert, normal mood/affect, oriented x 3 , abnormal gait (Mildly wide-based, step through pattern, with front wheeled walker.) ICD10 Worksheet Patient Problems: Problems Problem Status Onset Altered mental status Acute Chronic cervical pain Acute Neuropathy Acute
[2017-05-18] MEDS: LIDOCAINE 5% 1 EA PATCH TD SCH (16:24)
[2017-05-18] MEDS: DULoxetine 60 MG CAP PO SCH (20:31)
[2017-05-18] MEDS: LISINOPRIL 10 MG TAB PO SCH (20:32)
[2017-05-18] MEDS: traZODone 50 MG TAB PO SCH (20:32)
[2017-05-18] MEDS: PATCH REMOVAL 1 EA PATCH TD SCH (20:32)
[2017-05-19] MEDS: oxyCODONE IR 5 MG TAB PO PRN ×2 (04:25→21:30)
[2017-05-19] MEDS: ACETAMINOPHEN 500 MG TAB PO SCH ×3 (06:04→21:17)
[2017-05-19] MEDS: POLYETHYLENE GLYCOL 3350 17 GM PKT PO SCH (08:35)
[2017-05-19] MEDS: METOPROLOL TARTRATE 50 MG TAB PO SCH ×2 (08:37→21:18)
[2017-05-19] MEDS: GABAPENTIN 300 MG CAP PO SCH ×3 (08:37→21:17)
[2017-05-19] MEDS: FERROUS SULFATE 325 MG TAB PO SCH (08:38)
[2017-05-19] MEDS: ASPIRIN EC 81 MG TAB PO SCH (08:38)
[2017-05-19] MEDS: MULTIVITAMINS 1 EACH TAB PO SCH (08:38)
[2017-05-19] MEDS: LIDOCAINE 5% 1 EA PATCH TD SCH (08:39)
--- NOTE | 2017-05-19 09:52 | SOAPPROG ---
SOAP Progress Note Assessment/Plan: 76-year-old woman w/ epidural abscess along the cervical spine causing cord compression, s/p epidural steroid injection. 2.5 weeks S/P surgery for incision and drainage, corpectomy of C6, and partial corpectomy of C7, C4 laminectomy, and anterior and posterior cervical spinal fusion. Multiple hospital complications, including atrial fibrillation, acute renal insufficiency , hypoxia, anemia, encephalopathy, insomnia, deconditioning as well as upper extremity weakness R > L. Today's update: Trapezius pain is helped tremendously by ice, continue this. Also, patient is much more motivated to be careful regarding safety and awareness around ADLs. I will discuss with social work the possibility of a home discharge if possible. Isolated insomnia last night is more consistent with which she experiences at home and will talk with social work regarding strategies. Making good recovery of the right upper limb. A total of 35 min was spent on the floor in the care of the patient, the majority of which was spent in the counseling and coordination of care regarding discharge location planning. * Impaired mobility and self care with prominent upper extremity weakness, deconditioning and reduced endurance, status post prolonged complicated hospitalization. Initial FIM 79 on 05/11/2017, 93 as of 05/18/2017. Reported to be independent in bed mobility, walking 300-400 feet with a front wheel walker and transferring with standby assistance. Still needs cuing for oxygen management and assistance at night. Reported to have delayed balance reaction and fall risk. Needs repetitive cuing for safety. Otherwise at a supervision level for ADLs and mobility. * Continue PT and OT to optimize mobility and activities of daily living. * Encephalopathy in the hospital and possible premorbid cognitive impairment. Therapists have noted some cognitive impairment during functional rehabilitation. Mild decrease in attention and memory. Last reported MOCA 29/ 30. * Continue Speech and Language Pathology but reduced to 30 min/day starting . * Epidural abscess, status post I and D, C6 corpectomy, C7 partial corpectomy, and anterior and posterior spinal fusion. Muscle relaxants D/C'd 05/11/2017. * Continue IV antibiotics for a total of 8 weeks. CBC every Tuesday, comprehensive metabolic panel every Tuesday * Pain control with oxycodone, acetaminophen * Hard cervical collar at all times x soft collar is permitted for showering. * Follow up with Neurosurgery in approximately 2 weeks. * Pain: increased Bilateral, L>R, posterolateral cervical and upper Trap pain overnight 05/15, improved with meds. No pain, numbness or tingling in UE's. Strength and endurance improving on exam and subjective report. Incision healing well. * Cont local modalities, oral and topical pain meds, massage. Monitor, * Episode of chest tightness 05/13/2017, currently denies SOB. EKG WNL on 05/13 , troponins normal. * Using IS at bedside. * Cont O2, IS, Bronchodilators * +/- improved with bronchodilator *Anemia. Worse on labs 05/09/2017. Much improved 05/11/2017. Back down to 7.9 on 05/16/17. Retics appropriate. Very iron deficient. B12 normal. Hemoccult negative X 3. * Replete iron PO starting 05/09/2017 for 1 mo. * Weekly CBC * Hypoxia of unclear etiology. Stable now. No congestive heart failure on echocardiogram. No signs or symptoms of pneumonia. Anemia may contribute. CXR 05/10/2017 with pleural effusion. No PE on CT angiogram. Has small pleural effusions, atelectasis, and infiltrates upper lobes. D/W Dr. Miles, pulmonology. Consider aspiration pneumonitis. Procalcitonin slightly elevated at 0.11 c/w low likelyhood of sepsis.. Ceftriaxone may not cover gram (-) rods. Continues to have no elevated white count and procalcitonin is very slightly elevated and not consistent with uncontrolled infection. No cough, sputum, fever. * Continue incentive spirometry and oxygen as needed, * Will not pursue infectious etiology further. * Pulmonology follow-up after discharge * Atrial fibrillation in the hospital. Regular rhythm on serial exams.EKG showed new RBBB in the hospital. Had normal echocardiogram in the hospital except mild MR & TR. * On ASA. If she were in atrial fibrillation, CHADS2-Vasc score of 4 would correspond to 4.8% CVA risk per year and anticoagulation would be indicated. * Monitor for S/Sx irregular heartbeat. * Edema, unclear etiology. Gabapentin and amlodipine may contribute. Was on chlorthalidone prior to hospitalization and no B-anibal. * Decreased gabapentin from 900 mg three times daily to 600 mg three times daily starting 05/11/2017. * changed from amlodipine to lisinopril. * Daily weights and continue to monitor. * Consider initiation of diuretic and tapering other antihypertensives. * below the knee pressure stockings * Hypertension. Essential * Continue metoprolol. * Changed from amlodipine to lisinopril 05/11/2017. * Monitor blood pressures and adjust or add medications as needed. * Insomnia. Likely contributes to encephalopathy. Improved with increased trazodone from 50 to 100 mg at HS 05/06/2017. * Continue trazodone 100 mg po qhs * Neuropathic pain symptoms. The dose of gabapentin had been increased considerably from prior to admission. Not worse with reduction of gabapentin dose. * Continue gabapentin and duloxetine. * Acute renal insufficiency with some improvement. Elevated postvoid residual was noted, as well. Renal insufficiency improved after switch from nafcillin to ceftriaxone. * Renal function and electrolytes stable with stage III chronic renal insufficiency on labs 05/09/2017. * Continue weekly comprehensive metabolic panel * Bowel program. Continue polyethylene glycol and senna/docusate on a p.r.n. basis. She has been moving her bowels regularly in the hospital. * bisacodyl suppository p.r.n. as well as a Fleet saline enema. * Prophylaxis. Ambulating > 150'. No lower extremity injury. * Will not initiate pharmacologic anticoagulation. Current plan is to discharge to [facility] facility, likely [facility], very shortly. Primary concern is her overall safety awareness and memory. Prior plan was to discharge to her home with assistance from partner. 2 CHRISTAL (4 CHRISTAL at his house). Tentative D/C 05/20/17. 05/17/17 09:45 05/19/17 09:45 05/19/17 09:53 Subjective: Chief complaint: Right arm weakness No acute events overnight. Right arm continues to be weak and making progress but is not as strong as the left side. No new shortness of breath or chest pain , no new numbness, tingling, or weakness. She notes that ice packs a been helpful for the trapezius pain that she was experiencing. She continues to have some difficulty remembering to wear oxygen when she stands up and ambulates and also notes that she was having some difficulty attending to safety when toileting. She states that she has had a shift in her perception of these issues and now sees them as critical for a discharge home and wishes that she had address them earlier in the rehabilitation course. Her ultimate goal is to discharge home as soon as possible. She also endorses that she had some poor sleep last night that was more consistent with her sleep level at home , she has not discuss this with social work and she is currently not interested in pharmacological assistance. Objective: Vital Signs Temp Pulse Resp BP Pulse Ox 36.9 C 69 16 129/67 H 92 05/19/17 07:45 05/19/17 07:45 05/18/17 20:00 05/19/17 07:45 05/19/17 07:45 Laboratory Results 05/16/17 06:15 05/16/17 06:15 05/18/17 05/19/17 05/20/17 05:59 05:59 05:59 Intake Total 860 450 240 Output Total 800 Balance 60 450 240 Physical Exam - Physical Exam General Appearance: WD/WN, alert, no apparent distress EENT: No scleral icterus (R), No scleral icterus (L) Neck: other (Cervical collar in place) Respiratory: No respiratory distress, No accessory muscle use Cardiac/Chest: normal peripheral pulses, regular rate, rhythm Skin: normal color, warm/dry, No cyanosis, No diaphoresis Neuro/Psych: alert, normal mood/affect, other (Right-sided vehicle washer 4/5, left-sided vehicle washer 5/5. She has slightly decreased active range of motion in her right hand compared to her left and decreased rapid alternating movements) ICD10 Worksheet Patient Problems: Problems Problem Status Onset Altered mental status Acute Chronic cervical pain Acute Neuropathy Acute
--- NOTE | 2017-05-19 15:16 | PDOREHIP ---
Admission [facility] - Admission - 3 Day Assessment Period Admission Date/Day 1: 05/06/17 Day 2: 05/07/17 Day 3: 05/08/17 Discharge [facility] - Discharge - 3 Day Assessment Period 2 Days Prior to Anticipated Discharge Date: 05/17/17 1 Day Prior to Anticipated Discharge Date: 05/18/17 Anticipated Discharge Date: 05/19/17 - Discharge Skin Conditions Unhealed Pressure Ulcer (1 or more/Stage 1 or >)-Discharge: 0. No
[2017-05-19] MEDS: DULoxetine 60 MG CAP PO SCH (21:18)
[2017-05-19] MEDS: LISINOPRIL 10 MG TAB PO SCH (21:19)
[2017-05-19] MEDS: traZODone 50 MG TAB PO SCH (21:27)
[2017-05-19] MEDS: PATCH REMOVAL 1 EA PATCH TD SCH (21:27)
[2017-05-20] MEDS: ACETAMINOPHEN 500 MG TAB PO SCH ×2 (05:16→14:33)
[2017-05-20 07:18] VITALS: BP 132/74; PULSE 63; RESP 17; TEMP 97.5
[2017-05-20] MEDS: oxyCODONE IR 5 MG TAB PO PRN (07:42)
[2017-05-20] MEDS: GABAPENTIN 300 MG CAP PO SCH ×2 (07:45→14:33)
[2017-05-20] MEDS: POLYETHYLENE GLYCOL 3350 17 GM PKT PO SCH (09:20)
[2017-05-20] MEDS: FERROUS SULFATE 325 MG TAB PO SCH (09:21)
[2017-05-20] MEDS: ASPIRIN EC 81 MG TAB PO SCH (09:21)
[2017-05-20] MEDS: METOPROLOL TARTRATE 50 MG TAB PO SCH (09:21)
[2017-05-20] MEDS: MULTIVITAMINS 1 EACH TAB PO SCH (09:21)
[2017-05-20 11:26] VITALS: O2SAT 93
[2017-05-20] MEDS: LIDOCAINE 5% 1 EA PATCH TD SCH (13:18)
[2017-05-20] MEDS ORDERED: ONDANSETRON DISINTEGRATING 4 MG TAB PO PRN (14:16)
--- NOTE | 2017-05-20 15:16 | PDOREHIP ---
Admission [facility] - Admission - 3 Day Assessment Period Admission Date/Day 1: 05/06/17 Day 2: 05/07/17 Day 3: 05/08/17 Discharge [facility] - Discharge - 3 Day Assessment Period 2 Days Prior to Anticipated Discharge Date: 05/18/17 1 Day Prior to Anticipated Discharge Date: 05/19/17 Anticipated Discharge Date: 05/20/17
--- NOTE | 2017-05-24 20:02 | GDS ---
[f rep st] DISCHARGE SUMMARY ADMITTING DIAGNOSIS: Cervical spine epidural abscess, status post incision and drainage, C6 corpecto my, C7 partial corpectomy, C4 laminectomy and anterior and posterior cervical spinal fusion. DISCHARGE DIAGNOSIS: Cervical spine epidural abscess, status post incision and drainage, C6 corpecto my, C7 partial corpectomy, C4 laminectomy and anterior and posterior cervical spinal fusion. OTHER DISCHARGE DIAGNOSES: 1. Encephalopathy in the hospital and possible cognitive impairment. 2. Anemia. 3. Hypoxia. 4. Edema. 5. Hypertension. CONSULTATIONS: There were none. PROCEDURES: There were none. COMPLICATIONS: There were none. HISTORY/HOSPITAL COURSE: 1. This patient was admitted to inpatient rehabilitation after extensive C-spine surgery for an epid ural abscess which was a consequence of cervical spinal epidural corticosteroid injection for chronic pain. Hospital complications included pneumonia, hypoxia and encephalopathy. She had good progress in rehabilitation with progressively reduced dependency. She achieved independence with bed mobilit y. She was walking 300 to 400 feet with a front-wheeled walker. She required standby assistance for transfers and needed some cues for oxygen management, and especially assistance at night. She was n oted to have delayed balance reactions and to be a fall risk. She needed repetitive cuing for safety . Otherwise, she was at supervision level for activities of daily living and mobility. 2. Regarding her encephalopathy in the hospital, she largely recovered. She was noted to have a mil d decrease in attention and memory. The Reji cognitive assessment was administered and she score d a 29/30, in the normal range. 3. Regarding the epidural abscess, she was maintained on IV ceftriaxone twice daily with a plan to c ontinue for 8 weeks through 06/20/2017. 4. She had anemia which initially worsened, then improved and then had somewhat of a decrease again. Evaluation revealed a normal reticulocytosis, normal B12, but very iron deficient. Iron sulfate wa s begun on 05/09/2017 and should be continued for a month. Hemoccult was negative x3. She was getti ng a CBC every Tuesday due to her antibiotic therapy and as of 05/16/2017 her hemoglobin was 7.9 and h er hematocrit was 24.2. 5. She had hypoxia requiring 2 L of oxygen, etiology was unclear. There was no congestive heart maxine lure seen on echocardiogram in the hospital. She did not have signs or symptoms of pneumonia. Chest x-ray on 05/10/2017 showed a pleural effusion. She had a followup CT angiogram which ruled out a pu lmonary embolus and showed small pleural effusions, atelectasis and upper lobe infiltrates. Leukocyt osis resolved during the course of her stay. She had no cough, sputum, or fever. It was recommended that she have an evaluation by pulmonology after discharge. 6. There was edema. Etiology, again, was unclear, especially given results of her chest evaluation. It was thought that the gabapentin and amlodipine may be contributing. Gabapentin dose was decreas ed from 900 mg three times daily to 600 mg three times daily and amlodipine was discontinued and she was started on lisinopril. Subsequently, she diuresed approximately 4 kg and the edema improved. 7. Hypertension. With medication changes as above, her blood pressure was adequately controlled. 8. Acute renal insufficiency. Again, labs were checked every Tuesday and her creatinine remained sta ble at 1.2 with an estimated GFR of 44. CONDITION UPON DISCHARGE: Good. ACTIVITY: Ad kathie but she would benefit from supervision with mobility due to fall risk, especially a t night. DIET: Regular. DATE OF NEXT APPOINTMENT: She has followup with her primary care provider, Sanjeev Norton on 7, and she will follow up with Infectious Disease physician, Dr. Stout and Neurosurgeon, Dr. Amaya. MEDICATIONS AT DISCHARGE: 1. Aspirin 81 mg p.o. daily. 2. Multivitamin 1 p.o. daily. 3. Senna/docusate 1 to 2 p.o. twice daily p.r.n. 4. Polyethylene glycol 17 g p.o. daily p.r.n. 5. Trazodone 100 mg p.o. at bedtime. 6. Oxycodone 5 to 10 mg p.o. q.4 hours p.r.n. 7. Ceftriaxone 2 g IV q.12 hours through 06/20/2017. 8. Metoprolol 50 mg p.o. twice daily. 9. Lisinopril 10 mg p.o. at bedtime. 10. Lidocaine patch. 11. Gabapentin 600 mg p.o. three times daily. 12. Ferrous sulfate 325 mg p.o. daily through 06/08/2017. 13. Duloxetine 60 mg p.o. at bedtime. ISSUES TO BE ADDRESSED FOLLOW UP: 1. Epidural abscess on antibiotics to follow up with Dr. Stout. 2. Status post C-spine surgery. Continue cervical collar and follow up with Dr. Amaya. 3. Anemia. Continue weekly CBC. Follow up with primary care. 4. Hypoxia. It was advised that she follow up with a rolling attendant, which can be arranged through h er primary care physician. 5. Edema was improving with medication changes and she can follow up with her primary care physician . 6. Hypertension was well controlled and she should follow up with primary care. 7. Chronic renal insufficiency to follow up with her primary care physician. /[id number]/MODL
== END 2017-05-20 15:49 | DRG 949 ==
LOC: BREH 14:10
PROVIDERS: ADMIT Internal Medicine; ATTEND Internal Medicine
PROC: F08Z7ZZ Vocational Activities and Functional Community or Work Reintegration Skills Treatment (ICD-10-PCS; principal; 2017-05-06)
PROC: F0636ZZ Communicative/Cognitive Integration Skills Treatment of Neurological System - Whole Body (ICD-10-PCS; principal; 2017-05-06)
PROC: F07M3ZZ Motor Function Treatment of Musculoskeletal System - Whole Body (ICD-10-PCS; principal; 2017-05-06)
DX: Z48.811 Encounter for surgical aftercare following surgery on the nervous system (principal); G93.40 Encephalopathy, unspecified; M62.81 Muscle weakness (generalized); Z98.1 Arthrodesis status; I10 Essential (primary) hypertension; G47.00 Insomnia, unspecified; G62.9 Polyneuropathy, unspecified; N28.9 Disorder of kidney and ureter, unspecified; D64.9 Anemia, unspecified; R09.02 Hypoxemia; K21.9 Gastro-esophageal reflux disease without esophagitis; Z90.710 Acquired absence of both cervix and uterus; Z98.41 Cataract extraction status, right eye; Z98.42 Cataract extraction status, left eye
CPT/HCPCS: 82607-90; 92507-GN; 92522-GN; 92526-GN; 92610-GN; 97110-GO; 97110-GP; 97112-GO; 97112-GP; 97116-GP; 97162-GP; 97166-GO; 97530-GO; 97530-GP; 97535-GO; J0696; Q9967

== ENCOUNTER → 2017-06-11 | Outpatient (CLI) | payer OTHER | LOC: FIMAGING 11:01 | PROVIDERS: ATTEND Physician Assistant | DX: Z09 Encounter for follow-up examination after completed treatment for conditions other than malignant neoplasm (principal); Z98.1 Arthrodesis status; M48.02 Spinal stenosis, cervical region ==

== ENCOUNTER → 2017-07-26 | Outpatient (CLI) | payer OTHER ==
[~2017-07-26] MED LIST: GADOBUTROL 10 ML VIAL IVP ONE
== END ==
LOC: FIMAGING 11:49
PROVIDERS: ATTEND Internal Medicine Infectious Disease
DX: M50.31 Other cervical disc degeneration, high cervical region (principal); M48.02 Spinal stenosis, cervical region; Z98.1 Arthrodesis status
CPT/HCPCS: 72156; A9585

== ENCOUNTER → 2017-07-28 | Outpatient (CLI) | payer OTHER | LOC: FIMAGING 16:05 | PROVIDERS: ATTEND Physician Assistant | DX: Z09 Encounter for follow-up examination after completed treatment for conditions other than malignant neoplasm (principal); Z98.1 Arthrodesis status ==

== ENCOUNTER → 2017-08-04 | Outpatient (CLI) | payer OTHER | LOC: FIMAGING 12:40 | PROVIDERS: ATTEND Internal Medicine | DX: Z03.89 Encounter for observation for other suspected diseases and conditions ruled out (principal) ==

== ENCOUNTER → 2017-10-22 | Outpatient (CLI) | payer OTHER | LOC: FIMAGING 10:11 | PROVIDERS: ATTEND Physician Assistant | DX: M48.02 Spinal stenosis, cervical region (principal); M50.321 Other cervical disc degeneration at C4-C5 level; Z98.1 Arthrodesis status ==

== ENCOUNTER → 2017-10-27 | Outpatient (CLI) | payer OTHER | LOC: FIMAGING 10:37 | PROVIDERS: ATTEND Obstetrics & Gynecology | DX: Z12.31 Encounter for screening mammogram for malignant neoplasm of breast (principal) ==

== ENCOUNTER → 2018-04-27 | Outpatient (CLI) | payer OTHER | LOC: FIMAGING 11:11 | PROVIDERS: ATTEND Physician Assistant | DX: Z09 Encounter for follow-up examination after completed treatment for conditions other than malignant neoplasm (principal); Z98.1 Arthrodesis status; M47.812 Spondylosis without myelopathy or radiculopathy, cervical region; M46.92 Unspecified inflammatory spondylopathy, cervical region ==

== ENCOUNTER → 2018-10-31 | Outpatient (CLI) | payer OTHER | LOC: FIMAGING 15:25 ==